=== PATIENT | male | born 1965 | race Caucasian/White ===

== ENCOUNTER → 2017-05-10 11:43 | Outpatient (REF) | payer OTHER, SELFPAY ==
[2017-05-10 13:40] LABS: Microscopic, Urine URINE MICROSCOPIC (MICROSCOPIC)
[2017-05-10 13:48] LABS: Appearance,Urine CLEAR (Clear); Bilirubin,Urine Negative (Negative); Blood, Urine Negative (Negative); Color,Urine YELLOW (Yellow); Glucose,Urine (UA) Negative (Negative); Ketones,Urine Negative (Negative); Leukocyte Esterase,Urine Negative (Negative); Nitrate,Urine Negative (Negative); Protein,Urine Negative (Negative); Urobilinogen,Urine 0.2 EU/dl (0.2)
[2017-05-10 14:14] LABS: Bacteria,Urine Trace /lpf; Squamous Epithelial Cell,Urine Occasional #/hpf (0-5)
== END ==
LOC: LAB 11:43
PROVIDERS: Visit Provider Emergency Medicine
DX: R35.0 Frequency of micturition (principal)
CPT/HCPCS: 81001

== ENCOUNTER 2017-06-30 09:30 | Outpatient (RCR) | payer OTHER, SELFPAY | END 2017-07-26 16:51 | disposition home or self-care (01) | LOC: PT 09:30 | PROVIDERS: Family Provider Emergency Medicine; PCP Emergency Medicine; Visit Provider Emergency Medicine | DX: M54.9 Dorsalgia, unspecified (principal) | CPT/HCPCS: 97012; 97014; 97035; 97110; 97140; G0283 ==

== ENCOUNTER → 2017-07-21 11:56 | Outpatient (CLI) | payer OTHER, SELFPAY ==
[2017-07-21 15:11] LABS: Anion Gap 10.4 mEq/L (5-15); Blood Urea Nitrogen 13 mg/dL (7-18); Carbon Dioxide 28 mmol/L (21.0-32.0); Chloride 102 mmol/L (98-107); Creatinine,Serum 0.87 mg/dL (0.70-1.30); Estimated Glomerular Filt Rate 92 ml/min (>60); GFR (African American) 111 ML/MIN (>60); Glucose 286 mg/dL (74-106); Potassium 4.4 mmoL/L (3.5-5.1); Sodium 136 mmol/L (136-145)
== END ==
PROVIDERS: Visit Provider Emergency Medicine
DX: R60.0 Localized edema (principal)
CPT/HCPCS: 80048

== ENCOUNTER 2017-12-25 02:23 | Observation (INO) ==
[2017-12-25 03:53] LABS: Basophils # 0.1 K/mm3 (0-0.2); Basophils % 0.5 % (0.1-2.0); Eosinophils # 0.2 K/mm3 (0.0-0.4); Eosinophils % 1.1 % (0.1-12.0); Hematocrit 51.6 % (42.0-52.0); Hemoglobin 16.5 g/dL (14.1-18.0); Lymphocytes % 22.9 K/mm3 (10-50); Mean Corpuscular Hemoglobin 30.3 pg (27.0-31.2); Mean Corpuscular Volume 94.7 fl (80-94); Mean Platelet Volume 11.3 fl (7.4-10.4); Monocytes # 1.1 K/mm3 (0.1-1.0); Monocytes % 8.3 % (1.7-9.3); Neutrophils # 8.9 K/mm3 (1.8-7.8); Neutrophils % 67.2 % (37.0-80.0); Platelet Count 144 K/mm3 (142-424); Red Blood Count 5.44 M/mm3 (4.60-6.20); White Blood Count 13.2 K/mm3 (4.8-10.8)
[2017-12-25 04:07] LABS: Albumin Level 2.8 gm/dL (3.4-5.0); Albumin/Globulin Ratio 0.6 (1.1-1.8); Anion Gap 13.5 mEq/L (5-15); Bilirubin,Total 0.6 mg/dL (0.2-1.0); Calcium 8.8 mg/dL (8.5-10.1); Potassium 5.5 mmoL/L (3.5-5.1); Total Protein,Serum 7.8 gm/dL (6.4-8.2)
[2017-12-25 04:18] LABS: INR 0.95 (0.9-1.1); Prothrombin Time 9.8 seconds (9.4-11.8)
--- NOTE | 2017-12-25 04:56 | Emergency Department Note ---
ED Disposition Clinical Impression: IDDM (insulin dependent diabetes mellitus), Overweight, Tobacco use Cellulitis Qualifiers: Site of cellulitis: extremity Site of cellulitis of extremity: lower extremity Laterality: right Qualified Code(s): L03.115 - Cellulitis of right lower limb Disposition: Admitted as Observation Condition on Discharge: Good Referrals: Prateek Leary MD [Primary Care Provider] - - Critical Care Critical Care Time: No Attestation: On 12/25/17, the high probability of a clinically significant, sudden or life threatening deterioration of the following system(s) required my full and direct attention, intervention and personal management. The time I documented below is in addition to time spent performing reported procedures but includes the fo llowing listed in this critical care notation. Medical Decision Making - Medical Records Medical records reviewed: Yes: I reviewed the patient's medical records. - [place] Inquiry Pt receiving controlled substance: No Vital Signs: 12/25/17 02:28 Temperature 98.6 F Temperature Source Oral Pulse Rate [Right Radial] 69 Respiratory Rate 20 Blood Pressure [Right Arm] 156/84 Blood Pressure Mean [Right Arm] 108 02 Sat by Pulse Oximetry 97 - Lab Data Lab results reviewed: Yes: I reviewed the patient's lab results. Lab Results 12/25/17 03:18: WBC 13.2 H, RBC 5.44, Hgb 16.5, Hct 51.6, MCV 94.7 H, MCH 30.3, MCHC 32.0, RDW 13.0, Plt Count 144, MPV 11.3 H, Neut % (Auto) 67.2, Lymph % (Auto) 22.9, [place] % (Auto) 8.3, Eos % (Auto) 1.1, Baso % (Auto) 0.5, Neut # (Auto) 8.9 H, Lymph # (Auto) 3.0, [place] # (Auto) 1.1 H, Eos # (Auto) 0.2, Baso # (Auto) 0.1 12/25/17 03:18: Sodium 130 L, Potassium 5.5 H, Chloride 97 L, Carbon Dioxide 25, Anion Gap 13.5, BUN 18, Creatinine 1.02, Estimated Creat Clear 143, Estimated GFR 76, Est GFR ( Amer) 92, Glucose 481 H*, Calcium 8.8, Total Bilirubin 0.6, AST 30, ALT 65, Alkaline Phosphatase 97, Total Protein 7.8, Albumin 2.8 L, Globulin 5.0 H, Albumin/Globulin Ratio 0.6 L 12/25/17 03:18: Lactate 1.1 12/25/17 03:18: PT 9.8, INR 0.95 Result diagrams: 12/25/17 03:18 12/25/17 03:18 Orders (Tests/Meds): ED MEDICATIONS Discontinued Medications Generic Name Dose Route Start Last Admin Trade Name Mayi PRN Reason Stop Dose Admin Ceftriaxone Sodium 1 gm 12/25/17 05:11 12/25/17 05:17 Rocephin 1gm Vial IV 12/25/17 05:12 1 gm ONCE ONE Administration Protocol Sodium Chloride 1,000 mls @ 999 mls/hr 12/25/17 02:45 12/25/17 03:17 Sod Chlor 0.9% 1000ml Bag IV 12/25/17 03:45 999 mls/hr .Q1H1M MAY Administration Sodium Chloride 1,000 mls @ 999 mls/hr 12/25/17 04:15 12/25/17 05:27 Sod Chlor 0.9% 1000ml Bag IV 12/25/17 05:15 Not Given .Q1H1M MAY Insulin Human Regular 5 unit 12/25/17 05:23 12/25/17 05:26 Humulin R Insulin 100 Units/Ml 10ml Vial IVP 12/25/17 05:24 5 unit ONCE ONE Administration Ketorolac Tromethamine 30 mg 12/25/17 02:42 12/25/17 03:17 Toradol 30mg/Ml Vial IV 12/25/17 02:43 30 mg ONCE ONE Administration ORDERS Category Date Time Status Blood Culture Stat Micro 12/25/17 03:18 Ordered - Radiology Data #1 Image(s): Tib/Fib, Foot/Toes Image Reviewed: Yes I reviewed the patient's radiology image Preliminary Findings: No Fracture Seen - US Data US Images: Lower Extremity ED US Reviewed: Yes: I have viewed radiologist's interpretation Findings Narrative: no dvt Skin/Abscess/FB HPI - General Chief complaint: Extremity Injury, Lower Stated complaint: Right leg swollen,red,hot Time Seen by Provider: 12/25/17 03:00 Mode of Arrival: Family Vehicle Source of Information: Patient, Medical Record Limitations: No Limitations Description of Symptoms (Recalled from ER Triage Doc. by RN): pt c/o right lower extremity pain, redness and swelling. pt seen by physician and put on antibiotics on . pt states he is scheduled for a ultrasound today 929. pt states the pain and swelling of his right lower leg is getting worse and he could not wait til later his morning to be seen. pt states he had a blood clot in his right upper arm 1 month ago and was put on xarelto. pt states he has not missed any doses of his medicines. - History of Present Illness HPI narrative: pt with reddness and swelling rt lower ext since last and was seen by another pcp and placed on septra ds and continued xaraleto- he reports continued to have reddness and swelling despite abx - MD complaint: rash Onset (ago): day(s) Tetanus up to date: unsure Location: RLE Severity: moderate Associated symptoms: denies other symptoms Treatments prior to arrival: antibiotic - Related Data Home Medications Medication Instructions Recorded Confirmed aspirin 81 mg tablet,delayed 81 mg PO QDAY 05/09/17 12/25/17 release citalopram 20 mg tablet 20 mg PO QDAY 05/09/17 12/25/17 rivaroxaban 15 mg (42)-20 mg (9) 1 tab PO BID tab 11/22/17 12/25/17 tablets in a starter pack Atorvastatin Calcium [Atorvastatin 10 mg PO QHS 12/25/17 12/25/17 10mg Tab] Buprenorphine HCl/Naloxone HCl 2 tab PO DAILY 12/25/17 12/25/17 [Buprenorphin-Naloxon 8-2 mg Sl] Cyclobenzaprine HCl 10 mg PO QHS 12/25/17 12/25/17 [Cyclobenzaprine 10mg Tab] Furosemide [Furosemide 80mg Tab] 80 mg PO QAM 12/25/17 12/25/17 Gabapentin [Neurontin 600mg 600 mg PO TID 12/25/17 12/25/17 tablet] Insulin NPH Hum/Reg Insulin Hm 45 unit SUB-Q BID 12/25/17 12/25/17 [Relion Novolin 70-30 Vial] Lisinopril [Lisinopril 40mg Tablet] 40 mg PO QDAY 12/25/17 12/25/17 Metformin HCl [Glucophage] 500 mg PO BID 12/25/17 12/25/17 Metoprolol Tartrate [Lopressor 25 mg PO BID 12/25/17 12/25/17 25mg tablet] Sulfamethoxazole/Trimethoprim 1 each PO BID 12/25/17 12/25/17 [Bactrim DS tablet] Allergies Allergy/AdvReac Type Severity Reaction Status Date / Time morphine [MORPHINE] Allergy Unknown I-HIVES Verified 12/25/17 02:34 [facility] History I have reviewed the patient's past medical history: Yes Medical History: Reports:: Anxiety, Congestive Heart Failure, Coronary Artery Disease, Diabetes Mellitus Type 2, Gastroesophageal Reflux Disease(GERD), Hyperlipidemia, Hypertension, Myocardial Infarction Denies:: Cancer, Diabetes Mellitus Type 1, MRSA Other Medical History: Reports: Anemia, Arthritis Comment: neuropathy Laterality Cases: Right: ACL Repair Other Surgeries: Yes: Angioplasty, Hernia Repair, Other Amputation: No Fractures: Yes Comment: RT Ankle,RT wrist,RT arm - Social History Smoking Status: Current every day smoker Tobacco Type: cigarettes # Packs/Day (cigarettes): 2 #Yrs smoked (if former smoker): 30 Alcohol Intake: never Alcohol Intake Frequency:: other Substance Use Type: opiates Occupational Status: employed Housing: house Household Members: spouse - Psychiatric History Expresses thoughts of harming self/others: None Suicide Plan Description: No Plan Pschychiatric History:: Reports:: Anxiety Family Hx:: Diabetes, Coronary Artery Disease, Hypertension, Hyperlipidemia, Cancer ROS Obtained: Yes All systems reviewed & no additional complaints - Constitutional Constitutional: Denies fever(s) - Eyes Eyes: Denies change in vision - ENT Ears, Nose, Mouth, and Throat: Denies sore throat - Cardiovascular Cardiovascular: Denies chest pain - Respiratory Respiratory: No cough - Gastrointestinal Gastrointestingal: Denies: abdominal pain - Genitourinary Male Genitourinary: Denies hematuria - Musculoskeletal Musculoskeletal: Reports as per HPI, Denies joint pain - Integumentary/Breasts Skin/Breast: Denies rash - Neurologic Neurologic: Denies seizure-like activity Physical Exam - General General appearance: alert, in no apparent distress - Head Head exam: normocephalic - Eye Eye exam: Present: PERRL, EOMI - ENT ENT exam: Present: mucous membranes dry - Neck Neck exam: Present: trachea midline - Respiratory Respiratory exam: Present: normal lung sounds bilaterally. Absent: respiratory distress - Cardiovascular Cardiovascular exam: Present: regular rate, systolic murmur - Abdominal Exam Abdominal exam: Present: soft - Extremities Exam Extremities exam: Present: tenderness, calf tenderness - Expanded Lower Extremity Exam Right Lower leg exam: Present: tenderness, swelling, erythema, Homans' sign - Neurological Exam Neurological exam: Present: alert, CN II-XII intact - Psychiatric Psychiatric exam: Present: normal affect - Skin Skin exam: Present: other (reddness rt lower ext )
--- NOTE | 2017-12-25 07:47 | Pharmacy Consult Notes ---
- Pharmacy Consult Date: 12/25/17 Time: 07:46 Referring provider: DR. CONDE Reason for Consult:: VANCOMYCIN DOSING Allergies and ADEs:: Allergies Allergy/AdvReac Type Severity Reaction Status Date / Time morphine [MORPHINE] Allergy Unknown I-HIVES Verified 12/25/17 02:34 Home Medications:: Home Medications Medication Instructions Recorded Confirmed Type aspirin 81 mg tablet,delayed 81 mg PO QDAY 05/09/17 12/25/17 History release citalopram 20 mg tablet 20 mg PO QDAY 05/09/17 12/25/17 History rivaroxaban 15 mg (42)-20 mg (9) 1 tab PO BID tab 11/22/17 12/25/17 History tablets in a starter pack Atorvastatin Calcium [Atorvastatin 10 mg PO QHS 12/25/17 12/25/17 History 10mg Tab] Buprenorphine HCl/Naloxone HCl 2 tab PO DAILY 12/25/17 12/25/17 History [Buprenorphin-Naloxon 8-2 mg Sl] Cyclobenzaprine HCl 10 mg PO QHS 12/25/17 12/25/17 History [Cyclobenzaprine 10mg Tab] Furosemide [Furosemide 80mg Tab] 80 mg PO QAM 12/25/17 12/25/17 History Gabapentin [Neurontin 600mg 600 mg PO TID 12/25/17 12/25/17 History tablet] Insulin NPH Hum/Reg Insulin Hm 45 unit SUB-Q BID 12/25/17 12/25/17 History [Relion Novolin 70-30 Vial] Lisinopril [Lisinopril 40mg Tablet] 40 mg PO QDAY 12/25/17 12/25/17 History Metformin HCl [Glucophage] 500 mg PO BID 12/25/17 12/25/17 History Metoprolol Tartrate [Lopressor 25 mg PO BID 12/25/17 12/25/17 History 25mg tablet] Sulfamethoxazole/Trimethoprim 1 each PO BID 12/25/17 12/25/17 History [Bactrim DS tablet] Height: 1.85 m Weight: 120.656 kg Laboratory Results:: Laboratory Results - last 24 hr 12/25/17 03:18: WBC 13.2 H, RBC 5.44, Hgb 16.5, Hct 51.6, MCV 94.7 H, MCH 30.3, MCHC 32.0, RDW 13.0, Plt Count 144, MPV 11.3 H, Neut % (Auto) 67.2, Lymph % (Auto) 22.9, [place] % (Auto) 8.3, Eos % (Auto) 1.1, Baso % (Auto) 0.5, Neut # (Auto) 8.9 H, Lymph # (Auto) 3.0, [place] # (Auto) 1.1 H, Eos # (Auto) 0.2, Baso # (Auto) 0.1 12/25/17 03:18: Sodium 130 L, Potassium 5.5 H, Chloride 97 L, Carbon Dioxide 25, Anion Gap 13.5, BUN 18, Creatinine 1.02, Estimated Creat Clear 143, Estimated GFR 76, Est GFR ( Amer) 92, Glucose 481 H*, Calcium 8.8, Total Bilirubin 0.6, AST 30, ALT 65, Alkaline Phosphatase 97, Total Protein 7.8, Albumin 2.8 L, Globulin 5.0 H, Albumin/Globulin Ratio 0.6 L 12/25/17 03:18: Lactate 1.1 12/25/17 03:18: PT 9.8, INR 0.95 Medical History: Reports:: Anxiety, Congestive Heart Failure, Coronary Artery Disease, Diabetes Mellitus Type 2, Gastroesophageal Reflux Disease(GERD), Hyperlipidemia, Hypertension, Myocardial Infarction Denies:: Cancer, Diabetes Mellitus Type 1, MRSA Assessment and Plan - Assessment and plan all Dx Assessment and Plan for all problems:: BASED ON PATIENT FACTORS, RECOMMEND INITIATING VANCOMYCIN IV AT 2,500MG EVERY 12 HOURS. PHARMACY WILL OBTAIN TROUGH LEVEL PRIOR TO FOURTH DOSE AND ADJUST APPROPRIATE. -LULU PALOMINO PHARMD
--- NOTE | 2017-12-25 08:28 | Non-Invasive Vascular Report ---
"Venous Exam Indications: 729.5 Pain in limb. IMPRESSIONS 1. There is no evidence of significant Reflux. 2. No evidence of deep or superficial vein thrombosis involving the right lower extremity Right lower extremity venous duplex evaluation. Doppler flow study including spectral analysis, color and barnes scale imaging. Location: Vascular laboratory. Patient status: Emergency department. Tables: Venous flow and imaging: + +-------+ + + |Location |Overall|Flow properties |Comments | + +-------+ + + |Right common femoral |Patent |Normal phasicity; | | | | |spontaneous; normal | | | | |augmentation; | | | | |compressible | | + +-------+ + + |Right saphenofemoral |Patent |Compressible | | |junction | | | | + +-------+ + + |Right profunda femoral |Patent |Compressible | | + +-------+ + + |Right femoral |Patent |Normal phasicity; | | | | |spontaneous; normal | | | | |augmentation; | | | | |compressible | | + +-------+ + + |Right greater saphenous |Patent |Normal phasicity; | | | | |spontaneous; normal | | | | |augmentation; | | | | |compressible | | + +-------+ + + |Right popliteal |Patent |Normal phasicity; | | | | |spontaneous; normal | | | | |augmentation; | | | | |compressible | | + +-------+ + + |Right posterior tibial |Patent |Compressible |Limited images| + +-------+ + + |Right peroneal |Patent |Compressible |Limited images| + +-------+ + + |Right gastrocnemius |Patent |Compressible | | + +-------+ + + |Right soleal |Patent |Compressible | | + +-------+ + + (Report amended ) Electronically signed by: John Lazaro [id number]"
--- NOTE | 2017-12-25 08:45 | Pharmacy Consult Notes ---
[facility] Pharmacy VTE Monitoring - Patient Demographics Admission date: 12/25/17 Report Date: 12/25/17 Time: 08:44 Allergies/Adverse Reactions: Patient Allergies morphine [MORPHINE] Allergy (Unknown, Verified 12/25/17 02:34) I-HIVES Height: 1.85 m Weight: 120.656 kg Patient Problems: Current Active Problems Cellulitis (Acute) IDDM (insulin dependent diabetes mellitus) (Acute) Tobacco use (Acute) Overweight (Acute) - VTE Risk Labs: VTE Related Lab Results Hgb 16.5 g/dL (14.1-18.0) 12/25/17 03:18 Hct 51.6 % (42.0-52.0) 12/25/17 03:18 Plt Count 144 K/mm3 (142-424) 12/25/17 03:18 PT 9.8 seconds (9.4-11.8) 12/25/17 03:18 INR 0.95 (0.9-1.1) 12/25/17 03:18 BUN 18 mg/dL (7-18) 12/25/17 03:18 Creatinine 1.02 mg/dL (0.70-1.30) 12/25/17 03:18 Estimated Creat Clear 143 mL/min (0-300) 12/25/17 03:18 - Prophylaxis VTE Prophylaxis Ordered?: Yes Types of VTE Prophylaxis: Pharmacological Pharmacologic Type: Other (XARELTO) - VTE Diagnosis Confirmed Treatment or plan recommended: Continue Current Treatment
--- NOTE | 2017-12-25 08:49 | History & Physical Report ---
*Admission Date: 12/25/17 *Chief complaint: swollen leg *History of present illness: this wm who has progressive swollen rt lower leg over the last few days - he was seen by provider and placed on abx but has continued to have sx which have increased and presented to ed - neg doppler and was placed on iv abx [facility] History I have reviewed the patient's past medical history: Yes Medical History: Reports:: Anxiety, Congestive Heart Failure, Coronary Artery Disease, Diabetes Mellitus Type 2, Gastroesophageal Reflux Disease(GERD), Hyperlipidemia, Hypertension, Myocardial Infarction Denies:: Cancer, Diabetes Mellitus Type 1, MRSA Other Medical History: Reports: Anemia, Arthritis Laterality Cases: Right: ACL Repair Other Surgeries: Yes: Angioplasty, Hernia Repair, Other Amputation: No Fractures: Yes - *Social History Smoking Status: Current every day smoker Tobacco Type: cigarettes # Packs/Day (cigarettes): 2 #Yrs smoked (if former smoker): 30 Alcohol Intake: never Alcohol Intake Frequency:: other Substance Use Type: opiates Occupational Status: employed Housing: house Household Members: spouse - Psychiatric History Expresses thoughts of harming self/others: None Suicide Plan Description: No Plan Pschychiatric History:: Reports:: Anxiety *Family Hx:: Diabetes, Coronary Artery Disease, Hypertension, Hyperlipidemia, Cancer Review of Systems - Review of Systems Review of systems:: pertinent systems reviewed and negative unless documented below - Constitutional Denies fever(s) - Eyes Denies change in vision - ENT Denies neck pain - *Cardiovascular Denies chest pain - *Respiratory Denies cough - *Gastrointestinal Denies abdominal pain - *Genitourinary Denies blood in urine - *Musculoskeletal Denies joint pain - Integumentary/Breasts Reports other (reddness lower ext ), Denies rash - *Neurologic Denies seizure-like activity - Psychiatric Denies anxiety Meds Home Medications Medication Instructions Recorded Confirmed Type Atorvastatin Calcium [Atorvastatin 10 mg PO HS 12/25/17 12/25/17 History 10mg Tab] Buprenorphine HCl/Naloxone HCl 2 tab SL DAILY 12/25/17 12/25/17 History [Buprenorphin-Naloxon 8-2 mg Sl] Furosemide [Furosemide 80mg Tab] 80 mg PO DAILYP PRN 12/25/17 12/25/17 History Gabapentin [Neurontin 600mg 600 mg PO TID 12/25/17 12/25/17 History tablet] Insulin NPH Hum/Reg Insulin Hm 45 unit SQ BID 12/25/17 12/25/17 History [Relion Novolin 70-30 Vial] Lisinopril [Lisinopril 40mg Tablet] 40 mg PO DAILY 12/25/17 12/25/17 History Metformin HCl [Glucophage] 500 mg PO BID 12/25/17 12/25/17 History Metoprolol Tartrate [Lopressor 25 mg PO BID 12/25/17 12/25/17 History 25mg tablet] Rivaroxaban [Xarelto 20mg Tablet] 20 mg PO DAILY 12/25/17 12/25/17 History Sulfamethoxazole/Trimethoprim 1 each PO BID 12/25/17 12/25/17 History [Bactrim DS tablet] Allergies Allergy/AdvReac Type Severity Reaction Status Date / Time morphine [MORPHINE] Allergy Unknown I-HIVES Verified 12/25/17 02:34 Exam Vital signs and Labs for Last 24 Hours: Temp Pulse Resp BP Pulse Ox 98.2 F 72 19 149/80 97 12/25/17 08:00 12/25/17 08:00 12/25/17 08:00 12/25/17 08:00 12/25/17 02:28 Laboratory Results - last 24 hr 12/25/17 03:18: WBC 13.2 H, RBC 5.44, Hgb 16.5, Hct 51.6, MCV 94.7 H, MCH 30.3, MCHC 32.0, RDW 13.0, Plt Count 144, MPV 11.3 H, Neut % (Auto) 67.2, Lymph % (Auto) 22.9, [place] % (Auto) 8.3, Eos % (Auto) 1.1, Baso % (Auto) 0.5, Neut # (Auto) 8.9 H, Lymph # (Auto) 3.0, [place] # (Auto) 1.1 H, Eos # (Auto) 0.2, Baso # (Auto) 0.1 12/25/17 03:18: Sodium 130 L, Potassium 5.5 H, Chloride 97 L, Carbon Dioxide 25, Anion Gap 13.5, BUN 18, Creatinine 1.02, Estimated Creat Clear 143, Estimated GFR 76, Est GFR ( Amer) 92, Glucose 481 H*, Calcium 8.8, Total Bilirubin 0.6, AST 30, ALT 65, Alkaline Phosphatase 97, Total Protein 7.8, Albumin 2.8 L, Globulin 5.0 H, Albumin/Globulin Ratio 0.6 L 12/25/17 03:18: Lactate 1.1 12/25/17 03:18: PT 9.8, INR 0.95 I & O for Last 24 hours: Intake & Output 12/22/17 12/23/17 12/24/17 12/25/17 11:59 11:59 11:59 11:59 Weight 266 lb - Constitutional no acute distress, obese - *Routine HEENT Exam Head: Present: normocephalic Eye: Present: EOMI, PERRL ENT: Present: mucous membranes dry - *Routine Neck Exam Present: supple. Absent: JVD - *Routine Respiratory Exam Present: CTA bilaterally - *Routine Cardiovascular Exam Present: RRR, murmur - *Routine Abdominal Exam Present: soft - *Routine Extremities Exam Comments: reddness rt lower ext most consistent with cellulitis - *Routine Skin Exam Present: intact - *Routine Neurological Exam Present: alert, oriented X3, CN II-XII intact - Routine Psychiatric Exam Present: normal affect Assessment and Plan (1) Cellulitis Current visit: Yes Status: Acute Qualifiers: Site of cellulitis: extremity Site of cellulitis of extremity: lower e xtremity Laterality: right Qualified Code(s): L03.115 - Cellulitis of right lower limb Category: Medical Code(s): L03.90 - Cellulitis, unspecified (2) IDDM (insulin dependent diabetes mellitus) Current visit: Yes Status: Acute Category: Medical Code(s): E11.9 - Type 2 diabetes mellitus without complications; Z79.4 - care home (current) use of insulin (3) Tobacco use Current visit: Yes Status: Acute Category: Social Hx Code(s): Z72.0 - Tobacco use (4) Overweight Current visit: Yes Status: Acute Category: Medical Code(s): E66.3 - Overweight
[2017-12-26 07:08] LABS: Basophils # 0.1 K/mm3 (0-0.2); Basophils % 0.7 % (0.1-2.0); Eosinophils # 0.2 K/mm3 (0.0-0.4); Eosinophils % 1.7 % (0.1-12.0); Hematocrit 49.7 % (42.0-52.0); Hemoglobin 16.4 g/dL (14.1-18.0); Lymphocytes # 3.8 K/mm3 (0.7-4.5); Lymphocytes % 30.2 K/mm3 (10-50); Mean Corpuscular Hemoglobin 30.8 pg (27.0-31.2); Mean Corpuscular Volume 93.2 fl (80-94); Mean Platelet Volume 11.9 fl (7.4-10.4); Monocytes # 1.1 K/mm3 (0.1-1.0); Monocytes % 8.5 % (1.7-9.3); Neutrophils # 7.3 K/mm3 (1.8-7.8); Neutrophils % 58.9 % (37.0-80.0); Platelet Count 137 K/mm3 (142-424); Red Blood Count 5.33 M/mm3 (4.60-6.20); Red Cell Distribution Width 12.9 % (11.5-17.5); White Blood Count 12.5 K/mm3 (4.8-10.8)
--- NOTE | 2017-12-26 13:12 | Discharge Summary ---
General - General Admission date:: 12/25/17 Discharge date: 12/26/17 HPI HPI: this wm who has progressive swollen rt lower leg over the last few days - he was seen by provider and placed on abx but has continued to have sx which have increased and presented to ed - neg doppler and was placed on iv abx Hospital Course Hospital Course: pt did well in hospital on iv vancomycin and rt lower leg looks better and he will have picc line and op abx for total of 10 days Objective Vital signs: Temp Pulse Resp BP Pulse Ox 97.4 F L 89 16 123/63 95 12/26/17 08:00 12/26/17 08:00 12/26/17 08:00 12/26/17 08:00 12/26/17 08:00 no acute distress, obese - *Routine HEENT Exam Head: Present: normocephalic Eye: Present: EOMI, PERRL ENT: Present: mucous membranes dry - *Routine Neck Exam Present: supple. Absent: JVD - *Routine Respiratory Exam Present: CTA bilaterally - *Routine Cardiovascular Exam Present: RRR - *Routine Abdominal Exam Present: soft - *Routine Extremities Exam Present: tenderness. Absent: calf tenderness Comments: changes in rt lower leg better and cellulitis improving - *Routine Skin Exam Present: erythema - *Routine Neurological Exam Present: alert, oriented X3, CN II-XII intact - Routine Psychiatric Exam Present: normal affect Results Labs on day of discharge: Labs from last 24 hours 12/26/17 12/26/17 12/26/17 11:56 06:06 05:47 WBC 12.5 H RBC 5.33 Hgb 16.4 Hct 49.7 MCV 93.2 MCH 30.8 MCHC 33.0 RDW 12.9 Plt Count 137 L MPV 11.9 H Neut % (Auto) 58.9 Lymph % (Auto) 30.2 Bates % (Auto) 8.5 Eos % (Auto) 1.7 Baso % (Auto) 0.7 Neut # (Auto) 7.3 Lymph # (Auto) 3.8 [place] # (Auto) 1.1 H Eos # (Auto) 0.2 Baso # (Auto) 0.1 POC Glucose 330 H* 390 H* 12/25/17 12/25/17 20:27 16:15 WBC RBC Hgb Hct MCV MCH MCHC RDW Plt Count MPV Neut % (Auto) Lymph % (Auto) [place] % (Auto) Eos % (Auto) Baso % (Auto) Neut # (Auto) Lymph # (Auto) [place] # (Auto) Eos # (Auto) Baso # (Auto) POC Glucose 343 H* 366 H* DS: Diagnosis - Discharge Diagnosis (1) Cellulitis Status: Acute (2) IDDM (insulin dependent diabetes mellitus) Status: Acute (3) Tobacco use Status: Acute (4) Overweight Status: Acute Discharge Plan - Patient Discharge Instructions ACTIVITY: Continue current activity DIET: continue same diet - Follow up Plan Disposition: Home, Self-Detention Medications: Home Medications Medication Instructions Recorded Confirmed Type Atorvastatin Calcium [Atorvastatin 10 mg PO HS 12/25/17 12/25/17 History 10mg Tab] Buprenorphine HCl/Naloxone HCl 2 tab SL DAILY 12/25/17 12/25/17 History [Buprenorphin-Naloxon 8-2 mg Sl] Furosemide [Furosemide 80mg Tab] 80 mg PO DAILYP PRN 12/25/17 12/25/17 History Gabapentin [Neurontin 600mg 600 mg PO TID 12/25/17 12/25/17 History tablet] Insulin NPH Hum/Reg Insulin Hm 45 unit SQ BID 12/25/17 12/25/17 History [Relion Novolin 70-30 Vial] Lisinopril [Lisinopril 40mg Tablet] 40 mg PO DAILY 12/25/17 12/25/17 History Metformin HCl [Glucophage] 500 mg PO BID 12/25/17 12/25/17 History Metoprolol Tartrate [Lopressor 25 mg PO BID 12/25/17 12/25/17 History 25mg tablet] Rivaroxaban [Xarelto 20mg Tablet] 20 mg PO DAILY 12/25/17 12/25/17 History Sulfamethoxazole/Trimethoprim 1 each PO BID 12/25/17 12/25/17 History [Bactrim DS tablet] Prescriptions/Medication Reconciliation: New Cyclobenzaprine HCl [Flexeril 10mg tablet] 10 mg PO HS tablet Rivaroxaban [Xarelto 10mg tablet] 20 mg PO DAILY tablet DAPTOmycin [Cubicin 500mg vial] 500 mg IV Q24H vial Citalopram Hydrobromide [Celexa 20mg Tablet] 20 mg PO DAILY tablet Continue Metoprolol Tartrate [Lopressor 25mg tablet] 25 mg PO BID Metformin HCl [Glucophage] 500 mg PO BID Lisinopril [Lisinopril 40mg Tablet] 40 mg PO DAILY Insulin NPH Hum/Reg Insulin Hm [Relion Novolin 70-30 Vial] 45 unit SQ BID Gabapentin [Neurontin 600mg tablet] 600 mg PO TID Furosemide [Furosemide 80mg Tab] 80 mg PO DAILYP PRN PRN Reason: fluid Atorvastatin Calcium [Atorvastatin 10mg Tab] 10 mg PO HS Rivaroxaban [Xarelto 20mg Tablet] 20 mg PO DAILY Buprenorphine HCl/Naloxone HCl [Buprenorphin-Naloxon 8-2 mg Sl] 2 tab SL DAILY Discontinued Sulfamethoxazole/Trimethoprim [Bactrim DS tablet] 1 each PO BID
[2017-12-26 16:06] LABS: Anion Gap 11.1 mEq/L (5-15); Calcium 8.3 mg/dL (8.5-10.1); Potassium 5.1 mmoL/L (3.5-5.1)
== END 2017-12-26 16:42 | disposition home or self-care (01) ==
LOC: ER 02:23 → 2ND 02:23
PROVIDERS: ADMIT Emergency Medicine; ATTEND Emergency Medicine

== ENCOUNTER 2017-12-27 14:00 | Outpatient (CLI) | payer OTHER, SELFPAY ==
[2017-12-27 14:23] VITALS: BP 103/58; PULSE 72; RESP 20; TEMP 36.3; O2SAT 95
[2017-12-27 14:53] VITALS: BP 110/55; PULSE 74; RESP 20; O2SAT 96
[2017-12-27 15:15] VITALS: BP 108/51; PULSE 76; RESP 20; O2SAT 96
== END 2017-12-27 15:20 | disposition home or self-care (01) ==
LOC: INF 14:00
PROVIDERS: Family Provider Emergency Medicine; PCP Emergency Medicine; Visit Provider Emergency Medicine
DX: L03.115 Cellulitis of right lower limb (principal)
CPT/HCPCS: 96365; J0878

== ENCOUNTER 2017-12-28 13:57 | Outpatient (CLI) | payer OTHER, SELFPAY ==
[2017-12-28 14:17] VITALS: BP 111/60; PULSE 67; RESP 18; TEMP 36.6; O2SAT 95
[2017-12-28 14:47] VITALS: BP 110/67; PULSE 69; RESP 18; O2SAT 96
== END 2017-12-28 15:00 | disposition home or self-care (01) ==
LOC: INF 13:57
PROVIDERS: Family Provider Emergency Medicine; PCP Emergency Medicine; Visit Provider Emergency Medicine
DX: L03.115 Cellulitis of right lower limb (principal)
CPT/HCPCS: 96365; J0878

== ENCOUNTER 2017-12-29 13:45 | Outpatient (CLI) | payer OTHER, SELFPAY ==
[2017-12-29 14:10] VITALS: BP 120/76; PULSE 72; RESP 18; TEMP 36.5; O2SAT 93
[2017-12-29 14:40] VITALS: BP 121/69; PULSE 67; RESP 18
== END 2017-12-29 15:00 | disposition home or self-care (01) ==
LOC: INF 13:54
PROVIDERS: Family Provider Emergency Medicine; PCP Emergency Medicine; Visit Provider Emergency Medicine
DX: L03.90 Cellulitis, unspecified (principal)
CPT/HCPCS: 96365; J0878

== ENCOUNTER → 2017-12-30 13:43 | Outpatient (CLI) | payer OTHER, SELFPAY ==
[2017-12-30 14:01] VITALS: BP 145/72; PULSE 73; RESP 16; TEMP 36.7; O2SAT 97; BMI 35.1
[2017-12-30 14:50] VITALS: BP 140/64; PULSE 66; RESP 16; TEMP 36.7; O2SAT 100
== END ==
PROVIDERS: Family Provider Emergency Medicine; PCP Emergency Medicine; Visit Provider Emergency Medicine
DX: L03.90 Cellulitis, unspecified (principal)
CPT/HCPCS: 96365; J0878

== ENCOUNTER 2018-01-01 14:05 | Outpatient (CLI) | payer OTHER, SELFPAY ==
[2018-01-01 14:15] VITALS: BP 119/65; PULSE 69; RESP 18; TEMP 36.7; O2SAT 97
[2018-01-01 14:45] VITALS: BP 121/62; PULSE 67; RESP 18; O2SAT 96
[2018-01-01 14:55] VITALS: BP 118/70; PULSE 65; RESP 18; O2SAT 97
== END 2018-01-01 15:10 | disposition home or self-care (01) ==
LOC: INF 14:16
PROVIDERS: PCP Emergency Medicine; Visit Provider Emergency Medicine
DX: L03.90 Cellulitis, unspecified (principal)
CPT/HCPCS: 96365; J0878

== ENCOUNTER → 2018-01-08 14:31 | Outpatient (CLI) | payer OTHER, SELFPAY ==
--- NOTE | 2018-01-08 15:42 | XR_ITS ---
XR chest portable PICC plac HISTORY: ITS.REASON: PICC line placement ORDERING PHYSICIAN: Prateek Leary MD PATIENT AGE: 52 years COMPARISON: None FINDINGS: Left upper extremity PICC line has been placed. The tip is in good position in the region of the superior vena cava. Unremarkable cardiovascular structures clear lungs. IMPRESSION: Left upper extremity PICC line in good position
[2018-01-08 16:30] VITALS: BP 110/74; PULSE 68; RESP 20; TEMP 36.9; O2SAT 95
[2018-01-08 17:10] VITALS: BP 108/74; PULSE 68; RESP 20; TEMP 36.9; O2SAT 96
== END ==
PROVIDERS: PCP Emergency Medicine; Visit Provider Emergency Medicine
DX: L03.115 Cellulitis of right lower limb
CPT/HCPCS: 36569; 71045; 96365; C1751; J0878

== ENCOUNTER 2018-01-10 12:53 | Outpatient (CLI) | payer OTHER, SELFPAY ==
[2018-01-10 13:05] VITALS: BP 124/67; PULSE 61; RESP 18; TEMP 36.3; O2SAT 94
[2018-01-10 13:35] VITALS: BP 147/76; PULSE 66; RESP 18
[2018-01-10 14:00] VITALS: BP 113/58; PULSE 55; RESP 18
== END 2018-01-10 14:00 | disposition home or self-care (01) ==
LOC: INF 12:53
PROVIDERS: Family Provider Emergency Medicine; PCP Emergency Medicine; Visit Provider Emergency Medicine
DX: L03.115 Cellulitis of right lower limb (principal)
CPT/HCPCS: 96365; J0878

== ENCOUNTER 2018-01-11 12:55 | Outpatient (CLI) | payer OTHER, SELFPAY ==
[2018-01-11 13:10] VITALS: BP 135/69; PULSE 57; RESP 18; TEMP 36.8; O2SAT 98
[2018-01-11 14:05] VITALS: BP 130/81; PULSE 62; RESP 18; TEMP 36.6; O2SAT 98
== END 2018-01-11 14:05 | disposition home or self-care (01) ==
LOC: INF 12:59
PROVIDERS: Family Provider Emergency Medicine; PCP Emergency Medicine; Visit Provider Emergency Medicine
DX: L03.115 Cellulitis of right lower limb (principal)
CPT/HCPCS: 96365; J0878

== ENCOUNTER 2018-01-12 12:48 | Outpatient (CLI) | payer OTHER, SELFPAY ==
[2018-01-12 13:15] VITALS: BP 131/68; PULSE 61; RESP 18; TEMP 36.6; O2SAT 96
[2018-01-12 14:00] VITALS: BP 122/52; PULSE 58; RESP 18; O2SAT 96
== END 2018-01-12 14:00 | disposition home or self-care (01) ==
LOC: INF 12:48
PROVIDERS: Visit Provider Emergency Medicine
DX: L03.115 Cellulitis of right lower limb (principal)
CPT/HCPCS: 96365; J0878

== ENCOUNTER → 2018-01-13 12:39 | Outpatient (CLI) | payer OTHER, SELFPAY ==
[2018-01-13 12:58] VITALS: BP 115/64; PULSE 67; RESP 18; TEMP 36.2; O2SAT 98; BMI 35.2
[2018-01-13 13:45] VITALS: BP 116/65; PULSE 60; RESP 18; TEMP 36.2; O2SAT 98
== END ==
PROVIDERS: Family Provider Emergency Medicine; PCP Emergency Medicine; Visit Provider Emergency Medicine
DX: L03.115 Cellulitis of right lower limb (principal)
CPT/HCPCS: 96365; J0878

== ENCOUNTER → 2018-01-14 12:38 | Outpatient (CLI) | payer OTHER, SELFPAY ==
[2018-01-14 12:55] VITALS: BP 146/68; PULSE 65; RESP 18; TEMP 37; O2SAT 98
[2018-01-14 13:23] VITALS: BP 128/77; PULSE 64; RESP 16; TEMP 36.9; O2SAT 98
== END ==
PROVIDERS: Family Provider Emergency Medicine; PCP Emergency Medicine; Visit Provider Emergency Medicine
DX: L03.115 Cellulitis of right lower limb (principal)
CPT/HCPCS: 96365; J0878

== ENCOUNTER 2018-01-15 12:50 | Outpatient (CLI) | payer OTHER, SELFPAY ==
[2018-01-15 13:30] VITALS: BP 111/62; PULSE 68; RESP 20; TEMP 36.9; O2SAT 96
[2018-01-15 14:00] VITALS: BP 112/65; PULSE 68; RESP 20; TEMP 36.9; O2SAT 96
== END 2018-01-15 14:00 | disposition home or self-care (01) ==
LOC: INF 12:51
PROVIDERS: Family Provider Emergency Medicine; PCP Emergency Medicine; Visit Provider Emergency Medicine
DX: L03.115 Cellulitis of right lower limb (principal)
CPT/HCPCS: 96365; J0878

== ENCOUNTER 2018-01-16 13:20 | Outpatient (CLI) | payer OTHER, SELFPAY ==
[2018-01-16 13:40] VITALS: BP 148/91; PULSE 66; RESP 18; TEMP 36.8; O2SAT 95
[2018-01-16 14:45] VITALS: BP 132/63; PULSE 57; RESP 18
== END 2018-01-16 14:45 | disposition home or self-care (01) ==
LOC: INF 13:20
PROVIDERS: Family Provider Emergency Medicine; PCP Emergency Medicine; Visit Provider Emergency Medicine
DX: L03.115 Cellulitis of right lower limb (principal)
CPT/HCPCS: 96365; J0878

== ENCOUNTER 2018-01-17 12:54 | Outpatient (CLI) | payer OTHER, SELFPAY ==
[2018-01-17 13:36] VITALS: BP 146/80; PULSE 72; RESP 18; TEMP 36.8; O2SAT 97
[2018-01-17 14:06] VITALS: BP 141/82; PULSE 79; RESP 18; O2SAT 96
[2018-01-17 14:25] VITALS: BP 144/78; PULSE 77; RESP 18; O2SAT 97
== END 2018-01-17 14:30 | disposition home or self-care (01) ==
LOC: INF 12:54
PROVIDERS: Visit Provider Emergency Medicine
DX: L03.115 Cellulitis of right lower limb (principal)
CPT/HCPCS: 96365; J0878

== ENCOUNTER 2018-01-18 12:45 | Outpatient (CLI) | payer OTHER, SELFPAY ==
[2018-01-18 13:00] VITALS: BP 147/79; PULSE 76; RESP 18; TEMP 36.7; O2SAT 97
[2018-01-18 13:55] VITALS: BP 154/86; PULSE 64; RESP 18; TEMP 36.7; O2SAT 97
== END 2018-01-18 14:00 | disposition home or self-care (01) ==
LOC: INF 12:51
PROVIDERS: Family Provider Emergency Medicine; PCP Emergency Medicine; Visit Provider Emergency Medicine
DX: L03.115 Cellulitis of right lower limb (principal)
CPT/HCPCS: 96365; J0878

== ENCOUNTER 2018-01-24 15:10 | Outpatient (CLI) | payer OTHER, SELFPAY | END 2018-01-24 15:20 | disposition home or self-care (01) | LOC: INF 15:15 | PROVIDERS: Family Provider Emergency Medicine; PCP Emergency Medicine; Visit Provider Emergency Medicine | DX: Z45.2 Encounter for adjustment and management of vascular access device (principal) | CPT/HCPCS: G0463 ==

== ENCOUNTER 2018-09-15 20:21 | Observation (INO) ==
[2018-09-15 21:27] LABS: Basophils # 0.1 K/mm3 (0-0.2); Basophils % 0.7 % (0.1-2.0); Eosinophils # 0.3 K/mm3 (0.0-0.4); Eosinophils % 2.2 % (0.1-12.0); Hematocrit 44.1 % (42.0-52.0); Hemoglobin 14.4 g/dL (14.1-18.0); Lymphocytes # 3.3 K/mm3 (0.7-4.5); Lymphocytes % 29.7 % (10-50); Mean Corpuscular HGB Conc 32.5 g/dL (31.8-35.4); Mean Corpuscular Hemoglobin 28.9 pg (27.0-31.2); Mean Corpuscular Volume 88.7 fl (80-94); Monocytes # 1.1 K/mm3 (0.1-1.0); Monocytes % 9.8 % (1.7-9.3); Neutrophils # 6.5 K/mm3 (1.8-7.8); Neutrophils % 57.7 % (37.0-80.0); Platelet Count 272 K/mm3 (142-424); Red Blood Count 4.98 M/mm3 (4.60-6.20); Red Cell Distribution Width 12.9 % (11.5-17.5); White Blood Count 11.3 K/mm3 (4.8-10.8)
--- NOTE | 2018-09-15 21:29 | Emergency Department Note ---
ED Disposition Clinical Impression: IDDM (insulin dependent diabetes mellitus), Tobacco use, Overweight Community acquired pneumonia Qualifiers: Laterality: left Lung location: lower lobe of lung Qualified Code(s): J18.1 - Lobar pneumonia, unspecified organism Hypertensive heart disease Qualifiers: Heart failure presence: unspecified whether heart failure present Qualified Co de(s): I11.9 - Hypertensive heart disease without heart failure Disposition: Admitted as Observation Condition on Discharge: Fair - Critical Care Critical Care Time: No Attestation: On 09/15/18, the high probability of a clinically significant, sudden or life threatening deterioration of the following system(s) required my full and direct attention, intervention and personal management. The time I documented below is in addition to time spent performing reported procedures but includes the following listed in this critical care notation. Medical Decision Making - Medical Records Medical records reviewed: Yes: I reviewed the patient's medical records. - [place] Inquiry Pt receiving controlled substance: No Vital Signs: 09/15/18 20:29 Temperature 97.8 F Temperature Source Oral Pulse Rate [Right] 103 H Respiratory Rate 24 Blood Pressure [Right Arm] 127/56 L Blood Pressure Mean [Right Arm] 79 02 Sat by Pulse Oximetry 94 L Oxygen Delivery Method Room Air - Lab Data Lab results reviewed: Yes: I reviewed the patient's lab results. Lab Results 09/15/18 21:05: Influenza Type A Ag Negative, Influenza Type B Ag Negative 09/15/18 21:15: WBC 11.3 H, RBC 4.98, Hgb 14.4, Hct 44.1, MCV 88.7, MCH 28.9, MCHC 32.5, RDW 12.9, Plt Count 272, MPV 9.0, Neut % (Auto) 57.7, Lymph % (Auto) 29.7, [place] % (Auto) 9.8 H, Eos % (Auto) 2.2, Baso % (Auto) 0.7, Neut # (Auto) 6.5, Lymph # (Auto) 3.3, [place] # (Auto) 1.1 H, Eos # (Auto) 0.3, Baso # (Auto) 0.1 09/15/18 21:15: Sodium 135 L, Potassium 5.1, Chloride 102, Carbon Dioxide 24, Anion Gap 14.1, BUN 8, Creatinine 0.76, Estimated Creat Clear 150, Estimated GFR 107, Est GFR ( Amer) 129, Glucose 216 H, Calcium 8.1 L, Total Bilirubin 0.3, AST 16, ALT 31, Alkaline Phosphatase 62, Troponin I < 0.02, C-Reactive Protein 2.9 H, Total Protein 6.9, Albumin 2.3 L, Globulin 4.6 H, Albumin/Globulin Ratio 0.5 L 09/15/18 21:15: Lactate 1.4 09/15/18 21:15: ESR 39 H Result diagrams: 09/15/18 21:15 09/15/18 21:15 Orders (Tests/Meds): ED MEDICATIONS Generic Name Dose Route Start Last Admin Trade Name Freq PRN Reason Stop Dose Admin Sodium Chloride 1,000 mls @ 999 mls/hr 09/15/18 20:45 09/15/18 21:24 Sod Chlor 0.9% 1000ml Bag IV 09/15/18 21:45 999 mls/hr .Q1H1M MAY Administration Azithromycin 500 mg/ Sodium 250 mls @ 250 mls/hr 09/15/18 22:15 Chloride IV 09/29/18 22:14 Q24H [facility] Protocol Ceftriaxone Sodium 1 gm/ 50 mls @ 100 mls/hr 09/15/18 22:15 Sodium Chloride IV 09/29/18 22:14 Q24H [facility] Protocol Sodium Chloride 3 ml 09/15/18 22:00 Sodium Chloride 3% 15ml [facility] 10/15/18 21:59 ONCE PRN INDUCE SPUTUM COLLECTION Discontinued Medications Generic Name Dose Route Start Last Admin Trade Name Freq PRN Reason Stop Dose Admin Albuterol/Ipratropium 3 ml 09/15/18 21:37 09/15/18 21:49 Duoneb 3ml [facility] 09/15/18 21:38 3 ml ONCE ONE Administration Ketorolac Tromethamine 30 mg 09/15/18 20:37 09/15/18 21:41 Toradol 30mg/Ml Vial IV 09/15/18 20:38 30 mg ONCE ONE Administration Methylprednisolone Sodium Succinate 125 mg 09/15/18 20:37 09/15/18 21:41 Solu-Medrol 125mg/2ml Vial IV 09/15/18 20:38 125 mg ONCE ONE Administration ORDERS Category Date Time Status XR chest 2V Stat Exams 09/15/18 20:34 Taken Blood Culture Stat Micro 09/15/18 20:34 Ordered Sputum Culture & Gram Stain Stat Micro 09/15/18 22:00 Ordered 12-lead EKG Request [ECG Request by /Salima] Stat Y 09/15/18 20:37 Ordered - Radiology Data #1 Image(s): Chest Image Reviewed: Yes I reviewed the patient's radiology image Preliminary Findings: Abnormal (lt lower lobe infl) - ECG Data Tracing #1 Normal Sinus Rhythm: Yes Ischemic changes: non-specific ST-T wave changes Resp/SOB HPI - General Chief Complaint: Shortness of Breath/Dyspnea Stated Complaint: Lungs hurting,cough,sharp left side Time Seen by Provider: 09/15/18 20:40 Mode of Arrival: Ambulatory Source of Information: Patient, Relative, Medical Record Limitations: No Limitations Description of Symptoms (Recalled from ER Triage Doc. by RN): Pt states he was taken to [facility] by police and admitted for PNA, pt states he was d/c monday and sent back to prison and got released and states the prison never gave him any of his medications that he was d/c with. pt states he not feeling better and C/O of chest congestion, fever, cough, and pain when he breathes in. 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 - he has iddm and recurrent dvt - he also has tob use Complaint: shortness of breath, cough Onset (ago): day(s) Context: recent illness Severity: moderate Known history of: diabetes Associated symptoms: cough Treatment prior to arrival: none - Related Data Home oxygen amount: none Home Medications Medication Instructions Recorded Confirmed Buprenorphine HCl/Naloxone HCl 2 tab SL DAILY 12/25/17 06/18/18 [Buprenorphin-Naloxon 8-2 mg Sl] Insulin NPH Hum/Reg Insulin Hm 45 unit SQ BID 12/25/17 06/18/18 [Relion Novolin 70-30 Vial] Previous Rx's Medication Instructions Recorded cyclobenzaprine 10 mg tablet 10 mg PO HS #90 tab 12/28/17 atorvastatin 10 mg tablet 10 mg PO HS #90 tab 03/31/18 citalopram 20 mg tablet 20 mg PO DAILY #90 tab 04/16/18 nitroglycerin 0.4 mg sublingual 0.4 mg SUBLINGUAL Q5-15M PRN #30 04/27/18 tablet tab lisinopril 40 mg tablet 40 mg PO DAILY #90 tab 05/30/18 clonazepam 0.5 mg tablet 0.5 mg PO BID #60 tab 06/18/18 escitalopram 10 mg tablet 10 mg PO DAILY #30 tab 06/18/18 furosemide 80 mg tablet 80 mg PO DAILYP PRN #90 tab 06/18/18 gabapentin 600 mg tablet 600 mg PO TID #90 tab 06/18/18 metformin 500 mg tablet 500 mg PO BID #180 tab 07/04/18 insulin syringe U-100 with needle See Dose Instructions .ROUTE 07/05/18 0.5 mL 31 gauge x 5/16" .MEDSUPPLY #100 each rivaroxaban 20 mg tablet 20 mg PO DAILY #90 tab 07/11/18 metoprolol tartrate 25 mg tablet 25 mg PO BID #180 tab 07/23/18 sildenafil (antihypertensive) 20 20 mg PO TID #20 tab 08/21/18 mg tablet Allergies Allergy/AdvReac Type Severity Reaction Status Date / Time morphine [MORPHINE] Allergy Unknown I-HIVES Verified 06/18/18 10:34 [facility] History - Hepatitis A Screen Drug use history?: No High risk sexual behaviors?: No History of sexually transmitted infection?: No Currently employed?: No Childcare worker?: No Do you have indoor plumbing?: Yes Do you have electricity?: Yes Attestation statement:: This patient has been screened for Hepatitis A risk factors. I have reviewed the patient's past medical history: Yes Medical History: Reports:: Anxiety, Congestive Heart Failure, Coronary Artery Disease, Depression, Diabetes Mellitus Type 2, Gastroesophageal Reflux Disease(GERD), Hyperlipidemia, Hypertension, Myocardial Infarction Denies:: Cancer, Diabetes Mellitus Type 1, MRSA Other Medical History: Reports: Anemia, Arthritis Comment: neuropathy Laterality Cases: Right: ACL Repair Other Surgeries: Yes: Angioplasty, Cholecystectomy, Hernia Repair, Other Amputation: No Fractures: No Comment: RT Ankle,RT wrist,RT arm - Social History Smoking Status: Current every day smoker Tobacco Type: cigarettes # Packs/Day (cigarettes): 1 #Yrs smoked (if former smoker): 30 Alcohol Intake: never Alcohol Intake Frequency:: other Substance Use Type: opiates, former substance user Occupational Status: employed Housing: house Household Members: spouse - Psychiatric History Expresses thoughts of harming self/others: None Suicide Plan Description: No Plan Pschychiatric History:: Reports:: Anxiety, Depression Family Hx:: Diabetes, Coronary Artery Disease, Hypertension, Hyperlipidemia, Cancer ROS Obtained: Yes All systems reviewed & no additional complaints - Constitutional Constitutional: Reports weakness - Eyes Eyes: Denies change in vision, Denies eye discharge - ENT Ears, Nose, Mouth, and Throat: Denies sore throat - Cardiovascular Cardiovascular: Denies chest pain, Reports dyspnea - Respiratory Respiratory: Yes as per HPI, Yes cough, Yes non-productive cough, No coughing up blood - Gastrointestinal Gastrointestingal: Denies: abdominal pain - Genitourinary Male Genitourinary: Denies hematuria - Musculoskeletal Musculoskeletal: Denies joint pain, Denies neck pain - Integumentary/Breasts Skin/Breast: Denies rash - Neurologic Neurologic: Denies seizure-like activity Physical Exam - General General appearance: alert - Head Head exam: normocephalic - Eye Eye exam: Present: PERRL, EOMI. Absent: scleral icterus - ENT ENT exam: Present: mucous membranes dry - Neck Neck exam: Present: trachea midline - Respiratory Respiratory exam: Present: other (dec bs on lt ). Absent: respiratory distress - Cardiovascular Cardiovascular exam: Present: regular rate, systolic murmur. Absent: rubs - Abdominal Exam Abdominal exam: Present: soft - Extremities Exam Extremities exam: Absent: calf tenderness - Neurological Exam Neurological exam: Present: alert, oriented X3, CN II-XII intact - Psychiatric Psychiatric exam: Present: normal affect - Skin Skin exam: Absent: rash
[2018-09-15 21:43] LABS: Alanine Aminotransferase 31 U/L (12-78); Albumin Level 2.3 gm/dL (3.4-5.0); Albumin/Globulin Ratio 0.5 (1.1-1.8); Alkaline Phosphatase 62 U/L (46-116); Anion Gap 14.1 mEq/L (5-15); Aspartate Amino Transferase 16 U/L (15-37); Bilirubin,Total 0.3 mg/dL (0.2-1.0); Blood Urea Nitrogen 8 mg/dL (7-18); C-Reactive Protein 2.9 mg/L (0.0-0.9); Calcium 8.1 mg/dL (8.5-10.1); Carbon Dioxide 24 mmol/L (21.0-32.0); Chloride 102 mmol/L (98-107); Globulin 4.6 gm/dl (1.3-3.2); Glucose 216 mg/dL (74-106); Potassium 5.1 mmoL/L (3.5-5.1); Sodium 135 mmol/L (136-145); Total Protein,Serum 6.9 gm/dL (6.4-8.2)
[2018-09-16 05:55] LABS: Anion Gap 14.9 mEq/L (5-15); Blood Urea Nitrogen 9 mg/dL (7-18); Calcium 8.1 mg/dL (8.5-10.1); Carbon Dioxide 23 mmol/L (21.0-32.0); Chloride 105 mmol/L (98-107); Glucose 225 mg/dL (74-106); Potassium 4.9 mmoL/L (3.5-5.1); Sodium 138 mmol/L (136-145)
--- NOTE | 2018-09-16 08:25 | History & Physical Report ---
*Admission Date: 09/15/18 *Chief complaint: sob *History of present illness: this wm who has iddm was incarcerated and taken to [facility] and found to have cap on lt and was admitted overnight - chart obtained and reviewed - pt was released and did not recieve meds in snf 2 days ago and presented to ed with sob and dec po intake and cough [facility] History I have reviewed the patient's past medical history: Yes Medical History: Reports:: Anxiety, Congestive Heart Failure, Coronary Artery Disease, Depression, Diabetes Mellitus Type 2, Gastroesophageal Reflux Disease(GERD), Hyperlipidemia, Hypertension, Myocardial Infarction Denies:: Cancer, Diabetes Mellitus Type 1, MRSA *Have you ever received a pneumonia vaccine?: No *Have you received a flu vaccine this season?: No Other Medical History: Reports: Anemia, Arthritis Laterality Cases: Right: ACL Repair Other Surgeries: Yes: Angioplasty, Cholecystectomy, Hernia Repair, Other Amputation: No Fractures: No - *Social History Educational Level: Attended High School Smoking Status: Current every day smoker Tobacco Type: cigarettes # Packs/Day (cigarettes): 1 #Yrs smoked (if former smoker): 30 Alcohol Intake: never Alcohol Intake Frequency:: other Substance Use Type: marijuana, heroin, opiates, IV drugs, methamphetamine Last Used Substance: days (ago) *Occupational Status:: employed Housing: house Household Members: spouse, family *Travel in the last 8 weeks: None - Psychiatric History Expresses thoughts of harming self/others: None Suicide Plan Description: No Plan Pschychiatric History:: Reports:: Anxiety, Depression Family Hx:: Diabetes, Coronary Artery Disease, Hypertension, Hyperlipidemia, Cancer Review of Systems - Review of Systems Review of systems:: pertinent systems reviewed and negative unless documented below - Constitutional Denies headache(s) - Eyes Denies change in vision - ENT Denies sore throat - *Cardiovascular Denies chest pain at rest - *Respiratory Reports cough, Reports shortness of breath with activity, Denies coughing up bl ood - *Gastrointestinal Denies abdominal pain - *Genitourinary Denies blood in urine - *Musculoskeletal Denies joint pain - Integumentary/Breasts Denies rash - *Neurologic Reports weakness, Denies seizure-like activity Meds Home Medications Medication Instructions Recorded Confirmed Type Insulin NPH Hum/Reg Insulin Hm 45 unit SQ BID 12/25/17 09/15/18 History [Relion Novolin 70-30 Vial] cyclobenzaprine 10 mg tablet 10 mg PO HS #90 tab 12/28/17 09/15/18 Rx atorvastatin 10 mg tablet 10 mg PO HS #90 tab 03/31/18 09/15/18 Rx nitroglycerin 0.4 mg sublingual 0.4 mg SUBLINGUAL Q5-15M PRN #30 04/27/18 09/15/18 Rx tablet tab lisinopril 40 mg tablet 40 mg PO DAILY #90 tab 05/30/18 09/15/18 Rx furosemide 80 mg tablet 80 mg PO DAILYP PRN #90 tab 06/18/18 09/15/18 Rx gabapentin 600 mg tablet 600 mg PO TID #90 tab 06/18/18 09/15/18 Rx metformin 500 mg tablet 500 mg PO BID #180 tab 07/04/18 09/15/18 Rx rivaroxaban 20 mg tablet 20 mg PO DAILY #90 tab 07/11/18 09/15/18 Rx metoprolol tartrate 25 mg tablet 25 mg PO BID #180 tab 07/23/18 09/15/18 Rx Escitalopram Oxalate 10 mg PO DAILY 09/15/18 09/15/18 History Sildenafil Citrate [Sildenafil] 20 mg PO TID 09/15/18 09/15/18 History Syringe-Needle,Insulin,0.5 ml 0 units .ROUTE .MEDSUPPLY 09/15/18 09/15/18 History [Litetouch Insulin Syringe] clonazePAM [Clonazepam] 0.5 mg PO BID 09/15/18 09/15/18 History Allergies Allergy/AdvReac Type Severity Reaction Status Date / Time morphine [MORPHINE] Allergy Unknown I-HIVES Verified 09/15/18 22:56 Exam Vital signs and Labs for Last 24 Hours: Temp Pulse Resp BP Pulse Ox 98.3 F 75 18 140/69 93 L 09/16/18 04:00 09/16/18 06:44 09/16/18 04:00 09/16/18 04:00 09/16/18 06:44 Laboratory Results - last 24 hr 09/15/18 21:05: Influenza Type A Ag Negative, Influenza Type B Ag Negative 09/15/18 21:15: WBC 11.3 H, RBC 4.98, Hgb 14.4, Hct 44.1, MCV 88.7, MCH 28.9, MCHC 32.5, RDW 12.9, Plt Count 272, MPV 9.0, Neut % (Auto) 57.7, Lymph % (Auto) 29.7, [place] % (Auto) 9.8 H, Eos % (Auto) 2.2, Baso % (Auto) 0.7, Neut # (Auto) 6.5, Lymph # (Auto) 3.3, [place] # (Auto) 1.1 H, Eos # (Auto) 0.3, Baso # (Auto) 0.1 09/15/18 21:15: Sodium 135 L, Potassium 5.1, Chloride 102, Carbon Dioxide 24, Anion Gap 14.1, BUN 8, Creatinine 0.76, Estimated Creat Clear 150, Estimated GFR 107, Est GFR ( Amer) 129, Glucose 216 H, Calcium 8.1 L, Total Bilirubin 0.3, AST 16, ALT 31, Alkaline Phosphatase 62, Troponin I < 0.02, C-Reactive Protein 2.9 H, Total Protein 6.9, Albumin 2.3 L, Globulin 4.6 H, Albumin/Globulin Ratio 0.5 L 09/15/18 21:15: Lactate 1.4 09/15/18 21:15: ESR 39 H 09/16/18 01:40: Troponin I < 0.02 09/16/18 04:45: Sodium 138, Potassium 4.9, Chloride 105, Carbon Dioxide 23, Anion Gap 14.9, BUN 9, Creatinine 0.84, Estimated Creat Clear 148, Estimated GFR 95, Est GFR ( Amer) 115, Glucose 225 H, Calcium 8.1 L, Magnesium 2.0, Troponin I < 0.02 09/16/18 06:15: POC Glucose 280 H 09/16/18 06:34: POC Glucose 207 H I & O for Last 24 hours: Intake & Output 09/13/18 09/14/18 09/15/18 09/16/18 11:59 11:59 11:59 11:59 Intake Total 750 / 750 Output Total 950 / 950 Balance -200 / -200 Weight 229 lb 6 oz Microbiology Reports for the Last 24 Hours: Microbiology 09/15/18 22:00 Sputum - Expectorated Sputum Gram Stain - Final - Constitutional no acute distress, obese - *Routine HEENT Exam Head: Present: normocephalic Eye: Present: EOMI, PERRL. Absent: conjunctival icterus ENT: Present: mucous membranes dry - *Routine Neck Exam Absent: JVD - *Routine Respiratory Exam Present: decreased breath sounds, rales - *Routine Cardiovascular Exam Present: RRR, murmur. Absent: rubs - *Routine Abdominal Exam Present: soft - *Routine Extremities Exam Absent: palpable cord - *Routine Skin Exam Present: intact - *Routine Neurological Exam Present: alert, oriented X3, CN II-XII intact - Routine Psychiatric Exam Present: normal affect Assessment and Plan (1) IDDM (insulin dependent diabetes mellitus) Current visit: Yes Status: Acute Category: Medical Code(s): E11.9 - Type 2 diabetes mellitus without complications; Z79.4 - long term (current) use of insulin (2) Community acquired pneumonia Current visit: Yes Status: Acute Qualifiers: Laterality: left Lung location: lower lobe of lung Qualified Code(s): J18.1 - Lobar pneumonia, unspecified organism Category: Medical Code(s): J18.9 - Pneumonia, unspecified organism (3) Obesity (BMI 30.0-34.9) Current visit: No Status: Acute Category: Medical Code(s): E66.9 - Obesity, unspecified (4) Neuropathy Current visit: No Status: Acute Category: Medical Code(s): G62.9 - Polyneuropathy, unspecified
--- NOTE | 2018-09-16 10:56 | Pharmacy Consult Notes ---
[facility] Pharmacy VTE Monitoring - Patient Demographics Admission date: 09/16/18 Report Date: 09/16/18 Time: 10:55 Allergies/Adverse Reactions: Patient Allergies morphine [MORPHINE] Allergy (Unknown, Verified 09/15/18 22:56) I-HIVES Height: 1.85 m Weight: 104.043 kg Patient Problems: Current Active Problems (Updated 09/16/18 @ 08:27 by Prateek Leary MD) Community acquired pneumonia (Acute) IDDM (insulin dependent diabetes mellitus) (Acute) Hypertensive heart disease (Acute) IDDM (insulin dependent diabetes mellitus) (Acute) Tobacco use (Acute) Overweight (Acute) - VTE Risk Labs: VTE Related Lab Results Hgb 14.4 g/dL (14.1-18.0) 09/15/18 21:15 Hct 44.1 % (42.0-52.0) 09/15/18 21:15 Plt Count 272 K/mm3 (142-424) 09/15/18 21:15 BUN 9 mg/dL (7-18) 09/16/18 04:45 Creatinine 0.84 mg/dL (0.70-1.30) 09/16/18 04:45 Estimated Creat Clear 148 mL/min (50-200) 09/16/18 04:45 Was VTE Risk Assessment Performed: Yes VTE Score: 7 VTE Risk Level: Moderate Risk - Prophylaxis VTE Prophylaxis Ordered?: Yes Types of VTE Prophylaxis: Pharmacological (HOME XARELTO DOSE WAS CONTINUED.)
--- NOTE | 2018-09-17 09:01 | Discharge Summary ---
General - General Admission date:: 09/15/18 Discharge date: 09/17/18 HPI HPI: this wm who has iddm was incarcerated and taken to [facility] and found to have cap on lt and was admitted overnight - chart obtained and reviewed - pt was released and did not recieve meds in retirement 2 days ago and presented to ed with sob and dec po intake and cough Hospital Course Hospital Course: pt has improved on iv abx and has stable labs on room air and ambulatory and will be d/c on abx and follow up as op and follow cxr Objective Vital signs: Temp Pulse Resp BP Pulse Ox 97.9 F 87 17 145/50 H 96 09/17/18 08:00 09/17/18 08:00 09/17/18 08:00 09/17/18 08:00 09/17/18 08:00 no acute distress, obese - *Routine HEENT Exam Head: Present: normocephalic Eye: Present: EOMI, PERRL ENT: Present: mucous membranes dry - *Routine Neck Exam Present: supple - *Routine Respiratory Exam Present: decreased breath sounds Comments: dec on lt - *Routine Cardiovascular Exam Present: RRR. Absent: murmur, gallop, rubs - *Routine Abdominal Exam Present: soft - *Routine Extremities Exam Absent: calf tenderness - *Routine Skin Exam Present: intact - *Routine Neurological Exam Present: alert, oriented X3, CN II-XII intact - Routine Psychiatric Exam Present: normal affect Results Labs on day of discharge: Labs from last 24 hours 09/17/18 09/16/18 09/16/18 06:18 20:27 17:06 POC Glucose 155 H 197 H 177 H 09/16/18 11:38 POC Glucose 190 H DS: Diagnosis - Discharge Diagnosis (1) IDDM (insulin dependent diabetes mellitus) Status: Acute (2) Community acquired pneumonia Status: Acute (3) Obesity (BMI 30.0-34.9) Status: Acute (4) Neuropathy Status: Acute (5) Tobacco use Status: Acute Discharge Plan - Patient Discharge Instructions ACTIVITY: Continue current activity DIET: continue same diet Patient Instructions: DI for Pneumonia -- Adult - Follow up Plan Disposition: Home, Self-[facility] Medications: Home Medications Medication Instructions Recorded Confirmed Type Insulin NPH Hum/Reg Insulin Hm 45 unit SQ BID 12/25/17 09/15/18 History [Relion Novolin 70-30 Vial] cyclobenzaprine 10 mg tablet 10 mg PO HS #90 tab 12/28/17 09/15/18 Rx atorvastatin 10 mg tablet 10 mg PO HS #90 tab 03/31/18 09/15/18 Rx nitroglycerin 0.4 mg sublingual 0.4 mg SUBLINGUAL Q5-15M PRN #30 04/27/18 09/15/18 Rx tablet tab lisinopril 40 mg tablet 40 mg PO DAILY #90 tab 05/30/18 09/15/18 Rx furosemide 80 mg tablet 80 mg PO DAILYP PRN #90 tab 06/18/18 09/15/18 Rx gabapentin 600 mg tablet 600 mg PO TID #90 tab 06/18/18 09/15/18 Rx metformin 500 mg tablet 500 mg PO BID #180 tab 07/04/18 09/15/18 Rx rivaroxaban 20 mg tablet 20 mg PO DAILY #90 tab 07/11/18 09/15/18 Rx metoprolol tartrate 25 mg tablet 25 mg PO BID #180 tab 07/23/18 09/15/18 Rx Escitalopram Oxalate 10 mg PO DAILY 09/15/18 09/15/18 History Sildenafil Citrate [Sildenafil] 20 mg PO TID 09/15/18 09/15/18 History Syringe-Needle,Insulin,0.5 ml 0 units .ROUTE .MEDSUPPLY 09/15/18 09/15/18 History [Litetouch Insulin Syringe] clonazePAM [Clonazepam] 0.5 mg PO BID 09/15/18 09/15/18 History Azithromycin [Zithromax 250mg 250 mg PO DIRECTED #6 tab 09/17/18 Rx tab] Nicotine [Nicoderm 21mg/24hr 21 mg TD DAILYP PRN #30 patch.td24 09/17/18 Rx patch] cephALEXin [Keflex 500mg Cap] 500 mg PO TID #30 cap 09/17/18 Rx Prescriptions/Medication Reconciliation: New clonazePAM [Klonopin 0.5mg tablet] 0.5 mg PO BID tablet cephALEXin [Keflex 500mg Cap] 500 mg PO TID #30 cap Nicotine [Nicoderm 21mg/24hr patch] 21 mg TD DAILYP PRN #30 patch.td24 PRN Reason: Nicotine Cravings Citalopram Hydrobromide [Celexa 20mg Tablet] 20 mg PO DAILY tablet Metformin HCl [Glucophage 500mg Tablet] 500 mg PO BIDWM tablet Azithromycin [Zithromax 250mg tab] 250 mg PO DIRECTED #6 tab Continued cyclobenzaprine 10 mg tablet 10 mg PO HS #90 tab lisinopril 40 mg tablet 40 mg PO DAILY #90 tab gabapentin 600 mg tablet 600 mg PO TID #90 tab furosemide 80 mg tablet 80 mg PO DAILYP PRN #90 tab PRN Reason: fluid metformin 500 mg tablet 500 mg PO BID #180 tab rivaroxaban 20 mg tablet 20 mg PO DAILY #90 tab atorvastatin 10 mg tablet 10 mg PO HS #90 tab nitroglycerin 0.4 mg sublingual tablet 0.4 mg SUBLINGUAL Q5-15M PRN #30 tab PRN Reason: chest pain metoprolol tartrate 25 mg tablet 25 mg PO BID #180 tab Insulin NPH Hum/Reg Insulin Hm [Relion Novolin 70-30 Vial] 45 unit SQ BID Syringe-Needle,Insulin,0.5 ml [Extoleetouch Insulin Syringe] 0 units .ROUTE .MEDSUPPLY Escitalopram Oxalate 10 mg PO DAILY clonazePAM [Clonazepam] 0.5 mg PO BID Sildenafil Citrate [Sildenafil] 20 mg PO TID
== END 2018-09-17 10:44 | disposition home or self-care (01) ==
LOC: 2ND 20:21 → ER 20:21 → 2ND 22:33
PROVIDERS: ADMIT Emergency Medicine; ATTEND Emergency Medicine
DX: E78.5 Hyperlipidemia, unspecified; J18.1 Lobar pneumonia, unspecified organism; I25.2 Old myocardial infarction; Z79.4 Long term (current) use of insulin; E11.9 Type 2 diabetes mellitus without complications; G62.9 Polyneuropathy, unspecified; E66.9 Obesity, unspecified; Z86.718 Personal history of other venous thrombosis and embolism; Z68.30 Body mass index [BMI] 30.0-30.9, adult; Z79.899 Other long term (current) drug therapy; I11.9 Hypertensive heart disease without heart failure; Z72.0 Tobacco use
CPT/HCPCS: 36415; 71020; 71046; 80048; 80053; 82962; 83605; 83735; 84484; 85025; 85651; 86140; 87040; 87070; 87205; 87275; 87276; 93005; 94640; 94761; 96365; 96367; 96375; 99285; G0378; J0456

== ENCOUNTER → 2019-02-25 17:32 | Outpatient (CLI) | payer OTHER, SELFPAY ==
[2019-02-25 19:41] LABS: Alanine Aminotransferase 43 U/L (12-78); Alkaline Phosphatase 81 U/L (46-116); Amphetamine/Metha Screen,Urine Positive ng/mL (<1000); Anion Gap 16.4 mEq/L (5-15); Aspartate Amino Transferase 21 U/L (15-37); Barbiturates Screen,Urine Negative ng/mL (<200); Benzodiazepines Screen,Urine Negative ng/mL (<200); Bilirubin,Total 0.6 mg/dL (0.2-1.0); Blood Urea Nitrogen 9 mg/dL (7-18); Calcium 9.2 mg/dL (8.5-10.1); Cannabinoid Screen,Urine Negative ng/mL (<50); Carbon Dioxide 24 mmol/L (21.0-32.0); Chloride 101 mmol/L (98-107); Chol/HDL Ratio 3.1 (1-3.5); Cholesterol 121 mg/dL (140-200); Cocaine Screen,Urine Negative ng/mL (<300); Creatinine,Serum 0.85 mg/dL (0.70-1.30); Estimated Glomerular Filt Rate 94 ml/min (>60); GFR (African American) 114 ML/MIN (>60); Globulin 4.1 gm/dl (1.3-3.2); Glucose 243 mg/dL (74-106); HDL Cholesterol 39 mg/dL (27-67); LDL Cholesterol 61 mg/dL (0-130); Methadone Screen,Urine Negative ng/mL (<300); Opiate Screen,Urine Negative ng/mL (<300); Phencyclidine Screen,Urine Negative ng/mL (<25); Potassium 4.4 mmoL/L (3.5-5.1); Sodium 137 mmol/L (136-145); T4 (Thyroxine) 11.2 ug/dl (4.7-13.3); Thyroid Stimulating Hormone 2.44 uIU/ml (0.358-3.740); Total Protein,Serum 8.1 gm/dL (6.4-8.2); Triglycerides 103 mg/dL (30-200); VLDL Cholesterol 21 mg/dL (0-40)
[2019-02-25 20:40] LABS: Basophils # 0.1 K/mm3 (0-0.2); Eosinophils # 0.1 K/mm3 (0.0-0.4); Eosinophils % 1.6 % (0.1-12.0); Hematocrit 51.2 % (42.0-52.0); Hemoglobin 16.6 g/dL (14.1-18.0); Lymphocytes # 2.6 K/mm3 (0.7-4.5); Lymphocytes % 38.2 % (10-50); Mean Corpuscular HGB Conc 32.4 g/dL (31.8-35.4); Mean Corpuscular Hemoglobin 31.3 pg (27.0-31.2); Mean Corpuscular Volume 96.7 fl (80-94); Mean Platelet Volume 12.7 fl (7.4-10.4); Monocytes # 0.5 K/mm3 (0.1-1.0); Monocytes % 7.1 % (1.7-9.3); Neutrophils # 3.5 K/mm3 (1.8-7.8); Neutrophils % 52.1 % (37.0-80.0); Platelet Count 172 K/mm3 (142-424); Red Cell Distribution Width 12.7 % (11.5-17.5); White Blood Count 6.8 K/mm3 (4.8-10.8)
[2019-02-25 20:53] LABS: Hemoglobin A1C 7.5 % (0.0-7.0)
[2019-02-27 10:15] LABS: Creatinine, Urine 22.1 mg/dL (Not Estab.); Microalbumin, Urine <3.0 ug/mL (Not Estab.)
[2019-02-27 10:23] LABS: Vitamin D 25 Hydroxy 21.3 ng/mL (30.0-100.0)
[2019-03-03 18:17] LABS: Amphetamine Positive (.); Amphetamines Positive (.); Methamphetamine Positive (.)
[2019-03-04 06:38] LABS: Amphetamine (GC/MS) 740 ng/mL (Cutoff=500); Methamphetamine (GC/MS) >4000 ng/mL (Cutoff=500)
== END ==
PROVIDERS: Visit Provider Emergency Medicine
DX: G62.9 Polyneuropathy, unspecified (principal); Z79.899 Other long term (current) drug therapy; E66.9 Obesity, unspecified; Z79.4 Long term (current) use of insulin; Z72.0 Tobacco use
CPT/HCPCS: 80053; 80061; 80305; 80324; 82043; 82570; 82652; 83036; 84436; 84443; 85025

== ENCOUNTER 2019-08-23 15:22 | Emergency (ER) | payer MEDICAID, SELFPAY ==
--- NOTE | 2019-08-23 | CT_ITS ---
PROCEDURE: CT ELBOW LT WO CON CLINICAL HISTORY: Pain and swelling of the left elbow COMPARISON: No exams were available for comparison TECHNIQUE: Axial images obtained with sagittal and coronal reformats. All CT scans at the facility use one or more dose reduction, viz: automated exposure control, ma/kV adjustment per patient size (including targeted exams where dose is matched to indication, i.e. head), or iterative reconstruction technique. FINDINGS: There is a vertical lucency seen in the proximal ulna on only 1 image on the reformatted sagittal views. This is along the proximal and anterior aspect of the ulna medially and may be due to a nutrient foramen versus a nondisplaced fracture. A small calcific density is also noted at the olecranon region suggesting a small enthesophyte. There is mild diffuse soft tissue swelling in the subcutaneous soft tissues of the antecubital region. This is present along the anterior aspect of the distal humerus, antecubital region, and into the forearm medially and anteriorly. There is heterogeneous soft tissue density in the region of the brachialis muscle. Trauma or hematoma to the muscle is a consideration. Consider MRI for further evaluation. No focal fluid collections are evident IMPRESSION: 1. Diffuse subcutaneous edema about the elbow. There is heterogeneous density with a region of the brachialis muscle at the level of the elbow which could be due to trauma/hematoma or injury. Consider MRI for further evaluation. 2. Faint lucency at the proximal ulna medially seen only on the reformatted image and may be due to a nutrient foramen or groove. An acute fracture is felt to be less likely but not totally excluded. MRI could evaluate this is well. Dictated by: John Lazaro MD 08/23/2019 18:13 Electronically signed by John Lazaro MD in [place] 08/23/2019 18:13
[2019-08-23 15:23] VITALS: BP 155/78; PULSE 94; RESP 18; TEMP 36.7; O2SAT 100; BMI 27.8
[2019-08-23 15:29] VITALS: BP 155/78; PULSE 94; RESP 18; TEMP 36.7; O2SAT 100; BMI 27.7
[2019-08-23 15:43] VITALS: BP 155/78; PULSE 94; RESP 18; TEMP 36.7; O2SAT 100; BMI 27.8
--- NOTE | 2019-08-23 15:43 | HMH.EDUTC ---
[facility] [place] Disposition Condition on Discharge: Good Time of Disposition: 16:01 <Nivia Lu - Last Filed: 08/23/19 15:43> <Dennis Gloria - Last Filed: 08/23/19 18:07> Clinical Impression: Ulnar fracture Cellulitis Qualifiers: Site of cellulitis: unspecified site Qualified Code(s): L03.90 - Cellulitis, unspecified Disposition: Still a Patient Instructions: DI for Skin Abscess Prescriptions: clindamycin HCL [Clindamycin HCl 300mg Cap] 300 mg PO Q6 10 Days #40 cap Transmission Status: Pending to [id number] Referrals: Prateek Leary MD [Primary Care Provider] - Medical Decision Making - Los Inquiry Pt receiving controlled substance: No Los was queried for this patient: No <Nivia Lu - Last Filed: 08/23/19 15:43> - Lab Data Result diagrams: 08/23/19 16:13 08/23/19 16:13 - CT Data CT Scan: Other (Left elbow) Time Received: 18:[address] Reviewed: Yes: I have viewed the radiologist's interpretation Preliminary Findings: Abnormal (Nondisplaced fracture of the proximal ulna) <Dennis Gloria - Last Filed: 08/23/19 18:07> Vital Signs: 08/23/19 15:23 08/23/19 15:29 08/23/19 15:43 Temperature 98.0 F 98.0 F 98.0 F Temperature Source Oral Oral Oral Pulse Rate [Radial] 94 H 94 H 94 H Respiratory Rate 18 18 18 Blood Pressure [Right Arm] 155/78 H 155/78 H 155/78 H Blood Pressure Mean [Right Arm] 103 103 103 Blood Pressure Source [Right Arm] Automatic Cuff Automatic Cuff Automatic Cuff Blood Pressure Position [Right Arm] Sitting Sitting Sitting 02 Sat by Pulse Oximetry 100 100 100 Oxygen Delivery Method Room Air Room Air Room Air - Lab Data Lab Results 08/23/19 16:13: WBC 9.2, RBC 4.95, Hgb 14.7, Hct 45.3, MCV 91.5, MCH 29.8, MCHC 32.6, RDW 13.1, Plt Count 175, MPV 10.2, Neut % (Auto) 69.9, Lymph % (Auto) 21.3, Holt % (Auto) 6.7, Eos % (Auto) 1.5, Baso % (Auto) 0.6, Neut # (Auto) 6.5, Lymph # (Auto) 2.0, Holt # (Auto) 0.6, Eos # (Auto) 0.1, Baso # (Auto) 0.1 08/23/19 16:13: Sodium 128 L, Potassium 4.6, Chloride 97 L, Carbon Dioxide 23, Anion Gap 12.6, BUN 14, Creatinine 0.60 L, Estimated Creat Clear 187, Estimated GFR 140, Est GFR ( Amer) 169, Glucose 591 H*, Calcium 9.0, Total Bilirubin 0.4, AST 45, ALT 73, Alkaline Phosphatase 120, Total Protein 7.3, Albumin 3.7, Globulin 3.6 H, Albumin/Globulin Ratio 1.0 L 08/23/19 16:13: Lactate 1.7 08/23/19 16:13: Acetone Level None detected Orders (Tests/Meds): ED MEDICATIONS Generic Name Dose Route Start Last Admin Trade Name Freq PRN Reason Stop Dose Admin Clindamycin Phosphate 900 mg 08/23/19 17:40 Clindamycin 900mg/6ml Vial IM 08/23/19 18:43 ONCE ONE Protocol Discontinued Medications Generic Name Dose Route Start Last Admin Trade Name Freq PRN Reason Stop Dose Admin Vancomycin HCl 1,750 mg/ 250 mls @ 125 mls/hr 08/23/19 16:00 08/23/19 16:17 Sodium Chloride IV 08/23/19 17:59 125 mls/hr ONCE ONE Administration Sodium Chloride 1,000 mls @ 999 mls/hr 08/23/19 16:00 08/23/19 16:17 Sod Chlor 0.9% 1000ml Bag IV 08/23/19 17:00 999 mls/hr .Q1H1M MAY Administration Insulin Human Regular 20 unit 08/23/19 17:32 08/23/19 17:36 Humulin R Insulin 100 Units/Ml 10ml Vial SQ 08/23/19 17:33 20 unit ONCE ONE Administration Ketorolac Tromethamine 30 mg 08/23/19 15:52 08/23/19 16:17 Toradol 30mg/Ml Vial IV 08/23/19 15:53 30 mg ONCE ONE Administration ORDERS Category Date Time Status CT elbow LT wo con Routine Cat Scan 08/23/19 Taken Blood Culture Stat Micro 08/23/19 16:13 Received Medical Decision Narrative: Spoke with Dr Gloria about the patient and he came to [facility] [place] and observed left arm and agreed to transfer patient to the ED for further workup and evaluation Patient transferred to ED room 10 Report given to Samanta RN (Nivia Lu) [facility] [place] HPI - General Mode of Arrival: Ambulatory Source of Information: Patient Limitations: No Limitations Descr
--- NOTE | 2019-08-23 15:55 | PC.NURSE ---
PATIENT ASSESSED BY DR. ANDUJAR. PATIENT SENT TO [facility] AT THIS TIME PER MANNY CLARK APRN FOR FURTHER EVALUATION
[2019-08-23 16:22] LABS: Basophils # 0.1 K/mm3 (0-0.2); Basophils % 0.6 % (0.1-2.0); Eosinophils # 0.1 K/mm3 (0.0-0.4); Eosinophils % 1.5 % (0.1-12.0); Hematocrit 45.3 % (42.0-52.0); Hemoglobin 14.7 g/dL (14.1-18.0); Lymphocytes % 21.3 % (10-50); Mean Corpuscular HGB Conc 32.6 g/dL (31.8-35.4); Mean Corpuscular Hemoglobin 29.8 pg (27.0-31.2); Mean Corpuscular Volume 91.5 fl (80-94); Mean Platelet Volume 10.2 fl (7.4-10.4); Monocytes # 0.6 K/mm3 (0.1-1.0); Monocytes % 6.7 % (1.7-9.3); Neutrophils # 6.5 K/mm3 (1.8-7.8); Neutrophils % 69.9 % (37.0-80.0); Platelet Count 175 K/mm3 (142-424); Red Blood Count 4.95 M/mm3 (4.60-6.20); Red Cell Distribution Width 13.1 % (11.5-17.5); White Blood Count 9.2 K/mm3 (4.8-10.8)
[2019-08-23 16:34] LABS: Lactic Acid 1.7 mmol/L (0.7-2.1)
[2019-08-23 16:41] LABS: Chloride 97 mmol/L (98-107); Potassium 4.6 mmoL/L (3.5-5.1); Sodium 128 mmol/L (136-145)
[2019-08-23 16:44] LABS: Alanine Aminotransferase 73 U/L (12-78); Albumin Level 3.7 g/dl (3.5-5.0); Alkaline Phosphatase 120 U/L (38-126); Anion Gap 12.6 mEq/L (5-15); Aspartate Amino Transferase 45 U/L (17-59); Bilirubin,Total 0.4 mg/dl (0.2-1.3); Blood Urea Nitrogen 14 mg/dl (9-20); Carbon Dioxide 23 mmol/L (22.0-30.0); Creatinine Clearance Estimated 187 mL/min (50-200); Estimated Glomerular Filt Rate 140 ml/min (>60); GFR (African American) 169 ML/MIN (>60); Globulin 3.6 g/dL (1.3-3.2); Total Protein,Serum 7.3 g/dl (6.3-8.2)
[2019-08-23 16:45] LABS: Glucose 591 mg/dl (74-100)
[2019-08-23 17:13] LABS: Acetone, Serum (Rapid) None Detected (None Detect)
[2019-08-23 18:45] VITALS: BP 155/78; PULSE 94; RESP 18; TEMP 36.7; O2SAT 100
== END 2019-08-23 18:47 | disposition home or self-care (01) ==
LOC: UTC 15:41 → ER 15:51
PROVIDERS: Emergency Provider Family Medicine; PCP Emergency Medicine
DX: S52.002A Unspecified fracture of upper end of left ulna, initial encounter for closed fracture (principal); F41.8 Other specified anxiety disorders; E11.65 Type 2 diabetes mellitus with hyperglycemia; E78.5 Hyperlipidemia, unspecified; K21.9 Gastro-esophageal reflux disease without esophagitis; I10 Essential (primary) hypertension; I25.2 Old myocardial infarction; I25.10 Atherosclerotic heart disease of native coronary artery without angina pectoris; Z79.899 Other long term (current) drug therapy; Z90.49 Acquired absence of other specified parts of digestive tract; F17.210 Nicotine dependence, cigarettes, uncomplicated
CPT/HCPCS: 73200; 80053; 82009; 83605; 85025; 87040; 96365; 96367; 96372; 96375; 99284; J3370

== ENCOUNTER 2019-08-26 19:58 | Inpatient (IN) | payer MEDICAID, SELFPAY ==
[2019-08-26 19:58] VITALS: BP 173/63; PULSE 91; RESP 20; TEMP 36.9; O2SAT 95; BMI 26.4
--- NOTE | 2019-08-26 20:29 | XR_ITS ---
PROCEDURE: XR FOREARM LT 2V CLINICAL INDICATION: REPORTS RECENT COMPOUND FX AROUND ELBOW Pain and swelling, recent fracture of the humerus COMPARISON: FOREAR FOREARM-RT from 03/19/2014 XR HUMERUS LT from 08/26/2019 FINDINGS: No obvious fracture or dislocation. There is diffuse soft tissue swelling about the forearm. If the area of clinical concern is at the elbow then dedicated elbow films would be recommended. IMPRESSION: Soft tissue swelling otherwise negative Dictated by: John Lazaro MD 08/26/2019 20:58 Electronically signed by John Lazaro MD in [place] 08/26/2019 20:58
--- NOTE | 2019-08-26 20:32 | PC.NURSE ---
NOTIFIED LAB THAT I WAS UNABLE TO OBTAIN IV ACCESS OR DRAW BLOOD. SPOKE WITH LYNDA. SHE ADVISED THAT THEY WILL COME DOWN AND TRY TO DRAW PT'S BLOOD.
--- NOTE | 2019-08-26 20:34 | PC.NURSE ---
PT WAS REASSURED THAT HIS ED WAIT TIME MAY BE A LITTLE LONGER THAN NORMAL D/T MULTIPLE TRAUMA ALERTS ARRIVING AT THE SAME TIME. PT STATED THAT HE UNDERSTOOD.
[2019-08-26 20:50] LABS: Chloride 95 mmol/L (98-107); Potassium 4.9 mmoL/L (3.5-5.1); Sodium 126 mmol/L (136-145)
[2019-08-26 20:52] LABS: Basophils # 0.1 K/mm3 (0-0.2); Basophils % 0.5 % (0.1-2.0); Blood Urea Nitrogen 14 mg/dl (9-20); Creatinine Clearance Estimated 134 mL/min (50-200); Eosinophils # 0.2 K/mm3 (0.0-0.4); Eosinophils % 1.6 % (0.1-12.0); Estimated Glomerular Filt Rate 100 ml/min (>60); GFR (African American) 121 ML/MIN (>60); Hemoglobin 14.3 g/dL (14.1-18.0); Lactic Acid 1.1 mmol/L (0.7-2.1); Lymphocytes # 1.9 K/mm3 (0.7-4.5); Lymphocytes % 20.2 % (10-50); Mean Corpuscular HGB Conc 32.5 g/dL (31.8-35.4); Mean Corpuscular Hemoglobin 29.7 pg (27.0-31.2); Mean Corpuscular Volume 91.4 fl (80-94); Mean Platelet Volume 10.1 fl (7.4-10.4); Monocytes # 0.7 K/mm3 (0.1-1.0); Monocytes % 7.3 % (1.7-9.3); Neutrophils # 6.5 K/mm3 (1.8-7.8); Neutrophils % 70.3 % (37.0-80.0); Platelet Count 187 K/mm3 (142-424); Red Blood Count 4.81 M/mm3 (4.60-6.20); Red Cell Distribution Width 12.9 % (11.5-17.5); White Blood Count 9.2 K/mm3 (4.8-10.8)
[2019-08-26 20:53] LABS: Alanine Aminotransferase 48 U/L (12-78); Albumin Level 3.6 g/dl (3.5-5.0); Albumin/Globulin Ratio 0.9 (1.1-1.8); Alkaline Phosphatase 158 U/L (38-126); Anion Gap 12.9 mEq/L (5-15); Aspartate Amino Transferase 39 U/L (17-59); Calcium 8.9 mg/dl (8.4-10.2); Carbon Dioxide 23 mmol/L (22.0-30.0); Globulin 3.8 g/dL (1.3-3.2); Total Protein,Serum 7.4 g/dl (6.3-8.2)
[2019-08-26 21:00] LABS: Bilirubin,Total < 0.1 mg/dl (0.2-1.3); Glucose 589 mg/dl (74-100)
[2019-08-26 21:17] LABS: Acetone, Serum (Rapid) None Detected (None Detect)
--- NOTE | 2019-08-26 21:23 | HMH.EDWNDL ---
ED Disposition Clinical Impression: IDDM (insulin dependent diabetes mellitus) Abscess of skin or subcutaneous tissue Qualifiers: Site of cutaneous abscess: extremity Site of cutaneous abscess of extremity: upper extremity Laterality: left Qualified Code(s): L02.414 - Cutaneous abscess of left upper limb Disposition: Admitted As Inpatient Condition on Discharge: Serious - Critical Care Critical Care Time: No Attestation: On 08/26/19, the high probability of a clinically significant, sudden or life threatening deterioration of the following system(s) required my full and direct attention, intervention and personal management. The time I documented below is in addition to time spent performing reported procedures but includes the following listed in this critical care notation. Medical Decision Making - Medical Records Medical records reviewed: Yes: I reviewed the patient's medical records. - Los Inquiry Pt receiving controlled substance: No Vital Signs: 08/26/19 19:58 Temperature 98.4 F Temperature Source Oral Pulse Rate [Right Radial] 91 H Respiratory Rate 20 Blood Pressure [Right Arm] 173/63 H Blood Pressure Mean [Right Arm] 99 Blood Pressure Source [Right Arm] Automatic Cuff Blood Pressure Position [Right Arm] Sitting 02 Sat by Pulse Oximetry 95 Oxygen Delivery Method Room Air - Lab Data Lab results reviewed: Yes: I reviewed the patient's lab results. Lab Results 08/26/19 20:34: WBC 9.2, RBC 4.81, Hgb 14.3, Hct 44.0, MCV 91.4, MCH 29.7, MCHC 32.5, RDW 12.9, Plt Count 187, MPV 10.1, Neut % (Auto) 70.3, Lymph % (Auto) 20.2, Loving % (Auto) 7.3, Eos % (Auto) 1.6, Baso % (Auto) 0.5, Neut # (Auto) 6.5, Lymph # (Auto) 1.9, Loving # (Auto) 0.7, Eos # (Auto) 0.2, Baso # (Auto) 0.1 08/26/19 20:34: Sodium 126 L, Potassium 4.9, Chloride 95 L, Carbon Dioxide 23, Anion Gap 12.9, BUN 14, Creatinine 0.80, Estimated Creat Clear 134, Estimated GFR 100, Est GFR ( Amer) 121, Glucose 589 H*, Calcium 8.9, Total Bilirubin < 0.1 L, AST 39, ALT 48, Alkaline Phosphatase 158 H, Total Protein 7.4, Albumin 3.6, Globulin 3.8 H, Albumin/Globulin Ratio 0.9 L 08/26/19 20:34: Lactate 1.1 08/26/19 20:34: Acetone Level None detected 08/26/19 20:34: ESR 33 H 08/26/19 20:34: C-Reactive Protein 102.4 H Result diagrams: 08/26/19 20:34 08/26/19 20:34 Orders (Tests/Meds): ED MEDICATIONS Generic Name Dose Route Start Last Admin Trade Name Freq PRN Reason Stop Dose Admin Vancomycin HCl 1,750 mg/ 250 mls @ 125 mls/hr 08/26/19 22:06 Sodium Chloride IV 08/27/19 00:05 ONCE ONE Protocol Vancomycin HCl 1,500 mg/ 250 mls @ 125 mls/hr 08/27/19 09:00 Sodium Chloride IV 09/10/19 08:59 BID MAY Protocol Discontinued Medications Generic Name Dose Route Start Last Admin Trade Name Freq PRN Reason Stop Dose Admin Insulin Human Regular 10 unit 08/26/19 22:09 08/26/19 22:20 Humulin R Insulin 100 Units/Ml 10ml Vial IVP 08/26/19 22:10 10 unit ONCE ONE Administration Tetanus/Diphtheria Toxoids 0.5 ml 08/26/19 21:34 08/26/19 22:18 Tenivac 0.5ml Syringe IM 08/26/19 21:35 0.5 ml .ONCE ONE Administration ORDERS Category Date Time Status Blood Culture Stat Micro 08/26/19 20:34 Received Wound Culture and Gram Stain Stat Micro 08/26/19 20:33 Results - Radiology Data #1 Image(s): Humerus, Forearm Image Reviewed: Yes I reviewed the patient's radiology image Preliminary Findings: Abnormal, No Fracture Seen - Physician Consults Physician Consulted: reddey Reason -: Pt condition Wound/Laceration HPI - General Chief Complaint: Skin/Abscess/Foreign Body Stated Complaint: left arm pain Time Seen by Provider: 08/26/19 20:00 Mode of Arrival: Ambulatory Source of Information: Patient, Medical Record Limitations: No Limitations Description of Symptoms (Recalled from ER Triage Doc. by RN): PT TO ED BY PVT CAR WITH C/O LT ARM PAIN. PT STATES THAT HE WAS SEEN ON MONDAY FOR A
[2019-08-26 21:40] LABS: C-Reactive Protein 102.4 mg/L (0-4)
--- NOTE | 2019-08-26 21:43 | PC.NURSE ---
spoke with merry from pharmacy for vanc dosing. he recommended 1.75G loading dose tonight then 1.5G q 12 hours starting tomorrow morning.
[2019-08-26 21:50] LABS: Erythrocyte Sedimentation Rate 33 mm/hr (0-20)
[2019-08-26 22:37] VITALS: BP 163/72; PULSE 94; RESP 18; O2SAT 98
[2019-08-26 22:58] VITALS: BP 164/82; PULSE 90; RESP 16; TEMP 36.9; O2SAT 98
[2019-08-26 23:08] VITALS: BP 144/80; PULSE 99; RESP 18; TEMP 37.1; O2SAT 97; BMI 29.3
--- NOTE | 2019-08-26 23:08 | PC.NURSE ---
PT ARRIVED TO THE FLOOR VIA W/C FROM ED @2360
--- NOTE | 2019-08-26 23:50 | PC.NURSE ---
DURING ADMISSION PT REPORTS HAVING SUICIDAL IDEATIONS THIS MORNING, BUT DOES NOT FEEL THIS WAY AT THIS TIME. PT REPORTS I REALLY NEED SOMETHING TO HELP ME WITH DEPRESSION.
[2019-08-27] VITALS (20 sets, daily range): BP systolic 113–166; BP diastolic 54–98; PULSE 72–97; RESP 12–20; TEMP 36.4–37.5; O2SAT 92–100; BMI 29.3
--- NOTE | 2019-08-27 06:07 | PC.NURSE ---
KACIE OBREGON NOTIFIED OF CONSULT
[2019-08-27 07:03] LABS: Chloride 101 mmol/L (98-107)
[2019-08-27 07:04] LABS: Potassium 3.7 mmoL/L (3.5-5.1); Sodium 130 mmol/L (136-145)
[2019-08-27 07:05] LABS: Basophils # 0.1 K/mm3 (0-0.2); Basophils % 0.7 % (0.1-2.0); Eosinophils # 0.2 K/mm3 (0.0-0.4); Eosinophils % 1.9 % (0.1-12.0); Hematocrit 42.2 % (42.0-52.0); Hemoglobin 13.7 g/dL (14.1-18.0); Lymphocytes # 1.8 K/mm3 (0.7-4.5); Mean Corpuscular HGB Conc 32.4 g/dL (31.8-35.4); Mean Corpuscular Hemoglobin 29.2 pg (27.0-31.2); Mean Corpuscular Volume 90.2 fl (80-94); Mean Platelet Volume 9.7 fl (7.4-10.4); Monocytes # 0.8 K/mm3 (0.1-1.0); Monocytes % 8.6 % (1.7-9.3); Neutrophils # 6.9 K/mm3 (1.8-7.8); Neutrophils % 70.8 % (37.0-80.0); Platelet Count 192 K/mm3 (142-424); Red Blood Count 4.68 M/mm3 (4.60-6.20); Red Cell Distribution Width 12.9 % (11.5-17.5); White Blood Count 9.7 K/mm3 (4.8-10.8)
[2019-08-27 07:06] LABS: Blood Urea Nitrogen 11 mg/dl (9-20); Creatinine Clearance Estimated 296 mL/min (50-200); Estimated Glomerular Filt Rate 223 ml/min (>60); GFR (African American) 270 ML/MIN (>60)
[2019-08-27 07:07] LABS: Anion Gap 9.7 mEq/L (5-15); Calcium 8.4 mg/dl (8.4-10.2); Carbon Dioxide 23 mmol/L (22.0-30.0); Glucose 291 mg/dl (74-100)
--- NOTE | 2019-08-27 07:15 | HMH.PHAVTE ---
[facility] VTE Monitoring - Patient Demographics Admission date: 08/26/19 Report Date: 08/27/19 Time: 07:15 Allergies/Adverse Reactions: Patient Allergies morphine [MORPHINE] Allergy (Unknown, Verified 02/25/19 13:05) I-HIVES Height: 1.85 m Weight: 100.329 kg Patient Problems: Current Active Problems Abscess of skin or subcutaneous tissue (Acute) IDDM (insulin dependent diabetes mellitus) (Acute) - VTE Risk Labs: VTE Related Lab Results Hgb 13.7 g/dL (14.1-18.0) L 08/27/19 06:12 Hct 42.2 % (42.0-52.0) 08/27/19 06:12 Plt Count 192 K/mm3 (142-424) 08/27/19 06:12 BUN 11 mg/dl (9-20) 08/27/19 06:12 Creatinine 0.40 mg/dl (0.66-1.25) L D 08/27/19 06:12 Estimated Creat Clear 296 mL/min (50-200) 08/27/19 06:12 Was VTE Risk Assessment Performed: Yes VTE Score: 5 VTE Risk Level: Low Risk Clinical Trial Participant: No - Prophylaxis VTE Prophylaxis Ordered?: Yes Types of VTE Prophylaxis: TEDS Knee High
--- NOTE | 2019-08-27 07:41 | ECG_ITS ---
APPROVED REPORT Exam: Resting ECG HR:95 bpm ECG Measurements Heart Rate 95 AXES ND 176 P 71 QRSd 96 QRS 101 QT 350 T 42 QTc 439 <Conclusion> Normal sinus rhythm Rightward axis Borderline ECG Electronically signed by : Francois Del Toro, 08/28/2019 08:27:46
--- NOTE | 2019-08-27 08:00 | CA_ITS ---
APPROVED REPORT EXAM: Comprehensive 2D, Doppler, and color-flow Echocardiogram Braider Setter: Mary Palencia RVT Ht: 6 ft 1 in Wt: 200lbs BSA: 2.15 BP: 173/63 mmHg Indications: MURMUR,CHF,HTN,SMOKER,HLD,DM,HX OR,CAD,LT ARM ABCESS-?ARM FX,FORMER SUBSTANCE USER 2D Dimensions LVOT 2.26 cm (M/F) 1.5-2.5 M-Mode Dimensions RVDd 2.75 cm (0.9-2.6) LVDd 6.57 cm (3.5-5.7) LVDs 4.62 cm (3.5-5.7) IVSd 0.51 cm (0.6-1.1) PWd 0.89 cm (0.6-1.1) EF (Teich) 55.60% FS 29.70% EDV (Teich) 221.30 mL ESV (Teich) 98.30 mL LV Diastology E/A Ratio 1.02 Mitral Valve MV A Velocity 84.00 (40-130 cm/s) Left Ventricle Left atrium is mildly enlarged, left ventricle is normal size, mild concentric left ventricular hypertrophy, visually estimated ejection fraction 50% with no regional wall motion abnormality. Grade 1 diastolic dysfunction seen without tissue Doppler evidence of raise left atrial pressure. Right Ventricle Right atrium and right ventricular mildly enlarged with normal contractility. Aortic Valve Aortic valve is minimally thickened and fibrosed, there is no aortic stenosis or aortic insufficiency. Mitral Valve Mitral valve leaflets are minimally thickened, there is mild mitral regurgitation. Tricuspid Valve Tricuspid valve is grossly normal, there is mild tricuspid regurgitation. Tricuspid regurgitation jet velocity is inadequate for calculation of the right ventricular systolic pressure. Pulmonic Valve Pulmonic valve is poorly visualized. Great Vessels Aortic root is normal size. Pericardium No significant pericardial effusion noted. Conclusion 1. Mild biatrial enlargement, normal left ventricular size, mild concentric left ventricular hypertrophy, visually estimated ejection fraction 50% with no regional wall motion abnormality, grade 1 diastolic dysfunction seen without tissue Doppler evidence of raise left atrial pressure. 2. Mildly enlarged right ventricle with normal contractility. 3. Mild mitral and tricuspid regurgitation. 4. No significant pericardial effusion noted. Electronically signed by : Anmol Cisneros, 08/27/2019 18:15:53
--- NOTE | 2019-08-27 08:00 | XR_ITS ---
PROCEDURE: XR CHEST PORTABLE CLINICAL HISTORY: chest pain Smoking history COMPARISON: [id number] XR chest portable PICC plac from 12/26/2017 [id number] XR chest portable PICC plac from 01/08/2018 Chest from 09/15/2018 FINDINGS: The cardiomediastinal silhouette and pulmonary vascularity are within normal limits. The lungs are clear without infiltrates, suspicious nodules, or pleural effusions. No acute bony abnormalities. IMPRESSION: No acute findings. Dictated by: Dr. José Katz MD 08/27/2019 08:[address] José Katz MD in [place] 08/27/2019 08:20
--- NOTE | 2019-08-27 08:08 | PC.NURSE ---
A&O X4. PT RESTED WELL WITH EYES CLOSED T/O SHIFT. PAIN NOTED WELL CONTROLLED WITH NORCO Q4H. ADMINISTERED PER MAR PER PT REQUEST. ALSO ADMINISTERED TYLENOL THIS AM PER PT REQUEST FOR PATEL. LUE NOTED WITH EDEMA, WARM TO TOUCH, WITH EFFECTED AREA DRAINING PURULENT YELLOW DRAINAGE. DSG SITE WITH TELFA AND TEGADERM. ELEVATED EFFECTED EXTREMITY WITH PILLOWS T/O SHIFT. BILATERAL LUNGS NOTED CLEAR T/O UPON AUSCULTATION. TOLERATED RA WELL WITH NO COMPLAINTS. REFUSED TEDS. REMAINS NPO SINCE 0000. VSS. REMAINS SAFE. CALL LIGHT WITHIN REACH. WILL CONTINUE TO MONITOR.
--- NOTE | 2019-08-27 08:51 | HMH.PHACONS ---
- Pharmacy Consult Date: 08/27/19 Time: 08:51 Referring provider: DR. CONDE Reason for Consult:: VANCOMYCIN DOSING Allergies and ADEs:: Allergies Allergy/AdvReac Type Severity Reaction Status Date / Time morphine [MORPHINE] Allergy Unknown I-HIVES Verified 02/25/19 13:05 Home Medications:: Home Medications Medication Instructions Recorded Confirmed Type nitroglycerin 0.4 mg sublingual 0.4 mg SUBLINGUAL Q5-15M PRN #30 04/27/18 08/26/19 Rx tablet tab atorvastatin 10 mg tablet 10 mg PO HS #90 tab 02/22/19 08/26/19 Rx cyclobenzaprine 10 mg tablet 10 mg PO HS #90 tab 02/22/19 08/26/19 Rx escitalopram oxalate 10 mg tablet 10 mg PO DAILY #90 tab 02/22/19 08/26/19 Rx furosemide 80 mg tablet 80 mg PO DAILYP PRN #90 tab 02/22/19 08/26/19 Rx lisinopril 40 mg tablet 40 mg PO DAILY #90 tab 02/22/19 08/26/19 Rx metformin 500 mg tablet 500 mg PO BID #180 tab 02/22/19 08/26/19 Rx metoprolol tartrate 25 mg tablet 25 mg PO BID #180 tab 02/22/19 08/26/19 Rx trazodone 50 mg tablet 50 mg PO QHS #30 tab 02/22/19 08/26/19 Rx cholecalciferol (vitamin D3) 25 1,000 unit PO DAILY #90 cap 03/01/19 08/26/19 Rx mcg (1,000 unit) capsule ergocalciferol (vitamin D2) 1,250 50,000 unit PO QWEEK 90 Days #12 03/01/19 08/26/19 Rx mcg (50,000 unit) capsule cap insulin human U-100 NPH-regulr See Rx Instructions .ROUTE 06/12/19 08/26/19 Rx 70-30 mix 100 unit/mL subcutaneous .COMPLEX #10 ml susp ondansetron HCl 8 mg tablet 8 mg PO Q12H #30 tab 07/24/19 08/26/19 Rx clindamycin HCL [Clindamycin HCl 300 mg PO Q6 10 Days #40 cap 08/23/19 08/26/19 Rx 300mg Cap] Height: 1.85 m Weight: 100.329 kg Laboratory Results:: Laboratory Results - last 24 hr 08/26/19 20:34: WBC 9.2, RBC 4.81, Hgb 14.3, Hct 44.0, MCV 91.4, MCH 29.7, MCHC 32.5, RDW 12.9, Plt Count 187, MPV 10.1, Neut % (Auto) 70.3, Lymph % (Auto) 20.2, [place] % (Auto) 7.3, Eos % (Auto) 1.6, Baso % (Auto) 0.5, Neut # (Auto) 6.5, Lymph # (Auto) 1.9, [place] # (Auto) 0.7, Eos # (Auto) 0.2, Baso # (Auto) 0.1 08/26/19 20:34: Sodium 126 L, Potassium 4.9, Chloride 95 L, Carbon Dioxide 23, Anion Gap 12.9, BUN 14, Creatinine 0.80, Estimated Creat Clear 134, Estimated GFR 100, Est GFR ( Amer) 121, Glucose 589 H*, Calcium 8.9, Total Bilirubin < 0.1 L, AST 39, ALT 48, Alkaline Phosphatase 158 H, Total Protein 7.4, Albumin 3.6, Globulin 3.8 H, Albumin/Globulin Ratio 0.9 L 08/26/19 20:34: Lactate 1.1 08/26/19 20:34: Acetone Level None detected 08/26/19 20:34: ESR 33 H 08/26/19 20:34: C-Reactive Protein 102.4 H 08/27/19 06:12: WBC 9.7, RBC 4.68, Hgb 13.7 L, Hct 42.2, MCV 90.2, MCH 29.2, MCHC 32.4, RDW 12.9, Plt Count 192, MPV 9.7, Neut % (Auto) 70.8, Lymph % (Auto) 18.0, [place] % (Auto) 8.6, Eos % (Auto) 1.9, Baso % (Auto) 0.7, Neut # (Auto) 6.9, Lymph # (Auto) 1.8, [place] # (Auto) 0.8, Eos # (Auto) 0.2, Baso # (Auto) 0.1 05/19/20 06:12: Sodium 130 L, Potassium 3.7 D, Chloride 101, Carbon Dioxide 23, Anion Gap 9.7, BUN 11, Creatinine 0.40 L D, Estimated Creat Clear 296, Estimated GFR 223, Est GFR ( Amer) 270 D, Glucose 291 H D, Calcium 8.4 Medical History: Reports:: Anxiety, Congestive Heart Failure, Coronary Artery Disease, Depression, Diabetes Mellitus Type 1, Diabetes Mellitus Type 2, Gastroesophageal Reflux Disease(GERD), Heart Murmur, Hyperlipidemia, Hypertension, MRSA, Myocardial Infarction Denies:: Cancer Assessment and Plan - Assessment and plan all Dx Assessment and Plan for all problems:: BASED ON PATIENT'S FACTORS, RECOMMEND CONTINUING WITH VANCOMYCIN 2000 MG Q12H. WILL OBTAIN TROUGH PRIOR TO DOSE IN THE AM.
--- NOTE | 2019-08-27 09:05 | HMH.HP ---
*Admission Date: 08/26/19 *Chief complaint: Abscess L elbow *History of present illness: 54-year-old male patient in for continued and increased redness, swelling, drainage, and pain of left inner elbow. 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 After this appointment he received clindamycin and Ortho referral. His white blood cell count in the ER was 9.2, blood glucose was 589, C-reactive protein 102.4, and acetone level was negative. He did receive fluids, vancomycin IV, regular insulin, and a tetanus shot in ED. he denies any IV drug use 08/25 CXR: IMPRESSION: No acute findings. Dictated by: Dr. Katz 08/25 Humerus XR: IMPRESSION: Soft tissue swelling otherwise negative Dictated by: Dr. Lazaro, 08/25 forearm x-ray: Impression: Soft tissue swelling otherwise negative Dictated by Dr. Lazaro Blood cultures x2 and wound culture pending [facility] History Medical History: Reports:: Anxiety, Congestive Heart Failure, Coronary Artery Disease, Depression, Diabetes Mellitus Type 1, Diabetes Mellitus Type 2, Gastroesophageal Reflux Disease(GERD), Heart Murmur, Hyperlipidemia, Hypertension, MRSA, Myocardial Infarction Denies:: Cancer *Have you ever received a pneumonia vaccine?: No *Have you received a flu vaccine this season?: No Other Medical History: Reports: Anemia, Arthritis Laterality Cases: Right: ACL Repair Other Surgeries: Yes: Angioplasty, Cholecystectomy, Hernia Repair, Other (MINISCUS REPAIR X2) Amputation: No Fractures: No - *Social History Educational Level: Attended High School Smoking Status: Current every day smoker Tobacco Type: cigarettes # Packs/Day (cigarettes): 1 #Yrs smoked (if former smoker): 30 Alcohol Intake: never Alcohol Intake Frequency:: other Substance Use Type: opiates, painkillers, methamphetamine Last Used Substance: days (ago) *Occupational Status:: employed Housing: house Household Members: family *Travel in the last 8 weeks: None - Psychiatric History Pschychiatric History:: Reports:: Anxiety, Depression Family Hx:: Asthma, Cancer, Coronary Artery Disease, Diabetes, Heart Attack, Hyperlipidemia, Hypertension, Stroke, Tuberculosis, Substance abuse, Alcoholism Review of Systems - Review of Systems Review of systems:: pertinent systems reviewed and negative unless documented below - Constitutional Denies body ache(s), Denies fever(s) - Eyes Denies blurry vision, Denies loss of vision - ENT Denies difficulty swallowing, Denies ringing in the ears - *Cardiovascular Denies chest pain, Denies shortness of breath - *Respiratory Denies chest congestion, Denies shortness of breath - *Gastrointestinal Denies abdominal pain, Denies loose stools - *Genitourinary Denies difficulty urinating - *Musculoskeletal Reports joint pain, Reports joint swelling, Reports limited joint movement Comments: L Elbow - Integumentary/Breasts Reports lesions Comments: L inner Elbow w/ drng and drsg applied. - *Neurologic Denies seizure-like activity - Endocrine Denies cold intolerance, Denies heat intolerance - Hematologic/Lymphatic Denies easy bleeding, Denies easy bruising - Allergic/Immunologic Denies tongue swelling Meds Home Medications Medication Instructions Recorded Confirmed Type nitroglycerin 0.4 mg sublingual 0.4 mg SUBLINGUAL
--- NOTE | 2019-08-27 09:41 | HMH.PHAINT ---
MEDICATION RECONCILIATION COMPLETED ON PATIENT USING EXTERNAL FILL HISTORY FROM PHARMACY, LIST FROM MD OFFICE, AND PATIENT INTERVIEW. -LULU PALOMINO, EDD
--- NOTE | 2019-08-27 09:45 | HMH.CNCARD ---
History of Present Illness Consult date: 08/27/19 Requesting physician: Prateek Leary Consult reason: pre-op evaluation Chief complaint: right elbow pain, chest pain Additional Medical History:: 1. Coronary artery disease A. Left heart catheterization, 08/2016, mild CAD with normal LVEF. ANGIOGRAPHIC RESULTS: 1. The left main artery normal 2. The left anterior descending artery proximally 20% nonflow limiting stenoses with mid vessel 20% stenoses 3. The ramus intermedius is medium to large free of disease 4. The circumflex artery is nondominant giving rise to a small first OM and a large second OM. The second obtuse marginal artery has proximal concentric 30% stenosis and a mid vessel 20% stenosis 5. The right coronary artery is a large dominant vessel with mild luminal irregularities 6. The CARRION ventriculogram reveals normal 65% 7. The left ventricular end-diastolic pressure 10 mmHg IMPRESSION: 1. Mild nonflow limiting coronary artery disease 2. Normal ejection fraction 3. Normal left ventricular end-diastolic pressure PLAN: 1. Medical management 2. Treatment of endothelial dysfunction 3. Avoidance of tobacco products which will exacerbate microvascular spasm/microvascular angina 4. LDL less than 70 5. Baby aspirin 6. Antianginal medication 2. Diabetes mellitus, type II, treated for about 6 or 7 years 3. Tobacco use, greater than [id number] history 4. History of drug use including IV drugs 5. GERD 6. Hypertension 7. Hyperlipidemia 8. Anxiety/depression History of present illness: 54-year-old male patient in for continued and increased redness, swelling, drainage, and pain of left inner elbow. 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 After this appointment he received clindamycin and Ortho referral. His white blood cell count in the ER was 9.2, blood glucose was 589, C-reactive protein 102.4, and acetone level was negative. He did receive fluids, vancomycin IV, regular insulin, and a tetanus shot in ED. he denies any IV drug use. The above per Derrick Seymour APRN for Dr. Leary. 54-year-old white male admitted for left elbow pain, tenderness and swelling. Patient also relates some left shoulder discomfort that is reproducible with palpation. Patient does have a history of coronary artery disease and cardiology was consulted for evaluation. There is also a consult for orthopedics to see the patient for consideration of surgical intervention of the left elbow. In talking with the patient he relates a 2-month history of exertional shortness of breath with chest pressure that resolves with rest. He maintains that he has been taking his medications on a regular basis but does occasionally miss a dose here and there. He does continue to smoke. His diabetes is poorly controlled. He denies any recent IV drug use. 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 [facility] History Medical History: Reports:: Anxiety, Congestive Heart Failure, Coronary Artery Disease, Depression, Diabetes Mellitus Type 1, Diabetes Mellitus Type 2, Gastroesophageal Reflux Disease(GERD), Heart Murmur, Hyperlipidemia, Hypertension, MRSA, Myocardial Infarction Denies:: Cancer *Have you ever received a pneumonia vaccine?: No *Have you rec
--- NOTE | 2019-08-27 10:08 | HMH.ORTHOCON ---
*Admission Date: 08/26/19 *Reason for consult:: Abscess, left elbow *History of present illness: 54-year-old [id number]-mnsdwiwi male patient with multiple medical problems admitted to hospital for management of abscess/cellulitis left elbow. 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 He presented to the ER on 08/23/2019 for continued pain and swelling. He was started on oral antibiotics (clindamycin) and was referred to orthopedic for outpatient follow-up. However, patient returned to the ER yesterday with complaints of increasing pain, swelling, redness and drainage from the left elbow. He reports pain especially worse with any attempted movements of his elbow. He also reports swelling extending from the upper arm all the way into the fingers. No history of any fevers, chills or rigors. He strongly denies any recent IV drug use. Patient is a known diabetic which is poorly controlled. He is a chronic smoker and continues to smoke. His past medical history includes anxiety, Congestive Heart Failure, Coronary Artery Disease, Depression, Diabetes Mellitus Type 1, Diabetes Mellitus Type 2, Gastroesophageal Reflux Disease(GERD), Heart Murmur, Hyperlipidemia, Hypertension, MRSA, Myocardial Infarction among others. Review of Systems - Review of Systems Review of systems:: pertinent systems reviewed and negative unless documented below - Constitutional Denies body ache(s), Denies chills, Denies fever(s) - Eyes Denies blurry vision, Denies change in vision - ENT Denies headache(s), Denies hearing loss - *Cardiovascular Reports chest pain, Reports shortness of breath with activity - *Respiratory Denies chest congestion, Denies cough - *Gastrointestinal Denies abdominal pain, Denies change in bowel habits, Denies heartburn - *Genitourinary Denies difficulty urinating - *Musculoskeletal Reports joint pain, Reports joint swelling, Reports limited joint movement, Denies abnormal walking - *Neurologic Denies loss of vision, Denies seizure-like activity [facility] History I have reviewed the patient's past medical history: Yes Medical History: Reports:: Anxiety, Congestive Heart Failure, Coronary Artery Disease, Depression, Diabetes Mellitus Type 1, Diabetes Mellitus Type 2, Gastroesophageal Reflux Disease(GERD), Heart Murmur, Hyperlipidemia, Hypertension, MRSA, Myocardial Infarction Denies:: Cancer *Have you ever received a pneumonia vaccine?: No *Have you received a flu vaccine this season?: No Other Medical History: Reports: Anemia, Arthritis Laterality Cases: Right: ACL Repair Other Surgeries: Yes: Angioplasty, Cholecystectomy, Hernia Repair, Other (MINISCUS REPAIR X2) Amputation: No Fractures: No - *Social History Educational Level: Attended High School Smoking Status: Current every day smoker Tobacco Type: cigarettes # Packs/Day (cigarettes): 1 #Yrs smoked (if former smoker): 30 Alcohol Intake: never Alcohol Intake Frequency:: other Substance Use Type: opiates, painkillers, methamphetamine Last Used Substance: days (ago) *Occupational Status:: employed Housing: house Household Members: family *Travel in the last 8 weeks: None - Psychiatric History Pschychiatric History:: Reports:: Anxiety, Depression Family Hx:: Asthma, Cancer, Coronary Artery Disease, Diabetes, Heart Attack, Hyperlipidemia, Hypertension, Stroke, Tuberculosis, Substance abuse, Alcoholism Meds Home Medications Medication Instructions Recorded Confirmed Type nitroglycerin 0.4 mg sublingual 0.4 mg SUBLINGUAL Q5-15M PRN #30 04/27/18 08/26/19 Rx tablet tab atorvastatin 10 mg tablet 10 mg PO HS #90 tab 02/22/19 08/26/19 Rx furosemide 80 mg tablet 80 mg PO DAILYP PRN #90 tab 02/22/19 08/26/19 Rx lisinopril 40 mg tablet 40 mg PO DAILY #90 tab 02/22/19 08/26/19 Rx metformin 500 mg tablet 500 mg PO BID #180 tab 02/22/19 08/26/19 Rx metoprolol tartrate 25 mg table
[2019-08-27 10:41] LABS: Troponin I < 0.01 ng/ml (0.00-0.034)
--- NOTE | 2019-08-27 11:10 | PC.NURSE ---
juanis schwab rn stated to let Jeannine Joseph rn in surgery know about new order of PICC line when she came to get pt because they were on their way to take down for surgery when order was put in. Jeannine Joseph RN notified when arrived to floor at 1100. pt off floor at 1107
--- NOTE | 2019-08-27 11:33 | XR_ITS ---
PROCEDURE: XR CHEST PORTABLE PICC PLAC CLINICAL HISTORY: s/p PICC placement COMPARISON: [id number] XR chest portable PICC plac from 01/08/2018 Chest from 09/15/2018 XR CHEST PORTABLE from 08/27/2019 FINDINGS: The cardiomediastinal silhouette and pulmonary vascularity are within normal limits. The lungs are clear without infiltrates, suspicious nodules, or pleural effusions. The right-sided PICC line is seen ascending the right axillary vein and the tip is in the SVC just beyond the junction with the subclavian vein. There is no pneumothorax. No acute bony abnormalities. IMPRESSION: Satisfactory placement of PICC line as noted Dictated by: Dr. José Katz MD 08/27/2019 11:[address] José Katz MD in [place] 08/27/2019 11:53
--- NOTE | 2019-08-27 12:31 | P.PN_ITS ---
[facility] Anesthesia Checklist - Patient Identification Patient Identification: Arm Band - Structural Data Admitted From: Inpatient Planned Operative Procedure/s: I&D left elbow abscess Consent for Planned Operative Procedure(s) Verified: Yes Verified Documents: Surgical Consent, History and Physical, Cardiac Clearance - NPO Status Verified Time NPO: 00:00 - Additional verifications Anesthesia Reactions: No - Airway Assessment C-Spine Mobility Assessed: Yes (mp2) TMJ Mobility Assessed: Yes Dentition: Good Dentition - Anesthesia Plan Anesthesia Risk discussed: Yes ASA Class: III Anesthesia Type: General [facility] History I have reviewed the patient's past medical history: Yes Medical History: Reports:: Anxiety, Congestive Heart Failure, Coronary Artery Disease, Depression, Diabetes Mellitus Type 1, Diabetes Mellitus Type 2, Gastroesophageal Reflux Disease(GERD), Heart Murmur, Hyperlipidemia, Hypertension, MRSA, Myocardial Infarction Denies:: Cancer *Have you ever received a pneumonia vaccine?: No *Have you received a flu vaccine this season?: No Other Medical History: Reports: Anemia, Arthritis Anesthesia experience/problems:: nac Laterality Cases: Right: ACL Repair Other Surgeries: Yes: Angioplasty, Cholecystectomy, Hernia Repair, Other (MINISCUS REPAIR X2) Amputation: No Fractures: No - *Social History Educational Level: Attended High School Smoking Status: Current every day smoker Tobacco Type: cigarettes # Packs/Day (cigarettes): 1 #Yrs smoked (if former smoker): 30 Alcohol Intake: never Alcohol Intake Frequency:: other Substance Use Type: opiates, painkillers, methamphetamine Last Used Substance: days (ago) *Occupational Status:: employed Housing: house Household Members: family *Travel in the last 8 weeks: None - Psychiatric History Pschychiatric History:: Reports:: Anxiety, Depression Family Hx:: Asthma, Cancer, Coronary Artery Disease, Diabetes, Heart Attack, Hyperlipidemia, Hypertension, Stroke, Tuberculosis, Substance abuse, Alcoholism
--- NOTE | 2019-08-27 13:44 | P.PN_ITS ---
[facility] Anesthesia Record Part I Intake, IV Amount: 800 Estimated blood loss (mL): 20 Urine output (mL): 0 Blood Products used (#): none Blood Pressure: 158/98 SaO2: 96 Pulse Rate: 91 Respiratory Rate: 12 Temperature: 97.5 F Patient is:: Awake, Drowsy, Stable Stable to PACU at:: 13:37
[2019-08-27 13:48] LABS: POC Glucose,Bedside 240 (70-110)
--- NOTE | 2019-08-27 14:40 | PC.NURSE ---
1346-checked fsbs with results of 240-notified HISTOLOGY TECH, no further orders given at this time 1403-detailed report called to LUIS ARMANDO Crocker 1407-pt transported to med/surg room 209 via hospital bed with ramana rails up and left in care of LUIS ARMANDO Crocker with bed locked in lowest position, vss, pt stable
--- NOTE | 2019-08-27 15:41 | HMH.OPNOTE ---
Date of procedure: 08/27/19 Pre-op Diagnosis:: 1. Abscess, left elbow 2. Cellulitis, left arm Post-op Diagnosis:: Same Procedure performed:: Incision and drainage, abscess left elbow Surgeon:: Eddie Chavez MD BUTTON SEWER HAND:: Lui Aguirre Anesthesia: LMA Estimated blood loss (mL): 5 Clinical Note:: Patient is a 54-year-old lejpj-ixad-pmilvnzl male patient with multiple medical problems admitted to hospital for management of abscess/cellulitis left elbow. 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 He presented to the ER on 08/23/2019 for continued pain and swelling. He was started on oral antibiotics (clindamycin) and was referred to orthopedic for outpatient follow-up. However, patient returned to the ER yesterday with complaints of increasing pain, swelling, redness and drainage from the left elbow. He reports pain especially worse with any attempted movements of his elbow. He also reports swelling extending from the upper arm all the way into the fingers. No history of any fevers, chills or rigors. He strongly denies any recent IV drug use. Patient is a known diabetic which is poorly controlled. He is a chronic smoker and continues to smoke. His past medical history includes anxiety, Congestive Heart Failure, Coronary Artery Disease, Depression, Diabetes Mellitus Type 1, Diabetes Mellitus Type 2, Gastroesophageal Reflux Disease(GERD), Heart Murmur, Hyperlipidemia, Hypertension, MRSA, Myocardial Infarction among others. Evaluation confirmed a tense and tender abscess over the medial aspect of the antecubital fossa over the left elbow. There is marked swelling of the upper arm, elbow, forearm and hand associated with cellulitis. Imaging of his elbow showed soft tissue swelling without any bony involvement. He was admitted for management of the same including IV antibiotics and incision and drainage. Incision and drainage of the abscess is indicated to treat the infection, improve the pain and function and is the standard of care for his management. Please refer to my consult note for full details. Operative findings:: A large abscess starting over the medial aspect of the antecubital fossa extending into the subcutaneous and intramuscular planes. After incising the abscess, about 20 cc of keshia pus was drained. There is extensive soft tissue swelling and induration. The common flexor tendons are inflamed and involved in the abscess cavity. No full-thickness muscle/tendon tears noted. No obvious bone or joint involvement was noted. There was extensive cellulitis over the elbow extending proximally onto the upper arm and distally into the forearm. Operative note:: On the day of the procedure the patient was met on the floor and I again discussed the diagnosis, natural history and management options in detail including both nonsurgical and surgical. Following admission, patient was started on IV vancomycin. I have discussed about the procedure of incision and drainage, risks and benefits and alternatives in detail. The complications discussed include but are not limited to injury to blood vessels, nerves, injury to tendons and ligaments, bleeding, incisional scar (cosmesis), continued pain, adhesions, hypertrophic scarring, DVT/PE, elbow stiffness, CRPS (complex regional pain syndrome- pain, sensory and temperature changes, swelling and stiffness), painful scars, incomplete relief of pain, incomplete return of function and likely need for further surgery in future and also the risks of anesthesia including heart attack, stroke, and . I have discussed how there is a small but real possibility of loss of use of the arm, loss of the limb or loss of life itself. I have also explained how additional surgery may be required if there are any complications or the condition fails to improve. I have told him that typically following Incision and drainage of an a
[2019-08-27 17:10] LABS: POC Glucose,Bedside 288 (70-110)
--- NOTE | 2019-08-27 19:16 | PC.NURSE ---
report given to jefferson
[2019-08-27 19:26] LABS: Barbiturates Screen,Urine Negative ng/ml (<200)
[2019-08-27 19:27] LABS: Benzodiazepines Screen,Urine Positive ng/ml (<200)
[2019-08-27 19:28] LABS: Amphetamine/Metha Screen,Urine Positive ng/ml (<1000); Cannabinoid Screen,Urine Negative ng/ml (<50)
[2019-08-27 19:29] LABS: Cocaine Screen,Urine Negative ng/ml (<300)
[2019-08-27 19:30] LABS: Opiate Screen,Urine Positive ng/ml (<300)
[2019-08-27 19:31] LABS: Phencyclidine Screen,Urine Negative ng/ml (<25)
[2019-08-27 19:33] LABS: Methadone Screen,Urine Negative ng/ml (<300)
--- NOTE | 2019-08-27 19:37 | PC.NURSE ---
REPORT GIVEN TO MARYLU DURÁN
[2019-08-27 21:59] LABS: POC Glucose,Bedside 382 (70-110)
[2019-08-27 21:59] LABS: POC Glucose,Bedside 248 (70-110)
[2019-08-27 21:59] LABS: POC Glucose,Bedside 408 (70-110)
[2019-08-27 21:59] LABS: POC Glucose,Bedside 280 (70-110)
[2019-08-28] VITALS (7 sets, daily range): BP systolic 137–168; BP diastolic 47–107; PULSE 63–88; RESP 16–20; TEMP 36.6–37; O2SAT 95–99; BMI 29.3; BMI 29.2
--- NOTE | 2019-08-28 04:25 | PC.NURSE ---
A&O X4. PT RESTED WELL T/O SHIFT WITH EYES CLOSED. PT REPORTS HAVING DULL PAINS IN HIS LEFT ARM, RATING PAIN 9/10 ON PAIN SCALE. ADMINISTERED NORCO PER MAR X2 THUS FAR. REPORTS ADEQUATE RELIEF OF PAIN WITH NORCO, 2/10. LUE REMAINS ELEVATED WITH ICE PACKS IN PLACE WHILE IN BED. DSG NOTED C/D/I. PT REFUSES TO WEAR SLING ON LUE. STATES ?THAT THING CAN GO TO HELL?, REFERRING TO SLING. TOLERATED RA WELL WITH NO COMPLAINTS. BILATERAL LUNGS NOTED CLEAR T/O UPON AUSCULTATION. ADEQUATE URINE OUTPUT NOTED. URINE CLEAR AND BRIGHT YELLOW. VSS. REMAINS SAFE. REFUSED TEDS AND SCUDS. CALL LIGHT WITHIN REACH. WILL CONTINUE TO MONITOR.
[2019-08-28 05:35] LABS: Basophils # 0.1 K/mm3 (0-0.2); Eosinophils # 0.2 K/mm3 (0.0-0.4); Eosinophils % 2.1 % (0.1-12.0); Hematocrit 39.9 % (42.0-52.0); Hemoglobin 12.5 g/dL (14.1-18.0); Lymphocytes # 2.8 K/mm3 (0.7-4.5); Lymphocytes % 29.3 % (10-50); Mean Corpuscular HGB Conc 31.4 g/dL (31.8-35.4); Mean Corpuscular Hemoglobin 29.3 pg (27.0-31.2); Mean Corpuscular Volume 93.3 fl (80-94); Monocytes # 0.9 K/mm3 (0.1-1.0); Neutrophils # 5.6 K/mm3 (1.8-7.8); Neutrophils % 58.6 % (37.0-80.0); Platelet Count 191 K/mm3 (142-424); Red Blood Count 4.27 M/mm3 (4.60-6.20); Red Cell Distribution Width 13.1 % (11.5-17.5); White Blood Count 9.5 K/mm3 (4.8-10.8)
[2019-08-28 05:36] LABS: Chloride 101 mmol/L (98-107); Potassium 3.9 mmoL/L (3.5-5.1); Sodium 131 mmol/L (136-145)
[2019-08-28 05:39] LABS: Anion Gap 7.9 mEq/L (5-15); Blood Urea Nitrogen 12 mg/dl (9-20); Carbon Dioxide 26 mmol/L (22.0-30.0); Creatinine Clearance Estimated 198 mL/min (50-200); Estimated Glomerular Filt Rate 140 ml/min (>60); GFR (African American) 169 ML/MIN (>60)
[2019-08-28 05:40] LABS: Calcium 8.1 mg/dl (8.4-10.2); Glucose 288 mg/dl (74-100)
[2019-08-28 05:54] LABS: POC Glucose,Bedside 382 (70-110)
--- NOTE | 2019-08-28 06:59 | PC.NURSE ---
pt agreed to wear sling on lue this am. encouraged use of sling today for elevation.
--- NOTE | 2019-08-28 09:07 | HMH.ACPN2 ---
Internal Medicine - PN: Subj *Date: 08/28/19 *Time: 09:25 Interval history: Patient lying in bed states arm is painful but he is keeping it elevated. Exam Vital signs and Labs for Last 24 Hours: Temp Pulse Resp BP Pulse Ox 98.4 F 84 20 153/76 H 97 08/28/19 07:58 08/28/19 07:58 08/28/19 07:58 08/28/19 07:58 08/28/19 07:58 Laboratory Results - last 24 hr 08/27/19 00:03: POC Glucose 408 H* 08/27/19 05:32: POC Glucose 280 H 08/27/19 06:12: Troponin I < 0.01 08/27/19 10:36: POC Glucose 248 H 08/27/19 13:45: POC Glucose 240 H 08/27/19 17:01: POC Glucose 288 H 08/27/19 18:35: Urine Opiates Screen Positive H, Urine Methadone Screen Negative, Ur Barbituates Screen Negative, Ur Phencyclidine Scrn Negative, Ur Amphetamines Screen Positive H, U Benzodiazepines Scrn Positive H, Urine Cocaine Screen Negative, U Marijuana (THC) Screen Negative 08/27/19 20:34: POC Glucose 382 H* 08/28/19 04:36: WBC 9.5, RBC 4.27 L, Hgb 12.5 L, Hct 39.9 L, MCV 93.3, MCH 29.3, MCHC 31.4 L, RDW 13.1, Plt Count 191, MPV 10.0, Neut % (Auto) 58.6, Lymph % (Auto) 29.3, Labette % (Auto) 9.0, Eos % (Auto) 2.1, Baso % (Auto) 1.0, Neut # (Auto) 5.6, Lymph # (Auto) 2.8, Labette # (Auto) 0.9, Eos # (Auto) 0.2, Baso # (Auto) 0.1 08/28/19 04:36: Sodium 131 L, Potassium 3.9, Chloride 101, Carbon Dioxide 26, Anion Gap 7.9, BUN 12, Creatinine 0.60 L D, Estimated Creat Clear 198, Estimated GFR 140, Est GFR ( Amer) 169 D, Glucose 288 H, Calcium 8.1 L 05/20/20 05:40: POC Glucose 382 H* I & O for Last 24 hours: Intake & Output 08/25/19 08/26/19 08/27/19 08/28/19 11:59 11:59 11:59 11:59 Intake Total 2108 / 2108 3267 / 3267 Output Total 1325 / 1325 4125 / 4125 Balance 783 / 783 -858 / -858 Weight 221 lb 3.001 oz 221 lb 6.282 oz Microbiology Reports for the Last 24 Hours: Microbiology 08/26/19 20:33 Arm,Left - Abscess Gram Stain - Final 08/26/19 20:33 Arm,Left - Abscess Wound Culture - Preliminary 08/27/19 12:50 Aspirate - Abscess Gram Stain - Final 08/27/19 12:50 Elbow,Left Gram Stain - Final - Constitutional no acute distress - *Routine HEENT Exam Head: Present: normocephalic Eye: Present: PERRL ENT: Present: mucous membranes moist - *Routine Neck Exam Present: supple. Absent: lymphadenopathy - *Routine Respiratory Exam Present: CTA bilaterally - *Routine Cardiovascular Exam Present: RRR - *Routine Abdominal Exam Present: soft, normoactive bowel sounds. Absent: tenderness - *Routine Extremities Exam Present: normal capillary refill. Absent: cyanosis, clubbing, edema - *Routine Skin Exam Present: warm, wounds (Coming in the morning in the ER talk to him and talk with him back Monday and even not). Absent: rash Comments: Dressing to left arm clean dry intact sling in place patient has been elevated on pillows - *Routine Neurological Exam Present: alert, oriented X3 - Routine Psychiatric Exam Present: normal affect Assessment and Plan (1) Abscess of skin or subcutaneous tissue Current visit: Yes Status: Acute Qualifiers: Site of cutaneous abscess: extremity Site of cutaneous abscess of extremity: upper extremity Laterality: left Qualified Code(s): L02.414 - Cutaneous abscess of left upper limb Category: Medical Code(s): L02.91 - Cutaneous abscess, unspecified (2) IDDM (insulin dependent diabetes mellitus) Current visit: Yes Status: Acute Category: Medical Code(s): E11.9 - Type 2 diabetes mellitus without complications; Z79.4 - retirement (current) use of insulin (3) Cellulitis Current visit: No Status: Acute Qualifiers: Site of cellulitis: unspecified site Qualified Code(s): L03.90 - Cellulitis, unspecified Category: Medical Code(s): L03.90 - Cellulitis, unspecified (4) Hypertensive heart disease Current visit: No Status: Acute Qualifiers: Heart failure presence: unspecified whether heart failure present Qualified Code(s): I11.9
--- NOTE | 2019-08-28 09:27 | P.PN_ITS ---
[facility] Anesthesia Record Part II Discharge Time: 14:15 Destination: Medical Surgical Department PACU nurse assessment reviewed?: Yes Patient Condition:: Good Anesthesia Complications:: None Swallowing reflex intact?: Yes Cyanosis?: No Blood Pressure: 151/47 Pulse Rate: 88 Temperature: 98.6 F Mental Status: Alert & Oriented (drowsy) Pain level:: 0 Nausea and/or vomitting:: None Intake, IV Amount: 0
--- NOTE | 2019-08-28 10:29 | PC.NURSE ---
Contacted Anita Mallory about vanco dose and trough, states to hold until trough comes back from lab.
[2019-08-28 10:49] LABS: Vancomycin,Trough 6.8 ug/mL (5.0-10.0)
--- NOTE | 2019-08-28 10:50 | HMH.PNCARD ---
Subjective Date: 08/28/19 Time: 10:45 Principal diagnosis: chest pain Interval history: This is a 54-year-old gentleman who was admitted to the hospital for increased swelling, redness, drainage and pain in his left elbow. He did undergo surgery yesterday on his left arm. He also had complained of left shoulder discomfort with the left arm pain. He states that he had been having some exertional shortness of breath with chest pressure for approximately 2 months. He states that this would come and go and is mild. He states that he has continued to take his medication regularly and continues to smoke. He is a poorly controlled diabetic as well. He does have a history of IV drug use but states that he has not used any drugs recently. The patient had an echocardiogram which showed a stable EF. He was cleared to go ahead and proceed with surgery and have an ischemic evaluation on an outpatient basis. This morning he still denies any chest pain or pressure here since being in the hospital. He denies any shortness of breath. He denies any fever, chills, nausea, vomiting, diarrhea, PND or orthopnea. The only edema he says he has is in the left upper extremity. He states that his left arm is still hurting post surgery and reports that he may have to go back for an additional surgery. Exam Vital signs and Labs for Last 24 Hours: Temp Pulse Resp BP Pulse Ox 98.6 F 88 20 151/47 H 97 08/28/19 09:32 08/28/19 09:32 08/28/19 07:58 08/28/19 09:32 08/28/19 07:58 Laboratory Results - last 24 hr 08/27/19 00:03: POC Glucose 408 H* 08/27/19 05:32: POC Glucose 280 H 08/27/19 10:36: POC Glucose 248 H 08/27/19 13:45: POC Glucose 240 H 08/27/19 17:01: POC Glucose 288 H 08/27/19 18:35: Urine Opiates Screen Positive H, Urine Methadone Screen Negative, Ur Barbituates Screen Negative, Ur Phencyclidine Scrn Negative, Ur Amphetamines Screen Positive H, U Benzodiazepines Scrn Positive H, Urine Cocaine Screen Negative, U Marijuana (THC) Screen Negative 08/27/19 20:34: POC Glucose 382 H* 08/28/19 04:36: WBC 9.5, RBC 4.27 L, Hgb 12.5 L, Hct 39.9 L, MCV 93.3, MCH 29.3, MCHC 31.4 L, RDW 13.1, Plt Count 191, MPV 10.0, Neut % (Auto) 58.6, Lymph % (Auto) 29.3, [place] % (Auto) 9.0, Eos % (Auto) 2.1, Baso % (Auto) 1.0, Neut # (Auto) 5.6, Lymph # (Auto) 2.8, [place] # (Auto) 0.9, Eos # (Auto) 0.2, Baso # (Auto) 0.1 08/28/19 04:36: Sodium 131 L, Potassium 3.9, Chloride 101, Carbon Dioxide 26, Anion Gap 7.9, BUN 12, Creatinine 0.60 L D, Estimated Creat Clear 198, Estimated GFR 140, Est GFR ( Amer) 169 D, Glucose 288 H, Calcium 8.1 L 08/28/19 05:40: POC Glucose 382 H* 08/28/19 08:44: Vancomycin Trough 6.8 I & O for Last 24 hours: Intake & Output 08/25/19 08/26/19 08/27/19 08/28/19 23:59 23:59 23:59 23:59 Intake Total 1500 / 1500 2007 1867 / 1867 Output Total 4000 / 4000 1450 / 1450 Balance 1500 / 1500 -1991 / 417 / 417 Weight 221 lb 3 oz 221 lb 3.001 oz 221 lb 6.282 oz Microbiology Reports for the Last 24 Hours: Microbiology 08/26/19 20:33 Arm,Left - Abscess Gram Stain - Final 08/26/19 20:33 Arm,Left - Abscess Wound Culture - Preliminary 08/27/19 12:50 Aspirate - Abscess Gram Stain - Final 08/27/19 12:50 Elbow,Left Gram Stain - Final - Constitutional no acute distress, average body habitus - *Routine HEENT Exam Head: Present: normocephalic, atraumatic Eye: Present: EOMI, PERRL ENT: Present: mucous membranes moist - *Routine Neck Exam Present: supple, full ROM, normal carotid upstroke. Absent: JVD, carotid bruit, lymphadenopathy - *Routine Respiratory Exam Present: CTA bilaterally - *Routine Cardiovascular Exam Present: RRR, Normal S1, Normal S2. Absent: murmur - *Routine Abdominal Exam Present: soft, normoactive bowel sounds. Absent: tenderness, distended - *Routine Extremities Exam Absent: cyanosis, clubbing, edema - *Routine Skin Exam Present: intact, warm. Absent: erythema, rash Commen
--- NOTE | 2019-08-28 10:57 | HMH.PHACONS ---
- Pharmacy Consult Date: 08/28/19 Time: 10:57 Referring provider: DR. CONDE Reason for Consult:: VANCOMYCIN TROUGH LEVEL AND INTERVAL CHANGE Allergies and ADEs:: Allergies Allergy/AdvReac Type Severity Reaction Status Date / Time morphine [MORPHINE] Allergy Unknown I-HIVES Verified 02/25/19 13:05 Home Medications:: Home Medications Medication Instructions Recorded Confirmed Type nitroglycerin 0.4 mg sublingual 0.4 mg SUBLINGUAL Q5-15M PRN #30 04/27/18 08/26/19 Rx tablet tab atorvastatin 10 mg tablet 10 mg PO HS #90 tab 02/22/19 08/26/19 Rx furosemide 80 mg tablet 80 mg PO DAILYP PRN #90 tab 02/22/19 08/26/19 Rx lisinopril 40 mg tablet 40 mg PO DAILY #90 tab 02/22/19 08/26/19 Rx metformin 500 mg tablet 500 mg PO BID #180 tab 02/22/19 08/26/19 Rx metoprolol tartrate 25 mg tablet 25 mg PO BID #180 tab 02/22/19 08/26/19 Rx trazodone 50 mg tablet 50 mg PO QHS #30 tab 02/22/19 08/26/19 Rx cholecalciferol (vitamin D3) 25 1,000 unit PO DAILY #90 cap 03/01/19 08/26/19 Rx mcg (1,000 unit) capsule ergocalciferol (vitamin D2) 1,250 50,000 unit PO QWEEK 90 Days #12 03/01/19 08/26/19 Rx mcg (50,000 unit) capsule cap insulin human U-100 NPH-regulr See Rx Instructions .ROUTE 06/12/19 08/26/19 Rx 70-30 mix 100 unit/mL subcutaneous .COMPLEX #10 ml susp ondansetron HCl 8 mg tablet 8 mg PO Q12H #30 tab 07/24/19 08/26/19 Rx clindamycin HCL [Clindamycin HCl 300 mg PO Q6 10 Days #40 cap 08/23/19 08/26/19 Rx 300mg Cap] Height: 1.85 m Weight: 100.422 kg Laboratory Results:: Laboratory Results - last 24 hr 08/27/19 00:03: POC Glucose 408 H* 08/27/19 05:32: POC Glucose 280 H 08/27/19 10:36: POC Glucose 248 H 08/27/19 13:45: POC Glucose 240 H 08/27/19 17:01: POC Glucose 288 H 08/27/19 18:35: Urine Opiates Screen Positive H, Urine Methadone Screen Negative, Ur Barbituates Screen Negative, Ur Phencyclidine Scrn Negative, Ur Amphetamines Screen Positive H, U Benzodiazepines Scrn Positive H, Urine Cocaine Screen Negative, U Marijuana (THC) Screen Negative 08/27/19 20:34: POC Glucose 382 H* 08/28/19 04:36: WBC 9.5, RBC 4.27 L, Hgb 12.5 L, Hct 39.9 L, MCV 93.3, MCH 29.3, MCHC 31.4 L, RDW 13.1, Plt Count 191, MPV 10.0, Neut % (Auto) 58.6, Lymph % (Auto) 29.3, [place] % (Auto) 9.0, Eos % (Auto) 2.1, Baso % (Auto) 1.0, Neut # (Auto) 5.6, Lymph # (Auto) 2.8, [place] # (Auto) 0.9, Eos # (Auto) 0.2, Baso # (Auto) 0.1 08/28/19 04:36: Sodium 131 L, Potassium 3.9, Chloride 101, Carbon Dioxide 26, Anion Gap 7.9, BUN 12, Creatinine 0.60 L D, Estimated Creat Clear 198, Estimated GFR 140, Est GFR ( Amer) 169 D, Glucose 288 H, Calcium 8.1 L 08/28/19 05:40: POC Glucose 382 H* 08/28/19 08:44: Vancomycin Trough 6.8 Medical History: Reports:: Anxiety, Congestive Heart Failure, Coronary Artery Disease, Depression, Diabetes Mellitus Type 1, Diabetes Mellitus Type 2, Gastroesophageal Reflux Disease(GERD), Heart Murmur, Hyperlipidemia, Hypertension, MRSA, Myocardial Infarction Denies:: Cancer Assessment and Plan (1) Abscess of skin or subcutaneous tissue Current visit: Yes Status: Acute Qualifiers: Qualified Code(s): L02.414 - Cutaneous abscess of left upper limb Category: Medical Code(s): L02.91 - Cutaneous abscess, unspecified (2) IDDM (insulin dependent diabetes mellitus) Current visit: Yes Status: Acute Category: Medical Code(s): E11.9 - Type 2 diabetes mellitus without complications; 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
[2019-08-28 11:46] LABS: POC Glucose,Bedside 320 (70-110)
[2019-08-28 16:14] LABS: POC Glucose,Bedside 268 (70-110)
--- NOTE | 2019-08-28 19:12 | PC.NURSE ---
report given to bhumi
--- NOTE | 2019-08-28 21:29 | HMH.ORTHPN ---
Subjective Date: 08/28/19 Time: 17:00 Principal diagnosis: Abscess, right elbow Interval history: Patient is status post incision and drainage abscesses left elbow, post op day # 1. Patient says he is doing well and reports that the pain is slightly better than yesterday. He is eating and drinking well. He says he is able to move his fingers well and reports no distal tingling or numbness. No history of any fevers, chills or rigors. Patient still strongly denies any recent drug abuse but his urine toxicology is positive for opiates, benzodiazepines and amphetamine. PN: Obj Ex Vital signs: Temp Pulse Resp BP Pulse Ox 97.8 F 69 20 148/72 H 99 08/28/19 15:56 08/28/19 15:56 08/28/19 15:56 08/28/19 15:56 08/28/19 20:00 Narrative: Microbiology 08/26/19 20:34 Blood Blood Culture - Preliminary NO GROWTH AFTER 48 HOURS 08/26/19 20:34 Blood Blood Culture - Preliminary NO GROWTH AFTER 48 HOURS 08/27/19 12:50 Aspirate - Abscess Gram Stain - Final 08/27/19 12:50 Aspirate - Abscess Body Fluid Culture - Preliminary NO GROWTH AFTER 24 HOURS 08/27/19 12:50 Elbow,Left Gram Stain - Final 08/27/19 12:50 Elbow,Left Abscess Culture - Preliminary NO GROWTH AFTER 24 HOURS 08/26/19 20:33 Arm,Left - Abscess Gram Stain - Final 08/26/19 20:33 Arm,Left - Abscess Wound Culture - Preliminary Laboratory Results - last 48 hr 08/26/19 08/26/19 08/27/19 20:34 20:34 00:03 WBC RBC Hgb Hct MCV MCH MCHC RDW Plt Count MPV Neut % (Auto) Lymph % (Auto) [place] % (Auto) Eos % (Auto) Baso % (Auto) Neut # (Auto) Lymph # (Auto) [place] # (Auto) Eos # (Auto) Baso # (Auto) ESR 33 H Sodium Potassium Chloride Carbon Dioxide Anion Gap BUN Creatinine Estimated Creat Clear Estimated GFR Est GFR ( Amer) Glucose POC Glucose 408 H* Calcium Troponin I C-Reactive Protein 102.4 H Vancomycin Trough Urine Opiates Screen Urine Methadone Screen Ur Barbituates Screen Ur Phencyclidine Scrn Ur Amphetamines Screen U Benzodiazepines Scrn Urine Cocaine Screen U Marijuana (THC) Screen 08/27/19 08/27/19 08/27/19 05:32 06:12 06:12 WBC 9.7 RBC 4.68 Hgb 13.7 L Hct 42.2 MCV 90.2 MCH 29.2 MCHC 32.4 RDW 12.9 Plt Count 192 MPV 9.7 Neut % (Auto) 70.8 Lymph % (Auto) 18.0 [place] % (Auto) 8.6 Eos % (Auto) 1.9 Baso % (Auto) 0.7 Neut # (Auto) 6.9 Lymph # (Auto) 1.8 [place] # (Auto) 0.8 Eos # (Auto) 0.2 Baso # (Auto) 0.1 ESR Sodium 130 L Potassium 3.7 D Chloride 101 Carbon Dioxide 23 Anion Gap 9.7 BUN 11 Creatinine 0.40 L D Estimated Creat Clear 296 Estimated GFR 223 Est GFR ( Amer) 270 D Glucose 291 H D POC Glucose 280 H Calcium 8.4 Troponin I C-Reactive Protein Vancomycin Trough Urine Opiates Screen Urine Methadone Screen Ur Barbituates Screen Ur Phencyclidine Scrn Ur Amphetamines Screen U Benzodiazepines Scrn Urine Cocaine Screen U Marijuana (THC) Screen 08/27/19 08/27/19 08/27/19 06:12 10:36 13:45 WBC RBC Hgb Hct MCV MCH MCHC RDW Plt Count MPV Neut % (Auto) Lymph % (Auto) [place] % (Auto) Eos % (Auto) Baso % (Auto) Neut # (Auto) Lymph # (Auto) [place] # (Auto) Eos # (Auto) Baso # (Auto) ESR Sodium Potassium Chloride Carbon Dioxide Anion Gap BUN Creatinine Estimated Creat Clear Estimated GFR Est GFR ( Amer) Glucose POC Glucose 248 H 240 H Calcium Troponin I < 0.01 C-Reactive Protein Vancomycin Trough Urine Opiates Screen Urine Methadone Screen Ur Barbituates S
[2019-08-28 22:12] LABS: POC Glucose,Bedside 341 (70-110)
[2019-08-29] VITALS (24 sets, daily range): BP systolic 129–192; BP diastolic 59–101; PULSE 61–77; RESP 16–20; TEMP 36.4–37.1; O2SAT 93–99; BMI 29.2
--- NOTE | 2019-08-29 06:04 | PC.NURSE ---
Addendum entered by Puneet Casanova RN 08/29/19 06:16: Drsg to LUE C/D/I. Pt voiding clear, yellow urine independently using urinal. Ambulates often in room. MD bedside @ 0615 and notified of BP. No new orders. Original Note: Pt rested in long intervals. C/o sharp, shooting pain w/ movement of LUE x2, medicated per MAR w/ relief. Radial pulse to LUE +2. Pt's BP slightly elevated this am, pt asymptomatic while resting in bed. Will inform MD on rounds. PICC line drsg changed using aeseptic technique at 0553 d/t old drsg coming loose from pt taking shower.
--- NOTE | 2019-08-29 08:03 | HMH.PNCARD ---
Subjective Date: 08/29/19 Time: 08:03 Principal diagnosis: Abscess, right elbow Interval history: 54-year-old white male in bed in no acute distress. No chest pain, pressure or tightness. Patient relates he is likely going back for a second surgery today to clean out the wound again. Exam Vital signs and Labs for Last 24 Hours: Temp Pulse Resp BP Pulse Ox 98.0 F 71 17 178/90 H 94 L 08/29/19 04:00 08/29/19 05:29 08/29/19 04:00 08/29/19 05:29 08/29/19 04:00 Laboratory Results - last 24 hr 08/28/19 08:44: Vancomycin Trough 6.8 08/28/19 11:27: POC Glucose 320 H* 08/28/19 16:02: POC Glucose 268 H 08/28/19 20:54: POC Glucose 341 H* I & O for Last 24 hours: Intake & Output 08/26/19 08/27/19 08/28/19 08/29/19 11:59 11:59 11:59 11:59 Intake Total 2108 / 2108 3267 / 3267 4190 / 4190 Output Total 1325 / 1325 4125 / 4125 2850 / 2850 Balance 783 / 783 -858 / -858 1340 / 1340 Weight 221 lb 3.001 oz 221 lb 6.282 oz 220 lb 7.396 oz Microbiology Reports for the Last 24 Hours: Microbiology 08/27/19 12:50 Aspirate - Abscess Gram Stain - Final 08/27/19 12:50 Aspirate - Abscess Body Fluid Culture - Preliminary 08/26/19 20:33 Arm,Left - Abscess Gram Stain - Final 08/26/19 20:33 Arm,Left - Abscess Wound Culture - Preliminary 08/27/19 12:50 Elbow,Left Gram Stain - Final 08/27/19 12:50 Elbow,Left Abscess Culture - Preliminary 08/26/19 20:34 Blood Blood Culture - Preliminary NO GROWTH AFTER 48 HOURS 08/26/19 20:34 Blood Blood Culture - Preliminary NO GROWTH AFTER 48 HOURS - *Routine Respiratory Exam Present: CTA bilaterally. Absent: accessory muscle use, rales, rhonchi, wheezes - *Routine Cardiovascular Exam Present: RRR. Absent: murmur, gallop, rubs - *Routine Neurological Exam Present: alert, oriented X3, moving all extremities Progress Note: A&P (1) Abscess of skin or subcutaneous tissue Status: Acute Current Visit: Yes (2) IDDM (insulin dependent diabetes mellitus) Status: Acute Current Visit: Yes (3) Cellulitis Status: Acute Current Visit: No (4) Hypertensive heart disease Status: Acute Current Visit: No (5) Tobacco use Status: Acute Current Visit: No (6) CAD (coronary artery disease) Status: Acute Current Visit: Yes Assessment and Plan for All Diagnoses:: 1. CAD, clinically stable. Continue aspirin therapy along with lisinopril and metoprolol therapy. 2. Hypertension, will increase lisinopril to 20 mg twice daily (patient was taking lisinopril 40 mg/day at home) and metoprolol to 50 mg BID. 3. Abscess of left upper extremity, status post surgery 4. Diabetes mellitus, insulin requiring 5. Tobacco use, cessation recommended. 6. Hyperlipidemia, continue statin therapy
--- NOTE | 2019-08-29 09:03 | HMH.ACPN2 ---
Internal Medicine - PN: Subj *Date: 08/29/19 *Time: 09:03 Interval history: Patient lying in bed plans to return to surgery today per Dr. Chavez. Exam Vital signs and Labs for Last 24 Hours: Temp Pulse Resp BP Pulse Ox 98.7 F 67 18 158/76 H 98 08/29/19 08:00 08/29/19 08:00 08/29/19 08:00 08/29/19 08:00 08/29/19 08:00 Laboratory Results - last 24 hr 08/28/19 08:44: Vancomycin Trough 6.8 08/28/19 11:27: POC Glucose 320 H* 08/28/19 16:02: POC Glucose 268 H 08/28/19 20:54: POC Glucose 341 H* I & O for Last 24 hours: Intake & Output 08/26/19 08/27/19 08/28/19 08/29/19 11:59 11:59 11:59 11:59 Intake Total 2108 / 2108 3267 / 3267 4190 / 4190 Output Total 1325 / 1325 4125 / 4125 2850 / 2850 Balance 783 / 783 -858 / -858 1340 / 1340 Weight 221 lb 3.001 oz 221 lb 6.282 oz 220 lb 7.396 oz Microbiology Reports for the Last 24 Hours: Microbiology 08/27/19 12:50 Aspirate - Abscess Gram Stain - Final 08/27/19 12:50 Aspirate - Abscess Body Fluid Culture - Preliminary 08/26/19 20:33 Arm,Left - Abscess Gram Stain - Final 08/26/19 20:33 Arm,Left - Abscess Wound Culture - Preliminary 08/27/19 12:50 Elbow,Left Gram Stain - Final 08/27/19 12:50 Elbow,Left Abscess Culture - Preliminary 08/26/19 20:34 Blood Blood Culture - Preliminary NO GROWTH AFTER 48 HOURS 08/26/19 20:34 Blood Blood Culture - Preliminary NO GROWTH AFTER 48 HOURS - Constitutional no acute distress - *Routine HEENT Exam Head: Present: normocephalic Eye: Present: PERRL ENT: Present: mucous membranes moist - *Routine Neck Exam Present: supple. Absent: lymphadenopathy - *Routine Respiratory Exam Present: CTA bilaterally - *Routine Cardiovascular Exam Present: RRR - *Routine Abdominal Exam Present: soft, normoactive bowel sounds. Absent: tenderness - *Routine Extremities Exam Present: normal capillary refill. Absent: cyanosis, clubbing, edema Comments: Dressing to left arm - *Routine Skin Exam Present: warm, wounds. Absent: rash Comments: Dressing to left arm - *Routine Neurological Exam Present: alert, oriented X3 - Routine Psychiatric Exam Present: normal affect Assessment and Plan (1) Abscess of skin or subcutaneous tissue Current visit: Yes Status: Acute Qualifiers: Site of cutaneous abscess: extremity Site of cutaneous abscess of extremity: upper extremity Laterality: left Qualified Code(s): L02.414 - Cutaneous abscess of left upper limb Category: Medical Code(s): L02.91 - Cutaneous abscess, unspecified (2) IDDM (insulin dependent diabetes mellitus) Current visit: Yes Status: Acute Category: Medical Code(s): E11.9 - Type 2 diabetes mellitus without complications; Z79.4 - assisted (current) use of insulin (3) Cellulitis Current visit: No Status: Acute Qualifiers: Site of cellulitis: unspecified site Qualified Code(s): L03.90 - Cellulitis, unspecified Category: Medical Code(s): L03.90 - Cellulitis, unspecified (4) Hypertensive heart disease Current visit: No Status: Acute Qualifiers: Heart failure presence: unspecified whether heart failure present Qualified Code(s): I11.9 - Hypertensive heart disease without heart failure Category: Medical Code(s): I11.9 - Hypertensive heart disease without heart failure (5) Tobacco use Current visit: No Status: Acute Category: Social Hx Code(s): Z72.0 - Tobacco use (6) CAD (coronary artery disease) Current visit: Yes Status: Acute Category: Medical Code(s): I25.10 - Atherosclerotic heart disease of [place] coronary artery without angina pectoris - Assessment and plan all Dx Assessment and Plan for all problems:: Rounded with Dr. Leary all orders per Gibran Per Dr. Chavez back to the OR today for debridement and cleaning of wound. Waiting on cultures
[2019-08-29 11:11] LABS: Basophils # 0.1 K/mm3 (0-0.2); Basophils % 1.6 % (0.1-2.0); Eosinophils # 0.2 K/mm3 (0.0-0.4); Eosinophils % 3.7 % (0.1-12.0); Hematocrit 41.3 % (42.0-52.0); Lymphocytes # 2.1 K/mm3 (0.7-4.5); Lymphocytes % 33.9 % (10-50); Mean Corpuscular HGB Conc 31.5 g/dL (31.8-35.4); Mean Corpuscular Volume 92.1 fl (80-94); Mean Platelet Volume 10.1 fl (7.4-10.4); Monocytes # 0.6 K/mm3 (0.1-1.0); Neutrophils # 3.2 K/mm3 (1.8-7.8); Neutrophils % 51.9 % (37.0-80.0); Platelet Count 197 K/mm3 (142-424); Red Blood Count 4.49 M/mm3 (4.60-6.20); Red Cell Distribution Width 12.9 % (11.5-17.5); White Blood Count 6.1 K/mm3 (4.8-10.8)
[2019-08-29 11:14] LABS: Blood Urea Nitrogen 10 mg/dl (9-20); Calcium 8.9 mg/dl (8.4-10.2); Carbon Dioxide 28 mmol/L (22.0-30.0); Creatinine Clearance Estimated 295 mL/min (50-200); Estimated Glomerular Filt Rate 223 ml/min (>60); GFR (African American) 270 ML/MIN (>60); Glucose 269 mg/dl (74-100); Potassium 4.1 mmoL/L (3.5-5.1); Sodium 132 mmol/L (136-145)
[2019-08-29 11:30] LABS: Anion Gap 7.1 mEq/L (5-15); Chloride 101 mmol/L (98-107)
[2019-08-29 11:31] LABS: Vancomycin,Trough 14.4 ug/mL (5.0-10.0)
--- NOTE | 2019-08-29 11:32 | HMH.PHACONS ---
- Pharmacy Consult Date: 08/29/19 Time: 11:32 Referring provider: DR. CONDE Reason for Consult:: VANCOMYCIN TROUGH Allergies and ADEs:: Allergies Allergy/AdvReac Type Severity Reaction Status Date / Time morphine [MORPHINE] Allergy Unknown I-HIVES Verified 02/25/19 13:05 Home Medications:: Home Medications Medication Instructions Recorded Confirmed Type nitroglycerin 0.4 mg sublingual 0.4 mg SUBLINGUAL Q5-15M PRN #30 04/27/18 08/26/19 Rx tablet tab atorvastatin 10 mg tablet 10 mg PO HS #90 tab 02/22/19 08/26/19 Rx furosemide 80 mg tablet 80 mg PO DAILYP PRN #90 tab 02/22/19 08/26/19 Rx lisinopril 40 mg tablet 40 mg PO DAILY #90 tab 02/22/19 08/26/19 Rx metformin 500 mg tablet 500 mg PO BID #180 tab 02/22/19 08/26/19 Rx metoprolol tartrate 25 mg tablet 25 mg PO BID #180 tab 02/22/19 08/26/19 Rx trazodone 50 mg tablet 50 mg PO QHS #30 tab 02/22/19 08/26/19 Rx cholecalciferol (vitamin D3) 25 1,000 unit PO DAILY #90 cap 03/01/19 08/26/19 Rx mcg (1,000 unit) capsule ergocalciferol (vitamin D2) 1,250 50,000 unit PO QWEEK 90 Days #12 03/01/19 08/26/19 Rx mcg (50,000 unit) capsule cap insulin human U-100 NPH-regulr See Rx Instructions .ROUTE 06/12/19 08/26/19 Rx 70-30 mix 100 unit/mL subcutaneous .COMPLEX #10 ml susp ondansetron HCl 8 mg tablet 8 mg PO Q12H #30 tab 07/24/19 08/26/19 Rx clindamycin HCL [Clindamycin HCl 300 mg PO Q6 10 Days #40 cap 08/23/19 08/26/19 Rx 300mg Cap] Height: 1.85 m Weight: 100 kg Laboratory Results:: Laboratory Results - last 24 hr 08/28/19 11:27: POC Glucose 320 H* 08/28/19 16:02: POC Glucose 268 H 05/20/20 20:54: POC Glucose 341 H* 08/29/19 10:15: Vancomycin Trough 14.4 H 08/29/19 10:15: WBC 6.1 D, RBC 4.49 L, Hgb 13.0 L, Hct 41.3 L, MCV 92.1, MCH 29.0, MCHC 31.5 L, RDW 12.9, Plt Count 197, MPV 10.1, Neut % (Auto) 51.9, Lymph % (Auto) 33.9, [place] % (Auto) 9.0, Eos % (Auto) 3.7, Baso % (Auto) 1.6, Neut # (Auto) 3.2, Lymph # (Auto) 2.1, [place] # (Auto) 0.6, Eos # (Auto) 0.2, Baso # (Auto) 0.1 08/29/19 10:15: Sodium 132 L, Potassium 4.1, Chloride 101, Carbon Dioxide 28, Anion Gap 7.1, BUN 10, Creatinine 0.40 L D, Glucose 269 H, Calcium 8.9 Medical History: Reports:: Anxiety, Congestive Heart Failure, Coronary Artery Disease, Depression, Diabetes Mellitus Type 1, Diabetes Mellitus Type 2, Gastroesophageal Reflux Disease(GERD), Heart Murmur, Hyperlipidemia, Hypertension, MRSA, Myocardial Infarction Denies:: Cancer Assessment and Plan (1) Abscess of skin or subcutaneous tissue Current visit: Yes Status: Acute Qualifiers: Site of cutaneous abscess: extremity Site of cutaneous abscess of extremity: upper extremity Laterality: left Qualified Code(s): L02.414 - Cutaneous abscess of left upper limb Category: Medical Code(s): L02.91 - Cutaneous abscess, unspecified (2) IDDM (insulin dependent diabetes mellitus) Current visit: Yes Status: Acute Category: Medical Code(s): E11.9 - Type 2 diabetes mellitus without complications; 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 (3) Cellulitis Current visit: No Status: Acute Qualifiers: Site of cellulitis: unspecified site Qualified Code(s): L03.90 - Cellulitis, unspecified Category: Medical Code(s): L03.90 - Cellulitis, unspecified (4) Hypertensive heart disease Current visit: No Status: Acute Qualifiers: Heart failure presence: unspecified whether heart failure present Qualified Code(s): I11.9 - Hypertensive heart disease without heart failure Category: Medical Code(s): I11.9 - Hypertensive heart disease without heart failure (5) Tobacco use Current visit: No Status: Acute Category: Social Hx Code(s): Z72.0 - Tobacco use (6) CAD (coronary artery disease) Current visit: Yes Status: Acute Category: Medical Code(s): I25.10 - Atherosclerotic heart disease of [place] coronary artery without angina pectoris - Assessment and plan all Dx Assessment and P
[2019-08-29 11:33] LABS: POC Glucose,Bedside 333 (70-110)
[2019-08-29 11:40] LABS: POC Glucose,Bedside 269 (70-110)
--- NOTE | 2019-08-29 12:59 | P.PN_ITS ---
[facility] Anesthesia Record Part I Intake, IV Amount: 1,300 Estimated blood loss (mL): 10 Urine output (mL): 0 Blood Pressure: 161/78 SaO2: 95 Pulse Rate: 68 Respiratory Rate: 16 Temperature: 97.6 F Patient is:: Drowsy, Stable Stable to PACU at:: 12:50
[2019-08-29 13:04] LABS: POC Glucose,Bedside 201 (70-110)
[2019-08-29 13:04] LABS: POC Glucose,Bedside 184 (70-110)
--- NOTE | 2019-08-29 13:50 | PC.NURSE ---
1302-checked fsbs with results of 201, notified VERONIKA Tejada with no further orders given 1318-detailed report called to Virgie,RN 1321-pt transported to med/surg room 209 via hospital bed with ramana rails up per LUIS ARMANDO Hussein and BernardRN and left in care of LUIS ARMANDO Garvin with bed locked in lowest position, vss, pt stable.
--- NOTE | 2019-08-29 14:02 | HMH.OPNOTE ---
Date of procedure: 08/29/19 Pre-op Diagnosis:: Status post incision and drainage abscess, left elbow Post-op Diagnosis:: Same Procedure performed:: Second look/debridement and washout abscess, left elbow Surgeon:: Eddie Chavez MD CLOTH FINISHING RANGE OPERATOR CHIEF:: Andreas Mendoza Anesthesia: LMA Estimated blood loss (mL): 10 Clinical Note:: Patient is a 54-year-old [id number] male patient with multiple medical problems and a large tense abscess over the anteromedial aspect of the right elbow and underwent incision and drainage of the abscess couple of days ago. Patient is making satisfactory progress with reduced arm swelling and reduced pain. He is on IV antibiotics. Today patient is back back to the OR for a second look/washout and debridement as appropriate. Patient denies recent IV drug abuse but urine toxicology is positive for opiates, benzodiazepines and amphetamines. Patient is a known diabetic which is poorly controlled. He is a chronic smoker and continues to smoke. His past medical history includes anxiety, Congestive Heart Failure, Coronary Artery Disease, Depression, Diabetes Mellitus Type 1, Diabetes Mellitus Type 2, Gastroesophageal Reflux Disease(GERD), Heart Murmur, Hyperlipidemia, Hypertension, MRSA and myocardial Infarction. Operative findings:: Granulating abscess cavity over the anteromedial aspect of the elbow; the skin edges were somewhat necrotic and there was also some slough in the abscess cavity. No keshia pus was noted. The muscles and the surrounding tissue appears a lot healthier compared to couple of days ago. And there is significantly less soft tissue swelling and induration. No full-thickness muscle/tendon tears noted. No obvious bone or joint involvement was noted. The cellulitis over the surrounding skin has significantly improved as well. Operative note:: On the day of the procedure the patient was met on the floor and I again discussed the diagnosis, natural history and management options in detail including both nonsurgical and surgical. I have discussed about the procedure of second look surgery/washout and debridement, risks and benefits and alternatives in detail. The complications discussed include but are not limited to injury to blood vessels, nerves, injury to tendons and ligaments, bleeding, incisional scar (cosmesis), continued pain, adhesions, hypertrophic scarring, DVT/PE, elbow stiffness, CRPS (complex regional pain syndrome- pain, sensory and temperature changes, swelling and stiffness), painful scars, incomplete relief of pain, incomplete return of function and likely need for further surgery in future and also the risks of anesthesia including heart attack, stroke, and . I have discussed how there is a small but real possibility of loss of use of the arm, loss of the limb or loss of life itself. I have also explained how additional surgery may be required if there are any complications or the condition fails to improve. I have again told him that typically following Incision and drainage of an abscess, we would leave the wound open to facilitate drainage and let the wound heal by secondary intention. I have also told him that he may need multiple procedures depending on the progress. We have also discussed the postoperative pain management, recovery and rehabilitation, the likely need for physical/hand therapy, the possibility of stiffness, chronic pain and we've also discussed the option of nonsurgical treatment. The patient expressed a full understanding and has asked appropriate questions. All his questions were answered by me and he verbalized a good understanding. Patient desires to proceed with the proposed surgery of second look/washout and debridement of abscess left elbow. The limb was appropriately marked. Consent form was reviewed and signed. Patient understood the risks, agreed to proceed with surgery, signed the consent form and no guarantees or assurances were given or implied. Patient was brought to
[2019-08-29 16:51] LABS: POC Glucose,Bedside 349 (70-110)
--- NOTE | 2019-08-29 18:56 | PC.NURSE ---
PT IS SITTING UP IN THE CHAIR AT THIS TIME. EARLIER THIS MORNING BEFORE PT WENT TO SURGERY HE WAS VERY AGGRAVATED AND STATED AFTER THIS SURGERY HE WAS GOING TO HOME TODAY. PT STATED HE WAS VERY UPSET OVER THE WAY HE WAS TALKED TO YESTERDAY. PT STATED HE HAS NOT USED IV DRUGS IN OVER A MONTH AND HE TAKES EVERYTHING BY MOUTH SO THAT WAS NOT THE REASON FOR THE INFECTION IN HIS ARM. PT LEFT THE FLOOR FOR SURGERY AND ARRIVED BACK TO THE FLOOR AT 1340. PT STATED AT ONE POINT THIS AFTERNOON HE WANTED TO GO HOME AND SOON HE WAS ABLE TO GET A RIDE HE WAS LEAVING. NOTIFIED [facility] FOR MESSAGE TO BE RELAYED TO [place]. AFTER A COUPLE OF HOURS PT STARTED TO CALM DOWN AND STATED FOR NOW HE WOULD BE OKAY WITH STAYING TILL TOMORROW. PT WAS DISCONNECTED FROM HIS IVF'S SO HE COULD AMBULATE AROUND THE ROOM B/C HE HAS STATED SEVERAL TIMES THIS AFTERNOON THAT HE WAS SICK OF LAYING IN THE BED. POST VSS. PICC NOTED TO THE RUE. DRESSING TO THE LUE C/D/I. WILL CONTINUE TO MONITOR.
--- NOTE | 2019-08-29 19:43 | P.PN_ITS ---
[facility] Anesthesia Record Part II Discharge Time: 13:20 Destination: Surgical Day Care (OP Surgery) PACU nurse assessment reviewed?: Yes Patient Condition:: Good Anesthesia Complications:: None Swallowing reflex intact?: Yes Cyanosis?: No Blood Pressure: 145/75 Pulse Rate: 61 Temperature: 97.5 F Mental Status: Alert & Oriented Pain level:: 0 Nausea and/or vomitting:: None Intake, IV Amount: 0
[2019-08-29 20:48] LABS: POC Glucose,Bedside 345 (70-110)
[2019-08-30] VITALS: BP 156/76; PULSE 60; RESP 16; TEMP 36.7; O2SAT 95
--- NOTE | 2019-08-30 03:44 | PC.NURSE ---
A&OX4. PT TOLERATING ROOM AIR WELL THROUGHOUT SHIFT. RESPIRATIONS CLEAR AND UNLABORED. LUNGS SOUNDS BILATERALLY CLEAR. NO COUGH PRESENT. HEART RATE REGULAR. +2 PULSES NOTED THROUGHOUT. PT HAD AN EPISODE OF SHARP STABBING UPPER CHEST PAIN, IN CLOSE PROXIMITY TO PICC LINE, THAT LASTED A FEW SECONDS AT THE BEGINNING OF SHIFT. VITAL SIGNS WERE CHECKED AND STABLE. NORCO ADMINISTERED. ON REASSESSMENT, PAIN WAS DECREASED AND PT WAS RESTING COMFORTABLY IN THE CHAIR. ABDOMEN SOFT AND NONTENDER. NO BM NOTED. BOWEL SOUNDS ACTIVE IN ALL 4 QUADRANTS. PT REQUESTED PAIN MEDICATION AROUND 3AM FOR PAIN IN HIS ARM RADIATING 01/17. NOTIFIED PT NORCO WASN'T DUE UNTIL 4AM. OFFERED TYLENOL AND EDUCATED PT ABOUT BEING MAXED OUT ON DOSAGE OF ACETAMINOPHEN IF HE TOOK THE TYLENOL NOW, HE WOULDN'T BE ABLE TO GET THE NORCO. PT REFUSED AND STATED HE DIDN'T NEED ANY TYLENOL. IT WOULDN'T DO ANYTHING FOR HIM. HE WOULD JUST MANAGE THE PAIN HIMSELF. PT APPEARS AGGRAVATED AND I INFORMED HIM I WOULD BE BACK AT 4AM WHEN NORCO CAN BE ADMINISTERED. DRESSING NOTED TO L ARM R/T SURGICAL INCISION. DRESSING CDI. 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 PT RESTING IN BED AT THIS TIME. CALL LIGHT WITHIN REACH. BED IN LOWEST POSITION. VSS. NO CONCERNS AT THIS TIME. WILL CONTINUE TO MONITOR.
[2019-08-30 04:00] VITALS: BP 150/76; PULSE 59; RESP 16; TEMP 36.3; O2SAT 96
[2019-08-30 05:00] VITALS: BMI 29.9
[2019-08-30 06:16] LABS: Basophils # 0.3 K/mm3 (0-0.2); Basophils % 4.2 % (0.1-2.0); Eosinophils # 0.2 K/mm3 (0.0-0.4); Eosinophils % 3.5 % (0.1-12.0); Hematocrit 39.3 % (42.0-52.0); Hemoglobin 13.1 g/dL (14.1-18.0); Lymphocytes # 2.4 K/mm3 (0.7-4.5); Lymphocytes % 38.2 % (10-50); Mean Corpuscular HGB Conc 33.4 g/dL (31.8-35.4); Mean Corpuscular Hemoglobin 30.5 pg (27.0-31.2); Mean Corpuscular Volume 91.4 fl (80-94); Mean Platelet Volume 8.8 fl (7.4-10.4); Monocytes # 0.5 K/mm3 (0.1-1.0); Monocytes % 8.6 % (1.7-9.3); Neutrophils # 2.8 K/mm3 (1.8-7.8); Neutrophils % 45.5 % (37.0-80.0); Platelet Count 199 K/mm3 (142-424); Red Cell Distribution Width 12.8 % (11.5-17.5); White Blood Count 6.2 K/mm3 (4.8-10.8)
[2019-08-30 06:17] LABS: Chloride 101 mmol/L (98-107); Potassium 4.6 mmoL/L (3.5-5.1); Sodium 132 mmol/L (136-145)
[2019-08-30 06:20] LABS: Anion Gap 6.6 mEq/L (5-15); Blood Urea Nitrogen 10 mg/dl (9-20); Calcium 8.3 mg/dl (8.4-10.2); Carbon Dioxide 29 mmol/L (22.0-30.0); Creatinine Clearance Estimated 243 mL/min (50-200); Estimated Glomerular Filt Rate 173 ml/min (>60); GFR (African American) 209 ML/MIN (>60); Glucose 305 mg/dl (74-100)
[2019-08-30 08:00] VITALS: BP 147/74; PULSE 70; RESP 20; TEMP 36.6; O2SAT 93
--- NOTE | 2019-08-30 08:33 | HMH.DCSUM ---
General - General Admission date:: 08/26/19 Discharge date: 08/30/19 HPI HPI: 54-year-old male patient sitting up in bed resting quietly denies pain at present, dressing intact to left upper extremity. Discussed discharged today home, he is agreeable to this. We will follow-up in Ortho next week, appointment is scheduled. Discussed past drug use and possible treatment options. 54-year-old male patient in for continued and increased redness, swelling, drainage, and pain of left inner elbow. He was seen 08/22 at [facility] ED for Patient states that on Monday he packing a weedeater and then on Monday he noticed he was having some swelling in his left arm around his elbow area and in the bend of his arm States that since Monday it has continued to get worse States that now his arm is swollen from his elbow down and has severe pain when he moves it touches it State that he has took a lot of Motrin to deal with the pain States that he feels like he is going to pass out when he moves that arm and his ring finger and little finger feels tingly at times States that today arm felt hard and was hurting worse so he came in to get it checked (Per Vicente Lu APRN). After this appointment he received clindamycin and Ortho referral. His white blood cell count in the ER was 9.2, blood glucose was 589, C-reactive protein 102.4, and acetone level was negative. He did receive fluids, vancomycin IV, regular insulin, and a tetanus shot in ED. he denies any IV drug use Hospital Course Hospital Course: 54-year-old male patient in for continued and increased redness, swelling, drainage, and pain of left inner elbow. He was seen 08/22 at [facility] ED for Patient states that on Monday he packing a weedeater and then on Monday he noticed he was having some swelling in his left arm around his elbow area and in the bend of his arm States that since Monday it has continued to get worse States that now his arm is swollen from his elbow down and has severe pain when he moves it touches it State that he has took a lot of Motrin to deal with the pain States that he feels like he is going to pass out when he moves that arm and his ring finger and little finger feels tingly at times States that today arm felt hard and was hurting worse so he came in to get it checked (Per Vicente Lu APRN). After this appointment he received clindamycin and Ortho referral. His white blood cell count in the ER was 9.2, blood glucose was 589, C-reactive protein 102.4, and acetone level was negative. He did receive fluids, vancomycin IV, regular insulin, and a tetanus shot in ED. he denies any IV drug use 08/27/19: I/D LUE: Operative findings:: A large abscess starting over the medial aspect of the antecubital fossa extending into the subcutaneous and intramuscular planes. After incising the abscess, about 20 cc of keshia pus was drained. There is extensive soft tissue swelling and induration. The common flexor tendons are inflamed and involved in the abscess cavity. No full-thickness muscle/tendon tears noted. No obvious bone or joint involvement was noted. There was extensive cellulitis over the elbow extending proximally onto the upper arm and distally into the forearm. 08/29/19 I/D LUE Wound: Operative findings:: Granulating abscess cavity over the anteromedial aspect of the elbow; the skin edges were somewhat necrotic and there was also some slough in the abscess cavity. No keshia pus was noted. The muscles and the surrounding tissue appears a lot healthier compared to couple of days ago. And there is significantly less soft tissue swelling and induration. No full-thickness muscle/tendon tears noted. No obvious bone or joint involvement was noted. The cellulitis over the surrounding skin has significantly improved as well. Operative note:: On the day of the procedure the patient was met on the floor and I again discussed the diagnosis, natural histo
--- NOTE | 2019-08-30 09:56 | HMH.PHAINT ---
DISCHARGE COUNSELING COMPLETED ON PATIENT. NEW PRESCRIPTION IS MINOCYCLINE 100MG BID. THIS WAS SENT TO [facility] IN [place]. PATIENT IS TO CONTINUE ALL OTHER HOME MEDICATIONS. METFORMIN DOSE WAS INCREASED TO 1,000MG BID. PATIENT VERIFIED THAT HE HAS METFORMIN AT HOME AND WILL BE ABLE TO USE THAT SUPPLY. PATIENT HAD NO QUESTIONS AT THIS TIME. -LULU PALOMINO, EDD
--- NOTE | 2019-08-30 10:17 | PC.NURSE ---
PT WAS MORE THAN READY TO BE DISCHARGED. PT WAS INSTRUCTED NOT TO MESS WITH DRESSING TO THE LUE UNTIL HE FOLLOWED UP WITH ON MONDAY. ANTIBIOTIC WAS SENT TO [facility]. PICC TO [facility] WAS DC'D BEFORE DISCHARGE.
[2019-08-30 20:52] LABS: POC Glucose,Bedside 268 (70-110)
== END 2019-08-30 10:20 | disposition home or self-care (01) | DRG 603 ==
LOC: ER 20:03 → 2ND 21:54
PROVIDERS: Nurse Practitioner Family; Orthopaedic Surgery; Physician Assistant; Admitting Provider Emergency Medicine; Emergency Provider Emergency Medicine; PCP Emergency Medicine; Visit Provider Emergency Medicine
PROC: 0X9C0ZZ Drainage of Left Elbow Region, Open Approach (ICD-10-PCS; CPT 10061; principal; 2019-08-27 11:00)
DX: L02.414 Cutaneous abscess of left upper limb (principal); B95.4 Other streptococcus as the cause of diseases classified elsewhere; B95.7 Other staphylococcus as the cause of diseases classified elsewhere; L03.114 Cellulitis of left upper limb; I11.0 Hypertensive heart disease with heart failure; I50.9 Heart failure, unspecified; I25.2 Old myocardial infarction; Z72.0 Tobacco use; E11.9 Type 2 diabetes mellitus without complications; Z79.4 Long term (current) use of insulin
CPT/HCPCS: 10061; 10060; 36415; 71045; 73060; 73090; 73200; 80048; 80053; 80202; 80305; 82009; 82962; 83605; 84484; 85025; 85651; 86140; 87040; 87070; 87075; 87077; 87186; 87205; 90471; 90714; 93005; 93306; 96365; 96367; 96372; 96375; 99284; C1751; J2405; J3370

== ENCOUNTER → 2019-09-25 13:18 | Outpatient (CLI) | payer MEDICAID, SELFPAY ==
--- NOTE | 2019-09-25 13:24 | CT_ITS ---
PROCEDURE: CT HEAD/BRAIN WO CON CLINICAL INDICATION: headache and injury Severe headaches COMPARISON: No exams were available for comparison TECHNIQUE: Axial images obtained. All CT scans at the facility use one or more dose reduction, viz: automated exposure control, ma/kV adjustment per patient size (including targeted exams where dose is matched to indication, i.e. head), or iterative reconstruction technique. FINDINGS: No midline shift, mass effect, intracranial hemorrhage, hydrocephalus, or extra-axial fluid collection is evident. The calvarium has an unremarkable appearance. No mastoid effusion. No sinus air-fluid level. IMPRESSION: No acute intracranial finding Dictated by: John Lazaro MD 09/25/2019 16:47 Electronically signed by John Lazaro MD in [place] 09/25/2019 16:47
== END ==
PROVIDERS: PCP Emergency Medicine; Visit Provider Nurse Practitioner Family
DX: S09.90XA Unspecified injury of head, initial encounter (principal)
CPT/HCPCS: 70450

== ENCOUNTER 2019-10-01 15:00 | Outpatient (RCR) | payer MEDICAID, SELFPAY ==
--- NOTE | 2019-09-09 11:01 | HMH.PTOPWND ---
Rehab Outpt Wound Evaluation Rehab OP Wound Evaluation Start: 09/09/19 09:22 Freq: Status: Active Protocol: Document 09/09/19 10:51 SALOME (Rec: 09/09/19 11:01 SALOME [id number]) Electronically Signed By Jonathan Diego, PT 09/09/19 10:51 Subjective/History History History Pt is 54 yowm who presents with L antecubital elbow wound due to IVD injection site infection ~ 2 wks S/P I&D due to abcess. He had 2 I&D procedures performed (08/26 and 08/28) and the wound was left open to heal via secondary intention. He reports PMH of CHF, CAD, DM-I, DM-II, HL, HTN , MRSA, AL, Depression. Subjective Subjective He reports discomfort in the elbow as expected. Wound Eval Wound Left Anterior Elbow Wound Type surgical wound Is This a Chronic Wound No Wound Length (cm) 2.8 Wound Width (cm) 3.2 Wound Depth (cm) 1.2 Wound Bed Appearance Beefy Red Percentage Granulated (%) 100 Wound Margins Description Well Defined Surrounding Tissue Appearance [place] Edema Type Pitting Edema Degree 2+ Query Text:1+ Trace, Barely Detectable, Rebound 15-30 seconds 2+ Moderate, Slight Indentation, Rebound 10-20 seconds 3+ Deep, Deeper Indentation, Rebound > 30 seconds 4+ Very Deep, Rebound > 60 seconds Edema Appearance Puffy Drainage Description Serosanguineous Drainage Amount Moderate Wound Topical Solution/Irrigant Saline Irrigant Primary Dressing Silver Dressing Comment tegaderm Ag mesh, Opticell Ag Wound Secondary Dressing Type Absorbant Pad,Gauze Roll/Wrap, Elastic Bandage Wound Debridement Method Gauze Wound Debridement Amount of Tissue None Removed Dressing Change Patient Tolerance Tolerated Well Wound Problems/Impairments Impairments Problems/Impairmments Palpation Tenderness,Impaired Range of Motion,Increased Edema,Lymphedema Present,Wound Care Needs,Subjective C/O Pain,Impaired Self Care/Self Management Prognosis Rehab Potential Fair Clinical Impression Consistent with Diagnosis Yes Short Term Goals Number of Weeks
== END 2019-10-01 15:05 | disposition home or self-care (01) ==
LOC: PT 15:00
PROVIDERS: Visit Provider Orthopaedic Surgery
DX: L02.91 Cutaneous abscess, unspecified (principal); M79.602 Pain in left arm
CPT/HCPCS: 97140; 97163; 97597; 97760

== ENCOUNTER → 2019-12-25 11:04 | Outpatient (CLI) | payer MEDICAID, SELFPAY ==
[2019-12-25 13:50] LABS: Basophils % 0.4 % (0.1-2.0); Eosinophils # 0.1 K/mm3 (0.0-0.4); Hematocrit 45.7 % (42.0-52.0); Hemoglobin 15.3 g/dL (14.1-18.0); Lymphocytes # 2.7 K/mm3 (0.7-4.5); Lymphocytes % 28.7 % (10-50); Mean Corpuscular HGB Conc 33.5 g/dL (31.8-35.4); Mean Corpuscular Hemoglobin 30.8 pg (27.0-31.2); Mean Corpuscular Volume 91.7 fl (80-94); Mean Platelet Volume 12.5 fl (7.4-10.4); Monocytes # 0.6 K/mm3 (0.1-1.0); Monocytes % 6.6 % (1.7-9.3); Neutrophils # 5.9 K/mm3 (1.8-7.8); Neutrophils % 63.2 % (37.0-80.0); Platelet Count 159 K/mm3 (142-424); Red Blood Count 4.99 M/mm3 (4.60-6.20); Red Cell Distribution Width 13.3 % (11.5-17.5); White Blood Count 9.3 K/mm3 (4.8-10.8)
[2019-12-25 13:56] LABS: Alanine Aminotransferase 77 U/L (12-78); Albumin Level 3.6 g/dl (3.5-5.0); Alkaline Phosphatase 159 U/L (38-126); Anion Gap 16.3 mEq/L (5-15); Aspartate Amino Transferase 58 U/L (17-59); Bilirubin,Direct 0.2 mg/dl (0.0-0.4); Bilirubin,Indirect 0.4 mg/dL (0.0-0.9); Bilirubin,Total 0.6 mg/dl (0.2-1.3); Bilirubin,Unconjugated 0.4 mg/dL (0.0-1.1); Blood Urea Nitrogen 11 mg/dl (9-20); Carbon Dioxide 24 mmol/L (22.0-30.0); Chloride 93 mmol/L (98-107); Estimated Glomerular Filt Rate 173 ml/min (>60); GFR (African American) 209 ML/MIN (>60); Potassium 4.3 mmoL/L (3.5-5.1); Sodium 129 mmol/L (136-145)
--- NOTE | 2019-12-25 14:21 | CA_ITS ---
APPROVED REPORT Right Lower Extremity Venous Study for DVT. Geriatrics Physician: MALLIKA Indications Lower Extremity Pain: Right Lower Extremity Edema: Right Current Smoker pain and edema in right leg x 2 days. Patient states he was weedeating 2 days ago and twisted his ankle. Pain, redness, and edema since. Risk Factors Current Smoker Medications Aspirin 81 mg daily Vein Imaging CFV (R): compressive, spontaneous, phasic, augmentation FEM (R): compressive, spontaneous, phasic, augmentation POP (R): compressive, spontaneous, phasic, augmentation PTV (R): Compressible GSV (R): compressive, spontaneous, phasic, augmentation SSV (R): Compressible Peroneals (R):Compressible GAS (R): Compressible Findings No evidence of DVT or superficial thrombophlebitis in the veins scanned of the right lower extremity. Conclusion No evidence of DVT or superficial thrombophlebitis in the veins scanned of the right lower extremity. Electronically signed by : John Lazaro MD 12/25/2019 16:58:32
[2019-12-25 16:56] LABS: Glucose 631 mg/dl (74-100)
[2019-12-26 09:23] LABS: HIV Screen 4th Generation wRfx Non Reactive (Non Reactive)
[2019-12-26 11:40] LABS: Rapid Plasma Reagin Ab Titer Non Reactive (NonRea<1:1)
[2019-12-26 12:12] LABS: Hep A Ab, IgM Negative (Negative); Hepatitis B Core Antibody IgM Negative (Negative); Hepatitis B Surface Antigen Negative (Negative)
[2019-12-26 13:01] LABS: Hepatitis C Antibody >11.0 s/co ratio (0.0-0.9)
== END ==
LOC: LAB.CARL 11:05 → RT 14:21
PROVIDERS: PCP Emergency Medicine; Visit Provider Family Medicine Addiction Medicine
DX: M79.604 Pain in right leg (principal); R60.9 Edema, unspecified; R76.0 Raised antibody titer; K75.9 Inflammatory liver disease, unspecified
CPT/HCPCS: 36415; 80048; 80074; 80076; 85025; 86592; 86703; 93971; G0432

== ENCOUNTER 2020-01-12 18:18 | Emergency (ER) | payer MEDICAID, SELFPAY ==
[2020-01-12 18:19] VITALS: BP 153/83; PULSE 98; RESP 17; TEMP 36.9; O2SAT 98; BMI 21.7
--- NOTE | 2020-01-12 18:30 | HMH.EDSKAF ---
ED Disposition Clinical Impression: Cellulitis of right lower leg Disposition: Home, Self-Care Condition on Discharge: Good Instructions: DI for Skin Abscess, Cellulitis Prescriptions: Sulfamethoxazole/Trimethoprim [Bactrim DS tablet] 1 each PO BID #20 tab Transmission Status: Pending to [facility] Referrals: Prateek Leary MD [Primary Care Provider] - - Critical Care Critical Care Time: No Attestation: On , the high probability of a clinically significant, sudden or life threatening deterioration of the following system(s) required my full and direct attention, intervention and personal management. The time I documented below is in addition to time spent performing reported procedures but includes the following listed in this critical care notation. Medical Decision Making - Medical Records Medical records reviewed: Yes: I reviewed the patient's medical records. - [place] Inquiry Pt receiving controlled substance: No Vital Signs: 01/12/20 18:19 Temperature 98.5 F Temperature Source Oral Pulse Rate [Right] 98 H Respiratory Rate 17 Blood Pressure [Right Arm] 153/83 H Blood Pressure Mean [Right Arm] 106 02 Sat by Pulse Oximetry 98 Orders (Tests/Meds): ED MEDICATIONS Discontinued Medications Generic Name Dose Route Start Last Admin Trade Name Freq PRN Reason Stop Dose Admin Ketorolac Tromethamine 60 mg 01/12/20 18:27 Ketorolac 60mg/2ml Vial IM 01/12/20 18:28 ONCE ONE Mupirocin 1 gm 01/12/20 18:28 Mupirocin 2% Ointment 22gm Tube TP 01/12/20 18:29 ONCE ONE Protocol Trimethoprim/Sulfamethoxazole 1 each 01/12/20 18:28 Sulfa/Trimethoprim 1 Tablet PO 01/12/20 18:29 ONCE ONE Protocol Skin/Abscess/FB HPI - General Chief complaint: Skin/Abscess/Foreign Body Stated complaint: R leg pain Time Seen by Provider: 01/12/20 18:25 Mode of Arrival: Ambulatory Source of Information: Patient Limitations: No Limitations Description of Symptoms (Recalled from ER Triage Doc. by RN): C/O RIGHT LEG PAIN X 1 WEEK AFTER BEING DX WITH CELLULITIS, PT STATES HE HAS ALREADY BEEN THROUHG A COUGH OF ABX BUT IT IS NOT ANY BETTER. - History of Present Illness HPI narrative: This is a 54-year-old male that presents with rash to right lower extremity x5 to 7 days. Rash is persistent with erythema. No purulence. No fever. Pain is sharp constant with no exacerbation or alleviation by any measures thus far. Moderate in intensity - Related Data Previous Rx's Medication Instructions Recorded nitroglycerin 0.4 mg sublingual 0.4 mg SUBLINGUAL Q5-15M PRN #30 04/27/18 tablet tab atorvastatin 10 mg tablet 10 mg PO HS #90 tab 02/22/19 furosemide 80 mg tablet 80 mg PO DAILYP PRN #90 tab 02/22/19 lisinopril 40 mg tablet 40 mg PO DAILY #90 tab 02/22/19 metoprolol tartrate 25 mg tablet 25 mg PO BID #180 tab 02/22/19 trazodone 50 mg tablet 50 mg PO QHS #30 tab 02/22/19 cholecalciferol (vitamin D3) 25 1,000 unit PO DAILY #90 cap 03/01/19 mcg (1,000 unit) capsule ergocalciferol (vitamin D2) 1,250 50,000 unit PO QWEEK 90 Days #12 03/01/19 mcg (50,000 unit) capsule cap ondansetron HCl 8 mg tablet 8 mg PO Q12H #30 tab 07/24/19 Metformin HCl [Glucophage] 1,000 mg PO BID 90 Days #180 tab 08/30/19 olanzapine 5 mg tablet 5 mg PO QHS #30 tab 10/04/19 gabapentin 600 mg tablet 600 mg PO TID #90 tab 12/25/19 insulin human U-100 NPH-regulr See Rx Instructions .ROUTE 12/26/19 70-30 mix 100 unit/mL subcutaneous .COMPLEX #100 ml susp insulin syringe-needle U-100 1 mL See Rx Instructions .ROUTE 12/26/19 31 gauge x 08/23 .MEDSUPPLY #100 each cefdinir 300 mg capsule 300 mg PO BID 10 Days #20 cap 12/27/19 Sulfamethoxazole/Trimethoprim 1 each PO BID #20 tab 01/12/20 [Bactrim DS tablet] Allergies Allergy/AdvReac Type Severity Reaction Status Date / Time morphine [MORPHINE] Allergy Unknown I-HIVES Verified 12/25/19 13:38 [facility] History - Hepatitis A Scr
[2020-01-12 18:40] VITALS: BP 142/78; PULSE 90; RESP 17; TEMP 36.7; O2SAT 100
== END 2020-01-12 18:42 | disposition home or self-care (01) ==
LOC: ER 18:39
PROVIDERS: Emergency Provider Emergency Medicine; PCP Emergency Medicine
DX: L03.115 Cellulitis of right lower limb (principal); I10 Essential (primary) hypertension; E78.5 Hyperlipidemia, unspecified; E11.9 Type 2 diabetes mellitus without complications; F41.8 Other specified anxiety disorders; K21.9 Gastro-esophageal reflux disease without esophagitis; F17.210 Nicotine dependence, cigarettes, uncomplicated; Z79.899 Other long term (current) drug therapy
CPT/HCPCS: 96372; 99281

== ENCOUNTER 2020-01-14 16:52 | Inpatient (IN) | payer MEDICAID, SELFPAY ==
[2020-01-14 17:05] VITALS: BP 142/84; PULSE 83; RESP 15; TEMP 36.9; O2SAT 100; BMI 24.4
--- NOTE | 2020-01-14 17:12 | XR_ITS ---
PROCEDURE: XR TIBIA FIBULA RT 2V CLINICAL INDICATION: pain Cellulitis pain COMPARISON: CR TIBIART XR tibia fibula RT 2V from 12/25/2017 FINDINGS: There has been a prior ACL repair with mild osteoarthritic changes at the knee joint. No fracture or dislocation. No lytic or blastic change. IMPRESSION: Osteoarthritis. Prior ACL repair, no acute finding Dictated by: John Lazaro MD 01/14/2020 18:27 John Lazaro MD in [place] 01/14/2020 18:27
--- NOTE | 2020-01-14 17:33 | HMH.EDGENADL ---
ED Disposition Clinical Impression: IV drug user Cellulitis, leg Qualifiers: Laterality: right Qualified Code(s): L03.115 - Cellulitis of right lower limb Disposition: Admitted As Inpatient Condition on Discharge: Serious Instructions: DI for Skin Abscess Referrals: Prateek Howell MD [Primary Care Provider] - Forms: Work/School Release - Critical Care Critical Care Time: No Attestation: On 01/14/20, the high probability of a clinically significant, sudden or life threatening deterioration of the following system(s) required my full and direct attention, intervention and personal management. The time I documented below is in addition to time spent performing reported procedures but includes the following listed in this critical care notation. Medical Decision Making - Medical Records Medical records reviewed: Yes: I reviewed the patient's medical records. - [place] Inquiry Pt receiving controlled substance: No Vital Signs: 01/14/20 17:05 01/14/20 18:40 01/14/20 19:05 Temperature 98.4 F Temperature Source Oral Pulse Rate [Right Radial] 83 78 76 Respiratory Rate 15 16 18 Blood Pressure [Right Arm] 142/84 H 118/55 L 120/54 L Blood Pressure Mean [Right Arm] 103 76 76 Blood Pressure Source [Right Arm] Automatic Cuff Automatic Cuff Blood Pressure Position [Right Arm] Sitting Sitting 02 Sat by Pulse Oximetry 100 99 99 Oxygen Delivery Method Room Air Room Air Room Air - Lab Data Lab Results 01/14/20 18:00: WBC 7.9, RBC 4.97, Hgb 14.7, Hct 45.7, MCV 91.9, MCH 29.6, MCHC 32.2, RDW 12.0, Plt Count 217, MPV 9.4, Neut % (Auto) 66.9, Lymph % (Auto) 23.4, [place] % (Auto) 7.7, Eos % (Auto) 1.5, Baso % (Auto) 0.5, Neut # (Auto) 5.3, Lymph # (Auto) 1.8, [place] # (Auto) 0.6, Eos # (Auto) 0.1, Baso # (Auto) 0.0 01/14/20 18:00: Sodium 136, Potassium 4.8, Chloride 99, Carbon Dioxide 30, Anion Gap 11.8, BUN 13, Creatinine 0.70, Estimated Creat Clear 142, Estimated GFR 117, Est GFR ( Amer) 142, Glucose 269 H, Calcium 9.6 01/14/20 18:00: Lactate 1.1 01/14/20 18:00: SARS-CoV-2 IgG Ab (Rapid) Negative, SARS-CoV-2 IgM Ab (Rapid) Negative Result diagrams: 01/14/20 18:00 01/14/20 18:00 Orders (Tests/Meds): ORDERS Category Date Time Status CT lower leg RT w con Stat Cat Scan 01/14/20 20:09 Ordered - Reevaluation(s) Time: 20:18 Reevaluation #1: Patient does have findings consistent with cellulitis. He was started on vancomycin. Patient will be admitted to the hospital for further evaluation and treatment. Medical Decision Narrative: This is a 54-year-old male presented to the emergency department with pain and swelling in his right lower extremity. Patient has been treated for cellulitis in the past. Findings are consistent with cellulitis. Work-up will be initiated. General Adult HPI - General Chief complaint: Skin/Abscess/Foreign Body Stated complaint: Right leg pain Time Seen by Provider: 01/14/20 17:10 Mode of Arrival: Ambulatory Limitations: No Limitations Description of Symptoms (Recalled from ER Triage Doc. by RN): pt states he was seen here in ed on monday night for right lower posterior calf cellulitis. pt states that he got bactrim prescribed and he got them filled and has been taking them but it is not getting any better. pt states that dr howell called him this morning and told his mom to have him come to the er and get iv antibiotics for the infection. - History of Present Illness HPI narrative: 54-year-old male presented to the emergency department with swelling of his right lower leg. Patient has been dealing with this for the last 2 weeks. Has been seen by his primary care physician as well as the emergency department multiple times. Patient has some erythema and swelling in the right mid calf. He has been battling cellulitis. States that he did take a course of Bactrim, however it is not improved. He was sent to the emergency department for further evaluation today. St
[2020-01-14 18:21] LABS: Basophils % 0.5 % (0.1-2.0); Eosinophils # 0.1 K/mm3 (0.0-0.4); Eosinophils % 1.5 % (0.1-12.0); Hematocrit 45.7 % (42.0-52.0); Hemoglobin 14.7 g/dL (14.1-18.0); Lymphocytes # 1.8 K/mm3 (0.7-4.5); Lymphocytes % 23.4 % (10-50); Mean Corpuscular HGB Conc 32.2 g/dL (31.8-35.4); Mean Corpuscular Hemoglobin 29.6 pg (27.0-31.2); Mean Corpuscular Volume 91.9 fl (80-94); Mean Platelet Volume 9.4 fl (7.4-10.4); Monocytes # 0.6 K/mm3 (0.1-1.0); Monocytes % 7.7 % (1.7-9.3); Neutrophils # 5.3 K/mm3 (1.8-7.8); Neutrophils % 66.9 % (37.0-80.0); Platelet Count 217 K/mm3 (142-424); Red Blood Count 4.97 M/mm3 (4.60-6.20); White Blood Count 7.9 K/mm3 (4.8-10.8)
[2020-01-14 18:27] LABS: Lactic Acid 1.1 mmol/L (0.7-2.1)
[2020-01-14 18:28] LABS: Anion Gap 11.8 mEq/L (5-15); Blood Urea Nitrogen 13 mg/dl (9-20); Calcium 9.6 mg/dl (8.4-10.2); Carbon Dioxide 30 mmol/L (22.0-30.0); Chloride 99 mmol/L (98-107); Creatinine Clearance Estimated 142 mL/min (50-200); Estimated Glomerular Filt Rate 117 ml/min (>60); GFR (African American) 142 ML/MIN (>60); Glucose 269 mg/dl (74-100); Potassium 4.8 mmoL/L (3.5-5.1); Sodium 136 mmol/L (136-145)
[2020-01-14 18:40] VITALS: BP 118/55; PULSE 78; RESP 16; O2SAT 99
[2020-01-14 19:05] VITALS: BP 120/54; PULSE 76; RESP 18; O2SAT 99
[2020-01-14 19:35] LABS: Coronavirus 19 IgG Antibody Negative (Negative); Coronavirus 19 IgM Antibody Negative (Negative)
--- NOTE | 2020-01-14 20:09 | CT_ITS ---
PROCEDURE: CT LOWER LEG RT W CON CLINICAL HISTORY: abcess present Right leg redness and swelling COMPARISON: No exams were available for comparison TECHNIQUE: Axial images obtained with sagittal and coronal reformats. All CT scans at the facility use one or more dose reduction, viz: automated exposure control, ma/kV adjustment per patient size (including targeted exams where dose is matched to indication, i.e. head), or iterative reconstruction technique. FINDINGS: There is diffuse subcutaneous edema of the right lower extremity beginning at the level of the knee and extending inferiorly. At the knee there is a small knee joint effusion noted with osteoarthritic changes cough. Geodes are present in the proximal tibia. There is an irregular loculated fluid collection within the lower calf on the right posteriorly and medially involving the subcutaneous tissues with extension into the distal aspect of the gastrocnemius and the posterior medial aspect of the soleus muscle. This measures 9.6 cm in length 2.8 cm AP and 3.5 cm transverse. There are internal septations. No internal gas is evident. This is suspicious for an abscess. A hematoma would be included in the differential diagnosis. IMPRESSION: 10 x 3 cm heterogeneous collection within the soft tissues in the right lower leg which appear to extend into the distal gastrocnemius and posterior aspect of the soleus muscle suspicious for an abscess. Hematoma would be included in the differential diagnosis. Extensive subcutaneous edema of the right lower extremity. Osteoarthritic changes of the right knee with knee joint effusion. Dictated by: John Lazaro MD 01/15/2020 05:58 John Lazaro MD in [facility] 01/15/2020 05:58
--- NOTE | 2020-01-14 20:12 | PC.NURSE ---
spoke with merry from pharmacy for vanc dosing. he stated to give loading dose of 1.75g once and 1.25g IV Q12hrs
--- NOTE | 2020-01-14 20:36 | INFXCTL.NOTE ---
spoke with house about needed a covid swab for admission. she stated the antibodies were satisfactory
--- NOTE | 2020-01-14 20:41 | PC.NURSE ---
pt to RAD
[2020-01-14 21:45] VITALS: BP 122/56; PULSE 74; RESP 16; TEMP 36.9; O2SAT 98
--- NOTE | 2020-01-14 22:09 | PC.NURSE ---
PT ARRIVED TO THE FLOOR VIA W/C W/ STAFF FROM ED AT [id number]
[2020-01-14 22:10] VITALS: BP 154/81; PULSE 96; RESP 18; TEMP 36.8; O2SAT 96; BMI 26.5
[2020-01-15] VITALS (22 sets, daily range): BP systolic 122–161; BP diastolic 48–97; PULSE 65–96; RESP 12–18; TEMP 36.3–36.9; O2SAT 95–99; BMI 27.1
--- NOTE | 2020-01-15 05:15 | PC.NURSE ---
SHIFT SUMMARY, no acute changes since prior assessment, pt complained pain to right calf upon arrival to the floor, no complaints of pain since then, pt has rested well t/o shift, urinal at bedside and pt has had 1100 mL of clear yellow urine, pt has remained afebrile,
--- NOTE | 2020-01-15 07:32 | P.CONPHA_ITS ---
[facility] Pharmacy VTE Monitoring - Patient Demographics Admission date: 01/14/20 Report Date: 01/15/20 Time: 07:32 Allergies/Adverse Reactions: Patient Allergies morphine [MORPHINE] Allergy (Unknown, Verified 01/14/20 22:51) I-HIVES Height: 1.85 m Weight: 92.646 kg Patient Problems: Current Active Problems IV drug user (Acute) Cellulitis, leg (Acute) - VTE Risk Labs: VTE Related Lab Results Hgb 14.7 g/dL (14.1-18.0) 01/14/20 18:00 Hct 45.7 % (42.0-52.0) 01/14/20 18:00 Plt Count 217 K/mm3 (142-424) 01/14/20 18:00 BUN 13 mg/dl (9-20) 01/14/20 18:00 Creatinine 0.70 mg/dl (0.66-1.25) 01/14/20 18:00 Estimated Creat Clear 142 mL/min (50-200) 01/14/20 18:00 Was VTE Risk Assessment Performed: Yes VTE Score: 7 VTE Risk Level: Moderate Risk - Prophylaxis VTE Prophylaxis Ordered?: Yes Types of VTE Prophylaxis: TEDS Knee High Location of Applied Device: Bilateral Lower Extremeties
[2020-01-15 07:56] LABS: Basophils % 0.5 % (0.1-2.0); Eosinophils # 0.1 K/mm3 (0.0-0.4); Hemoglobin 13.6 g/dL (14.1-18.0); Lymphocytes # 2.4 K/mm3 (0.7-4.5); Lymphocytes % 32.7 % (10-50); Mean Corpuscular HGB Conc 31.5 g/dL (31.8-35.4); Mean Corpuscular Hemoglobin 28.8 pg (27.0-31.2); Mean Corpuscular Volume 91.3 fl (80-94); Mean Platelet Volume 8.8 fl (7.4-10.4); Monocytes # 0.6 K/mm3 (0.1-1.0); Monocytes % 8.1 % (1.7-9.3); Neutrophils # 4.2 K/mm3 (1.8-7.8); Neutrophils % 56.7 % (37.0-80.0); Platelet Count 219 K/mm3 (142-424); Red Blood Count 4.71 M/mm3 (4.60-6.20); Red Cell Distribution Width 12.1 % (11.5-17.5); White Blood Count 7.3 K/mm3 (4.8-10.8)
[2020-01-15 08:22] LABS: Chloride 101 mmol/L (98-107); Sodium 134 mmol/L (136-145)
--- NOTE | 2020-01-15 08:22 | HMH.PHACONS ---
- Pharmacy Consult Date: 01/15/20 Time: 08:22 Referring provider: DR. CONDE Reason for Consult:: VANCOMYCIN DOSING Allergies and ADEs:: Allergies Allergy/AdvReac Type Severity Reaction Status Date / Time morphine [MORPHINE] Allergy Unknown I-HIVES Verified 01/14/20 22:51 Home Medications:: Home Medications Medication Instructions Recorded Confirmed Type nitroglycerin 0.4 mg sublingual 0.4 mg SUBLINGUAL Q5-15M PRN #30 04/27/18 12/25/19 Rx tablet tab atorvastatin 10 mg tablet 10 mg PO HS #90 tab 02/22/19 12/25/19 Rx furosemide 80 mg tablet 80 mg PO DAILYP PRN #90 tab 02/22/19 12/25/19 Rx lisinopril 40 mg tablet 40 mg PO DAILY #90 tab 02/22/19 12/25/19 Rx metoprolol tartrate 25 mg tablet 25 mg PO BID #180 tab 02/22/19 12/25/19 Rx Metformin HCl [Glucophage] 1,000 mg PO BID 90 Days #180 tab 08/30/19 12/25/19 Rx insulin syringe-needle U-100 1 mL See Rx Instructions .ROUTE 12/26/19 Rx 31 gauge x 5/16 .MEDSUPPLY #100 each Sulfamethoxazole/Trimethoprim 1 each PO BID #20 tab 01/12/20 Rx [Bactrim DS tablet] Cefdinir [Omnicef 300mg Capsule] 300 mg PO BID 01/14/20 History Cholecalciferol (Vitamin D3) 1,000 unit PO DAILY 01/14/20 History [Vitamin D3 1,000 Unit Cap] Ergocalciferol (Vitamin D2) 50,000 unit PO QWEEK 01/14/20 History [Drisdol] Gabapentin 600 mg PO TID 01/14/20 History Insulin NPH Hum/Reg Insulin Hm See Rx Instructions .ROUTE .COMPLEX 01/14/20 History [Humulin 70/30 U-100 Insulin] OLANZapine [Olanzapine] 5 mg PO QHS 01/14/20 History Trazodone HCl 50 mg PO QHS 01/14/20 History ondansetron HCL [Ondansetron 8mg 8 mg PO Q12H 01/14/20 History tab*] Height: 1.85 m Weight: 92.646 kg Laboratory Results:: Laboratory Results - last 24 hr 01/14/20 18:00: WBC 7.9, RBC 4.97, Hgb 14.7, Hct 45.7, MCV 91.9, MCH 29.6, MCHC 32.2, RDW 12.0, Plt Count 217, MPV 9.4, Neut % (Auto) 66.9, Lymph % (Auto) 23.4, [place] % (Auto) 7.7, Eos % (Auto) 1.5, Baso % (Auto) 0.5, Neut # (Auto) 5.3, Lymph # (Auto) 1.8, [place] # (Auto) 0.6, Eos # (Auto) 0.1, Baso # (Auto) 0.0 01/14/20 18:00: Sodium 136, Potassium 4.8, Chloride 99, Carbon Dioxide 30, Anion Gap 11.8, BUN 13, Creatinine 0.70, Estimated Creat Clear 142, Estimated GFR 117, Est GFR ( Amer) 142, Glucose 269 H, Calcium 9.6 01/14/20 18:00: Lactate 1.1 01/14/20 18:00: SARS-CoV-2 IgG Ab (Rapid) Negative, SARS-CoV-2 IgM Ab (Rapid) Negative 01/15/20 07:46: WBC 7.3, RBC 4.71, Hgb 13.6 L, Hct 43.0, MCV 91.3, MCH 28.8, MCHC 31.5 L, RDW 12.1, Plt Count 219, MPV 8.8, Neut % (Auto) 56.7, Lymph % (Auto) 32.7, [place] % (Auto) 8.1, Eos % (Auto) 2.0, Baso % (Auto) 0.5, Neut # (Auto) 4.2, Lymph # (Auto) 2.4, [place] # (Auto) 0.6, Eos # (Auto) 0.1, Baso # (Auto) 0.0 Medical History: Reports:: Anxiety, Congestive Heart Failure, Coronary Artery Disease, Depression, Diabetes Mellitus Type 1, Gastroesophageal Reflux Disease(GERD), Heart Murmur, Hyperlipidemia, Hypertension, Myocardial Infarction Denies:: Cancer, Diabetes Mellitus Type 2, MRSA Assessment and Plan - Assessment and plan all Dx Assessment and Plan for all problems:: BASED ON PATIENT FACTORS, RECOMMEND VANCOMYCIN 1750 MG IV ONCE, FOLLOWED BY VANCOMYCIN 1500 MG IV Q8H. PHARMACY WILL FOLLOW DAILY AND ADJUST APPROPRIATE.
[2020-01-15 08:25] LABS: Blood Urea Nitrogen 9 mg/dl (9-20); Calcium 8.9 mg/dl (8.4-10.2); Carbon Dioxide 29 mmol/L (22.0-30.0); Creatinine Clearance Estimated 273 mL/min (50-200); Estimated Glomerular Filt Rate 223 ml/min (>60); GFR (African American) 270 ML/MIN (>60); Glucose 280 mg/dl (74-100)
--- NOTE | 2020-01-15 08:45 | HMH.GSCON ---
*Admission Date: 01/14/20 *Reason for consult:: Abscess of right lower extremity *History of present illness: This is a 54-year-old gentleman seen in consultation from the service of Dr. Howell for evaluation and management of right lower extremity abscess with concomitant cellulitis. He presented to the emergency department yesterday with increasing pain/swelling. Please see HPI for emergency department evaluation forwarded below. From ED evaluation: General Adult HPI - General Chief complaint: Skin/Abscess/Foreign Body Stated complaint: Right leg pain Time Seen by Provider: 01/14/20 17:10 Mode of Arrival: Ambulatory Limitations: No Limitations Description of Symptoms (Recalled from ER Triage Doc. by RN): pt states he was seen here in ed on monday night for right lower posterior calf cellulitis. pt states that he got bactrim prescribed and he got them filled and has been taking them but it is not getting any better. pt states that dr howell called him this morning and told his mom to have him come to the er and get iv antibiotics for the infection. - History of Present Illness HPI narrative: 54-year-old male presented to the emergency department with swelling of his right lower leg. Patient has been dealing with this for the last 2 weeks. Has been seen by his primary care physician as well as the emergency department multiple times. Patient has some erythema and swelling in the right mid calf. He has been battling cellulitis. States that he did take a course of Bactrim, however it is not improved. He was sent to the emergency department for further evaluation today. States that the pain is dull and nagging. Denies any trauma. No injection to the site. He denies any fevers or chills. Is not having any chest pain, palpitations, shortness of breath or cough. Denies any headache or change in vision. No focal weakness. Review of Systems - Constitutional Denies chills - Eyes Denies change in vision - ENT Denies difficulty swallowing - *Cardiovascular Denies chest pain - *Respiratory Denies cough - *Gastrointestinal Denies abdominal pain - *Genitourinary Denies painful urination - *Musculoskeletal Denies deformity - Integumentary/Breasts Reports redness - *Neurologic Denies headache(s) - Psychiatric Denies anxiety - Endocrine Denies cold intolerance - Hematologic/Lymphatic Denies easy bleeding, Denies easy bruising - Allergic/Immunologic Denies hives [facility] History Medical History: Reports:: Anxiety, Congestive Heart Failure, Coronary Artery Disease, Depression, Diabetes Mellitus Type 1, Gastroesophageal Reflux Disease(GERD), Heart Murmur, Hyperlipidemia, Hypertension, Myocardial Infarction Denies:: Cancer, Diabetes Mellitus Type 2, MRSA *Have you ever received a pneumonia vaccine?: No *Have you received a flu vaccine this season?: No Other Medical History: Reports: Anemia, Arthritis Laterality Cases: Right: ACL Repair Other Surgeries: Yes: Angioplasty, Cholecystectomy, Hernia Repair, Other Amputation: No Fractures: No - *Social History Last grade of school completed: 9th or 10th Smoking Status: Current every day smoker Tobacco Type: cigarettes # Packs/Day (cigarettes): 2 #Yrs smoked (if former smoker): 30 Alcohol Intake: never Alcohol Intake Frequency:: holidays/special occasions only Substance Use Type: methamphetamine Last Used Substance: days (ago) *Occupational Status:: unemployed Housing: house Household Members: family *Travel in the last 8 weeks: None - Psychiatric History Pschychiatric History:: Reports:: Anxiety, Depression Family Hx:: Cancer, Coronary Artery Disease, Hypertension Meds Home Medications Medication Instructions Recorded Confirmed Type nitroglycerin 0.4 mg sublingual 0.4 mg SUBLINGUAL Q5-15M PRN #30 04/27/18 12/25/19 Rx tablet tab atorvastatin 10 mg tablet 10 mg PO HS #90 tab 02/22/19 12/25/19 Rx furosemide 80 mg tablet 80 mg PO DAILYP PRN
--- NOTE | 2020-01-15 09:11 | HMH.HP ---
*Admission Date: 01/14/20 *Chief complaint: Right lower leg pain/swelling *History of present illness: 54-year-old male presented to the emergency department with swelling of his right lower leg. Patient has been dealing with this for the last 2 weeks. Has been seen by his primary care physician as well as the emergency department multiple times. Patient has some erythema and swelling in the right mid calf. He has been battling cellulitis. States that he did take a course of Bactrim, however it is not improved. He was sent to the emergency department for further evaluation today. States that the pain is dull and nagging. Denies any trauma. No injection to the site. He denies any fevers or chills. Is not having any chest pain, palpitations, shortness of breath or cough. Denies any headache or change in vision. No focal weakness. 01/14/[address]: FINDINGS: There is diffuse subcutaneous edema of the right lower extremity beginning at the level of the knee and extending inferiorly. At the knee there is a small knee joint effusion noted with osteoarthritic changes cough. Geodes are present in the proximal tibia. There is an irregular loculated fluid collection within the lower calf on the right posteriorly and medially involving the subcutaneous tissues with extension into the distal aspect of the gastrocnemius and the posterior medial aspect of the soleus muscle. This measures 9.6 cm in length 2.8 cm AP and 3.5 cm transverse. There are internal septations. No internal gas is evident. This is suspicious for an abscess. A hematoma would be included in the differential diagnosis. IMPRESSION: 10 x 3 cm heterogeneous collection within the soft tissues in the right lower leg which appear to extend into the distal gastrocnemius and posterior aspect of the soleus muscle suspicious for an abscess. Hematoma would be included in the differential diagnosis. Extensive subcutaneous edema of the right lower extremity. Osteoarthritic changes of the right knee with knee joint effusion. Dictated by: Tejas, 01/14/20 RLE XR: FINDINGS: There has been a prior ACL repair with mild osteoarthritic changes at the knee joint. No fracture or dislocation. No lytic or blastic change. IMPRESSION: Osteoarthritis. Prior ACL repair, no acute finding Dictated by: Tejas [facility] History Medical History: Reports:: Anxiety, Congestive Heart Failure, Coronary Artery Disease, Depression, Diabetes Mellitus Type 1, Gastroesophageal Reflux Disease(GERD), Heart Murmur, Hyperlipidemia, Hypertension, Myocardial Infarction Denies:: Cancer, Diabetes Mellitus Type 2, MRSA *Have you ever received a pneumonia vaccine?: No *Have you received a flu vaccine this season?: No Other Medical History: Reports: Anemia, Arthritis Laterality Cases: Right: ACL Repair Other Surgeries: Yes: Angioplasty, Cholecystectomy, Hernia Repair, Other Amputation: No Fractures: No - *Social History Last grade of school completed: 9th or 10th Smoking Status: Current every day smoker Tobacco Type: cigarettes # Packs/Day (cigarettes): 2 #Yrs smoked (if former smoker): 30 Alcohol Intake: never Alcohol Intake Frequency:: holidays/special occasions only Substance Use Type: methamphetamine Last Used Substance: days (ago) *Occupational Status:: unemployed Housing: house Household Members: family *Travel in the last 8 weeks: None - Psychiatric History Pschychiatric History:: Reports:: Anxiety, Depression Family Hx:: Cancer, Coronary Artery Disease, Hypertension Review of Systems - Review of Systems Review of systems:: pertinent systems reviewed and negative unless documented below - Constitutional Denies fever(s), Denies lack of energy - Eyes Denies blurry vision, Denies change in vision - ENT Denies dizziness, Denies mouth pain - *Cardiovascular Denies chest pain, Denies shortness of breath - *Respiratory Denies chest congestion, Denies shortne
--- NOTE | 2020-01-15 09:52 | HMH.ORTHOCON ---
*Admission Date: 01/14/20 *Reason for consult:: Abscess, right leg *History of present illness: This is a 54-year-old gentleman seen in consultation from the service of Dr. Leary for evaluation and management of right lower extremity abscess with cellulitis. He was admitted from the emergency department yesterday with increasing pain/swelling over his right distal calf. Patient was initially seen by Dr. Logan but then deferred the case for orthopedics to manage. Patient says this is been going on for the last 2 or 3 weeks. He says he was seen by his primary care physician as well as in the ER multiple times and has been on oral antibiotics. Patient says the pain and swelling have been getting worse and he has been admitted from the ER for further management. He denies any systemic symptoms like fevers, chills or rigors. No history of any injury. Patient is a known IV drug abuser and has been under my care in the past for a left elbow abscess. Patient denies any injection into the leg/calf. No history of any distal tingling or numbness. He states that the pain is dull and nagging. No history of any chest pain, palpitations, shortness of breath or cough. No focal weakness. [facility] History I have reviewed the patient's past medical history: Yes Medical History: Reports:: Anxiety, Congestive Heart Failure, Coronary Artery Disease, Depression, Diabetes Mellitus Type 1, Gastroesophageal Reflux Disease(GERD), Heart Murmur, Hyperlipidemia, Hypertension, Myocardial Infarction Denies:: Cancer, Diabetes Mellitus Type 2, MRSA *Have you ever received a pneumonia vaccine?: No *Have you received a flu vaccine this season?: No Other Medical History: Reports: Anemia, Arthritis Laterality Cases: Right: ACL Repair Other Surgeries: Yes: Angioplasty, Cholecystectomy, Hernia Repair, Other Amputation: No Fractures: No - *Social History Last grade of school completed: 9th or 10th Smoking Status: Current every day smoker Tobacco Type: cigarettes # Packs/Day (cigarettes): 2 #Yrs smoked (if former smoker): 30 Alcohol Intake: never Alcohol Intake Frequency:: holidays/special occasions only Substance Use Type: methamphetamine Last Used Substance: days (ago) *Occupational Status:: unemployed Housing: house Household Members: family *Travel in the last 8 weeks: None - Psychiatric History Pschychiatric History:: Reports:: Anxiety, Depression Family Hx:: Cancer, Coronary Artery Disease, Hypertension Review of Systems - Review of Systems Review of systems:: pertinent systems reviewed and negative unless documented below - Constitutional Denies anorexia, Denies chills - Eyes Denies change in vision - ENT Denies abnormal hearing, Denies difficulty swallowing - *Cardiovascular Denies chest pain, Denies shortness of breath - *Respiratory Denies cough - *Gastrointestinal Denies abdominal pain - *Genitourinary Denies painful urination - *Musculoskeletal Reports abnormal walking, Denies joint pain, Denies deformity, Denies numbness - Integumentary/Breasts Reports redness - *Neurologic Denies dizziness, Denies headache(s) - Psychiatric Denies anxiety - Hematologic/Lymphatic Denies easy bleeding, Denies easy bruising - Allergic/Immunologic Denies hives Meds Home Medications Medication Instructions Recorded Confirmed Type nitroglycerin 0.4 mg sublingual 0.4 mg SUBLINGUAL Q5-15M PRN #30 04/27/18 12/25/19 Rx tablet tab atorvastatin 10 mg tablet 10 mg PO HS #90 tab 02/22/19 12/25/19 Rx furosemide 80 mg tablet 80 mg PO DAILYP PRN #90 tab 02/22/19 12/25/19 Rx lisinopril 40 mg tablet 40 mg PO DAILY #90 tab 02/22/19 12/25/19 Rx metoprolol tartrate 25 mg tablet 25 mg PO BID #180 tab 02/22/19 12/25/19 Rx RX: Metformin HCl [Glucophage] 1,000 mg PO BID 90 Days #180 tab 08/30/19 12/25/19 Rx insulin syringe-needle U-100 1 mL See Rx Instructions .ROUTE 12/26/19 Rx 31 gauge x 08/23 .MEDSUPPLY #100 each Sulfamethoxazole/Trimethoprim 1 each PO
[2020-01-15 10:52] LABS: C-Reactive Protein 40.2 mg/L (0-4)
--- NOTE | 2020-01-15 12:00 | P.PN_ITS ---
[facility] Anesthesia Checklist - Structural Data Admitted From: Inpatient Planned Operative Procedure/s: i/ leg Consent for Planned Operative Procedure(s) Verified: Yes - Additional verifications Anesthesia Reactions: No - Airway Assessment C-Spine Mobility Assessed: Yes TMJ Mobility Assessed: Yes Dentition: Poor Dentition - Neurological Assessment Level of Consciousness: Awake, Alert, Appropriate - Anesthesia Plan Anesthesia Risk discussed: Yes Anesthesia Plan: Verified ASA Class: III Anesthesia Type: General [facility] History I have reviewed the patient's past medical history: Yes Medical History: Reports:: Anxiety, Congestive Heart Failure, Coronary Artery Disease, Depression, Diabetes Mellitus Type 1, Gastroesophageal Reflux Disease(GERD), Heart Murmur, Hyperlipidemia, Hypertension, Myocardial Infarction Denies:: Cancer, Diabetes Mellitus Type 2, MRSA *Have you ever received a pneumonia vaccine?: No *Have you received a flu vaccine this season?: No Other Medical History: Reports: Anemia, Arthritis Anesthesia experience/problems:: none Laterality Cases: Right: ACL Repair Other Surgeries: Yes: Angioplasty, Cholecystectomy, Hernia Repair, Other Amputation: No Fractures: No - *Social History Last grade of school completed: 9th or 10th Smoking Status: Current every day smoker Tobacco Type: cigarettes # Packs/Day (cigarettes): 2 #Yrs smoked (if former smoker): 30 Alcohol Intake: never Alcohol Intake Frequency:: holidays/special occasions only Substance Use Type: methamphetamine Last Used Substance: days (ago) *Occupational Status:: unemployed Housing: house Household Members: family *Travel in the last 8 weeks: None - Psychiatric History Pschychiatric History:: Reports:: Anxiety, Depression Family Hx:: Cancer, Coronary Artery Disease, Hypertension
[2020-01-15 12:18] LABS: POC Glucose,Bedside 244 (70-110)
--- NOTE | 2020-01-15 12:35 | PC.NURSE ---
Pt to surgery at this time still
--- NOTE | 2020-01-15 13:21 | P.PN_ITS ---
[facility] Anesthesia Record Part I Intake, IV Amount: 700 Estimated blood loss (mL): 10 Urine output (mL): 0 (NM) Blood Products used (#): none Blood Pressure: 136/81 SaO2: 99 Pulse Rate: 81 Respiratory Rate: 16 Temperature: 97.5 F Patient is:: Awake, Drowsy Stable to PACU at:: 13:08
--- NOTE | 2020-01-15 13:25 | HMH.OPNOTE ---
Date of procedure: 01/15/20 Pre-op Diagnosis:: Abscess, right leg Post-op Diagnosis:: Same Procedure performed:: Incision and drainage abscess, right leg Surgeon:: Eddie Chavez MD Digital Marketing Manager(s):: Zuleima Pandey RCP:: Lui Aguirre Anesthesia: LMA Estimated blood loss (mL): 10 Clinical Note:: Patient is a 54-year-old male patient with multiple medical problems admitted to hospital for management of abscess/cellulitis right lower leg. Patient states that he developed pain and swelling over the posterior aspect of the distal right leg couple of weeks ago. He was seen by his primary care physician as well as in the ER and was on oral antibiotics. The condition fails to improve and therefore patient was admitted to the hospital for further management. No history of any fevers, chills or rigors. He has history of substance abuse but strongly denies any recent IV drug use. Patient is a known diabetic which is poorly controlled. He is a chronic smoker and continues to smoke. His past medical history includes anxiety, Congestive Heart Failure, Coronary Artery Disease, Depression, Diabetes Mellitus Type 1, Diabetes Mellitus Type 2, Gastroesophageal Reflux Disease(GERD), Heart Murmur, Hyperlipidemia, Hypertension, MRSA, Myocardial Infarction among others. Evaluation confirmed a tense and tender abscess over the posterior aspect of the distal right leg/calf. There is marked erythema, swelling of the leg associated with cellulitis. Imaging of his lower extremity showed soft tissue swelling without any bony involvement. He was admitted for management of the same including IV antibiotics and incision and drainage. Incision and drainage of the abscess is indicated to treat the infection, improve the pain and function and is the standard of care for his management. Please refer to my consult note for full details. Operative findings:: A large abscess over the distal half of the right calf extending to just above the ankle joint. The cavity is extending into the subcutaneous and intramuscular planes. After incising the abscess, about 30 cc of keshia pus was drained. There is extensive soft tissue swelling and induration. The Achilles tendon appears uninvolved. No full-thickness muscle/tendon tears noted. No obvious bone or joint involvement was noted. There was extensive cellulitis over the distal calf. Operative note:: On the day of the procedure the patient was met on the floor and I have discussed the diagnosis, natural history and management options in detail including both nonsurgical and surgical. Patient opted for surgical remediation in the form of incision and drainage of the abscess. I have discussed about the procedure of incision and drainage, risks and benefits and alternatives in detail. The complications discussed include but are not limited to injury to blood vessels, nerves, injury to tendons and ligaments, bleeding, incisional scar (cosmesis), continued pain, adhesions, hypertrophic scarring, DVT/PE, knee and ankle stiffness, CRPS (complex regional pain syndrome- pain, sensory and temperature changes, swelling and stiffness), painful scars, incomplete relief of pain, incomplete return of function and likely need for further surgery in future and also the risks of anesthesia including heart attack, stroke, and . I have discussed how there is a small but real possibility of loss of use of the leg, loss of the limb or loss of life itself. I have also explained how additional surgery may be required if there are any complications or the condition fails to improve. I have told him that typically following Incision and drainage of an abscess, we would leave the incision open to facilitate drainage and let the wound heal by secondary intention. I have also told him that he may need multiple procedures depending on the progress. We have also discussed the postoperative pain management, recovery and rehabilitation, the likely need for physical therapy, the
--- NOTE | 2020-01-15 15:03 | PC.NURSE ---
Spoke with Keila at dr dodson office and received order for diabetic diet 2000 calorie.
--- NOTE | 2020-01-15 15:12 | HMH.PHAINT ---
MEDICATION RECONCILIATION COMPLETED ON PATIENT USING EXTERNAL FILL HISTORY FROM PHARMACY AND LIST FROM MD OFFICE. -ED GOLDMAND
--- NOTE | 2020-01-15 20:39 | PC.NURSE ---
Pt alert and oriented and able to make need known. RR even and unlabored. Has done well post op. Scant serosangious drainage on RLE. Jaison in place per pacu and other dsg under. CB in reach. Prn toradol per jun. VSS.
[2020-01-16] VITALS (7 sets, daily range): BP systolic 138–150; BP diastolic 60–85; PULSE 67–80; RESP 16–20; TEMP 36.3–36.9; O2SAT 97–100; BMI 27.6
--- NOTE | 2020-01-16 04:36 | PC.NURSE ---
shift summary, no acute changes since prior assessment, pt complained of pain one time this shift and was treated per JUN, pt has remained afebrile, dressing in place on right calf, pt has refused SCUD to the left leg this shift
--- NOTE | 2020-01-16 06:51 | P.PN_ITS ---
[facility] Anesthesia Record Part II Discharge Time: 13:56 Destination: Medical Surgical Department PACU nurse assessment reviewed?: Yes Patient Condition:: Good Anesthesia Complications:: None Swallowing reflex intact?: Yes Cyanosis?: No Blood Pressure: 148/85 Pulse Rate: 71 Temperature: 97.4 F Mental Status: Alert & Oriented Pain level:: 0 Nausea and/or vomitting:: None Intake, IV Amount: 0 (Normovolemic)
--- NOTE | 2020-01-16 07:19 | PC.NURSE ---
late entry, on 01/13 upon admission med rec was completed with patient, at bedside
[2020-01-16 08:11] LABS: Basophils % 0.5 % (0.1-2.0); Eosinophils # 0.1 K/mm3 (0.0-0.4); Eosinophils % 1.5 % (0.1-12.0); Hematocrit 38.8 % (42.0-52.0); Hemoglobin 12.7 g/dL (14.1-18.0); Lymphocytes # 1.6 K/mm3 (0.7-4.5); Lymphocytes % 25.3 % (10-50); Mean Corpuscular HGB Conc 32.8 g/dL (31.8-35.4); Mean Corpuscular Hemoglobin 29.8 pg (27.0-31.2); Mean Corpuscular Volume 90.8 fl (80-94); Mean Platelet Volume 9.7 fl (7.4-10.4); Monocytes # 0.8 K/mm3 (0.1-1.0); Monocytes % 12.2 % (1.7-9.3); Neutrophils # 3.8 K/mm3 (1.8-7.8); Neutrophils % 60.4 % (37.0-80.0); Platelet Count 202 K/mm3 (142-424); Red Blood Count 4.28 M/mm3 (4.60-6.20); Red Cell Distribution Width 12.1 % (11.5-17.5); White Blood Count 6.2 K/mm3 (4.8-10.8)
[2020-01-16 08:31] LABS: Chloride 102 mmol/L (98-107); Potassium 4.7 mmoL/L (3.5-5.1); Sodium 131 mmol/L (136-145)
[2020-01-16 08:34] LABS: Anion Gap 8.7 mEq/L (5-15); Blood Urea Nitrogen 20 mg/dl (9-20); Carbon Dioxide 25 mmol/L (22.0-30.0); Creatinine Clearance Estimated 74 mL/min (50-200); Estimated Glomerular Filt Rate 49 ml/min (>60); GFR (African American) 59 ML/MIN (>60)
[2020-01-16 08:35] LABS: Calcium 8.7 mg/dl (8.4-10.2); Glucose 396 mg/dl (74-100)
--- NOTE | 2020-01-16 10:24 | P.PN_ITS ---
Internal Medicine - PN: Subj *Date: 01/16/20 *Time: 09:00 Interval history: pt states he feels ok having some pain Exam Vital signs and Labs for Last 24 Hours: Temp Pulse Resp BP Pulse Ox 98.1 F 80 20 140/60 100 01/16/20 08:00 01/16/20 08:00 01/16/20 08:00 01/16/20 08:00 01/16/20 08:00 Laboratory Results - last 24 hr 01/15/20 07:46: C-Reactive Protein 40.2 H 01/15/20 12:12: POC Glucose 244 H 01/16/20 07:55: WBC 6.2, RBC 4.28 L, Hgb 12.7 L, Hct 38.8 L, MCV 90.8, MCH 29.8, MCHC 32.8, RDW 12.1, Plt Count 202, MPV 9.7, Neut % (Auto) 60.4, Lymph % (Auto) 25.3, [place] % (Auto) 12.2 H, Eos % (Auto) 1.5, Baso % (Auto) 0.5, Neut # (Auto) 3.8, Lymph # (Auto) 1.6, [place] # (Auto) 0.8, Eos # (Auto) 0.1, Baso # (Auto) 0.0 01/16/20 07:55: Sodium 131 L, Potassium 4.7, Chloride 102, Carbon Dioxide 25, Anion Gap 8.7, BUN 20 D, Creatinine 1.50 H D, Estimated Creat Clear 74, Estimated GFR 49 L, Est GFR ( Amer) 59 D, Glucose 396 H, Calcium 8.7 I & O for Last 24 hours: Intake & Output 01/13/20 01/14/20 01/15/20 01/16/20 11:59 11:59 11:59 11:59 Intake Total 773 / 773 2789 / 2789 Output Total 1100 / 1100 850 / 850 Balance -327 / -327 1939 / 1939 Weight 204 lb 4 oz 208 lb 4 oz Microbiology Reports for the Last 24 Hours: Microbiology 01/15/20 12:50 Leg,Right - Abscess Gram Stain - Final 01/15/20 12:50 Leg,Right - Abscess Abscess Culture - Preliminary - Constitutional no acute distress - *Routine HEENT Exam Head: Present: normocephalic Eye: Present: PERRL ENT: Present: mucous membranes moist - *Routine Neck Exam Present: supple. Absent: lymphadenopathy - *Routine Respiratory Exam Present: CTA bilaterally - *Routine Cardiovascular Exam Present: RRR - *Routine Abdominal Exam Present: soft, normoactive bowel sounds. Absent: tenderness - *Routine Extremities Exam Present: normal capillary refill. Absent: cyanosis, clubbing, edema Comments: dressing to rt lower ext swelling and redness to foot - *Routine Skin Exam Present: warm, wounds. Absent: rash Comments: dressing to rt lower leg - *Routine Neurological Exam Present: alert, oriented X3 - Routine Psychiatric Exam Present: normal affect Assessment and Plan (1) Abscess of skin or subcutaneous tissue Status: Acute Qualifiers: Site of cutaneous abscess: extremity Site of cutaneous abscess of extremity: lower extremity Laterality: right Qualified Code(s): L02.415 - Cutaneous abscess of right lower limb Category: Medical Code(s): L02.91 - Cutaneous abscess, unspecified (2) Cellulitis of right lower leg Status: Acute Category: Medical Code(s): L03.115 - Cellulitis of right lower limb - Assessment and plan all Dx Assessment and Plan for all problems:: rounded with dr ritter all orders per dr ritter
[2020-01-16 11:45] LABS: POC Glucose,Bedside 268 (70-110)
[2020-01-16 12:12] LABS: Vancomycin,Trough 22.1 ug/mL (5.0-10.0)
--- NOTE | 2020-01-16 13:34 | HMH.PHACONS ---
- Pharmacy Consult Date: 01/16/20 Time: 13:34 Referring provider: DR. CONDE Reason for Consult:: VANCOMYCIN TROUGH LEVEL Allergies and ADEs:: Allergies Allergy/AdvReac Type Severity Reaction Status Date / Time morphine [MORPHINE] Allergy Unknown I-HIVES Verified 01/14/20 22:51 Home Medications:: Home Medications Medication Instructions Recorded Confirmed Type Metformin HCl [Glucophage] 1,000 mg PO BID 90 Days #180 tab 08/30/19 01/15/20 Rx Sulfamethoxazole/Trimethoprim 1 each PO BID #20 tab 01/12/20 01/15/20 Rx [Bactrim DS tablet] Insulin NPH Hum/Reg Insulin Hm 45 units SQ BID 01/14/20 01/15/20 History [Humulin 70/30 U-100 Insulin] Buprenorphine HCl/Naloxone HCl 2 each SL DAILY 01/15/20 01/15/20 History [Suboxone 8mg/2mg ODT] Gabapentin [Neurontin 600mg 600 mg PO TID 01/15/20 01/15/20 History tablet] Height: 1.85 m Weight: 94.461 kg Laboratory Results:: Laboratory Results - last 24 hr 01/16/20 07:55: WBC 6.2, RBC 4.28 L, Hgb 12.7 L, Hct 38.8 L, MCV 90.8, MCH 29.8, MCHC 32.8, RDW 12.1, Plt Count 202, MPV 9.7, Neut % (Auto) 60.4, Lymph % (Auto) 25.3, [place] % (Auto) 12.2 H, Eos % (Auto) 1.5, Baso % (Auto) 0.5, Neut # (Auto) 3.8, Lymph # (Auto) 1.6, [place] # (Auto) 0.8, Eos # (Auto) 0.1, Baso # (Auto) 0.0 01/16/20 07:55: Sodium 131 L, Potassium 4.7, Chloride 102, Carbon Dioxide 25, Anion Gap 8.7, BUN 20 D, Creatinine 1.50 H D, Estimated Creat Clear 74, Estimated GFR 49 L, Est GFR ( Amer) 59 D, Glucose 396 H, Calcium 8.7 01/16/20 11:35: POC Glucose 268 H 01/16/20 11:40: Vancomycin Trough 22.1 H Medical History: Reports:: Anxiety, Congestive Heart Failure, Coronary Artery Disease, Depression, Diabetes Mellitus Type 1, Gastroesophageal Reflux Disease(GERD), Heart Murmur, Hyperlipidemia, Hypertension, Myocardial Infarction Denies:: Cancer, Diabetes Mellitus Type 2, MRSA Assessment and Plan (1) Abscess of skin or subcutaneous tissue Status: Acute Qualifiers: Site of cutaneous abscess: extremity Site of cutaneous abscess of extremity: lower extremity Laterality: right Qualified Code(s): L02.415 - Cutaneous abscess of right lower limb Category: Medical Code(s): L02.91 - Cutaneous abscess, unspecified (2) Cellulitis of right lower leg Status: Acute Category: Medical Code(s): L03.115 - Cellulitis of right lower limb - Assessment and plan all Dx Assessment and Plan for all problems:: BASED ON VANCOMYCIN TROUGH LEVEL OF 22.1 AND PATIENT FACTORS, RECOMMEND CHANGING VANCOMYCIN TO 1750 MG IV Q12H. PATIENT'S CREATININE HAS INCREASED FROM 0.70 TO 1.5 TODAY. PHARMACY WILL CONTINUE TO MONITOR DAILY AND ADJUST APPROPRIATE.
--- NOTE | 2020-01-16 15:20 | P.PN_ITS ---
Subjective Date: 01/16/20 Time: 10:30 Principal diagnosis: Abscess right leg Interval history: Patient is status post incision and drainage abscesses right leg, post op day # 1. Patient says he is doing well and reports that the pain is well controlled with medication. He is eating and drinking well. He says he is able to move his foot and ankle well and reports no distal tingling or numbness. No history of any fevers, chills or rigors. Patient strongly denies any recent drug abuse or injection into the leg. PN: Obj Ex Vital signs: Temp Pulse Resp BP Pulse Ox 98.1 F 80 20 140/60 100 01/16/20 08:00 01/16/20 08:00 01/16/20 08:00 01/16/20 08:00 01/16/20 08:00 Narrative: Laboratory Results - last 24 hr 01/16/20 07:55: WBC 6.2, RBC 4.28 L, Hgb 12.7 L, Hct 38.8 L, MCV 90.8, MCH 29.8, MCHC 32.8, RDW 12.1, Plt Count 202, MPV 9.7, Neut % (Auto) 60.4, Lymph % (Auto) 25.3, [place] % (Auto) 12.2 H, Eos % (Auto) 1.5, Baso % (Auto) 0.5, Neut # (Auto) 3.8, Lymph # (Auto) 1.6, [place] # (Auto) 0.8, Eos # (Auto) 0.1, Baso # (Auto) 0.0 01/16/20 07:55: Sodium 131 L, Potassium 4.7, Chloride 102, Carbon Dioxide 25, Anion Gap 8.7, BUN 20 D, Creatinine 1.50 H D, Estimated Creat Clear 74, Tiffanie mated GFR 49 L, Est GFR ( Amer) 59 D, Glucose 396 H, Calcium 8.7 01/16/20 11:35: POC Glucose 268 H 01/16/20 11:40: Vancomycin Trough 22.1 H Microbiology 01/15/20 12:50 Leg,Right - Abscess Gram Stain - Final 01/15/20 12:50 Leg,Right - Abscess Abscess Culture - Preliminary Exam: General appearance: Age-appropriate male, alert and active; no acute distress Cardiovascular: regular rate & rhythm Respiratory: clear to auscultation bilaterally ABD: soft, non tender, non-distended, normal bowel sounds. Extremities: The right leg dressings are clean and intact; minimal soakage of the dressings noted. He has very good range of ankle, foot and toe movements. The foot is warm and well-perfused. Distal sensation is intact light touch throughout. Minimal swelling around the foot and ankle noted. Progress Note: A&P (1) Abscess of skin or subcutaneous tissue Status: Acute (2) Cellulitis of right lower leg Status: Acute Assessment and Plan for All Diagnoses:: I have reviewed the findings and progress with the patient. Overall he is doing well. The leg/ankle swelling has improved significantly. I have advised him to continue elevation and mobilization of the foot and ankle. Recommend continuation of the IV antibiotics and any changes to made as appropriate depending on the microbiology results. Plan for change of dressings tomorrow with removal of the packing after which the patient can be discharged if appropriate from a medical standpoint. Continue medical management as per Dr. Leary.
[2020-01-16 15:47] LABS: POC Glucose,Bedside 243 (70-110)
--- NOTE | 2020-01-16 19:51 | PC.NURSE ---
Pt alert and oriented and able to make needs known. RR even and unlabored. Encouraged pt several times to bath this shift and he refused to do so. Pt was reluctant to allow staff to change sheets, but did. IV abt continues. Good u/o. CB in reach. Dsg unchanged and zhou in place to RLE. SCUD to LLE. VSS
[2020-01-16 20:45] LABS: POC Glucose,Bedside 186 (70-110)
--- NOTE | 2020-01-17 03:34 | PC.NURSE ---
NO ACUTE CHANGES FROM PREVIOUS ASSESSMENT.PT HAS SLEPT MOST OF THE NIGHT THIS MORNING COMPLAINING OF PAIN RATED IT A 9 ON SCALE OF 0-10,MEDICATED WITH TORADOL 30MG IVP.RIGHT LOWER LEG WITH ABCESS WHICH WAS I AND D.COVERED WITH GAUZE AND AN GUY WRAP. GOING TO CHANGE DRESSING TOMORROW.OLD BLOOD NOTED TO GUY WRAP.IV RIGHT FOOT SWELLED THIS MORNING.ELEVATED IT ON A PILLOW.IV INFUSING WITHOUT DIFF.IN GUY.SALINE LOCK FLUSHED WITHOUT DIFF.LUNGS CLEAR,RESP.EVEN AND UNLABORED.POSITIVE BOWEL SOUNDS X4 QUADS.
--- NOTE | 2020-01-17 03:45 | PC.NURSE ---
PT WAS MEDICATED WITH TORADOL 30MG IVP AT 0308.PT SLEEPING SOUNDLY AT THIS TIME
[2020-01-17 04:00] VITALS: BP 155/79; PULSE 60; RESP 20; TEMP 37.1; O2SAT 98
[2020-01-17 06:03] VITALS: BMI 27.0
[2020-01-17 06:25] LABS: POC Glucose,Bedside 205 (70-110)
--- NOTE | 2020-01-17 07:42 | PC.NURSE ---
PATIENT REFUSING ALL LAB DRAWS AT THIS TIME. WILL LET DOCTOR KNOW
[2020-01-17 08:00] VITALS: BP 134/55; PULSE 66; RESP 18; TEMP 36.4; O2SAT 99
[2020-01-17 08:20] VITALS: O2SAT 99
--- NOTE | 2020-01-17 09:46 | SW/DCPLANNER ---
Addendum entered by Shazia Jaffe 01/17/20 15:44: Dr Chavez has also confirmed that this patient will discharge on oral antibiotics and not IV. I have relayed this message to Dr Leary and Brandi. Addendum entered by Shazia Jaffe 01/17/20 13:30: Dr Chavez has stated that this patient will NOT need daily dressing changes. Patient will discharge today and return to [facility] office next week. I have informed patient and Dr Chavez will see this patient today. Original Note: I have spoke with this patient regarding the need for daily dressing changes at discharge. Patient quickly responded I dont know what you want me to do I can't return to the hospital daily . I attempted to speak with this patient regarding home health services and patient appeared aggravated stating I will try that then as he turned over and closed his eyes. I asked patient if he would be homebound and he informed me he is homebound. I asked patient if he would have assistance with dressing changes the days home health could not come and patient stated You can call my mom and ask her I then asked the patient if he could contact his mother. The patient then informed me his mother could do it and to just sign him up. Patient information will be faxed to [facility] [place] today. I will follow up with [facility] once patient information is reviewed.
[2020-01-17 11:34] LABS: POC Glucose,Bedside 218 (70-110)
--- NOTE | 2020-01-17 12:27 | PC.NURSE ---
photos being uploaded at this time were obtained during skin assessment on 01/15/20 by Ly Uribe RN
--- NOTE | 2020-01-17 14:30 | PC.NURSE ---
/ YURI AT BEDSIDE. REMOVED DRESSING AND PACKING. PT TOLERATED THIS WELL. SWELLING NOTED. DR WELCH COVERED DRESSING WITH STERILE DRESSING. STATES HE IS GOOD TO BE D/C AND F/U NEXT WEEK
--- NOTE | 2020-01-17 15:00 | PC.NURSE ---
CALLED DR. HAYDEN OFFICE- MESSAGE LEFT WITH THEM TO CALL BACK.
--- NOTE | 2020-01-17 15:01 | P.PN_ITS ---
Subjective Date: 01/17/20 Time: 14:30 Principal diagnosis: Abscess right leg Interval history: Patient is status post incision and drainage abscesses right leg, post op day # 2. Patient says he is doing well and reports that the pain is well controlled with medication. He is eating and drinking well. He says he is able to move his foot and ankle well and reports no distal tingling or numbness. No history of any fevers, chills or rigors. Patient wants to go home today. PN: Obj Ex Vital signs: Temp Pulse Resp BP Pulse Ox 97.6 F 66 18 134/55 L 99 01/17/20 08:00 01/17/20 08:00 01/17/20 08:00 01/17/20 08:00 01/17/20 08:20 Narrative: Laboratory Results - last 24 hr 01/16/20 15:22: POC Glucose 243 H 01/16/20 20:37: POC Glucose 186 H 01/17/20 06:11: POC Glucose 205 H 01/17/20 10:52: POC Glucose 218 H Microbiology 01/15/20 12:50 Leg,Right - Abscess Gram Stain - Final 01/15/20 12:50 Leg,Right - Abscess Abscess Culture - Preliminary Exam: General appearance: Age-appropriate male, alert and active; no acute distress Cardiovascular: regular rate & rhythm Respiratory: clear to auscultation bilaterally ABD: soft, non tender, non-distended, normal bowel sounds. Extremities: The right leg dressings are clean and intact; minimal soakage of the dressings noted. I have changed the dressings today and removed the iodoform packing. The abscess cavity looks healthy without any discharge or bleeding. Sterile nonadhesive dressings were applied. The erythema, swelling and induration have all improved significantly compared to preoperative status. He has good range of ankle, foot and toe movements. The foot is warm and well- perfused. Distal sensation is intact light touch throughout. Progress Note: A&P (1) Abscess of skin or subcutaneous tissue Status: Acute (2) Cellulitis of right lower leg Status: Acute Assessment and Plan for All Diagnoses:: I have reviewed the findings and progress with the patient. Overall he is doing well. The leg/ankle swelling, erythema and induration improved significantly. I have changed the dressings today and removed the iodoform packing from the abscess cavity. Advised him to continue elevation and mobilization of the foot and ankle. Recommend continuation of the IV antibiotics and any changes to made as appropriate depending on the microbiology results. Patient can be discharged from orthopedic standpoint if appropriate medically. Follow-up in my office in 3 to 4 days time for change of dressings. Continue medical management as per Dr. Leary.
--- NOTE | 2020-01-17 15:10 | PC.NURSE ---
PATIENT STATES HE IS NOT WAITING ANY LONGER ON AN ORDER.
--- NOTE | 2020-01-17 15:17 | PC.NURSE ---
PATIENT LEFT AMA AT THIS TIME. EXPLAINED RISK AND REASON HE NEEDED TO STAY. PATIENT STILL LEAVING NOW.
--- NOTE | 2020-01-17 15:20 | PC.NURSE ---
Brandi modi APRN NOTIFIED OF PATIENT LEAVING AMA AT THIS TIME.
--- NOTE | 2020-01-17 15:41 | PC.NURSE ---
CALLED PATIENT AND TOLD PATIENT TO GO [facility] FOR ANTIBIOTIC. HIS MOTHER STATED SHE WOULD
--- NOTE | 2020-01-17 17:59 | HMH.DCSUM ---
General - General Admission date:: 01/14/20 Discharge date: 01/17/20 HPI HPI: 54-year-old male presented to the emergency department with swelling of his right lower leg. Patient has been dealing with this for the last 2 weeks. Has been seen by his primary care physician as well as the emergency department multiple times. Patient has some erythema and swelling in the right mid calf. He has been battling cellulitis. States that he did take a course of Bactrim, however it is not improved. He was sent to the emergency department for further evaluation today. States that the pain is dull and nagging. Denies any trauma. No injection to the site. He denies any fevers or chills. Is not having any chest pain, palpitations, shortness of breath or cough. Denies any headache or change in vision. No focal weakness. 01/14/[address]: FINDINGS: There is diffuse subcutaneous edema of the right lower extremity beginning at the level of the knee and extending inferiorly. At the knee there is a small knee joint effusion noted with osteoarthritic changes cough. Geodes are present in the proximal tibia. There is an irregular loculated fluid collection within the lower calf on the right posteriorly and medially involving the subcutaneous tissues with extension into the distal aspect of the gastrocnemius and the posterior medial aspect of the soleus muscle. This measures 9.6 cm in length 2.8 cm AP and 3.5 cm transverse. There are internal septations. No internal gas is evident. This is suspicious for an abscess. A hematoma would be included in the differential diagnosis. IMPRESSION: 10 x 3 cm heterogeneous collection within the soft tissues in the right lower leg which appear to extend into the distal gastrocnemius and posterior aspect of the soleus muscle suspicious for an abscess. Hematoma would be included in the differential diagnosis. Extensive subcutaneous edema of the right lower extremity. Osteoarthritic changes of the right knee with knee joint effusion. Dictated by: Tejas, 01/14/20 RLE XR: FINDINGS: There has been a prior ACL repair with mild osteoarthritic changes at the knee joint. No fracture or dislocation. No lytic or blastic change. IMPRESSION: Osteoarthritis. Prior ACL repair, no acute finding Dictated by: Tejas Hospital Course Hospital Course: Laboratory Tests 01/14/20 01/14/20 01/14/20 18:00 18:00 18:00 WBC 7.9 RBC 4.97 Hgb 14.7 Hct 45.7 MCV 91.9 MCH 29.6 MCHC 32.2 RDW 12.0 Plt Count 217 MPV 9.4 Neut % (Auto) 66.9 Lymph % (Auto) 23.4 [place] % (Auto) 7.7 Eos % (Auto) 1.5 Baso % (Auto) 0.5 Neut # (Auto) 5.3 Lymph # (Auto) 1.8 [place] # (Auto) 0.6 Eos # (Auto) 0.1 Baso # (Auto) 0.0 Sodium 136 Potassium 4.8 Chloride 99 Carbon Dioxide 30 Anion Gap 11.8 BUN 13 Creatinine 0.70 Estimated Creat Clear 142 Estimated GFR 117 Est GFR ( Amer) 142 Glucose 269 H POC Glucose Lactate 1.1 Calcium 9.6 C-Reactive Protein Vancomycin Trough SARS-CoV-2 IgG Ab (Rapid) SARS-CoV-2 IgM Ab (Rapid) 01/14/20 01/15/20 01/15/20 18:00 07:46 07:46 WBC 7.3 RBC 4.71 Hgb 13.6 L Hct 43.0 MCV 91.3 MCH 28.8 MCHC 31.5 L RDW 12.1 Plt Count 219 MPV 8.8 Neut % (Auto) 56.7 Lymph % (Auto) 32.7 [place] % (Auto) 8.1 Eos % (Auto) 2.0 Baso % (Auto) 0.5 Neut # (Auto) 4.2 Lymph # (Auto) 2.4 [place] # (Auto) 0.6 Eos # (Auto) 0.1 Baso # (Auto) 0.0 Sodium 134 L Potassium 4.0 Chloride 101 Carbon Dioxide 29 Anion Gap 8.0 BUN 9 D Creatinine 0.40 L D Estimated Creat Clear 273 Estimated GFR 223 Est GFR ( Amer) 270 D Glucose 280 H POC Glucose Lactate Calcium 8.9 C-Reactive Protein Vancomycin Trough SARS-CoV-2 IgG Ab (Rapid) Negative SARS-
== END 2020-01-17 15:17 | disposition left against medical advice (07) | DRG 581 ==
LOC: ER 20:19 → 2ND 21:21
PROVIDERS: Nurse Practitioner Family; Orthopaedic Surgery; Admitting Provider Emergency Medicine; Emergency Provider Emergency Medicine; PCP Emergency Medicine; Visit Provider Emergency Medicine
PROC: 0J9N0ZZ Drainage of Right Lower Leg Subcutaneous Tissue and Fascia, Open Approach (ICD-10-PCS; CPT 10061; principal; 2020-01-15 11:45)
DX: L02.415 Cutaneous abscess of right lower limb (principal); L03.115 Cellulitis of right lower limb; E11.9 Type 2 diabetes mellitus without complications; Z72.0 Tobacco use; I25.10 Atherosclerotic heart disease of native coronary artery without angina pectoris; I25.2 Old myocardial infarction; I11.0 Hypertensive heart disease with heart failure; I50.9 Heart failure, unspecified; Z79.4 Long term (current) use of insulin; Z79.899 Other long term (current) drug therapy; B95.4 Other streptococcus as the cause of diseases classified elsewhere
CPT/HCPCS: 10061; 36415; 73590; 73701; 80048; 80202; 82962; 83605; 85025; 86140; 86328; 87070; 87075; 87077; 87186; 87205; 96365; 99283; J2405; J3370; Q9967

== ENCOUNTER → 2020-02-11 15:07 | Outpatient (CLI) | payer MEDICAID, SELFPAY ==
[2020-02-11 15:42] LABS: Basophils # 0.1 K/mm3 (0-0.2); Basophils % 0.7 % (0.1-2.0); Eosinophils # 0.1 K/mm3 (0.0-0.4); Eosinophils % 1.2 % (0.1-12.0); Hematocrit 43.6 % (42.0-52.0); Hemoglobin 14.4 g/dL (14.1-18.0); Lymphocytes # 2.9 K/mm3 (0.7-4.5); Lymphocytes % 41.2 % (10-50); Mean Corpuscular HGB Conc 33.1 g/dL (31.8-35.4); Mean Corpuscular Volume 90.7 fl (80-94); Mean Platelet Volume 9.7 fl (7.4-10.4); Monocytes # 0.4 K/mm3 (0.1-1.0); Monocytes % 6.2 % (1.7-9.3); Neutrophils # 3.6 K/mm3 (1.8-7.8); Neutrophils % 50.8 % (37.0-80.0); Platelet Count 140 K/mm3 (142-424); Red Blood Count 4.81 M/mm3 (4.60-6.20); Red Cell Distribution Width 13.1 % (11.5-17.5); White Blood Count 7.1 K/mm3 (4.8-10.8)
[2020-02-11 16:14] LABS: C-Reactive Protein 1.8 mg/L (0-4)
[2020-02-11 16:19] LABS: Erythrocyte Sedimentation Rate 17 mm/hr (0-20)
== END ==
PROVIDERS: Visit Provider Orthopaedic Surgery
DX: L03.115 Cellulitis of right lower limb (principal); B99.9 Unspecified infectious disease
CPT/HCPCS: 36415; 85025; 85651; 86140

== ENCOUNTER 2020-03-02 10:30 | Outpatient (RCR) | payer MEDICAID, SELFPAY ==
--- NOTE | 2020-01-23 09:29 | HMH.PTOPWND ---
Rehab Outpt Wound Evaluation Rehab OP Wound Evaluation Start: 01/23/20 08:38 Freq: Status: Active Protocol: Document 01/23/20 09:16 SALOME (Rec: 01/23/20 09:29 PHONIVIA [id number]) Electronically Signed By Jonathan Diego, PT 01/23/20 09:16 Subjective/History History History Pt is 54 yowm who presents with R post med calf wound due to cellulitis beginning ~3-4 wks ago and now S/P I&D 1 wk ago. He reports he had several rounds of oral abx that did not help his cellulitis, resulting in the need for surgery. Wound cultures obtained during I&D were positive for staph constellatus. Currently the wound has large amt of purulent yellow drainage with fascia visible at wound base and undermining/tunneling around the entire wound perimeter of varying depth. He reports significant pain, especially with dressing changes. PMH: CHF, CAD, OR, DM -I, HL, HTN, R ACL repair, CCY , previous R ankle fx. Subjective Subjective He reports araceli-wound TTP 3/4. Pain this date is 11/17. Wound Eval Wound Right Posterior Medial Calf Wound Type abcess post I&D Is This a Chronic Wound Yes Wound Length (cm) 5.9 Wound Width (cm) 1.8 Wound Depth (cm) 1.4 Wound Bed Appearance Beefy Red,Yellow Percentage Granulated (%) 10 Percentage of Slough (%) 90 Wound Margins Description Well Defined Undermining Position 1-5 o'clock and 7-11 o'clock Undermining Length (cm) 1.5 Tunneling Position 12 o'clock and 6 o'clock Tunneling Depth (cm) 3.0 Surrounding Tissue Appearance Bright Red,Dark Red,Edematous Edema Type Pitting Edema Degree 2+ Query Text:1+ Trace, Barely Detectable, Rebound 15-30 seconds 2+ Moderate, Slight Indentation, Rebound 10-20 seconds 3+ Deep, Deeper Indentation, Rebound > 30 seconds 4+ Very Deep, Rebound > 60 seconds Edema Appearance Tight,Puffy,Red,Purple Drainage Description Purulent Drainage Amount Large Dressing Statu
--- NOTE | 2020-02-27 10:49 | HMH.RHREAS ---
Rehab Reassessment Rehab OP Re-assessment Start: 02/27/20 10:45 Freq: Status: Active Protocol: Document 02/27/20 10:46 SALOME (Rec: 02/27/20 10:49 SALOME [id number]) Electronically Signed By Jonathan Diego, PT 02/27/20 10:46 Rehab Re-assessment Subjective Subjective Pt reports he feels better and thinks his wound is much improved. Objective Objective Notes R medial Calf wound: L= 4.3 cm , W= 1.6 cm, D= 0.3 cm, Undermining at 6 o'clock= 0.6 cm. Assessment Progress Assessment Progressing as Expected Assessment Notes Pt with significant reduction in wound area, no tunneling noted this date which is much improved. Patient goals met ST,2,3,4,5 Goals Not Met LT,2,3,4,5 Revised Goals none Plan Plan Continue per initial POC Frequency of Therapy 2 x/wk Duration of therapy 8 wks Time and Billing Re-Eval Time 15 Re-Eval Billing Units 1 PHYSICIAN CERTIFICATION: I certify the specified therapy services for Juanito Ohara are required, authorized, and reviewed every 30 days.
== END 2020-03-02 10:35 | disposition home or self-care (01) ==
LOC: PT 10:30
PROVIDERS: PCP Emergency Medicine; Visit Provider Orthopaedic Surgery
DX: L03.115 Cellulitis of right lower limb (principal)
CPT/HCPCS: 97140; 97163; 97164; 97597

== ENCOUNTER → 2020-03-23 18:02 | Outpatient (CLI) | payer MEDICAID, SELFPAY ==
[2020-03-23 19:32] LABS: Creatinine,Urine Random 31 mg/dL (Not Estab.); Microalbumin < 6.000 mg/L (0-16.7)
== END ==
LOC: LAB 18:03 → LAB.DROPOF 03-24 08:55
PROVIDERS: Visit Provider Emergency Medicine
DX: E11.9 Type 2 diabetes mellitus without complications (principal); Z79.4 Long term (current) use of insulin
CPT/HCPCS: 82043; 82570

== ENCOUNTER → 2020-05-12 11:14 | Outpatient (CLI) | payer MEDICAID, SELFPAY | PROVIDERS: Visit Provider Emergency Medicine | DX: L03.115 Cellulitis of right lower limb (principal); L03.811 Cellulitis of head [any part, except face]; L02.91 Cutaneous abscess, unspecified; E11.9 Type 2 diabetes mellitus without complications; Z79.4 Long term (current) use of insulin | CPT/HCPCS: 87070; 87077; 87186; 87205 ==

== ENCOUNTER → 2021-09-22 07:10 | Outpatient (CLI) | payer MEDICAID, SELFPAY ==
[2021-09-21 18:39] LABS: Basophils # 0.1 K/mm3 (0-0.2); Basophils % 1.3 % (0.1-2.0); Eosinophils # 0.1 K/mm3 (0.0-0.4); Eosinophils % 0.8 % (0.1-12.0); Hematocrit 52.4 % (42.0-52.0); Hemoglobin 17.1 g/dL (14.1-18.0); Lymphocytes # 2.7 K/mm3 (0.7-4.5); Lymphocytes % 32.3 % (10-50); Mean Corpuscular HGB Conc 32.5 g/dL (31.8-35.4); Mean Corpuscular Hemoglobin 31.3 pg (27.0-31.2); Mean Corpuscular Volume 96.2 fl (80-94); Mean Platelet Volume 13.2 fl (7.4-10.4); Monocytes # 0.6 K/mm3 (0.1-1.0); Monocytes % 6.7 % (1.7-9.3); Neutrophils % 58.8 % (37.0-80.0); Platelet Count 205 K/mm3 (142-424); Red Blood Count 5.45 M/mm3 (4.60-6.20); Red Cell Distribution Width 13.2 % (11.5-17.5); White Blood Count 8.5 K/mm3 (4.8-10.8)
[2021-09-21 18:48] LABS: 25-OH Vitamin D, Total 27.9 ng/mL (30-100)
[2021-09-21 19:05] LABS: Alanine Aminotransferase 66 U/L (12-78); Albumin/Globulin Ratio 1.1 (1.1-1.8); Alkaline Phosphatase 119 U/L (38-126); Anion Gap 17.9 mEq/L (5-15); Aspartate Amino Transferase 51 U/L (17-59); Bilirubin,Total 0.2 mg/dl (0.2-1.3); Blood Urea Nitrogen 14 mg/dl (9-20); Calcium 9.5 mg/dl (8.4-10.2); Carbon Dioxide 19 mmol/L (22.0-30.0); Chloride 94 mmol/L (98-107); Chol/HDL Ratio 5.9 (1-3.5); Cholesterol 200 mg/dl (140-200); Estimated Glomerular Filt Rate 116 ml/min (>60); GFR (African American) 141 ML/MIN (>60); Globulin 3.5 g/dL (1.3-3.2); HDL Cholesterol 34 mg/dl (40-60); Potassium 4.9 mmoL/L (3.5-5.1); Sodium 126 mmol/L (136-145); Total Protein,Serum 7.5 g/dl (6.3-8.2); Triglycerides 317 mg/dl (30-150); VLDL Cholesterol 63 mg/dL (0-40)
[2021-09-21 19:23] LABS: Direct LDL Cholesterol 100.64 mg/dL (100-129); T4 (Thyroxine) 12.3 ug/dl (5.53-11.0)
[2021-09-21 19:36] LABS: Prostate Specific Ag Screen 0.8 ng/ml (0.0-4.0)
[2021-09-21 21:00] LABS: Thyroid Stimulating Hormone 1.93 uIU/mL (0.465-4.68)
[2021-09-21 21:11] LABS: Glucose 730 mg/dl (74-100)
[2021-09-22 11:39] LABS: Acetone, Serum (Rapid) None Detected (None Detect)
[2021-09-22 14:38] LABS: Hemoglobin A1C > 14.0 % (4.0-6.0)
[2021-09-23 09:15] LABS: HSV 2 IgG, Type Spec <0.91 index (0.00-0.90)
[2021-09-23 12:35] LABS: HIV Screen 4th Generation wRfx Non Reactive (Non Reactive); Hepatitis B Surface Antigen Negative (Negative); Hepatitis C Antibody >11.0 s/co ratio (0.0-0.9)
[2021-09-23 22:06] LABS: Neisseria gonorrhoeae, NAA Negative (Negative)
[2021-09-24 06:22] LABS: Hep A Ab, Total Negative (Negative); Hep B Core Ab, Total Negative (Negative); Hep B Surface Ab, Qual Non Reactive (.)
[2021-09-25 02:10] LABS: ALT (SGPT) P5P 74 IU/L (0-55); Alpha 2-Macroglobulins, Qn 370 mg/dL (110-276); Apolipoprotein A-1 141 mg/dL (101-178); Bilirubin, Total 0.2 mg/dL (0.0-1.2); Fibrosis Score 0.56 (0.00-0.21); GGT 346 IU/L (0-65); Haptoglobin 241 mg/dL (29-370); Necroinflammat Activity Grade A2-Moderate activity (.); Necroinflammat Activity Score 0.54 (0.00-0.17)
[2021-09-27 15:22] LABS: HCV Genotype Charge YES; Hepatitis C Genotype 1a (.)
== END ==
PROVIDERS: PCP Nurse Practitioner Family; Visit Provider Nurse Practitioner Family
DX: B19.20 Unspecified viral hepatitis C without hepatic coma (principal); R35.0 Frequency of micturition; I25.10 Atherosclerotic heart disease of native coronary artery without angina pectoris; G62.9 Polyneuropathy, unspecified; E11.9 Type 2 diabetes mellitus without complications; F19.90 Other psychoactive substance use, unspecified, uncomplicated; Z11.4 Encounter for screening for human immunodeficiency virus [HIV]; Z79.4 Long term (current) use of insulin; E55.9 Vitamin D deficiency, unspecified; Z12.5 Encounter for screening for malignant neoplasm of prostate
CPT/HCPCS: 80053; 80061; 81596; 82009; 82306; 83036; 84436; 84443; 85025; 86695; 86703; 86704; 86706; 86708; 86790; 87340; 87380; 87491; 87522; 87591; 87902; G0103; G0432

== ENCOUNTER 2021-11-20 15:41 | Emergency (ER) | payer MEDICAID, SELFPAY ==
--- NOTE | 2021-11-20 16:17 | XR_ITS ---
PROCEDURE INFORMATION: Exam: XR Left Knee Exam date and time: 11/20/2021 4:24 PM Age: 56 years old Clinical indication: Knee; Left; Patient HX: Fall x 4 days ago, C/O numbness/tingling down lt leg. Pain @ medial condyle TECHNIQUE: Imaging protocol: Radiologic exam of the Left knee. Views: 3 views. COMPARISON: CT LOWER LEG RT W CON 01/14/2020 8:44 PM FINDINGS: Bones/joints: There is no evidence of acute fracture or dislocation. Joint spaces appear preserved. Soft tissues: There is mild soft tissue fullness and stranding involving the medial periarticular knee suggesting edema. No subcutaneous emphysema or radiopaque foreign bodies. There is a small suprapatellar joint effusion. IMPRESSION: No acute posttraumatic osseous injury.
--- NOTE | 2021-11-20 16:17 | XR_ITS ---
PROCEDURE INFORMATION: Exam: XR Left Hip Exam date and time: 11/20/2021 4:20 PM Age: 56 years old Clinical indication: Hip pain; Left hip; Additional info: Fall x 4 days ago, C/O numbness/tingling down lt leg TECHNIQUE: Imaging protocol: Radiologic exam of the Left hip. Views: 2 or 3 views hip with pelvis when performed. COMPARISON: CT LOWER LEG RT W CON 01/14/2020 8:44 PM FINDINGS: Bones/joints: TheBones/joints: There is no evidence of acute fracture or dislocation. There are mild osteoarthritic degenerative changes involving both hips. Joint spaces appear preserved. Soft tissues: No significant soft tissue edema. No subcutaneous emphysema or radiopaque foreign bodies. IMPRESSION: No acute posttraumatic osseous injury.
--- NOTE | 2021-11-20 16:17 | XR_ITS ---
PROCEDURE INFORMATION: Exam: XR Left Ankle Exam date and time: 11/20/2021 4:28 PM Age: 56 years old Clinical indication: Pain; Ankle; Left; Patient HX: Fall x 4 days ago, C/O numbness/tingling down lt leg TECHNIQUE: Imaging protocol: Radiologic exam of the Left ankle. Views: 3 or more views. COMPARISON: CT LOWER LEG RT W CON 01/14/2020 8:44 PM FINDINGS: Bones/joints: There is no evidence of acute fracture or dislocation. Joint spaces appear preserved. Small ossific density adjacent to the medial malleolus may reflect sequela of remote injury. Soft tissues: No significant soft tissue edema. No subcutaneous emphysema or radiopaque foreign bodies. IMPRESSION: No acute posttraumatic osseous injury.
--- NOTE | 2021-11-20 16:17 | XR_ITS ---
PROCEDURE INFORMATION: Exam: XR Left Tibia and Fibula Exam date and time: 11/20/2021 4:25 PM Age: 56 years old Clinical indication: Pain; Lower leg; Left; Patient HX: Fall x 4 days ago, C/O numbness/tingling down lt leg TECHNIQUE: Imaging protocol: Radiologic exam of the Left tibia and fibula. Views: 2 views. COMPARISON: CT LOWER LEG RT W CON 01/14/2020 8:44 PM FINDINGS: Bones/joints: There is no evidence of acute fracture or dislocation. Joint spaces appear preserved. Soft tissues: There is mild soft tissue fullness and stranding involving the medial periarticular knee and calf suggesting edema. No subcutaneous emphysema or radiopaque foreign bodies. There is a small suprapatellar joint effusion. IMPRESSION: No acute posttraumatic osseous injury.
--- NOTE | 2021-11-20 16:18 | HMH.EDUTC ---
[facility] [place] Disposition Clinical Impression: Leg edema, left, Left leg cellulitis Disposition: Home, Self-Care Condition on Discharge: Good Instructions: Cellulitis Additional Instructions: The venous doppler of your left leg will be done tomorrow. The ultrasound department will call you in the morning to tell you when to be here. Elevate your left leg and stay off of it as much as possible. Take the medications as directed GO TO THE ER FOR ANY WORSENING SYMPTOMS OR CONCERNS Prescriptions: Sulfamethoxazole/Trimethoprim [Bactrim DS tablet] 1 each PO BID 10 Days #20 tab Transmission Status: Received by [facility] Mupirocin [Bactroban 2% Ointment 22gm tube] 1 applicatio TP TID 7 Days #1 gm Transmission Status: Received by [facility] cephALEXin [cephALEXin 500mg capsule] 500 mg PO Q6H 10 Days #40 cap Transmission Status: Received by [facility] Referrals: Prateek Leary MD [Primary Care Provider] - Time of Disposition: 17:13 Medical Decision Making - Medical Records Medical records reviewed: No: I reviewed the patient's medical records. - [place] Inquiry Pt receiving controlled substance: No Vital Signs: 11/20/21 16:34 11/20/21 17:20 Temperature 97.9 F 97.9 F Temperature Source Oral Pulse Rate 104 H Pulse Rate [Left] 104 H Respiratory Rate 18 18 Blood Pressure 152/78 H Blood Pressure [Right Arm] 152/78 H Blood Pressure Mean [Right Arm] 102 02 Sat by Pulse Oximetry 95 Orders (Tests/Meds): ED MEDICATIONS Discontinued Medications Generic Name Dose Route Start Last Admin Trade Name Stanislawq PRN Reason Stop Dose Admin Enoxaparin Sodium 90 mg 11/20/21 17:05 11/20/21 17:15 Enoxaparin 100mg/Ml Syringe SQ 11/20/21 17:06 90 mg ONCE ONE Administration [facility] [place] HPI - General Stated complaint: AO08/10@1130@WORK INJURED L HIP,KNEE,LEG Time Seen by Provider: 11/20/21 16:18 - History of Present Illness Provider Complaint: He states that he bumped his left leg on something at work 3 days ago. He now has redness and swelling of the area on his left lower leg. - Related Data Home Medications Medication Instructions Recorded Confirmed aspirin 81 mg tablet,delayed 81 mg PO DAILY 03/23/20 11/23/21 release sofosbuvir 400 mg-velpatasvir 100 1 tab PO DAILY 11/25/21 11/25/21 mg tablet Previous Rx's Medication Instructions Recorded Metformin HCl [Glucophage] 1,000 mg PO BID 90 Days #180 tab 08/30/19 atorvastatin 10 mg tablet 10 mg PO DAILY #90 tab 03/23/20 cariprazine 1.5 mg capsule 1.5 mg PO DAILY #90 cap 08/12/20 sildenafil (pulm.hypertension) 20 20 mg PO DAILY PRN #30 tab 08/12/20 mg tablet lisinopril 20 mg tablet 20 mg PO DAILY #90 tab 04/29/21 insulin syringe-needle U-100 0.5 See Rx Instructions .ROUTE 05/04/21 mL 31 gauge x 5/16 .MEDSUPPLY #100 each albuterol sulfate 90 mcg/actuation 2 puff INHALATION Q4-6H PRN #8.5 g 07/27/21 aerosol inhaler fluticasone furoate 100 1 inh INHALATION DAILY #28 each 07/27/21 mcg-vilanterol 25 mcg/dose inhalation powder gabapentin 800 mg tablet 800 mg PO TID #90 tab 11/01/21 glipizide 10 mg tablet 10 mg PO DAILY #30 tab 11/01/21 insulin human U-100 NPH-regulr 40 unit SQ BID 30 Days #24 ml 11/01/21 70-30 mix 100 unit/mL subcutaneous susp Mupirocin [Bactroban 2% Ointment 1 applicatio TP TID 7 Days #1 gm 11/20/21 22gm tube] Sulfamethoxazole/Trimethoprim 1 each PO BID 10 Days #20 tab 11/20/21 [Bactrim DS tablet] cephALEXin [cephALEXin 500mg 500 mg PO Q6H 10 Days #40 cap 11/20/21 capsule] Allergies Allergy/AdvReac Type Severity Reaction Status Date / Time morphine [MORPHINE] Allergy Unknown I-HIVES Verified 11/23/21 13:23 [facility] History - Hepatitis A Screen Attestation statement:: This patient has been screened for Hepatitis A risk factors. I have reviewed the patient's past medical history: Yes Medical History: Reports:: Anxiety, Congestive Heart Failure,
[2021-11-20 16:34] VITALS: BP 152/78; PULSE 104; RESP 18; TEMP 36.6; O2SAT 95; BMI 26.4
[2021-11-20 17:20] VITALS: BP 152/78; PULSE 104; RESP 18; TEMP 36.6
== END 2021-11-20 17:21 | disposition home or self-care (01) ==
PROVIDERS: Emergency Provider Nurse Practitioner Family; PCP Emergency Medicine
DX: L03.116 Cellulitis of left lower limb (principal); E10.8 Type 1 diabetes mellitus with unspecified complications; Z79.4 Long term (current) use of insulin; F17.210 Nicotine dependence, cigarettes, uncomplicated
CPT/HCPCS: 73502; 73562; 73590; 73610; 96372; 99212; G0463

== ENCOUNTER 2021-12-11 10:21 | Emergency (ER) | payer MEDICAID, SELFPAY ==
[2021-12-11 10:40] VITALS: BP 161/92; PULSE 89; RESP 18; TEMP 36.6; O2SAT 98; BMI 25.0
--- NOTE | 2021-12-11 10:47 | EXP.UTC ---
Discharge Plan Disposition Patient Disposition: Home, Self-Care Condition: Good Prescriptions Prescriptions: No Action metformin 500 mg tablet 1,000 mg PO BID 90 Days Qty: 180 0RF glipizide 10 mg tablet 10 mg PO DAILY Qty: 90 0RF terbinafine HCl 250 mg tablet 250 mg PO DAILY Qty: 90 0RF acetaminophen-codeine 300-30 mg tablet 1 tab PO Q8H PRN (Reason: severe pain) Qty: 30 0RF aspirin [Adult Aspirin Regimen] 81 mg tablet,delayed release (DR/EC) 81 mg PO DAILY atorvastatin [Lipitor] 10 mg tablet 10 mg PO DAILY Qty: 90 0RF Vraylar 1.5 mg capsule 1.5 mg PO DAILY Qty: 90 0RF sildenafil (pulm.hypertension) 20 mg tablet 20 mg PO DAILY PRN (Reason: sexual activity) Qty: 30 1RF lisinopril 20 mg tablet 20 mg PO DAILY Qty: 90 3RF Breo Ellipta 100-25 mcg/dose blister with device 1 inh INHALATION DAILY Qty: 28 2RF albuterol sulfate 90 mcg/actuation HFA aerosol inhaler 2 puff INHALATION Q4-6H PRN (Reason: shortness of breath or wheezing) Qty: 8.5 2RF insulin NPH and regular human 100 unit/mL (70-30) suspension 40 unit SQ BID 30 Days Qty: 24 2RF Rx Instructions: INJECT 40 UNITS TWICE DAILY DIRECTED sofosbuvir-velpatasvir 400-100 mg tablet 1 tab PO DAILY Rx Instructions: Daily x 12 weeks (DME) insulin syringe-needle U-100 [Comfort EZ Insulin Syringe] 0.5 mL 31 gauge x 5/16 syringe See Rx Instructions .ROUTE .MEDSUPPLY Qty: 100 12RF Rx Instructions: As directed (DME) FreeStyle Lite Strips Strip See Rx Instructions .Route Qty: 100 3RF Rx Instructions: Test BS 3x daily gabapentin 800 mg tablet 800 mg PO TID Qty: 90 0RF mupirocin 22 GM ointment 1 applicatio TP TID 7 Days Qty: 1 0RF Referrals Follow up/Referrals: Prateek Leary MD [Primary Care Provider] - See instructions Activity Restrictions/Add. Instructions Additional Instructions/Restrictions: Over the counter Motrin and aTylenol for fever You may check your results on the [facility] My Health Portal Return if needed Striaght to ER if any life threatening symptoms Clinical Impressions Clinical Impression: Exposure to COVID-19 virus Stand Alone Forms Stand Alone Forms: Work/School Release Instructions Patient Instructions: Coronavirus Disease 2019, Preventing the Spread of Coronavirus Discharge Instructions Discharge ED Provider: Nivia Lu [facility] HPI General Stated complaint: cough, runny nose Time Seen by Provider: 12/11/21 10:48 History of Present Illness Provider Complaint: Patient states that mother had a positive at home test for COVID and he has been having cough and runny nose So he came in wanting to get tested Related Data Home Medications Medication Instructions Recorded Confirmed aspirin 81 mg tablet,delayed 81 mg PO DAILY 03/23/20 12/01/21 release (Adult Aspirin Regimen) sofosbuvir 400 mg-velpatasvir 100 1 tab PO DAILY 11/25/21 12/01/21 mg tablet Previous Rx's Medication Instructions Recorded atorvastatin 10 mg tablet (Lipitor) 10 mg PO DAILY #90 tabs 03/23/20 cariprazine 1.5 mg capsule 1.5 mg PO DAILY #90 caps 08/12/20 (Vraylar) sildenafil (pulm.hypertension) 20 20 mg PO DAILY PRN sexual activity 08/12/20 mg tablet #30 tabs lisinopril 20 mg tablet 20 mg PO DAILY #90 tabs 04/29/21 insulin syringe-needle U-100 0.5 #100 ea 05/04/21 mL 31 gauge x 5/16 (Comfort EZ Insulin Syringe) albuterol sulfate 90 mcg/actuation 2 puff inhalation Q4-6H PRN 07/27/21 aerosol inhaler shortness of breath or wheezing #8.5 grams fluticasone furoate 100 1 inh inhalation DAILY #28 ea 07/27/21 mcg-vilanterol 25 mcg/dose inhalation powder (Breo Ellipta) insulin human U-100 NPH-regulr 40 unit (0.4 mL) SQ BID Diabetes 11/01/21 70-30 mix 100 unit/mL subcutaneous 30 days #24 mL susp mupirocin 2 % topical ointment 1 applicatio topical TID 7 days #1 11/20/21 g acetaminophen 300 mg-codeine 30 mg 1 tab PO Q8H PRN sev
[2021-12-11 11:00] VITALS: BP 161/92; PULSE 89; RESP 18; TEMP 36.6; O2SAT 98
== END 2021-12-11 11:08 | disposition home or self-care (01) ==
PROVIDERS: Emergency Provider Nurse Practitioner; PCP Emergency Medicine
DX: U07.1 COVID-19 (principal); R05.9 Cough, unspecified
CPT/HCPCS: 99212; C9803; G0463; U0003; U0005

== ENCOUNTER → 2022-04-13 14:49 | Outpatient (CLI) | payer MEDICAID, SELFPAY ==
[2022-04-13 16:24] LABS: Amphetamine/Metha Screen,Urine Negative ng/ml (<1000); Barbiturates Screen,Urine Negative ng/ml (<200)
[2022-04-13 16:25] LABS: Benzodiazepines Screen,Urine Negative ng/ml (<200); Cannabinoid Screen,Urine Negative ng/ml (<50)
[2022-04-13 16:26] LABS: Cocaine Screen,Urine Negative ng/ml (<300)
[2022-04-13 16:27] LABS: Methadone Screen,Urine Negative ng/ml (<300)
[2022-04-13 16:28] LABS: Opiate Screen,Urine Negative ng/ml (<300); Phencyclidine Screen,Urine Negative ng/ml (<25)
== END ==
PROVIDERS: PCP Emergency Medicine; Visit Provider Emergency Medicine
DX: Z79.899 Other long term (current) drug therapy (principal)
CPT/HCPCS: 80305

== ENCOUNTER → 2022-06-10 15:44 | Outpatient (CLI) | payer MEDICAID, SELFPAY ==
[2022-06-10 16:53] LABS: Barbiturates Screen,Urine Negative ng/ml (<200); Benzodiazepines Screen,Urine Negative ng/ml (<200)
[2022-06-10 16:54] LABS: Cannabinoid Screen,Urine Negative ng/ml (<50)
[2022-06-10 16:55] LABS: Cocaine Screen,Urine Negative ng/ml (<300); Methadone Screen,Urine Negative ng/ml (<300)
[2022-06-10 16:56] LABS: Opiate Screen,Urine Negative ng/ml (<300)
[2022-06-10 16:57] LABS: Phencyclidine Screen,Urine Negative ng/ml (<25)
[2022-06-10 17:04] LABS: Amphetamine/Metha Screen,Urine Negative ng/ml (<1000)
== END ==
PROVIDERS: PCP Emergency Medicine; Visit Provider Emergency Medicine
DX: Z79.899 Other long term (current) drug therapy (principal)
CPT/HCPCS: 80305

== ENCOUNTER → 2022-08-03 14:15 | Outpatient (CLI) | payer MEDICAID, SELFPAY ==
[2022-08-03 19:31] LABS: Amphetamine/Metha Screen,Urine Negative ng/ml (<1000); Barbiturates Screen,Urine Negative ng/ml (<200)
[2022-08-03 19:33] LABS: Benzodiazepines Screen,Urine Negative ng/ml (<200)
[2022-08-03 19:34] LABS: Cannabinoid Screen,Urine Negative ng/ml (<50)
[2022-08-03 19:35] LABS: Cocaine Screen,Urine Negative ng/ml (<300); Methadone Screen,Urine Negative ng/ml (<300)
[2022-08-03 19:36] LABS: Opiate Screen,Urine Positive ng/ml (<300); Phencyclidine Screen,Urine Negative ng/ml (<25)
== END ==
PROVIDERS: PCP Emergency Medicine; Visit Provider Emergency Medicine
DX: Z79.899 Other long term (current) drug therapy (principal)
CPT/HCPCS: 80305

== ENCOUNTER → 2022-09-27 23:12 | Outpatient (CLI) | payer MEDICAID, SELFPAY ==
[2022-09-27 19:48] LABS: Basophils % 0.4 % (0.1-2.0); Eosinophils # 0.1 K/mm3 (0.0-0.4); Eosinophils % 0.8 % (0.1-12.0); Hematocrit 50.7 % (42.0-52.0); Hemoglobin 16.4 g/dL (14.1-18.0); Lymphocytes # 2.6 K/mm3 (0.7-4.5); Lymphocytes % 30.8 % (10-50); Mean Corpuscular HGB Conc 32.3 g/dL (31.8-35.4); Mean Corpuscular Hemoglobin 29.1 pg (27.0-31.2); Mean Corpuscular Volume 90.1 fl (80-94); Mean Platelet Volume 11.5 fl (7.4-10.4); Monocytes # 0.5 K/mm3 (0.1-1.0); Monocytes % 5.4 % (1.7-9.3); Neutrophils # 5.2 K/mm3 (1.8-7.8); Neutrophils % 62.6 % (37.0-80.0); Platelet Count 181 K/mm3 (142-424); Red Blood Count 5.63 M/mm3 (4.60-6.20); Red Cell Distribution Width 13.2 % (11.5-17.5); White Blood Count 8.3 K/mm3 (4.8-10.8)
[2022-09-27 19:50] LABS: Alanine Aminotransferase 25 U/L (12-78); Albumin Level 3.9 g/dl (3.5-5.0); Albumin/Globulin Ratio 1.3 (1.1-1.8); Alkaline Phosphatase 71 U/L (38-126); Anion Gap 15.2 mEq/L (5-15); Aspartate Amino Transferase 26 U/L (17-59); Bilirubin,Total 0.6 mg/dl (0.2-1.3); Blood Urea Nitrogen 12 mg/dl (9-20); Calcium 9.1 mg/dl (8.4-10.2); Carbon Dioxide 25 mmol/L (22.0-30.0); Chloride 101 mmol/L (98-107); Chol/HDL Ratio 5.6 (1-3.5); Cholesterol 178 mg/dl (140-200); Estimated Glomerular Filt Rate 99 ml/min (>60); GFR (African American) 120 ML/MIN (>60); Globulin 3.1 g/dL (1.3-3.2); Glucose 251 mg/dl (74-100); HDL Cholesterol 32 mg/dl (40-60); Potassium 4.2 mmoL/L (3.5-5.1); Sodium 137 mmol/L (136-145); Triglycerides 178 mg/dl (30-150); VLDL Cholesterol 36 mg/dL (0-40)
[2022-09-27 20:01] LABS: Direct LDL Cholesterol 108.08 mg/dL (100-129)
[2022-09-27 20:20] LABS: Thyroid Stimulating Hormone 1.59 uIU/mL (0.465-4.68)
[2022-09-27 20:27] LABS: Barbiturates Screen,Urine Negative ng/ml (<200)
[2022-09-27 20:28] LABS: Benzodiazepines Screen,Urine Negative ng/ml (<200)
[2022-09-27 20:29] LABS: Amphetamine/Metha Screen,Urine Negative ng/ml (<1000); Cocaine Screen,Urine Negative ng/ml (<300)
[2022-09-27 20:30] LABS: Methadone Screen,Urine Negative ng/ml (<300)
[2022-09-27 20:31] LABS: Cannabinoid Screen,Urine Negative ng/ml (<50); Opiate Screen,Urine Positive ng/ml (<300)
[2022-09-27 20:32] LABS: Phencyclidine Screen,Urine Negative ng/ml (<25)
[2022-09-29 09:29] LABS: Testosterone,Total 247 ng/dL (264-916)
== END ==
PROVIDERS: PCP Emergency Medicine; Visit Provider Emergency Medicine
DX: S30.1XXA Contusion of abdominal wall, initial encounter (principal); E11.9 Type 2 diabetes mellitus without complications; Z79.4 Long term (current) use of insulin; Z79.899 Other long term (current) drug therapy; E66.9 Obesity, unspecified; Z68.28 Body mass index [BMI] 28.0-28.9, adult
CPT/HCPCS: 80053; 80061; 80305; 83036; 84403; 84439; 84443; 85025

== ENCOUNTER → 2022-11-28 15:13 | Outpatient (CLI) | payer MEDICAID, SELFPAY ==
[2022-11-28 15:30] LABS: Amphetamine/Metha Screen,Urine Negative ng/ml (<1000); Barbiturates Screen,Urine Negative ng/ml (<200)
[2022-11-28 15:31] LABS: Benzodiazepines Screen,Urine Negative ng/ml (<200)
[2022-11-28 15:32] LABS: Cannabinoid Screen,Urine Negative ng/ml (<50)
[2022-11-28 15:33] LABS: Cocaine Screen,Urine Negative ng/ml (<300); Methadone Screen,Urine Negative ng/ml (<300)
[2022-11-28 15:37] LABS: Opiate Screen,Urine Negative ng/ml (<300); Phencyclidine Screen,Urine Negative ng/ml (<25)
== END ==
PROVIDERS: PCP Emergency Medicine; Visit Provider Emergency Medicine
DX: M54.16 Radiculopathy, lumbar region (principal)
CPT/HCPCS: 80305

== ENCOUNTER → 2023-01-31 11:21 | Outpatient (CLI) | payer MEDICARE, MEDICAID, SELFPAY ==
[2023-01-31 21:05] LABS: Amphetamine/Metha Screen,Urine Negative ng/ml (<1000); Benzodiazepines Screen,Urine Negative ng/ml (<200)
[2023-01-31 21:06] LABS: Barbiturates Screen,Urine Negative ng/ml (<200); Cannabinoid Screen,Urine Negative ng/ml (<50)
[2023-01-31 21:07] LABS: Methadone Screen,Urine Negative ng/ml (<300)
[2023-01-31 21:08] LABS: Cocaine Screen,Urine Negative ng/ml (<300); Opiate Screen,Urine Positive ng/ml (<300)
[2023-01-31 21:09] LABS: Phencyclidine Screen,Urine Negative ng/ml (<25)
== END ==
PROVIDERS: PCP Emergency Medicine; Visit Provider Emergency Medicine
DX: Z79.899 Other long term (current) drug therapy (principal)
CPT/HCPCS: 80305

== ENCOUNTER → 2023-02-21 08:42 | Outpatient (CLI) | payer MEDICARE, MEDICAID, SELFPAY ==
[2023-02-20 18:32] LABS: Influenza A, PCR Not Detected (NotDetected)
[2023-02-21 00:14] LABS: Coronavirus 19, PCR Detected (NotDetected); Influenza B, PCR Not Detected (NotDetected)
== END ==
PROVIDERS: PCP Emergency Medicine; Visit Provider Emergency Medicine
DX: J40 Bronchitis, not specified as acute or chronic (principal); R05.8 Other specified cough; U07.1 COVID-19
CPT/HCPCS: 87636

== ENCOUNTER → 2023-03-29 23:27 | Outpatient (CLI) | payer MEDICARE, MEDICAID, SELFPAY ==
[2023-03-29 19:24] LABS: Basophils # 0.2 K/mm3 (0-0.2); Basophils % 1.9 % (0.1-2.0); Eosinophils # 0.1 K/mm3 (0.0-0.4); Eosinophils % 1.5 % (0.1-12.0); Hematocrit 51.6 % (42.0-52.0); Hemoglobin 17.3 g/dL (14.1-18.0); Lymphocytes # 2.5 K/mm3 (0.7-4.5); Lymphocytes % 30.2 % (10-50); Mean Corpuscular HGB Conc 33.6 g/dL (31.8-35.4); Mean Corpuscular Volume 92.5 fl (80-94); Monocytes # 0.6 K/mm3 (0.1-1.0); Monocytes % 7.4 % (1.7-9.3); Neutrophils # 4.9 K/mm3 (1.8-7.8); Platelet Count 194 K/mm3 (142-424); Red Blood Count 5.58 M/mm3 (4.60-6.20); Red Cell Distribution Width 13.1 % (11.5-17.5); White Blood Count 8.3 K/mm3 (4.8-10.8)
[2023-03-29 19:48] LABS: Hemoglobin A1C 13.7 % (4.0-6.0)
[2023-03-29 20:22] LABS: Alanine Aminotransferase 36 U/L (12-78); Albumin Level 4.5 g/dl (3.5-5.0); Albumin/Globulin Ratio 1.3 (1.1-1.8); Alkaline Phosphatase 77 U/L (38-126); Anion Gap 12.1 mEq/L (5-15); Aspartate Amino Transferase 32 U/L (17-59); Bilirubin,Total 0.6 mg/dl (0.2-1.3); Blood Urea Nitrogen 13 mg/dl (9-20); Calcium 9.5 mg/dl (8.4-10.2); Carbon Dioxide 28 mmol/L (22.0-30.0); Chloride 99 mmol/L (98-107); Chol/HDL Ratio 4.3 (1-3.5); Cholesterol 187 mg/dl (140-200); Estimated Glomerular Filt Rate 99 ml/min (>60); GFR (African American) 120 ML/MIN (>60); Globulin 3.6 g/dL (1.3-3.2); HDL Cholesterol 44 mg/dl (40-60); Potassium 5.1 mmoL/L (3.5-5.1); Sodium 134 mmol/L (136-145); Total Protein,Serum 8.1 g/dl (6.3-8.2); Triglycerides 137 mg/dl (30-150); VLDL Cholesterol 27 mg/dL (0-40)
[2023-03-29 20:31] LABS: Benzodiazepines Screen,Urine Negative ng/ml (<200)
[2023-03-29 20:32] LABS: Amphetamine/Metha Screen,Urine Negative ng/ml (<1000); Barbiturates Screen,Urine Negative ng/ml (<200)
[2023-03-29 20:32] LABS: Direct LDL Cholesterol 116.79 mg/dL (100-129)
[2023-03-29 20:33] LABS: Cocaine Screen,Urine Negative ng/ml (<300)
[2023-03-29 20:34] LABS: Cannabinoid Screen,Urine Negative ng/ml (<50); Methadone Screen,Urine Negative ng/ml (<300)
[2023-03-29 20:34] LABS: Glucose 419 mg/dl (74-100)
[2023-03-29 20:35] LABS: Phencyclidine Screen,Urine Negative ng/ml (<25)
[2023-03-29 20:36] LABS: Opiate Screen,Urine Positive ng/ml (<300)
[2023-03-29 20:52] LABS: Creatinine,Urine Random 124 mg/dL (Not Estab.); Microalbumin/Creatinine Ratio 152.9
[2023-03-29 20:53] LABS: Prostate Specific Ag Screen 1.1 ng/ml (0.0-4.0); Thyroid Stimulating Hormone 2.64 uIU/mL (0.465-4.68)
== END ==
LOC: LAB.DROPOF 23:28
PROVIDERS: PCP Internal Medicine; Visit Provider Internal Medicine
DX: E11.9 Type 2 diabetes mellitus without complications (principal); M54.16 Radiculopathy, lumbar region; M54.30 Sciatica, unspecified side; E55.9 Vitamin D deficiency, unspecified; Z12.5 Encounter for screening for malignant neoplasm of prostate; E66.3 Overweight; Z68.28 Body mass index [BMI] 28.0-28.9, adult; Z79.4 Long term (current) use of insulin
CPT/HCPCS: 80053; 80061; 80307; 82043; 82306; 82570; 83036; 84443; 85025; G0103

== ENCOUNTER 2023-04-20 19:36 | Outpatient (CLI) | payer MEDICARE, MEDICAID, SELFPAY ==
[2023-04-20 22:16] LABS: Barbiturates Screen,Urine Negative ng/ml (<200); Benzodiazepines Screen,Urine Negative ng/ml (<200); Cannabinoid Screen,Urine Negative ng/ml (<50); Cocaine Screen,Urine Negative ng/ml (<300); Methadone Screen,Urine Negative ng/ml (<300); Opiate Screen,Urine Negative ng/ml (<300); Phencyclidine Screen,Urine Negative ng/ml (<25)
[2023-04-20 22:19] LABS: Amphetamine/Metha Screen,Urine Positive ng/ml (<1000)
[2023-04-26 08:15] LABS: Amphetamine Negative (Cutoff=500); Amphetamines Positive (.); Methamphetamine Positive (.); Methamphetamine (GC/MS) >3000 ng/mL (Cutoff=500); Opiates Negative (Cutoff=100); Oxycodone (GC/MS) 324 ng/mL (Cutoff=100)
[2023-04-26 10:34] LABS: Gabapentin,Urine 107.2 ug/mL (.)
== END 2023-04-20 23:59 ==
LOC: LAB.DROPOF 19:37
PROVIDERS: Visit Provider Family Medicine
DX: Z79.899 Other long term (current) drug therapy (principal)
CPT/HCPCS: 80307; 80324; 80361; 80365; G0480

== ENCOUNTER 2023-04-21 10:07 | Outpatient (CLI) | payer MEDICARE, MEDICAID, SELFPAY | END 2023-04-21 23:59 | LOC: LAB.DROPOF 04-25 10:09 | PROVIDERS: PCP Family Medicine; Visit Provider Family Medicine | DX: Z79.899 Other long term (current) drug therapy (principal) | CPT/HCPCS: 80307; 80324; 80361; 80365; G0480 ==

== ENCOUNTER 2023-04-27 08:32 | Outpatient (CLI) | payer MEDICARE, MEDICAID, SELFPAY ==
--- NOTE | 2023-04-27 08:32 | MR_ITS ---
FINAL REPORT CLINICAL HISTORY: chronic low back pain that has progressively gotten worse. pain radiates down bilateral extremities. COMPARISON: None FINDINGS: Multiplanar MR imaging of the lumbar spine was performed without contrast. On the sagittal T2-weighted images, disc degeneration is seen at multiple levels. There is mild anterolisthesis of L3 on L4. There is no evidence of fracture. No bony mass is identified. The conus has an unremarkable appearance. L1-2: An annular bulge is present. There is no significant canal stenosis or neural foraminal narrowing. L2-3: An annular bulge is present. There is no significant canal stenosis or neural foraminal narrowing. L3-4: An annular bulge is present with facet osteoarthropathy and osteophytes. There is a right foraminal disc protrusion which produces right L4 nerve root impingement, moderate bilateral neural foraminal narrowing, and right lateral recess stenosis. There is mild canal stenosis with an AP canal diameter of 8 mm. L4-5: An annular bulge is present with facet osteoarthropathy and osteophytes. There is a left posterolateral disc protrusion, with moderate right and severe left neural foraminal narrowing. L5-S1: An annular bulge is present with facet osteoarthropathy. There is a posterior midline annular tear present, along with a small right foraminal protrusion. There is moderate right and mild left neural foraminal narrowing. IMPRESSION: Multilevel degenerative disc disease and spondylosis as described, most severe at the L3-4 and L4-5 levels. Reviewed, Interpreted and Dictated by Diego Loja III, MD Transcribed by Mary Goins Authenticated and [facility]
== END 2023-04-27 23:59 ==
LOC: RAD 08:32
PROVIDERS: Visit Provider Internal Medicine
DX: R20.0 Anesthesia of skin (principal); M54.50 Low back pain, unspecified
CPT/HCPCS: 72148; 76376

== ENCOUNTER → 2023-05-24 09:48 | Outpatient (POV) | payer MEDICARE, MEDICAID, SELFPAY ==
[2023-05-24 09:52] VITALS: BP 97/78; PULSE 92; RESP 18; O2SAT 96; BMI 27.7
--- NOTE | 2023-05-24 10:00 | EXP.PAIN.OV ---
HPI Data of Consult Patient: new to practice Consult date: 05/24/23 Requesting Physician: Pearl Carl APRN Primary Care Provider: Leroy Manzo DO Consult Narrative Reason for consult: Low back pain History of present illness: Mr. Ohara is a 57 year old male who presents today as a new patient. He is a referral from Dr. Wills's office. Today he rates his pain a 10 out of 10. Patient states his pain is all in his low back with radiating symptoms into his bilateral legs and feet. Patient states this has been going on for more than 5 years unrelated to any specific trauma or injury. He does state at 1 point he did not fall off a building in the past however he did not end up with any fractures but he states this may have contributed to some of his symptoms. Patient does describe his pain as an aching, throbbing sensation with numbness and tingling into his lower extremities. He does state certain movements will end up causing sharp shooting pains. He does believe the neuropathy in his feet is more related to his diabetes over the years. Patient does state that the pain is worse with increased ambulation or walking and it does seem to get better when he lays down to rest. Patient states that the right leg has always been the worst side in comparison to the left. He does state the pain interferes with his ability perform activities of daily living such as cooking and cleaning and is interested in any help would be able to provide. Patient has tried [id number] Tylenol and ibuprofen along with heat and ice and topicals with minimal relief. Patient denies any previous surgery or injection history. He does state that he did go to the chiropractor all of last fall for multiple sessions and that this did help some however it only was temporary and once he stopped going the pain immediately returned.Patient is currently prescribed Percocet 5 mg 3 times a day and gabapentin 800 mg 3 times a day from his primary care provider. His Los has been reviewed and is appropriate. CC: Pearl Carl APRN [facility] Disclaimer: The information contained in this section may have been updated after the patient was seen, as this information can be updated by other users. Medical History BPH (benign prostatic hyperplasia) COPD (chronic obstructive pulmonary disease) Diabetes Diabetes mellitus, type 2 History of heart attack Hx of myocardial infarction Hypertension Neuropathy Tobacco use Surgical History History of cholecystectomy Family History (Updated 05/24/23 @ 09:52 by Jesica Honeycutt RN) Other Unknown family medical history Social History Smoking Status: Current every day smoker tobacco type: cigarettes packs per day: 2 second hand exposure: Yes alcohol intake: never substance use type: methamphetamine current occupational status: unemployed Travel in the last 8 weeks: None household members: family housing: house number of children: 1 caffeine: Yes Review of Systems Review of Systems Review of systems:: pertinent systems reviewed and negative unless documented below Review of systems (narrative): Review of Systems: General: No recent weight changes, no fever, no sleep disturbances Respiratory: No cough, no shortness of air, no recurring pulmonary infections Cardiovascular/peripheral vascular: No chest pain, no palpitations, no edema, no shortness of breath Gastrointestinal: No new onset incontinence, normal bowel movements reported Genitourinary: No new onset incontinence Musculoskeletal: Low back pain, bilateral leg pain Psychiatric: [Normal mood/affect] Neurological: [Denies weakness in extremities], [denies balance issues] Meds Home Medications and Allergies Home Medications Medication Instructions Recorded Confirmed Type insulin syringe-needle U-100 0.5 #100 ea 04/08/22 05/24/23 Rx mL 31 gauge x 5/16 (Comfort EZ Insulin Syringe) metformin 1,000 mg tablet 1,000 mg PO BID 06/10/22 05/24/23 History trazodone 50 mg tablet 50 mg PO HS 06/10/22 05/24/23 History pen needle, diabetic 31 gauge x #100 ea 08/04/22 05/24/23 Rx 3/16 (Comfort EZ Pen [place]) atorvastatin 10 mg tablet (Lipitor) 10 mg PO DAILY #90 tabs 01/31/23 05/24/23 Rx glipizide 10 mg tablet 10 mg PO BID DM 90 days #180 tabs 02/02/23 05/24/23 Rx insulin glargine 100 unit/mL (3 15 unit (0.15 mL) SQ HS DM 90 days 02/02/23 05/24/23 Rx mL) subcutaneous pen (Basaglar #13.5 mL KwikPen U-100 Insulin) blood-glucose meter,continuous #1 ea 03/30/23 05/24/23 Rx (Dexcom G7 Inspector [employer]r [place]) blood-glucose sensor (Dexcom G7 #3 ea 03/30/23 05/24/23 Rx Sensor device) blood sugar diagnostic (FreeStyle #100 ea 04/11/23 05/24/23 Rx Lite Strips) insulin NPH-regular 70-30 U-100 45 unit (0.45 mL) SQ BID #15 mL 04/11/23 05/24/23 Rx insulin 100 unit/mL subcutaneous pen (Humulin 70/30 U-100 KwikPen) lisinopril 20 mg tablet 20 mg PO DAILY #90 tabs 04/11/23 05/24/23 Rx gabapentin 800 mg tablet 800 mg PO TID #90 tabs 04/12/23 05/24/23 Rx oxycodone-acetaminophen 5 mg-325 1 tab PO TID #90 tabs 04/12/23 05/24/23 Rx mg tablet (Percocet) tadalafil 5 mg tablet (Cialis) 5 mg PO DAILY #14 tabs 04/20/23 05/24/23 Rx New Prescriptions to Start Prescriptions: Allergies Allergy/AdvReac Type Severity Reaction Status Date / Time acetaminophen Allergy Intermediate Verified 04/20/23 13:13 [From Tylenol-Codeine #3] codeine Allergy Intermediate Verified 04/20/23 13:13 [From Tylenol-Codeine #3] morphine [MORPHINE] Allergy Unknown I-HIVES Verified 04/20/23 13:13 Objective Narrative: Physical Exam: General: Alert and oriented x3, no acute distress, pleasant and cooperative Lungs: Respirations even and unlabored, symmetrical chest expansion Eyes: PERRL Musculoskeletal: Flexion and extension of lumbar [spine] somewhat guarded secondary to pain, [antalgic gait noted] positive right leg raise with decreased sensation to light touch and decreased reflexes Neurological: Speech clear, no gross sensory deficit Additional findings Additional findings: COMPARISON: None FINDINGS: Multiplanar MR imaging of the lumbar spine was performed without contrast. On the sagittal T2-weighted images, disc degeneration is seen at multiple levels. There is mild anterolisthesis of L3 on L4. There is no evidence of fracture. No bony mass is identified. The conus has an unremarkable appearance. L1-2: An annular bulge is present. There is no significant canal stenosis or neural foraminal narrowing. L2-3: An annular bulge is present. There is no significant canal stenosis or neural foraminal narrowing. L3-4: An annular bulge is present with facet osteoarthropathy and osteophytes. There is a right foraminal disc protrusion which produces right L4 nerve root impingement, moderate bilateral neural foraminal narrowing, and right lateral recess stenosis. There is mild canal stenosis with an AP canal diameter of 8 mm. L4-5: An annular bulge is present with facet osteoarthropathy and osteophytes. There is a left posterolateral disc protrusion, with moderate right and severe left neural foraminal narrowing. L5-S1: An annular bulge is present with facet osteoarthropathy. There is a posterior midline annular tear present, along with a small right foraminal protrusion. There is moderate right and mild left neural foraminal narrowing. IMPRESSION: Multilevel degenerative disc disease and spondylosis as described, most severe at the L3-4 and L4-5 levels. Reviewed, Interpreted and Dictated by Diego Loja III, MD Transcribed by Mary Goins Authenticated and [facility] Assessment and Plan *Assessment and plan (1) Degenerative disc disease, lumbar: Status: Acute Category: Medical Code(s): M51.36 - Other intervertebral disc degeneration, lumbar region (2) Lumbar radiculopathy: Status: Acute Category: Medical Code(s): M54.16 - Radiculopathy, lumbar region (3) Lumbar spinal stenosis: Status: Acute Qualifiers: Neurogenic claudication status: with neurogenic claudication Qualified Code(s): M48.062 - Spinal stenosis, lumbar region with neurogenic claudication Category: Medical Code(s): M48.061 - Spinal stenosis, lumbar region without neurogenic claudication (4) Lumbar nerve root impingement: Status: Acute Category: Medical Code(s): M54.16 - Radiculopathy, lumbar region Plan Patient is experiencing significant pain in his low back and legs with limited range of motion of his lumbar spine. Patient did have positive leg raise with decreased sensation to light touch and decreased reflexes during today's exam. I have discussed with the patient that he may benefit from a lumbar epidural steroid injection. Risk and benefits were discussed with patient and he would like to proceed forward with this plan of care. Patient is not on any blood thinners. Patient's MRI imaging did show significant degenerative disc disease with lumbar spinal stenosis and nerve root impingement noted at the L3-L4 level. Patient has tried and failed conservative therapies including oral medications, heat and ice, topicals, recent chiropractor therapy, continued at home exercising and stretching for longer than 6 weeks. We will schedule the patient for an LESI L3 through L4 under fluoroscopy. Patient has been instructed to contact the clinic with any concerns before the next appointment. Dr. Osorio has reviewed this note and agrees with this plan of care. This note was dictated using voice recognition software and make contain errors or omissions.
== END ==
LOC: SC.PAIN 09:49
PROVIDERS: PCP Internal Medicine; Visit Provider Nurse Practitioner Family
DX: M48.062 Spinal stenosis, lumbar region with neurogenic claudication; M51.16 Intervertebral disc disorders with radiculopathy, lumbar region
CPT/HCPCS: 99202; G0463

== ENCOUNTER 2023-06-20 07:47 | Outpatient (CLI) | payer MEDICARE, MEDICAID, SELFPAY | END 2023-06-20 23:59 | LOC: LAB.DROPOF 06-22 07:48 | PROVIDERS: PCP Nurse Practitioner Family; Visit Provider Nurse Practitioner Family | DX: E11.65 Type 2 diabetes mellitus with hyperglycemia (principal) | CPT/HCPCS: 80048 ==

== ENCOUNTER → 2023-06-20 11:29 | Day surgery (SDC) | payer MEDICARE, MEDICAID, SELFPAY ==
--- NOTE | 2023-06-20 11:52 | PC.NURSE ---
procedure cancelled per provider order. appt made to see PCP at 1pm today.
--- NOTE | 2023-06-20 11:56 | PC.NURSE ---
PT FSBS 598, DISCUSSED WITH PT THE IMPORTANCE OF WATER INTAKE AND MEDICATION COMPLIANCE. STATES HIS APPT WAS CANCELED BY HIS PCP'S OFFICE YESTERDAY. WE WILL TRY TO REACH OUT TO THEM TODAY.
[2023-06-20 18:38] LABS: Anion Gap 19.5 mEq/L (5-15); Blood Urea Nitrogen 15 mg/dl (9-20); Calcium 9.4 mg/dl (8.4-10.2); Carbon Dioxide 17 mmol/L (22.0-30.0); Chloride 100 mmol/L (98-107); Estimated Glomerular Filt Rate 116 ml/min (>60); GFR (African American) 140 ML/MIN (>60); Potassium 5.5 mmoL/L (3.5-5.1); Sodium 131 mmol/L (136-145)
[2023-06-20 18:49] LABS: Glucose 608 mg/dl (74-100)
== END ==
LOC: SC.PAINP 11:30
PROVIDERS: Nurse Practitioner Family; PCP Internal Medicine; Visit Provider Nurse Anesthetist, Certified Registered
DX: E11.65 Type 2 diabetes mellitus with hyperglycemia (principal); Z53.09 Procedure and treatment not carried out because of other contraindication; M51.16 Intervertebral disc disorders with radiculopathy, lumbar region
CPT/HCPCS: 80048

== ENCOUNTER 2023-08-15 09:45 | Day surgery (SDC) | payer MEDICARE, MEDICAID, SELFPAY ==
[2023-08-15 10:03] VITALS: BP 178/99; PULSE 99; RESP 16; O2SAT 99; BMI 28.6
[2023-08-15 10:37] VITALS: BP 132/82; PULSE 97; RESP 18; O2SAT 97
[2023-08-15] MEDS: methylPREDNISolone ACETATE 80MG/ML VIAL 80 MG (10:37)
[2023-08-15 10:38] VITALS: BP 132/82; PULSE 96; RESP 18; O2SAT 97
[2023-08-15 10:44] VITALS: BP 141/74; PULSE 79; RESP 18; TEMP 36.8; O2SAT 97
--- NOTE | 2023-08-15 10:57 | EXP.PAIN.PRO ---
Procedure Date: 08/15/23 Time: 10:00 Anesthesiologist:: Marcio Coates CRNA Complications:: None Pre-procedure Diagnosis:: Degenerative disc lumbar spine multilevels. Lumbar radiculopathy. Post-procedure Diagnosis:: Same. Indications for Procedure:: Patient very pleasant 58-year-old male comes our clinic today for lumbar epidural steroid injection. Patient's lumbar MRI shows multilevel degenerative disc lumbar spine. Severe degenerative ration L3-4 and L4-5. Patient rates his pain 7/10. Patient describes low back pain as constant, dull, aching. Also, reports bilateral hip and leg radicular symptoms at times. Patient's blood sugar 240 this morning. Patient is monitoring his sugar continuously with lifetime device. Advised the patient to keep a close eye on his blood sugar for the next 2 to 3 days. Procedure Details:: Procedure: Lumbar epidural steroid injection under fluoroscopy Informed consent was obtained and the risks and benefits of the procedure were explained to the patient. The patient was taken to the procedure room and noninvasive monitors placed, including noninvasive blood pressure cuff and pulse oximeter. The back was viewed using C-arm Fluoroscopy and prepped using Chloraprep as a cleansing solution and the L3-4 interspace was palpated. Skin and subcutaneous tissues were anesthetized using lidocaine 1.5% and a 25-gauge needle. After this, an 18-gauge Touhy epidural needle was placed into the L3-4 interspace and advanced using fluoroscopic guidance and loss of resistance to air until the epidural space was encountered. After confirmation of needle placement in the epidural space, with dye, a solution containing normal saline, 3 mL and Depo-Medrol 80 mg were incrementally injected into the lumbar epidural space. The patient tolerated the procedure well with no complications. The patient was observed in the Pain Clinic and then discharged home neurologically intact. Plan and Disposition:: Patient was discharged without incident.
== END 2023-08-15 10:44 | disposition home or self-care (01) ==
LOC: SC.PAINP 09:46
PROVIDERS: PCP Family Medicine; Visit Provider Nurse Anesthetist, Certified Registered
DX: M51.16 Intervertebral disc disorders with radiculopathy, lumbar region (principal)
CPT/HCPCS: 62323; J1010

== ENCOUNTER 2023-08-31 16:46 | Emergency (ER) | payer MEDICARE, SELFPAY ==
[2023-08-31 16:47] VITALS: BP 157/90; PULSE 98; RESP 18; TEMP 36.9; O2SAT 95; BMI 33.0
--- NOTE | 2023-08-31 16:54 | ECG_ITS ---
APPROVED REPORT Exam: Resting ECG HR:96 bpm ECG Measurements Heart Rate 96 AXES MI 188 P 89 QRSd 112 QRS 60 QT 354 T 62 QTc 408 Conclusion SINUS RHYTHM MODERATE INTRAVENTRICULAR CONDUCTION DELAY [110+ ms QRS DURATION] BORDERLINE ECG UNCONFIRMED REPORT Electronically signed by : SOPHIA HERR, 09/07/2023 06:35:39
--- NOTE | 2023-08-31 17:02 | ED_ITS ---
<Statement entered by Anita Roman MD - 08/31/23 23:01> I was consulted by the JERICHO, and we discussed the complexity of the problems being addressed. I approved the treatment and management plan for this patient's care in the emergency department, thus performing a substantive portion of the medical decision making. Anita Roman MD, KONG, FACEP Discharge Plan Disposition Patient Disposition: Home, Self-Care Condition: Good Prescriptions Prescriptions: New prednisone 50 mg tablet 50 mg PO DAILY 5 Days Qty: 5 0RF doxycycline hyclate 100 mg tablet 100 mg PO BID 10 Days Qty: 20 0RF No Action atorvastatin [Lipitor] 10 mg tablet 10 mg PO DAILY Qty: 90 0RF lisinopril 20 mg tablet 20 mg PO DAILY Qty: 90 3RF (DME) Dexcom G7 Lining Cutter Misc See Rx Instructions .Route Qty: 1 0RF Rx Instructions: As directed gabapentin 800 mg tablet 800 mg PO TID Qty: 90 3RF furosemide 40 mg tablet 40 mg PO DAILY PRN (Reason: fluid retention) Qty: 30 0RF insulin glargine [Lantus Solostar U-100 Insulin] 100 unit/mL (3 mL) insulin pen 110 unit SQ HS Qty: 45 4RF (DME) insulin syringe-needle U-100 [Comfort EZ Insulin Syringe] 0.5 mL 31 gauge x 5/16 syringe See Rx Instructions .ROUTE .MEDSUPPLY Qty: 100 12RF Rx Instructions: As directed (DME) FreeStyle Lite Strips Strip See Rx Instructions .Route Qty: 100 3RF Rx Instructions: Test BS 3x daily (DME) pen needle, diabetic [Comfort EZ Pen Bovina] 31 gauge x 3/16 needle See Rx Instructions .Route Qty: 1200 0RF Rx Instructions: TO USE WITH INSULIN metformin 500 mg tablet extended release 24 hr 500 mg PO BID 30 Days Qty: 60 2RF (DME) Dexcom G7 Sensor Device See Rx Instructions .Route Qty: 3 3RF Rx Instructions: As directed tadalafil [Cialis] 5 mg tablet 5 mg PO DAILY Qty: 14 0RF Referrals Follow up/Referrals: Charles Sheffield MD [Primary Care Provider] - See instructions Activity Restrictions/Add. Instructions Additional Instructions/Restrictions: Follow-up with your PCP for any worsening signs or symptoms or return to the ER as needed. Clinical Impressions Clinical Impression: Acute lower respiratory tract infection, Cellulitis of arm, left Discharge ED Provider: Anita Roman General Adult HPI <KACIE Montalvo - Last Filed: 08/31/23 19:37> General Chief complaint: Shortness of Breath/Dyspnea Stated complaint: SOA, cough, lung pain Time Seen by Provider: 08/31/23 17:01 History of Present Illness HPI narrative: Patient presents for evaluation of difficulty breathing. Patient reports that I can't breathe . Patient further elaborates that it began after having congestion and upper respiratory tract infection symptoms. Patient denies fever chest pain hemoptysis hematochezia melena nausea vomit diarrhea. Patient denies being on home O2 or having diagnosis of COPD although he is a heavy smoker. Related Data Previous Rx's Medication Instructions Recorded insulin syringe-needle U-100 0.5 #100 ea 04/08/22 mL 31 gauge x 5/16 (Comfort EZ Insulin Syringe) blood sugar diagnostic (FreeStyle #100 ea 06/21/23 Lite Strips) pen needle, diabetic 31 gauge x #1,200 ea 07/24/23 3/16 (Comfort EZ Pen Bovina) atorvastatin 10 mg tablet (Lipitor) 10 mg PO DAILY #90 tabs 07/26/23 blood-glucose meter,continuous #1 ea 07/26/23 (Dexcom G7 Lining Cutter) lisinopril 20 mg tablet 20 mg PO DAILY #90 tabs 07/26/23 gabapentin 800 mg tablet 800 mg PO TID #90 tabs 07/27/23 metformin 500 mg tablet,extended 500 mg PO BID 30 days #60 tabs 08/07/23 release 24 hr furosemide 40 mg tablet 40 mg PO DAILY PRN fluid retention 08/09/23 #30 tabs insulin glargine 100 unit/mL (3 110 unit (1.1 mL) SQ HS #45 mL 08/09/23 mL) subcutaneous pen (Lantus Solostar U-100 Insulin) blood-glucose sensor (Dexcom G7 #3 ea 08/16/23 Sensor device) tadalafil 5 mg tablet (Cialis) 5 mg PO DAILY #14 tabs 08/28/23 doxycycline hyclate 100 mg tablet 100 mg PO BID 10 days #20 tabs 08/31/23 prednisone 50 mg tablet 50 mg PO DAILY 5 days #5 tabs 08/31/23 Allergies Allergy/AdvReac Type Severity Reaction Status Date / Time acetaminophen Allergy Intermediate Verified 08/15/23 10:07 [From Tylenol-Codeine #3] codeine Allergy Intermediate Verified 08/15/23 10:07 [From Tylenol-Codeine #3] morphine [MORPHINE] Allergy Unknown I-HIVES Verified 08/15/23 10:07 [facility] <KACIE Montalvo - Last Filed: 08/31/23 19:37> [facility] Disclaimer: The information contained in this section may have been updated after the patient was seen, as this information can be updated by other users. Medical History BPH (benign prostatic hyperplasia) Diabetes mellitus, type 2 COPD (chronic obstructive pulmonary disease) Patient is still smoking. I think pulmonary function test would be in order in this patient. Will discuss this when he returns. History of heart attack Hypertension Neuropathy Diabetes Tobacco use Hx of myocardial infarction Surgical History History of cholecystectomy Family History Other Unknown family medical history Social History Smoking Status: Current every day smoker tobacco type: cigarettes packs per day: 2 second hand exposure: Yes alcohol intake: never substance use type: methamphetamine current occupational status: unemployed Travel in the last 8 weeks: None household members: family housing: house number of children: 1 caffeine: Yes <KACIE Montalvo - Last Filed: 08/31/23 19:37> ROS Obtained: Yes Systems reviewed as appropriate & no additional complaints except as documented Physical Exam <KACIE Montalvo - Last Filed: 08/31/23 19:37> General General appearance: in no apparent distress and appears intoxicated Head Head exam: atraumatic and normal inspection Eye Eye exam: Present normal appearance and EOMI ENT ENT exam: Present normal exam, normal oropharynx and mucous membranes moist Neck Neck exam: Present normal inspection, full ROM and trachea midline; Absent lymphadenopathy Chest Chest inspection: Present normal inspection and symmetric chest wall rise; Absent tenderness Respiratory Respiratory exam: Present normal lung sounds bilaterally (Bilateral lower lobe rhonchi); Absent respiratory distress or accessory muscle use Cardiovascular Cardiovascular exam: Present regular rate and normal rhythm Abdominal Exam Abdominal exam: Present soft and normal bowel sounds; Absent tenderness, guarding or rebound Extremities Exam Extremities exam: Present full ROM and tenderness Back Exam Back exam: Present normal inspection and full ROM; Absent tenderness Neurological Exam Neurological exam: Present oriented X3 (Patient is a difficult historian and has not opened his eyes to the course of my entire exam) and CN II-XII intact Psychiatric Psychiatric exam: Absent normal affect (Patient appears to be intoxicated and slightly resistant to answering questions) Skin Skin exam: Present warm and dry; Absent normal color (Patient has a dense area of cellulitis in the left upper extremity) Lymphatic Lymphatic Findings: no adenopathy Medical Decision Making <KACIE Montalvo - Last Filed: 08/31/23 19:37> Medical Records Medical records reviewed: Yes I reviewed the patient's medical records. [place] Inquiry Pt receiving controlled substance: No Vital Signs: 08/31/23 16:47 08/31/23 17:30 08/31/23 18:00 Temperature 98.4 F Temperature Source Oral Pulse Rate 96 H 100 H Pulse Rate [Radial] 98 H Respiratory Rate 18 24 28 H Blood Pressure 166/87 H 168/92 H Blood Pressure [Right Arm] 157/90 H Blood Pressure Mean [Right Arm] 112 Blood Pressure Source [Right Arm] Automatic Cuff Blood Pressure Position [Right Arm] Sitting 02 Sat by Pulse Oximetry 95 97 94 L Oxygen Delivery Method Room Air Room Air Room Air 08/31/23 18:45 Temperature Temperature Source Pulse Rate 98 H Pulse Rate [Radial] Respiratory Rate Blood Pressure 168/92 H Blood Pressure [Right Arm] Blood Pressure Mean [Right Arm] Blood Pressure Source [Right Arm] Blood Pressure Position [Right Arm] 02 Sat by Pulse Oximetry 91 L Oxygen Delivery Method Lab Data Lab results reviewed: Yes I reviewed the patient's lab results. Lab Results 08/31/23 17:06: VBG pH 7.39, VBG pCO2 38.5, VBG pO2 113.9 H, VBG HCO3 22.9 L, VBG Total CO2 24.1, VBG O2 Saturation 98.3 H, VBG Base Excess -2.0, VBG Lactic Acid 1.2 08/31/23 17:25: WBC 8.9, RBC 5.10, Hgb 15.7, Hct 47.6, MCV 93.3, MCH 30.7, MCHC 32.9, RDW 13.8, Plt Count 155, MPV 9.5, Neut % (Auto) 75.2, Lymph % (Auto) 16.0, Morris % (Auto) 6.1, Eos % (Auto) 0.9, Baso % (Auto) 1.8, Neut # (Auto) 6.7, Lymph # (Auto) 1.4, Morris # (Auto) 0.6, Eos # (Auto) 0.1, Baso # (Auto) 0.2, Sodium 136, Potassium 3.8, Chloride 105, Carbon Dioxide 25, Anion Gap 9.8, BUN 8 L, C reatinine 0.50 L, Estimated Creat Clear 255, Estimated GFR 170, Est GFR ( Amer) 206, Glucose 104 H, Calcium 8.6, Magnesium 1.7, Total Bilirubin 0.7, AST 43, ALT 35, Alkaline Phosphatase 80, Troponin I < 0.01, Total Protein 7.6, Albumin 3.9, Globulin 3.7 H, Albumin/Globulin Ratio 1.1 08/31/23 18:10: SARS-CoV-2 (PCR) Not detected, Influenza A Untype (PCR) Not detected, Influenza Type B (PCR) Not detected 08/31/23 17:25 08/31/23 17:25 Orders (Tests/Meds): ED MEDICATIONS Discontinued Medications Generic Name Dose Route Start Last Admin Trade Name Freq PRN Reason Stop Dose Admin Albuterol/Ipratropium 3 ml 08/31/23 17:05 08/31/23 17:18 Ipratropium/Albuterol 3 Ml Neb IH 08/31/23 17:06 3 ml ONCE ONE Administration Dexamethasone Sodium Phosphate 10 mg 08/31/23 17:05 08/31/23 17:36 Dexamethasone 4mg/Ml 5ml Mdv IV 08/31/23 17:06 10 mg ONCE ONE Administration Lactated Ringer's 1,000 mls @ 999 mls/hr 08/31/23 17:05 08/31/23 17:36 Lactated Ringer's 1000 Ml Bag IV 08/31/23 18:05 999 mls/hr .Q1H1M ONE Administration Iopamidol 70 ml 08/31/23 18:29 08/31/23 18:30 Iopamidol-370 (76%);100ml Bottle IV 08/31/23 18:30 70 ml ONCE ONE Administration Sodium Chloride 10 ml 08/31/23 18:29 08/31/23 18:30 Sodium Chloride 0.9% 10ml Syr (Rad Only) IV 08/31/23 18:30 10 ml ONCE ONE Administration Sodium Chloride 50 ml 08/31/23 18:29 08/31/23 18:30 0.9 % Sodium Chloride 50 Ml Vial IV 08/31/23 18:30 50 ml ONCE ONE Administration ORDERS Category Date Time Status CT angio chest PE protocol Stat Cat Scan 08/31/23 17:51 Completed Chest XR -- portable [XR chest portable] Stat Exams 08/31/23 17:05 Completed POCUS Point of Care (ER Only) Stat Exams 08/31/23 17:44 Ordered CBC w/Auto Diff [Complete Blood Count Auto Diff] Stat Lab 08/31/23 17:25 Completed CMP [Comprehensive Metabolic Panel] Stat Lab 08/31/23 17:25 Completed Magnesium Stat Lab 08/31/23 17:25 Completed Rapid PCR Covid and Flu A/B Stat Lab 08/31/23 18:10 Completed Trop I [Troponin I] Stat Lab 08/31/23 17:25 Completed VBG [Venous Blood Gas] Stat RT 08/31/23 17:06 Completed Medical Decision Narrative: In summary patient is a 58-year-old male who presents to the emergency department for evaluation of dyspnea. Patient is hemodynamically stable upon arrival, afebrile satting at 95% on room air. Physical exam shows bilateral rhonchi in the lower lung monreal and incidentally found cellulitis of the left upper extremity. Differential diagnosis includes COPD exacerbation versus pneumonia versus septic emboli versus PE versus ACS versus abscess left upper extremity etc. Initial workup will be conducted with hematologic labs chest x- ray CT scan PE protocol respiratory swabs. Initial interventions include DuoNeb Decadron Toradol. Initial workup reviewed by me shows that his hematologic labs are nonactionable and my informal review of his chest x-ray shows no acute process and his CTA PE protocol shows tree-in-bud opacities but otherwise no acute infiltrates or thrombus radiologist read pending.. Upon repeat evaluation had acceptable resolution of his dyspnea. Given this patient is appropriate for discharge with doxycycline for both the possibility of infectious bronchitis and for the superficial cellulitis. <Anita Roman MD - Last Filed: 08/31/23 17:50> Vital Signs: 08/31/23 16:47 08/31/23 17:30 08/31/23 18:00 Temperature 98.4 F Temperature Source Oral Pulse Rate 96 H 100 H Pulse Rate [Radial] 98 H Respiratory Rate 18 24 28 H Blood Pressure 166/87 H 168/92 H Blood Pressure [Right Arm] 157/90 H Blood Pressure Mean [Right Arm] 112 Blood Pressure Source [Right Arm] Automatic Cuff Blood Pressure Position [Right Arm] Sitting 02 Sat by Pulse Oximetry 95 97 94 L Oxygen Delivery Method Room Air Room Air Room Air 08/31/23 18:45 Temperature Temperature Source Pulse Rate 98 H Pulse Rate [Radial] Respiratory Rate Blood Pressure 168/92 H Blood Pressure [Right Arm] Blood Pressure Mean [Right Arm] Blood Pressure Source [Right Arm] Blood Pressure Position [Right Arm] 02 Sat by Pulse Oximetry 91 L Oxygen Delivery Method Lab Data Lab Results 08/31/23 17:06: VBG pH 7.39, VBG pCO2 38.5, VBG pO2 113.9 H, VBG HCO3 22.9 L, VBG Total CO2 24.1, VBG O2 Saturation 98.3 H, VBG Base Excess -2.0, VBG Lactic Acid 1.2 08/31/23 17:25: WBC 8.9, RBC 5.10, Hgb 15.7, Hct 47.6, MCV 93.3, MCH 30.7, MCHC 32.9, RDW 13.8, Plt Count 155, MPV 9.5, Neut % (Auto) 75.2, Lymph % (Auto) 16.0, Morris % (Auto) 6.1, Eos % (Auto) 0.9, Baso % (Auto) 1.8, Neut # (Auto) 6.7, Lymph # (Auto) 1.4, Morris # (Auto) 0.6, Eos # (Auto) 0.1, Baso # (Auto) 0.2, Sodium 136, Potassium 3.8, Chloride 105, Carbon Dioxide 25, Anion Gap 9.8, BUN 8 L, C reatinine 0.50 L, Estimated Creat Clear 255, Estimated GFR 170, Est GFR ( Amer) 206, Glucose 104 H, Calcium 8.6, Magnesium 1.7, Total Bilirubin 0.7, AST 43, ALT 35, Alkaline Phosphatase 80, Troponin I < 0.01, Total Protein 7.6, Albumin 3.9, Globulin 3.7 H, Albumin/Globulin Ratio 1.1 08/31/23 18:10: SARS-CoV-2 (PCR) Not detected, Influenza A Untype (PCR) Not detected, Influenza Type B (PCR) Not detected Orders (Tests/Meds): ED MEDICATIONS Discontinued Medications Generic Name Dose Route Start Last Admin Trade Name Freq PRN Reason Stop Dose Admin Albuterol/Ipratropium 3 ml 08/31/23 17:05 08/31/23 17:18 Ipratropium/Albuterol 3 Ml Neb IH 08/31/23 17:06 3 ml ONCE ONE Administration Dexamethasone Sodium Phosphate 10 mg 08/31/23 17:05 08/31/23 17:36 Dexamethasone 4mg/Ml 5ml Mdv IV 08/31/23 17:06 10 mg ONCE ONE Administration Lactated Ringer's 1,000 mls @ 999 mls/hr 08/31/23 17:05 08/31/23 17:36 Lactated Ringer's 1000 Ml Bag IV 08/31/23 18:05 999 mls/hr .Q1H1M ONE Administration Iopamidol 70 ml 08/31/23 18:29 08/31/23 18:30 Iopamidol-370 (76%);100ml Bottle IV 08/31/23 18:30 70 ml ONCE ONE Administration Sodium Chloride 10 ml 08/31/23 18:29 08/31/23 18:30 Sodium Chloride 0.9% 10ml Syr (Rad Only) IV 08/31/23 18:30 10 ml ONCE ONE Administration Sodium Chloride 50 ml 08/31/23 18:29 08/31/23 18:30 0.9 % Sodium Chloride 50 Ml Vial IV 08/31/23 18:30 50 ml ONCE ONE Administration ORDERS Category Date Time Status CT angio chest PE protocol Stat Cat Scan 08/31/23 17:51 Completed Chest XR -- portable [XR chest portable] Stat Exams 08/31/23 17:05 Completed POCUS Point of Care (ER Only) Stat Exams 08/31/23 17:44 Ordered CBC w/Auto Diff [Complete Blood Count Auto Diff] Stat Lab 08/31/23 17:25 Completed CMP [Comprehensive Metabolic Panel] Stat Lab 08/31/23 17:25 Completed Magnesium Stat Lab 08/31/23 17:25 Completed Rapid PCR Covid and Flu A/B Stat Lab 08/31/23 18:10 Completed Trop I [Troponin I] Stat Lab 08/31/23 17:25 Completed VBG [Venous Blood Gas] Stat RT 08/31/23 17:06 Completed ECG Data Tracing #1: I reviewed this ECG and interpreted as documented below: Ventricular rate of 96 normal sinus rhythm nonspecific interventricular conduction delay normal axis no significant conduction abnormalities though no acute ischemic changes Procedures <Anita Roman MD - Last Filed: 08/31/23 17:50> Miscellaneous Procedure Procedure Performed: Limited soft tissue ultrasound Indication: Soft tissue redness and swelling over the left distal upper arm Identified structures: Location: Left upper arm Findings: There is extensive soft tissue fluid collection consistent with cobblestoning and cellulitis with no localized drainable fluid collection in left upper extremity Impression: Cellulitis without drainable fluid collection or abscess in the left upper extremity Images were saved to permanent archive The study was technically adequate Soft Tissue CPT Codes: CPT Upper extremity: 97583-46 CPT Axilla: 16397-65 This study was performed by me, and I personally interpreted all images/videos. Based on my clinical judgement, these images were adequate and did not necessitate further imaging. Critical Care <KACIE Montalvo - Last Filed: 08/31/23 19:37> Critical Care Time Critical Care Time: No
--- NOTE | 2023-08-31 17:05 | XR_ITS ---
PROCEDURE INFORMATION: Exam: XR Chest Exam date and time: 08/31/2023 6:00 PM Age: 58 years old Clinical indication: Dyspnea; Additional info: Dyspnea shortness of breath TECHNIQUE: Imaging protocol: Radiologic exam of the chest. Views: 1 view. COMPARISON: CR XR CHEST PORTABLE PICC PLAC 08/27/2019 11:40 AM FINDINGS: Lungs: No consolidation. Pleural spaces: No pleural effusion. No pneumothorax. Heart/Mediastinum: No cardiomegaly. Bones/joints: Unremarkable. IMPRESSION: No acute pulmonary findings.
[2023-08-31] MEDS: IPRATROPIUM/ALBUTEROL 3 ML NEB IH (17:18)
[2023-08-31 17:30] VITALS: BP 166/87; PULSE 96; RESP 24; O2SAT 97
[2023-08-31 17:36] LABS: Lactate Venous 1.2 mmol/L (0.4-2.0); VBG HCO3 22.9 mmol/L (23-30); VBG Oxygen Saturation 98.3 % (50-70); VBG PCO2 38.5 mmol/L (35-51); VBG PH 7.39 mmol/L (7.31-7.41); VBG PO2 113.9 mmol/L (28-40); VBG Total CO2 24.1 mmol/L (23-27)
[2023-08-31 17:36] LABS: Basophils # 0.2 K/mm3 (0-0.2); Basophils % 1.8 % (0.1-2.0); Eosinophils # 0.1 K/mm3 (0.0-0.4); Eosinophils % 0.9 % (0.1-12.0); Hematocrit 47.6 % (42.0-52.0); Hemoglobin 15.7 g/dL (14.1-18.0); Lymphocytes # 1.4 K/mm3 (0.7-4.5); Mean Corpuscular HGB Conc 32.9 g/dL (31.8-35.4); Mean Corpuscular Hemoglobin 30.7 pg (27.0-31.2); Mean Corpuscular Volume 93.3 fl (80-94); Mean Platelet Volume 9.5 fl (7.4-10.4); Monocytes # 0.6 K/mm3 (0.1-1.0); Monocytes % 6.1 % (1.7-9.3); Neutrophils # 6.7 K/mm3 (1.8-7.8); Neutrophils % 75.2 % (37.0-80.0); Platelet Count 155 K/mm3 (142-424); Red Cell Distribution Width 13.8 % (11.5-17.5); White Blood Count 8.9 K/mm3 (4.8-10.8)
[2023-08-31] MEDS: DEXAMETHASONE 4MG/ML 5ML MDV 10 MG IV (17:36)
[2023-08-31] MEDS: LACTATED RINGERS 1000ML 1,000 ML 999 ML IV (17:36)
[2023-08-31 17:43] LABS: Chloride 105 mmol/L (98-107); Potassium 3.8 mmoL/L (3.5-5.1); Sodium 136 mmol/L (136-145)
[2023-08-31 17:46] LABS: Alanine Aminotransferase 35 U/L (12-78); Albumin Level 3.9 g/dl (3.5-5.0); Albumin/Globulin Ratio 1.1 (1.1-1.8); Alkaline Phosphatase 80 U/L (38-126); Anion Gap 9.8 mEq/L (5-15); Aspartate Amino Transferase 43 U/L (17-59); Bilirubin,Total 0.7 mg/dl (0.2-1.3); Blood Urea Nitrogen 8 mg/dl (9-20); Calcium 8.6 mg/dl (8.4-10.2); Carbon Dioxide 25 mmol/L (22.0-30.0); Creatinine Clearance Estimated 255 mL/min (50-200); Estimated Glomerular Filt Rate 170 ml/min (>60); GFR (African American) 206 ML/MIN (>60); Globulin 3.7 g/dL (1.3-3.2); Glucose 104 mg/dl (74-100); Magnesium 1.7 mg/dl (1.6-2.3); Total Protein,Serum 7.6 g/dl (6.3-8.2)
--- NOTE | 2023-08-31 17:51 | CT_ITS ---
PROCEDURE INFORMATION: Exam: CTA Chest With Contrast Exam date and time: 08/31/2023 6:17 PM Age: 58 years old Clinical indication: Shortness of breath; Additional info: Iv drug use, shortness of breath TECHNIQUE: Imaging protocol: Computed tomographic angiography of the chest with contrast. Exam focused on the arteries. 3D rendering (Not supervised by radiologist): MIP and/or 3D reconstructed images were created by the technologist. Radiation optimization: All CT scans at this facility use at least one of these dose optimization techniques: automated exposure control; mA and/or kV adjustment per patient size (includes targeted exams where dose is matched to clinical indication); or iterative reconstruction. Contrast material: ISOVUE 370; Contrast volume: 70 ml; Contrast route: INTRAVENOUS (IV); COMPARISON: CR XR CHEST PORTABLE 08/31/2023 6:00 PM FINDINGS: Pulmonary arteries: Suboptimal pulmonary artery opacification due to bolus timing. Within the limitations of the study, no identifiable pulmonary artery emboli. Aorta: Mild atherosclerosis. No aortic aneurysm. No aortic dissection. Lungs: Diffuse subtle tree-in-bud opacities. No consolidation. No masses. 4 mm right lower lobe calcified granuloma. Pleural spaces: Unremarkable. No pneumothorax. No pleural effusion. Heart: Unremarkable. No cardiomegaly. No pericardial effusion. Coronary arteries: Coronary artery calcifications. Lymph nodes: Mildly prominent paratracheal and subcarinal lymph nodes measuring up to 1 cm in short axis. Small calcified paraesophageal and right hilar lymph nodes. Liver: Hepatomegaly. Suspected hepatic steatosis. Gallbladder and bile ducts: Cholecystectomy. Bones/joints: S shaped curvature of the spine. Degenerative changes. No acute fracture. Soft tissues: Unremarkable. IMPRESSION: 1. Suboptimal pulmonary artery opacification due to bolus timing. Within the limitations of the study, no identifiable pulmonary artery emboli. 2. Diffuse subtle tree-in-bud opacities suggestive of an infectious or inflammatory bronchiolitis.
[2023-08-31 18:00] VITALS: BP 168/92; PULSE 100; RESP 28; O2SAT 94
[2023-08-31 18:00] LABS: Troponin I < 0.01 ng/ml (0.00-0.034)
--- NOTE | 2023-08-31 18:06 | PC.NURSE ---
XR AT BEDSIDE
[2023-08-31 18:19] LABS: Coronavirus 19, PCR Not Detected (NotDetected); Influenza A, PCR Not Detected (NotDetected); Influenza B, PCR Not Detected (NotDetected)
[2023-08-31] MEDS: SODIUM CHLORIDE 0.9% 10ML SYR (RAD ONLY) 10 ML IV (18:30)
[2023-08-31] MEDS: 0.9 % SODIUM CHLORIDE 50 ML VIAL IV (18:30)
[2023-08-31] MEDS: IOPAMIDOL-370 (76%);100ML BOTTLE 70 ML IV (18:30)
--- NOTE | 2023-08-31 18:33 | PC.NURSE ---
PT RETURNED FROM CT
[2023-08-31 18:45] VITALS: BP 168/92; PULSE 98; O2SAT 91
[2023-08-31 20:03] VITALS: BP 159/70; PULSE 82; RESP 19; TEMP 36.8; O2SAT 98
== END 2023-08-31 20:05 | disposition home or self-care (01) ==
PROVIDERS: Physician Assistant; Emergency Provider Student in an Organized Health Care Education/Training Program; PCP Family Medicine
DX: L03.114 Cellulitis of left upper limb (principal); J22 Unspecified acute lower respiratory infection; R06.02 Shortness of breath; J44.9 Chronic obstructive pulmonary disease, unspecified; E11.9 Type 2 diabetes mellitus without complications; I10 Essential (primary) hypertension; F17.210 Nicotine dependence, cigarettes, uncomplicated; Z79.4 Long term (current) use of insulin; Z79.84 Long term (current) use of oral hypoglycemic drugs
CPT/HCPCS: 71045; 71275; 80053; 82803; 83735; 84484; 85025; 87636; 93005; 96361; 96374; 99285; Q9967

== ENCOUNTER 2023-10-20 23:46 | Observation (INO) | payer MEDICARE, SELFPAY ==
[2023-10-20 23:55] VITALS: BP 178/58; PULSE 103; RESP 21; TEMP 36.7; O2SAT 95; BMI 30.5
[2023-10-21 00:01] VITALS: BP 169/109; PULSE 102; O2SAT 97
--- NOTE | 2023-10-21 00:03 | CT_ITS ---
PROCEDURE INFORMATION: Exam: CT Right Upper Extremity With Contrast, Upper Arm Exam date and time: 10/21/2023 12:32 AM Age: 58 years old Clinical indication: Injury or trauma; Other: Puncture wound medial elbow; Swelling; Arm, lower and arm, upper and elbow and fingers and hand; Bilateral; Right; Additional info: Puncture wound medial elbow, cellulitis, nec fasc? TECHNIQUE: Imaging protocol: Computed tomography of the right upper extremity with contrast. Exam focused on the upper arm. Radiation optimization: All CT scans at this facility use at least one of these dose optimization techniques: automated exposure control; mA and/or kV adjustment per patient size (includes targeted exams where dose is matched to clinical indication); or iterative reconstruction. Contrast material: ISOVUE; Contrast volume: 75 ml; Contrast route: IV; COMPARISON: CT ELBOW RT W CON 10/21/2023 12:32 AM FINDINGS: Bones/joints: No fracture, lytic or blastic abnormality of the humerus. The glenohumeral joint and elbow are normally aligned. Soft tissues: There is subcutaneous edema distally. Musculature of the upper arm is normal. Vasculature: Patent vasculature. Lymph nodes: There is a mildly prominent subcutaneous lymph node medial distal upper arm level measuring 8 x 15 mm. IMPRESSION: 1. Subcutaneous edema distal upper arm level. No focal fluid collection or abscess. 2. Mildly prominent subcutaneous lymph node medial distal upper arm level.
--- NOTE | 2023-10-21 00:03 | CT_ITS ---
PROCEDURE INFORMATION: Exam: CT Right Upper Extremity With Contrast, Elbow Exam date and time: 10/21/2023 12:32 AM Age: 58 years old Clinical indication: Injury or trauma; Other: Puncture wound medial elbow; Weakness; Bilateral; Right; Additional info: Puncture wound medial elbow, cellulitis, nec fasc? TECHNIQUE: Imaging protocol: Computed tomography of the right upper extremity with contrast. Exam focused on the elbow. Radiation optimization: All CT scans at this facility use at least one of these dose optimization techniques: automated exposure control; mA and/or kV adjustment per patient size (includes targeted exams where dose is matched to clinical indication); or iterative reconstruction. Contrast material: ISOVUE; Contrast volume: 75 ml; Contrast route: IV; COMPARISON: CT HUMERUS RT W CON 10/21/2023 12:32 AM FINDINGS: Bones/joints: The elbow joint is normally aligned. No fracture, lytic or blastic process is noted. No appreciable joint effusion is evident. Soft tissues: There is diffuse subcutaneous edema surrounding the elbow. There is focal subcutaneous fluid collection ventrally at the proximal ulnar level measuring approximately 8 x 22 x 24 mm in size. This demonstrates a low central component with irregular peripheral enhancement and appears to have a sinus tract to the skin. This is consistent with a small subcutaneous abscess. The underlying musculature does not appear to be affected by the inflammatory changes. IMPRESSION: Small subcutaneous abscess ventrally at the proximal ulnar level with a sinus tract extending to the skin surface. Significant subcutaneous edema is noted surrounding the elbow. There is no muscular or osseous abnormality evident.
--- NOTE | 2023-10-21 00:03 | CT_ITS ---
PROCEDURE INFORMATION: Exam: CT Right Upper Extremity With Contrast, Forearm Exam date and time: 10/21/2023 12:32 AM Age: 58 years old Clinical indication: Injury or trauma; Other: Puncture wound medial elbow; Swelling; Right; Additional info: Puncture wound medial elbow, cellulitis, nec fasc? TECHNIQUE: Imaging protocol: Computed tomography of the right upper extremity with contrast. Exam focused on the forearm. Radiation optimization: All CT scans at this facility use at least one of these dose optimization techniques: automated exposure control; mA and/or kV adjustment per patient size (includes targeted exams where dose is matched to clinical indication); or iterative reconstruction. Contrast material: ISOVUE; Contrast volume: 75 ml; Contrast route: IV; COMPARISON: CT HUMERUS RT W CON 10/21/2023 12:32 AM FINDINGS: Bones/joints: No fracture, lytic or blastic lesion. The elbow is reported separately. Soft tissues: There is subcutaneous edema throughout the forearm most prominent proximally. No focal fluid collection. The musculature of the forearm is normal. IMPRESSION: Diffuse subcutaneous edema of the forearm most prominent proximally.
--- NOTE | 2023-10-21 00:15 | ED_ITS ---
Discharge Plan Disposition Patient Disposition: Admitted Condition: Fair Prescriptions Prescriptions: No Action atorvastatin [Lipitor] 10 mg tablet 10 mg PO DAILY Qty: 90 0RF lisinopril 20 mg tablet 20 mg PO DAILY Qty: 90 3RF (DME) Dexcom G7 Registered Dietitian Misc See Rx Instructions .Route Qty: 1 0RF Rx Instructions: As directed gabapentin 800 mg tablet 800 mg PO TID Qty: 90 3RF furosemide 40 mg tablet 40 mg PO DAILY PRN (Reason: fluid retention) Qty: 30 0RF (DME) insulin syringe-needle U-100 [Comfort EZ Insulin Syringe] 0.5 mL 31 gauge x 5/16 syringe See Rx Instructions .ROUTE .MEDSUPPLY Qty: 100 12RF Rx Instructions: As directed (DME) FreeStyle Lite Strips Strip See Rx Instructions .Route Qty: 100 3RF Rx Instructions: Test BS 3x daily (DME) pen needle, diabetic [Comfort EZ Pen [place]] 31 gauge x 3/16 needle See Rx Instructions .Route Qty: 1200 0RF Rx Instructions: TO USE WITH INSULIN metformin 500 mg tablet extended release 24 hr 500 mg PO BID 30 Days Qty: 60 2RF insulin glargine [Lantus Solostar U-100 Insulin] 100 unit/mL (3 mL) insulin pen 110 unit SQ HS Qty: 45 4RF tadalafil [Cialis] 5 mg tablet 5 mg PO DAILY Qty: 14 0RF (DME) Dexcom G7 Sensor Device See Rx Instructions .Route Qty: 3 3RF Rx Instructions: As directed Referrals Follow up/Referrals: Charles Sheffield MD [Primary Care Provider] - See instructions Clinical Impressions Clinical Impression: Cellulitis of arm, right, Puncture wound of elbow, right Instructions Patient Instructions: DI for Skin Abscess Discharge ED Provider: Jae Busby General Adult HPI General Chief complaint: Skin/Abscess/Foreign Body Stated complaint: R arm swelling, pain, red, lesions Time Seen by Provider: 10/21/23 00:02 Mode of Arrival: Family Vehicle Source of Information: Patient Limitations: No Limitations Description of Symptoms (Recalled from ER Triage Doc. by RN): 58 yo male presents with cc RUE swelling that was present upon awakening this morning. Patient states he noticed that he had a couple of puncture wounds yesterday from tearing down a barn and that this redness and swelling was new to him today. History of Present Illness HPI narrative: 58-year-old male with a history of diabetes on insulin presents to the ER for concerns of right upper extremity swelling. Patient states 2 days ago he had puncture wounds to his medial elbow while tearing down a barn, a board swung around with a nail in it and struck him in the right elbow. He did go to his primary care physician after this happened and they reportedly were not concerned about it. He is not on any antibiotics. Patient states he woke up this morning with significant swelling of the right upper extremity, he states the swelling and pain have worsened. He has continued working today despite the injury. Patient came to the ER due to the significant swelling and worsening pain. He has had chills but no fever Related Data Previous Rx's Medication Instructions Recorded insulin syringe-needle U-100 0.5 #100 ea 04/08/22 mL 31 gauge x 5/16 (Comfort EZ Insulin Syringe) blood sugar diagnostic (FreeStyle #100 ea 06/21/23 Lite Strips) pen needle, diabetic 31 gauge x #1,200 ea 07/24/23/16 (Comfort EZ Pen E[place]) atorvastatin 10 mg tablet (Lipitor) 10 mg PO DAILY #90 tabs 07/26/23 blood-glucose meter,continuous #1 ea 07/26/23 (Dexcom G7 Registered Dietitian) lisinopril 20 mg tablet 20 mg PO DAILY #90 tabs 07/26/23 gabapentin 800 mg tablet 800 mg PO TID #90 tabs 07/27/23 metformin 500 mg tablet,extended 500 mg PO BID 30 days #60 tabs 08/07/23 release 24 hr furosemide 40 mg tablet 40 mg PO DAILY PRN fluid retention 08/09/23 #30 tabs insulin glargine 100 unit/mL (3 110 unit (1.1 mL) SQ HS #45 mL 09/18/23 mL) subcutaneous pen (Lantus Solostar U-100 Insulin) tadalafil 5 mg tablet (Cialis) 5 mg PO DAILY #14 tabs 09/19/23 blood-glucose sensor (Dexcom G7 #3 ea 09/22/23 Sensor device) Allergies Allergy/AdvReac Type Severity Reaction Status Date / Time acetaminophen Allergy Intermediate Verified 10/19/23 11:13 [From Tylenol-Codeine #3] codeine Allergy Intermediate Verified 10/19/23 11:13 [From Tylenol-Codeine #3] morphine [MORPHINE] Allergy Unknown I-HIVES Verified 10/19/23 11:13 [facility] Disclaimer: The information contained in this section may have been updated after the patient was seen, as this information can be updated by other users. Medical History BPH (benign prostatic hyperplasia) Diabetes mellitus, type 2 COPD (chronic obstructive pulmonary disease) Patient is still smoking. I think pulmonary function test would be in order in this patient. Will discuss this when he returns. History of heart attack Hypertension Neuropathy Diabetes Tobacco use Hx of myocardial infarction Surgical History History of cholecystectomy Family History Other Unknown family medical history Social History Smoking Status: Current every day smoker tobacco type: cigarettes packs per day: 2 second hand exposure: Yes alcohol intake: never substance use type: methamphetamine current occupational status: unemployed Travel in the last 8 weeks: None household members: family housing: house number of children: 1 caffeine: Yes ROS Obtained: Yes All systems reviewed & no additional complaints except as documented Constitutional Constitutional: Reports chills, Denies fever(s), Denies headache(s) and Denies weakness Eyes Eyes: Denies change in vision ENT Ears, Nose, Mouth, and Throat: Denies dizziness, Denies headache(s), Denies nasal congestion and Denies sore throat Cardiovascular Cardiovascular: Denies chest pain, Denies dyspnea and Denies leg edema Respiratory Respiratory: Denies cough and Denies dyspnea Gastrointestinal Gastrointestingal: Denies constipation, diarrhea, nausea or vomiting Genitourinary Male Genitourinary: Denies difficulty urinating Musculoskeletal Musculoskeletal: Reports arthralgias (Right elbow pain and swelling), Reports myalgias, Denies numbness and Denies tingling Comments: Right arm swelling and redness, pain with movement of the hand radiating up the arm, 2+ right radial pulse Integumentary/Breasts Skin/Breast: Reports change in pigmentation and Reports wounds Neurologic Neurologic: Denies dizziness, Denies headache(s), Denies numbness, Denies tingling and Denies weakness Physical Exam General General appearance: alert and in no apparent distress Head Head exam: atraumatic and normocephalic Eye Eye exam: Present PERRL and EOMI ENT ENT exam: Present mucous membranes moist Neck Neck exam: Present normal inspection and full ROM Chest Chest inspection: Present symmetric chest wall rise Respiratory Respiratory exam: Absent respiratory distress or stridor Cardiovascular Cardiovascular exam: Present regular rate and normal rhythm Abdominal Exam Abdominal exam: Present soft; Absent distention or tenderness Extremities Exam Extremities exam: Present full ROM (Range of motion full but extremely painful at the right elbow, patient is able to fully range the hand and wrist.), tenderness (Of the right upper extremity from the distal humerus through the hand, tenderness of the right elbow, right forearm with circumferential swelling, palpable edema and induration, neurovascularly intact, 2 puncture wounds at the medial aspect of the right elbow, abrasion over ulnar aspect of forearm), edema, joint swelling and other (2+ radial pulse, no increased pain with passive movement, no pallor or paresthesias) Neurological Exam Neurological exam: Present alert and oriented X3; Absent motor sensory deficit Psychiatric Psychiatric exam: Present normal affect and normal mood Skin Skin exam: Present warm and dry Medical Decision Making Medical Records Medical records reviewed: Yes I reviewed the patient's medical records. MR Comment: History MRSA, diabetic neuropathy [place] In[place] Pt receiving controlled substance: No Vital Signs: 10/20/23 23:55 10/21/23 00:01 Temperature 98.1 F Temperature Source Oral Pulse Rate 102 H Pulse Rate [Right Brachial] 103 H Respiratory Rate 21 Blood Pressure 169/109 H Blood Pressure [Left Arm] 178/58 H Blood Pressure Mean [Left Arm] 98 Blood Pressure Source [Left Arm] Automatic Cuff Blood Pressure Position [Left Arm] Sitting 02 Sat by Pulse Oximetry 95 97 Oxygen Delivery Method Room Air Lab Data Lab Results 10/21/23 00:24: WBC 10.6, RBC 4.79, Hgb 14.8, Hct 44.6, MCV 93.1, MCH 30.8, MCHC 33.1, RDW 13.7, Plt Count 186, MPV 9.3, Neut % (Auto) 68.8, Lymph % (Auto) 23.4, [place] % (Auto) 5.6, Eos % (Auto) 1.4, Baso % (Auto) 0.8, Neut # (Auto) 7.3, Lymph # (Auto) 2.5, [place] # (Auto) 0.6, Eos # (Auto) 0.1, Baso # (Auto) 0.1, ESR 30 H, PT 9.8 L, INR 0.86 L, Sodium 137, Potassium 4.7, Chloride 103, Carbon Dioxide 29, Anion Gap 9.7, BUN 16, Creatinine 0.80, Estimated Creat Clear 144, Estimated GFR 99, Est GFR ( Amer) 120, Glucose 271 H, Lactate 1.1, Calcium 9.5, Total Bilirubin 0.6, AST 30, ALT 36, Alkaline Phosphatase 82, C-Reactive Protein 33.1 H, Total Protein 8.3 H, Albumin 4.4, Globulin 3.9 H, Albumin/Globulin Ratio 1.1 10/21/23 00:24 10/21/23 00:24 Orders (Tests/Meds): ED MEDICATIONS Generic Name Dose Route Start Last Admin Trade Name Freq PRN Reason Stop Dose Admin Miscellaneous 1 each 10/21/23 00:15 10/21/23 00:51 Vancomycin Consult Request NOTAPPLIC 11/20/23 00:14 Not Given CONSULT PHARMACY REPLACED BY [facility] Sodium Chloride 10 ml 10/21/23 00:43 10/21/23 00:44 Sodium Chloride 0.9% 10ml Syr (Rad Only) IV 11/20/23 00:42 10 ml NEEDED PRN Administration Maintain IV Site Tetanus/Reduced Diphtheria/Acell Pertussis 0.5 ml 10/21/23 02:27 Tet/Diphth/Pert-Adult 0.5ml Syringe IM 10/21/23 02:28 .ONCE ONE Discontinued Medications Generic Name Dose Route Start Last Admin Trade Name Freq PRN Reason Stop Dose Admin Hydromorphone HCl 0.5 mg 10/21/23 00:07 10/21/23 00:45 Hydromorphone 2mg/Ml Syringe IV 10/21/23 00:08 0.5 mg ONCE ONE Administration Piperacillin Sod/Tazobactam 100 mls @ 200 mls/hr 10/21/23 00:03 10/21/23 00:51 Sod 4.5 gm/ Sodium Chloride IV 10/21/23 00:32 Not Given ONCE ONE Lactated Ringer's 1,000 mls @ 999 mls/hr 10/21/23 00:03 10/21/23 00:45 Lactated Ringer's 1000 Ml Bag IV 10/21/23 01:03 999 mls/hr .Q1H1M ONE Administration Vancomycin HCl 2,500 mg/ 250 mls @ 125 mls/hr 10/21/23 00:15 10/21/23 01:09 Sodium Chloride IV 10/21/23 02:14 125 mls/hr ONCE ONE Administration Piperacillin Sod/Tazobactam 100 mls @ 200 mls/hr 10/21/23 00:28 10/21/23 00:45 Sod 4.5 gm/ Sodium Chloride IV 10/21/23 00:57 200 mls/hr ONCE ONE Administration Iopamidol 75 ml 10/21/23 00:43 10/21/23 00:44 Iopamidol-370 (76%);100ml Bottle IV 10/21/23 00:44 75 ml ONCE ONE Administration Ondansetron HCl 4 mg 10/21/23 00:03 10/21/23 00:45 Ondansetron 4mg/2ml Vial IV 10/21/23 00:04 4 mg ONCE ONE Administration ORDERS Category Date Time Status CT elbow RT w con Stat Cat Scan 10/21/23 00:[address] forearm RT w con Stat Cat Scan 10/21/23 00:[address] humerus RT w con Stat Cat Scan 10/21/23 00:03 Completed POCUS Point of Care (ER Only) Stat Exams 10/21/23 00:18 Completed C-Reactive Protein Stat Lab 10/21/23 00:24 Completed Complete Blood Count Auto Diff Stat Lab 10/21/23 00:24 Completed Comprehensive Metabolic Panel Stat Lab 10/21/23 00:24 Completed Erythrocyte Sedimentation Rate Stat Lab 10/21/23 00:24 Completed Lactic Acid Stat Lab 10/21/23 00:24 Completed PT INR [Prothrombin Time INR] Stat Lab 10/21/23 00:24 Completed Blood Culture Stat Micro 10/21/23 00:24 Received Medical Decision Narrative: In summary, this 58-year-old male presents to the emergency department today with right upper extremity swelling, redness, pain, puncture wound to the elbow. On initial evaluation patient is hemodynamically stable, afebrile, significant swelling, redness, pain in the right upper extremity starting on the distal humerus, crosses the elbow joint line, puncture wound over the medial elbow, circumferential swelling and pain of the right forearm, abrasion over the ulnar aspect of the right forearm. Differential diagnosis includes but is not limited to abscess, cellulitis, considered necrotizing infection, foreign body, joint infection, osteomyelitis. I did additionally consider the possibility of compartment syndrome given the circumferential swelling, however patient has good palpable pulses, no paresthesias, no significant exacerbation of pain with passive movement. No pallor. based on these concerns, I ordered serum labs, imaging including [id number] ultrasound which I performed as well as soft tissue ultrasound. Patient received IV fluids, Dilaudid, Zofran, broad-spectrum antibiotics including vancomycin and Zosyn for treatment. He received Tdap booster. Ultrasound IV was placed, see procedure note for details. Right upper extremity soft tissue ultrasound was personally performed and interpreted demonstrating significant cellulitis, I do not appreciate subcutaneous air, CT imaging pending. Labs personally reviewed demonstrate normal CBC, no leukocytosis or anemia, PT/INR nonactionable, CMP with no findings of kidney dysfunction, patient does have hyperglycemia which is nonactionable at this time, lactic normal at 1.1, no transaminitis, ESR and CRP elevated. CT imaging personally interpreted demonstrate cellulitic changes throughout the right upper extremity, there is a small abscess that communicates with one of the puncture wounds. This correlates on exam, does not require I/D at this time since it is already open superficially. See radiology read for final interpretation. Radiology does comment that there is no osseous injury or involvement. On reassessment patient continues to be stable. I believe he requires admission for continued IV antibiotics to ensure that the induration begins to improve, and also for blood culture monitoring given he is a diabetic and has increased risk for complicated infections as well as poor wound healing secondary to this comorbidity. Patient is in agreement with this plan. I discussed this patient with the hospitalist including his presentation, current symptoms, and lab/imaging findings. Patient was accepted for admission. Procedures Miscellaneous Procedure Procedure Performed: Indication: Soft tissue pain, redness, swelling, wound Identified structures: Right upper extremity, elbow to wrist epidermis, subcutaneous tissues, deep structures Location: Right upper extremity Findings: Significant cellulitis, I do not appreciate subcutaneous air, no obvious abscess Impression: Cellulitis Images were saved to the permanent archive. The study was technically adequate. Soft tissue CPT codes Upper extremity: 89559-66 This study was performed by me, and I personally interpreted all images/videos. Based on my clinical judgment, these images were adequate and did necessitate further imaging, CT ordered Procedure: Ultrasound-guided IV Indication: Need for IV access, limited area secondary to prior procedures Risk benefits discussed, patient consented Procedure details: Area cleaned with chlorhexidine, sterile jelly used, 20-gauge peripheral IV placed in vein of the left humerus on first attempt, draws and flushes. Secured with Tegaderm. Neurovascularly intact after procedure. Patient tolerated procedure well Critical Care Critical Care Time Critical Care Time: Yes Attestation: On 10/20/23, the high probability of a clinically significant, sudden or life threatening deterioration of the following system(s) (neurovascular, msk) required my full and direct attention, intervention and personal management. The time I documented below is in addition to time spent performing reported procedures but includes the following listed in this critical care notation. Total Time Total Critical Care Time: 35
--- NOTE | 2023-10-21 00:17 | PC.NURSE ---
Spoke to Anneliese Verduzco from [facility] pharmacy and she verified the Vancomycin dose.
[2023-10-21] MEDS: IOPAMIDOL-370 (76%);100ML BOTTLE 75 ML IV (00:44)
[2023-10-21] MEDS: SODIUM CHLORIDE 0.9% 10ML SYR (RAD ONLY) 10 ML IV (00:44)
[2023-10-21] MEDS: LACTATED RINGERS 1000ML 1,000 ML 999 ML IV (00:45)
[2023-10-21] MEDS: PIPERACILLIN/TAZO 4.5 GM in 0.9 % SODIUM CHLORIDE 100 ML IV ×2 (00:45→05:45)
[2023-10-21] MEDS: HYDROMORPHONE 2MG/ML SYRINGE 0.5 MG IV (00:45)
[2023-10-21] MEDS: ONDANSETRON 4MG/2ML VIAL 4 MG IV (00:45)
[2023-10-21 00:48] LABS: Basophils # 0.1 K/mm3 (0-0.2); Basophils % 0.8 % (0.1-2.0); Chloride 103 mmol/L (98-107); Eosinophils # 0.1 K/mm3 (0.0-0.4); Eosinophils % 1.4 % (0.1-12.0); Hematocrit 44.6 % (42.0-52.0); Hemoglobin 14.8 g/dL (14.1-18.0); Lymphocytes # 2.5 K/mm3 (0.7-4.5); Lymphocytes % 23.4 % (10-50); Mean Corpuscular HGB Conc 33.1 g/dL (31.8-35.4); Mean Corpuscular Hemoglobin 30.8 pg (27.0-31.2); Mean Corpuscular Volume 93.1 fl (80-94); Mean Platelet Volume 9.3 fl (7.4-10.4); Monocytes # 0.6 K/mm3 (0.1-1.0); Monocytes % 5.6 % (1.7-9.3); Neutrophils # 7.3 K/mm3 (1.8-7.8); Neutrophils % 68.8 % (37.0-80.0); Platelet Count 186 K/mm3 (142-424); Red Blood Count 4.79 M/mm3 (4.60-6.20); Red Cell Distribution Width 13.7 % (11.5-17.5); White Blood Count 10.6 K/mm3 (4.8-10.8)
[2023-10-21 00:49] LABS: Potassium 4.7 mmoL/L (3.5-5.1); Sodium 137 mmol/L (136-145)
[2023-10-21 00:51] LABS: Alanine Aminotransferase 36 U/L (12-78); Albumin Level 4.4 g/dl (3.5-5.0); Albumin/Globulin Ratio 1.1 (1.1-1.8); Alkaline Phosphatase 82 U/L (38-126); Aspartate Amino Transferase 30 U/L (17-59); Bilirubin,Total 0.6 mg/dl (0.2-1.3); Blood Urea Nitrogen 16 mg/dl (9-20); Creatinine Clearance Estimated 144 mL/min (50-200); Estimated Glomerular Filt Rate 99 ml/min (>60); GFR (African American) 120 ML/MIN (>60); Globulin 3.9 g/dL (1.3-3.2); INR 0.86 (0.9-1.1); Prothrombin Time 9.8 seconds (10.1-12.5); Total Protein,Serum 8.3 g/dl (6.3-8.2)
[2023-10-21 00:52] LABS: Anion Gap 9.7 mEq/L (5-15); Calcium 9.5 mg/dl (8.4-10.2); Carbon Dioxide 29 mmol/L (22.0-30.0); Glucose 271 mg/dl (74-100); Lactic Acid 1.1 mmol/L (0.7-2.1)
[2023-10-21 00:57] LABS: C-Reactive Protein 33.1 mg/L (0-4)
[2023-10-21] MEDS: VANCOMYCIN HCL 2,500 MG in 0.9 % SODIUM CHLORIDE 250 ML 125 MG IV (01:09)
[2023-10-21 01:19] LABS: Erythrocyte Sedimentation Rate 30 mm/hr (0-20)
--- NOTE | 2023-10-21 01:30 | PC.NURSE ---
Rounded on patient and administered Vancomycin 2500mg in 250 NS bag at a rate of 125mL as per the MAR.
--- NOTE | 2023-10-21 01:38 | PC.NURSE ---
rounded on patient, blanket offered, patient refused
[2023-10-21 02:15] VITALS: PULSE 87; RESP 18; O2SAT 98
--- NOTE | 2023-10-21 02:28 | PC.NURSE ---
[facility] worker notified of need for bed
--- NOTE | 2023-10-21 02:34 | P.HP_ITS ---
History of Present Illness *Admission Date: 10/21/23 *Reason for visit:: cellulitis right arm *History of present illness: This is a 58-year-old male with a PMHx of IDDM uncontrolled with neuropathy, COPD, CHF, presented to the ER for concerns of right upper extremity swelling. Patient states 2 days ago he had puncture wounds to his medial elbow while tearing down a barn, a board swung around with a nail in it and struck him in the right elbow. He did go to his primary care physician after this happened and they reportedly were not concerned about it. He is not on any antibiotics. Patient states he woke up this morning with significant swelling of the right upper extremity, he states the swelling and pain have worsened. He has continued working today despite the injury. Patient came to the ER due to the significant swelling and worsening pain. He has had chills but no fever. Admitted for further treatment and management. [facility] Disclaimer: The information contained in this section may have been updated after the patient was seen, as this information can be updated by other users. Medical History (Updated 10/21/23 @ 06:22 by Dong Franklin APRN) BPH (benign prostatic hyperplasia) Diabetes mellitus, type 2 COPD (chronic obstructive pulmonary disease) History of heart attack Hypertension Neuropathy Diabetes Tobacco use Hx of myocardial infarction Surgical History History of cholecystectomy Family History Other Unknown family medical history Social History Smoking Status: Current every day smoker tobacco type: cigarettes packs per day: 2 second hand exposure: Yes alcohol intake: never substance use type: methamphetamine current occupational status: unemployed Travel in the last 8 weeks: None household members: family housing: house number of children: 1 caffeine: Yes Review of Systems Review of Systems Review of systems:: pertinent systems reviewed and negative unless documented below Constitutional Constitutional: Denies headache(s) and Denies weakness ENT Ears, Nose, Mouth, and Throat: Denies dizziness and Denies headache(s) *Musculoskeletal Musculoskeletal: Denies numbness and Denies tingling *Neurologic Neurologic: Denies dizziness, Denies headache(s), Denies numbness, Denies tingling and Denies weakness Meds Home Medications and Allergies Home Medications Medication Instructions Recorded Confirmed Type insulin syringe-needle U-100 0.5 #100 ea 04/08/22 10/21/23 Rx mL 31 gauge x 5/16 (Comfort EZ Insulin Syringe) blood sugar diagnostic (FreeStyle #100 ea 06/21/23 10/21/23 Rx Lite Strips) pen needle, diabetic 31 gauge x #1,200 ea 07/24/23 10/21/23 Rx 3/16 (Comfort EZ Pen [place]) atorvastatin 10 mg tablet (Lipitor) 10 mg PO DAILY #90 tabs 07/26/23 10/21/23 Rx blood-glucose meter,continuous #1 ea 07/26/23 10/21/23 Rx (Dexcom G7 Courtroom Clerk) lisinopril 20 mg tablet 20 mg PO DAILY #90 tabs 07/26/23 10/21/23 Rx gabapentin 800 mg tablet 800 mg PO TID #90 tabs 07/27/23 10/21/23 Rx metformin 500 mg tablet,extended 500 mg PO BID 30 days #60 tabs 08/07/23 10/21/23 Rx release 24 hr furosemide 40 mg tablet 40 mg PO DAILY PRN fluid retention 08/09/23 10/21/23 Rx #30 tabs tadalafil 5 mg tablet (Cialis) 5 mg PO DAILY #14 tabs 09/19/23 10/21/23 Rx blood-glucose sensor (Dexcom G7 #3 ea 09/22/23 10/21/23 Rx Sensor device) insulin glargine 100 unit/mL (3 140 unit SQ HS 10/21/23 10/21/23 History mL) subcutaneous pen (Lantus Solostar U-100 Insulin) New Prescriptions to Start Prescriptions: Allergies Allergy/AdvReac Type Severity Reaction Status Date / Time acetaminophen Allergy Intermediate Verified 10/19/23 11:13 [From Tylenol-Codeine #3] codeine Allergy Intermediate Verified 10/19/23 11:13 [From Tylenol-Codeine #3] morphine [MORPHINE] Allergy Unknown I-HIVES Verified 10/19/23 11:13 Exam Data for Last 24 hours Vital signs and Labs for Last 24 Hours: Temp Pulse Resp BP Pulse Ox O2 Del Method 98.1 F 102 H 21 169/109 H 97 Room Air 10/20/23 23:55 07/13/24 00:01 10/20/23 23:55 10/21/23 00:01 10/21/23 00:01 10/20/23 23:55 Laboratory Results - last 24 hr 10/21/23 00:24: WBC 10.6, RBC 4.79, Hgb 14.8, Hct 44.6, MCV 93.1, MCH 30.8, MCHC 33.1, RDW 13.7, Plt Count 186, MPV 9.3, Neut % (Auto) 68.8, Lymph % (Auto) 23.4, [place] % (Auto) 5.6, Eos % (Auto) 1.4, Baso % (Auto) 0.8, Neut # (Auto) 7.3, Lymph # (Auto) 2.5, [place] # (Auto) 0.6, Eos # (Auto) 0.1, Baso # (Auto) 0.1, ESR 30 H, PT 9.8 L, INR 0.86 L, Sodium 137, Potassium 4.7, Chloride 103, Carbon Dioxide 29, Anion Gap 9.7, BUN 16, Creatinine 0.80, Estimated Creat Clear 144, Estimated GFR 99, Est GFR ( Amer) 120, Glucose 271 H, Lactate 1.1, Calcium 9.5, Total Bilirubin 0.6, AST 30, ALT 36, Alkaline Phosphatase 82, C- Reactive Protein 33.1 H, Total Protein 8.3 H, Albumin 4.4, Globulin 3.9 H, Albumin/Globulin Ratio 1.1 I & O for Last 24 hours: Intake & Output 10/18/23 10/19/23 10/20/23 10/21/23 23:59 23:59 23:59 23:59 Weight 102.058 kg Constitutional Constitutional: mild distress *Routine HEENT Exam Head: Present normocephalic Eye: Present EOMI and PERRL ENT: Present mucous membranes moist *Routine Neck Exam Neck: Present supple; Absent lymphadenopathy *Routine Respiratory Exam Respiratory: Present CTA bilaterally *Routine Cardiovascular Exam Cardiovascular: Present RRR *Routine Abdominal Exam Abdominal: Present soft and normoactive bowel sounds; Absent tenderness *Routine Rectal Exam Rectal:: deferred *Routine Genitalia Exam Genitalia:: deferred *Routine Extremities Exam Extremities: Present edema and joint swelling; Absent cyanosis or clubbing Comments: right elbow redness and swelling. puncture wound *Routine Skin Exam Skin: Present erythema, warm and wounds; Absent rash *Routine Neurological Exam Neurological: Present alert and oriented X3 Routine Psychiatric Exam Psychiatric: Absent normal affect H&P: Result Imaging and Cardiology EKG: Status: image reviewed by me, Preliminary report and final report Elbow CT: Status: image reviewed by me, Preliminary report and final report Assessment and Plan *Assessment and plan (1) Cellulitis of arm, right: Status: Acute Category: Medical Code(s): L03.113 - Cellulitis of right upper limb (2) Puncture wound of elbow, right: Status: Acute Qualifiers: Encounter type: initial encounter Qualified Code(s): S51.031A - Pu ncture wound without foreign body of right elbow, initial encounter Category: Medical Code(s): S51.031A - Puncture wound without foreign body of right elbow, initial encounter (3) Diabetes type 2, uncontrolled: Status: Acute Qualifiers: Glycemic state: with hyperglycemia Qualified Code(s): E11.65 - Type 2 diabetes mellitus with hyperglycemia Category: Medical (4) COPD (chronic obstructive pulmonary disease): Problem Comment: Patient is still smoking. I think pulmonary function test would be in order in this patient. Will discuss this when he returns. Status: Acute Qualifiers: COPD type: unspecified COPD Qualified Code(s): J44.9 - Chronic obstructive pulmonary disease, unspecified Category: Medical Code(s): J44.9 - Chronic obstructive pulmonary disease, unspecified (5) Hypertension: Status: Acute Qualifiers: Hypertension type: unspecified Qualified Code(s): I10 - Essential (primary) hypertension Category: Medical Code(s): I10 - Essential (primary) hypertension (6) Heart failure: Status: Acute Qualifiers: Heart failure type: unspecified Heart failure chronicity: chronic Qualified Code(s): I50.9 - Heart failure, unspecified Category: Medical Code(s): I50.9 - Heart failure, unspecified (7) Tobacco use: Problem Comment: Discussed with the patient his need to quit. He states he realizes he needs to quit but is not ready to do it at this time. Status: Acute Category: Social Hx Code(s): Z72.0 - Tobacco use Plan 58-year-old male with a PMHx of IDDM uncontrolled with neuropathy, COPD, CHF, presented to the ER for concerns of right upper extremity swelling. Patient states 2 days ago he had puncture wounds to his medial elbow while tearing down a barn, a board swung around with a nail in it and struck him in the right elbow. On arrival, patient presented hemodynamically stable, afebrile, slightly tachycardic nontoxic-appearing. Labs personally reviewed demonstrate normal C BC, no leukocytosis or anemia, PT/INR nonactionable, CMP with no findings of kidney dysfunction, patient does have hyperglycemia which is nonactionable at this time, lactic normal at 1.1, no transaminitis, ESR and CRP elevated. CT of the elbow was obtained. Concern for small abscess, with communication to the skin surface no I&D at this point is recommended. Findings discussed with the ED. due to the high risk of complication in the setting of uncontrolled diabetes ED requested admission for inpatient management. I agree for it. Plan as follows: -Cellulitis of the right arm secondary to puncture wound, Small abscess: Admit patient for inpatient management. Continue vancomycin and Zosyn. Pharmacy to dose Blood culture pending Monitor inflammatory markers, and WBC Monitor for sepsis and fever Pain management -History of uncontrolled diabetes with neuropathy: Monitoring blood sugar before meals. Sliding scale. Resume home insulin regimen Obtain A1c On metformin and gabapentin. COPD hypertension with heart failure, chronic: Resume home lisinopril furosemide Tobacco use: On nicotine patch. Lovenox for DVT prophylaxis. On Protonix for GI protection Full code
[2023-10-21 02:49] VITALS: BP 116/64; PULSE 87; RESP 18; TEMP 36.8; O2SAT 98
--- NOTE | 2023-10-21 02:49 | PC.NURSE ---
Nurse to nurse report given to Claudine DURÁN
[2023-10-21 02:54] LABS: Hemoglobin A1C 8.3 % (4.0-6.0)
--- NOTE | 2023-10-21 03:01 | PC.NURSE ---
PT ARRIVED TO FLOOR VIA WHEELCHAIR @0300
[2023-10-21] MEDS: 0.9 % SODIUM CHLORIDE 1000ML 1,000 ML 75 ML IV (03:14)
[2023-10-21 04:00] VITALS: BP 170/85; PULSE 85; RESP 18; TEMP 36.6; O2SAT 96; BMI 30.4
--- NOTE | 2023-10-21 05:05 | PC.NURSE ---
Since arriving to the floor the patient has done well. The patient has eaten and been up to the bathroom.
[2023-10-21 05:45] LABS: POC Glucose,Bedside 318 (70-110)
[2023-10-21] MEDS: humaLOG 100 UNITS/ML 10ML VIAL (SSI) SQ (05:45)
[2023-10-21 07:28] VITALS: BP 167/84; PULSE 87; RESP 18; TEMP 37; O2SAT 96
--- NOTE | 2023-10-21 08:06 | EXP.PHA.CONS ---
Pharmacy Consult Date: 10/21/23 Time: 08:06 Referring provider: DR VEE Reason for Consult:: VANCOMYCIN DOSING CONSULT Allergies Allergy/AdvReac Type Severity Reaction Status Date / Time acetaminophen Allergy Intermediate Verified 10/19/23 11:13 [From Tylenol-Codeine #3] codeine Allergy Intermediate Verified 10/19/23 11:13 [From Tylenol-Codeine #3] morphine [MORPHINE] Allergy Unknown I-HIVES Verified 10/19/23 11:13 Home Medications Medication Instructions Recorded Confirmed Type insulin syringe-needle U-100 0.5 #100 ea 04/08/22 10/21/23 Rx mL 31 gauge x 5/16 (Comfort EZ Insulin Syringe) blood sugar diagnostic (FreeStyle #100 ea 06/21/23 10/21/23 Rx Lite Strips) pen needle, diabetic 31 gauge x #1,200 ea 07/24/23 10/21/23 Rx 3/16 (Comfort EZ Pen [place]) atorvastatin 10 mg tablet (Lipitor) 10 mg PO DAILY #90 tabs 07/26/23 10/21/23 Rx blood-glucose meter,continuous #1 ea 07/26/23 10/21/23 Rx (Dexcom G7 Aerospace Stress Engineer) lisinopril 20 mg tablet 20 mg PO DAILY #90 tabs 07/26/23 10/21/23 Rx gabapentin 800 mg tablet 800 mg PO TID #90 tabs 07/27/23 10/21/23 Rx metformin 500 mg tablet,extended 500 mg PO BID 30 days #60 tabs 08/07/23 10/21/23 Rx release 24 hr furosemide 40 mg tablet 40 mg PO DAILY PRN fluid retention 08/09/23 10/21/23 Rx #30 tabs tadalafil 5 mg tablet (Cialis) 5 mg PO DAILY #14 tabs 09/19/23 10/21/23 Rx blood-glucose sensor (Dexcom G7 #3 ea 09/22/23 10/21/23 Rx Sensor device) insulin glargine 100 unit/mL (3 140 unit SQ HS 10/21/23 10/21/23 History mL) subcutaneous pen (Lantus Solostar U-100 Insulin) New Prescriptions to Start Prescriptions: Height: 1.83 m Weight: 102.149 kg Laboratory Results:: Laboratory Results - last 24 hr 10/21/23 00:24: WBC 10.6, RBC 4.79, Hgb 14.8, Hct 44.6, MCV 93.1, MCH 30.8, MCHC 33.1, RDW 13.7, Plt Count 186, MPV 9.3, Neut % (Auto) 68.8, Lymph % (Auto) 23.4, [place] % (Auto) 5.6, Eos % (Auto) 1.4, Baso % (Auto) 0.8, Neut # (Auto) 7.3, Lymph # (Auto) 2.5, [place] # (Auto) 0.6, Eos # (Auto) 0.1, Baso # (Auto) 0.1, ESR 30 H, PT 9.8 L, INR 0.86 L, Sodium 137, Potassium 4.7, Chloride 103, Carbon Dioxide 29, Anion Gap 9.7, BUN 16, Creatinine 0.80, Estimated Creat Clear 144, Estimated GFR 99, Est GFR ( Amer) 120, Glucose 271 H, Hemoglobin A1c 8.3 H, Lactate 1.1, Calcium 9.5, Total Bilirubin 0.6, AST 30, ALT 36, Alkaline Phosphatase 82, C-Reactive Protein 33.1 H, Total Protein 8.3 H, Albumin 4.4, Globulin 3.9 H, Albumin/Globulin Ratio 1.1 10/21/23 05:35: POC Glucose 318 H* Medical History: Medical History (Updated 10/21/23 @ 06:22 by Dong Franklin APRN) BPH (benign prostatic hyperplasia) Diabetes mellitus, type 2 COPD (chronic obstructive pulmonary disease) History of heart attack Hypertension Neuropathy Diabetes Tobacco use Hx of myocardial infarction Assessment and Plan Assessment and plan all Dx Assessment and Plan for all problems:: Pharmacokinetic dosing service Objective: Age: 58 yo Serum creatinine: 0.8 mg/dL Height: 72.0 Inches Weight (kg): 102.149 Diagnosis: CELLULITIS Assessment: IBW (kg): 77.60 Dosing wt(kg): 102.149 Estimated Creatinine clearance (ml/min): 109.1 CRCL method: Cockcroft and Gault using ibw(default). Drug selected: Vancomycin Loading dose (mg): 2500 MG Vd (liters): 76.6 (factor used: 0.75 L/kg) Sudheer (hr-1): 0.095 Half life (hrs): 7.30 CLvanco=?? 7.277 L/hr Recommended dose: 2000 mg Interval: 12 hrs Infusion time (hrs): 2.0 Predicted peak (mcg/mL): 35.0 Predicted trough (mcg/mL): 13.54 Total body weight is being used for vancomycin dosing. Recommendations: Give Vancomycin 2000 mg q 12 hrs with an expected Cpeak of 35.0 mcg/ml and an expected Ctrough of 13.54 mcg/ml TO START 10/21/23 13:00, PATIENT RECEIVED ONE-TIME LOADING DOSE OF VANCOMYCIN 2500 MG IV IN THE ED 10/21/23 AT 01:09. AUC 0-24 /JANETH Data: JANETH 0.5 mcg/mL:?? AUC/JANETH:? 1099.4 JANETH 1.0 mcg/mL:?? AUC/JANETH:? 549.7 --------- JANETH 1.5 mcg/mL:?? AUC/JANETH:? 366.5 JANETH 2.0 mcg/mL:?? AUC/JANETH:? 274.8 Thank you for the consult
[2023-10-21] MEDS: FUROSEMIDE 40 MG TABLET PO (09:05)
[2023-10-21] MEDS: ATORVASTATIN 10MG TABLET 10 MG PO (09:05)
[2023-10-21] MEDS: PANTOPRAZOLE 40MG TABLET 40 MG PO (09:05)
[2023-10-21] MEDS: GABAPENTIN 800MG TABLET 800 MG PO (09:06)
[2023-10-21] MEDS: METFORMIN 500MG TABLET 1000 MG PO (09:06)
[2023-10-21] MEDS: LISINOPRIL 20MG TABLET 20 MG PO (09:06)
--- NOTE | 2023-10-21 09:56 | HMH.PHAINT1 ---
Pharmacy Intervention Comments: MEDICATION RECONCILIATION COMPLETE USING EXTERNAL PHARMACY FILL HISTORY AND MOST RECENT MD OFFICE VISIT NOTE. VERIFIED INSULIN DOSE WITH PATIENT VIA PATIENT'S NURSE.
--- NOTE | 2023-10-21 11:22 | EXP.DC.SUM ---
General Admission date:: 10/21/23 Discharge date: 10/21/23 HPI HPI HPI: This is a 58-year-old male with a PMHx of IDDM uncontrolled with neuropathy, COPD, CHF, presented to the ER for concerns of right upper extremity swelling. Patient states 2 days ago he had puncture wounds to his medial elbow while tearing down a barn, a board swung around with a nail in it and struck him in the right elbow. He did go to his primary care physician after this happened and they reportedly were not concerned about it. He is not on any antibiotics. Patient states he woke up this morning with significant swelling of the right upper extremity, he states the swelling and pain have worsened. He has continued working today despite the injury. Patient came to the ER due to the significant swelling and worsening pain. He has had chills but no fever. Admitted for further treatment and management. Hospital Course Hospital Course Hospital Course: The patient was admitted with IV antibiotic therapy. I was accompanied by Stacy DURÁN to evaluate the patient. He requested to be discharged home. He reports tolerating his IV antibiotic with identified improvement for the few hours that he has been in the hospital. He reports no joint pain with improved edema and erythema. We have reviewed and discussed his imaging, labs and inflammatory markers. We discussed his hemoglobin A1c 8.3%. His CBC is normal. His electrolytes and creatinine are normal. His imaging identifies small subcutaneous abscess with no musculature inflammatory changes. We discussed follow-up with outpatient hand orthopedics over the next few days. I have recommended follow-up with his PCP in 1 week. His blood cultures are pending at the time of discharge. He will be discharged on Augmentin 875 twice daily with Zyvox 600 mg twice daily. He received Tdap in the ED. He understands to limit exertion and use of his right upper extremity. I spent 35 minutes in [id number] time with the patient and nursing staff (Stacy) concerning the discharge process. We discussed the admitting diagnoses and hospital course. We discussed identified improvement and the patient's desire to be discharged. We reviewed inpatient studies and imaging. The patient voiced understanding on the importance of follow-up with his primary care provider and agricultural specialist(s). The patient plans to be compliant with the medication regimen prescribed and follow-up appointments. He understands that he can return to the emergency department with any sudden changes or concerns. Exam Data for Last 24 hours Vital signs and Labs for Last 24 Hours: Temp Pulse Resp BP Pulse Ox O2 Del Method 98.6 F 87 18 167/84 H 96 Room Air 10/21/23 07:10/21/23 07:28 10/21/23 07:28 10/21/23 07:28 10/21/23 07:28 10/21/23 09:00 Laboratory Results - last 24 hr 10/21/23 00:24: WBC 10.6, RBC 4.79, Hgb 14.8, Hct 44.6, MCV 93.1, MCH 30.8, MCHC 33.1, RDW 13.7, Plt Count 186, MPV 9.3, Neut % (Auto) 68.8, Lymph % (Auto) 23.4, [place] % (Auto) 5.6, Eos % (Auto) 1.4, Baso % (Auto) 0.8, Neut # (Auto) 7.3, Lymph # (Auto) 2.5, [place] # (Auto) 0.6, Eos # (Auto) 0.1, Baso # (Auto) 0.1, ESR 30 H, PT 9.8 L, INR 0.86 L, Sodium 137, Potassium 4.7, Chloride 103, Carbon Dioxide 29, Anion Gap 9.7, BUN 16, Creatinine 0.80, Estimated Creat Clear 144, Estimated GFR 99, Est GFR ( Amer) 120, Glucose 271 H, Hemoglobin A1c 8.3 H, Lactate 1.1, Calcium 9.5, Total Bilirubin 0.6, AST 30, ALT 36, Alkaline Phosphatase 82, C-Reactive Protein 33.1 H, Total Protein 8.3 H, Albumin 4.4, Globulin 3.9 H, Albumin/Globulin Ratio 1.1 10/21/23 05:35: POC Glucose 318 H* I & O for Last 24 hours: Intake & Output 10/18/23 10/19/23 10/20/23 10/21/23 23:59 23:59 23:59 23:59 Intake Total 960 / 960 Output Total 0 / 0 Balance 960 / 960 Weight 102.058 kg 102.149 kg Constitutional Constitutional: no acute distress, obese, chronically ill appearing and cooperative *Routine HEENT Exam Head: Present normocephalic *Routine Neck Exam Neck: Absent lymphadenopathy *Routine Respiratory Exam Respiratory: Present rhonchi, normal respiratory effort and symmetric chest movement *Routine Cardiovascular Exam Cardiovascular: Present RRR *Routine Abdominal Exam Abdominal: Absent tenderness *Routine Extremities Exam Extremities: Present full ROM, pulses intact and normal capillary refill; Absent joint swelling Comments: RUE with edema and patient reported improved erythema with decreased tenderness *Routine Skin Exam Skin: Present warm and wounds; Absent rash *Routine Neurological Exam Neurological: Present alert, oriented X3, moving all extremities, vision grossly intact, hearing grossly intact and normal speech; Absent CN II-XII intact or sensory deficit Routine Psychiatric Exam Psychiatric: Present normal affect, normal thought process, cooperative, good insight and good judgment Results Data Completed and Pending Labs on day of discharge: Labs from last 24 hours 10/21/23 10/21/23 05:35 00:24 WBC 10.6 RBC 4.79 Hgb 14.8 Hct 44.6 MCV 93.1 MCH 30.8 MCHC 33.1 RDW 13.7 Plt Count 186 MPV 9.3 Neut % (Auto) 68.8 Lymph % (Auto) 23.4 [place] % (Auto) 5.6 Eos % (Auto) 1.4 Baso % (Auto) 0.8 Neut # (Auto) 7.3 Lymph # (Auto) 2.5 [place] # (Auto) 0.6 Eos # (Auto) 0.1 Baso # (Auto) 0.1 ESR 30 H PT 9.8 L INR 0.86 L Sodium 137 Potassium 4.7 Chloride 103 Carbon Dioxide 29 Anion Gap 9.7 BUN 16 Creatinine 0.80 Estimated Creat Clear 144 Estimated GFR 99 Est GFR ( Amer) 120 Glucose 271 H POC Glucose 318 H* Hemoglobin A1c 8.3 H Lactate 1.1 Calcium 9.5 Total Bilirubin 0.6 AST 30 ALT 36 Alkaline Phosphatase 82 C-Reactive Protein 33.1 H Total Protein 8.3 H Albumin 4.4 Globulin 3.9 H Albumin/Globulin Ratio 1.1 DS: Diagnosis Discharge Diagnosis (1) Cellulitis of arm, right: Status: Acute Code(s): L03.113 - Cellulitis of right upper limb (2) Puncture wound of elbow, right: Status: Acute Code(s): S51.031A - Puncture wound without foreign body of right elbow, initial encounter Qualifiers: Encounter type: initial encounter Qualified Code(s): S51.031A - Puncture wound without foreign body of right elbow, initial encounter (3) Diabetes type 2, uncontrolled: Status: Acute Qualifiers: Glycemic state: with hyperglycemia Qualified Code(s): E11.65 - Type 2 diabetes mellitus with hyperglycemia (4) COPD (chronic obstructive pulmonary disease): Status: Acute Code(s): J44.9 - Chronic obstructive pulmonary disease, unspecified Qualifiers: COPD type: unspecified COPD Qualified Code(s): J44.9 - Chronic obstructive pulmonary disease, unspecified Problem details: Patient is still smoking. I think pulmonary function test would be in order in this patient. Will discuss this when he returns. (5) Hypertension: Status: Acute Code(s): I10 - Essential (primary) hypertension Qualifiers: Hypertension type: unspecified Qualified Code(s): I10 - Essential (primary) hypertension (6) Heart failure: Status: Acute Code(s): I50.9 - Heart failure, unspecified Qualifiers: Heart failure type: unspecified Heart failure chronicity: chronic Qualified Code(s): I50.9 - Heart failure, unspecified (7) Tobacco use: Status: Acute Code(s): Z72.0 - Tobacco use Problem details: Discussed with the patient his need to quit. He states he realizes he needs to quit but is not ready to do it at this time. Meds Home Medications and Allergies Home Medications Medication Instructions Recorded Confirmed Type atorvastatin 10 mg tablet (Lipitor) 10 mg PO DAILY #90 tabs 07/26/23 10/21/23 Rx lisinopril 20 mg tablet 20 mg PO DAILY #90 tabs 07/26/23 10/21/23 Rx gabapentin 800 mg tablet 800 mg PO TID #90 tabs 07/27/23 10/21/23 Rx tadalafil 5 mg tablet (Cialis) 5 mg PO DAILY #14 tabs 09/19/23 10/21/23 Rx amoxicillin 875 mg-potassium 1 tab PO BID #20 tabs 10/21/23 Rx clavulanate 125 mg tablet furosemide 40 mg tablet 40 mg PO DAILYP PRN Fluid 10/21/23 10/21/23 History insulin glargine 100 unit/mL (3 120 unit SQ HS 10/21/23 10/21/23 History mL) subcutaneous pen (Lantus Solostar U-100 Insulin) linezolid 600 mg tablet (Zyvox) 600 mg PO Q12H 10 days #20 tabs 10/21/23 Rx metformin 500 mg tablet,extended 1,000 mg PO BIDWMEAL 10/21/23 10/21/23 History release 24 hr New Prescriptions to Start Prescriptions: amoxicillin-pot clavulanate Alexandro Buck linezolid [Zyvox] Alexandro Buck Allergies Allergy/AdvReac Type Severity Reaction Status Date / Time acetaminophen Allergy Intermediate Verified 10/19/23 11:13 [From Tylenol-Codeine #3] codeine Allergy Intermediate Verified 10/19/23 11:13 [From Tylenol-Codeine #3] morphine [MORPHINE] Allergy Unknown I-HIVES Verified 10/19/23 11:13 Discharge Plan Disposition Patient Disposition: Home, Self-Care Condition: Fair Follow up Plan Follow up with: Charles Sheffield MD [Primary Care Provider] - 1 week (Please call for follow up appt. ) Prescriptions/Medication Reconciliation: New amoxicillin-pot clavulanate 875-125 mg tablet 1 tab PO BID Qty: 20 0RF linezolid [Zyvox] 600 mg tablet 600 mg PO Q12H 10 Days Qty: 20 0RF Continued atorvastatin [Lipitor] 10 mg tablet 10 mg PO DAILY Qty: 90 0RF lisinopril 20 mg tablet 20 mg PO DAILY Qty: 90 3RF gabapentin 800 mg tablet 800 mg PO TID Qty: 90 3RF tadalafil [Cialis] 5 mg tablet 5 mg PO DAILY Qty: 14 0RF insulin glargine [Lantus Solostar U-100 Insulin] 100 unit/mL (3 mL) insulin pen 120 unit SQ HS furosemide 40 mg tablet 40 mg PO DAILYP PRN (Reason: Fluid) metformin 500 mg tablet extended release 24 hr 1,000 mg PO BIDWMEAL Problem Reconciliation Problems Reviewed?: Yes Patient Discharge Instructions ACTIVITY: Continue current activity and Ambulate as tolerated DIET: diabetic diet and cardiac Patient Instructions: DI for Cellulitis -- Adult Providers Primary Care Provider: Charles Sheffield Admit Provider: Alexandro Buck Attending Provider: Alexandro Buck
--- NOTE | 2023-10-23 14:17 | CARE MANAGER ---
Contacted the patient related to hospital discharge. He states his arm is the same if not worse. It started draining fluid. He denies fever and is taking his antibiotic, but endorses swelling up to shoulder. Advised he see his MD before Monday, but states that is when MD is back in office. Suggested he see TR[facility]ER in that office, but he is not comfortable with that. Suggested UTC and if necessary ER. He states he will monitor and decide later if needed.LUIS ARMANDO Spann
== END 2023-10-21 12:35 | disposition home or self-care (01) ==
LOC: ER 10-21 02:28 → 2ND 10-21 03:04
PROVIDERS: Nurse Practitioner Family; Admitting Provider Family Medicine; Emergency Provider Emergency Medicine; PCP Family Medicine; Visit Provider Family Medicine
DX: L03.113 Cellulitis of right upper limb (principal); S51.031A Puncture wound without foreign body of right elbow, initial encounter; E11.65 Type 2 diabetes mellitus with hyperglycemia; J44.9 Chronic obstructive pulmonary disease, unspecified; I50.9 Heart failure, unspecified; Z72.0 Tobacco use; E11.9 Type 2 diabetes mellitus without complications; I11.0 Hypertensive heart disease with heart failure; I25.2 Old myocardial infarction; Z79.4 Long term (current) use of insulin; L02.413 Cutaneous abscess of right upper limb
CPT/HCPCS: 73201; 80053; 82962; 83036; 83605; 85025; 85610; 85651; 86140; 87040; 99291; G0378; J1170; J2405; J2543; J3370; J7120; Q9967

== ENCOUNTER 2024-06-19 13:06 | Outpatient (CLI) | payer MEDICARE, SELFPAY ==
--- NOTE | 2024-06-19 13:09 | CT_ITS ---
FINAL REPORT TECHNIQUE: The patient was injected with IV contrast. Axial images were obtained of the chest by computed tomography. Precontrast images were also obtained. This study was performed with techniques to keep radiation doses as low as reasonably achievable (ALARA). Individualized dose reduction techniques using automated exposure control or adjustment of mA and/or kV according to the patient's size were employed. CLINICAL HISTORY: swelling to hand, fatigue, shortness of breath COMPARISON: 08/31/2023 FINDINGS: CT OF THE CHEST WITH AND WITHOUT CONTRAST: There is no axillary adenopathy. Mild mediastinal adenopathy is less evident than on the prior exam. Heart size is normal. There is no pericardial or pleural effusion identified. The mediastinal vasculature is adequately opacified. The lungs are clear. There is no acute infiltrate. Limited images of the upper abdomen demonstrate moderate fatty infiltration of the liver. The gallbladder is surgically absent. There is incidental note made of subcutaneous soft tissue stranding in the midline upper anterior abdominal wall well-seen on images 73-78 of series 4 IMPRESSION: No acute cardiopulmonary process. Incidental subcutaneous soft tissue stranding upper anterior abdominal wall. Reviewed, Interpreted and Dictated by Garth Temple MD Transcribed by Oralia Child Authenticated and [facility]
[2024-06-19 13:41] LABS: Basophils # 0.1 K/mm3 (0-0.2); Basophils % 0.8 % (0.1-2.0); Eosinophils # 0.1 K/mm3 (0.0-0.4); Eosinophils % 1.4 % (0.1-12.0); Hematocrit 45.4 % (42.0-52.0); Hemoglobin 15.1 g/dL (14.1-18.0); Lymphocytes # 2.5 K/mm3 (0.7-4.5); Lymphocytes % 39.7 % (10-50); Mean Corpuscular HGB Conc 33.3 g/dL (31.8-35.4); Mean Corpuscular Volume 87.1 fl (80-94); Mean Platelet Volume 11.5 fl (7.4-10.4); Monocytes # 0.5 K/mm3 (0.1-1.0); Monocytes % 7.7 % (1.7-9.3); Neutrophils # 3.2 K/mm3 (1.8-7.8); Neutrophils % 50.1 % (37.0-80.0); Platelet Count 189 K/mm3 (142-424); Red Blood Count 5.21 M/mm3 (4.60-6.20); Red Cell Distribution Width 12.8 % (11.5-17.5); White Blood Count 6.3 K/mm3 (4.8-10.8)
[2024-06-19 13:46] LABS: Chloride 100 mmol/L (98-107); Sodium 133 mmol/L (136-145)
[2024-06-19 13:47] LABS: Potassium 4.3 mmoL/L (3.5-5.1)
[2024-06-19 13:49] LABS: Blood Urea Nitrogen 13 mg/dl (9-20); Estimated Glomerular Filt Rate 138 ml/min (>60); GFR (African American) 167 ML/MIN (>60)
[2024-06-19 13:50] LABS: Anion Gap 10.3 mEq/L (5-15); Calcium 10.1 mg/dl (8.4-10.2); Carbon Dioxide 27 mmol/L (22.0-30.0); Glucose 275 mg/dl (74-100)
[2024-06-19] MEDS: IOPAMIDOL-370 (76%);100ML BOTTLE 75 ML IV (14:36)
[2024-06-19] MEDS: SODIUM CHLORIDE 0.9% 10ML SYR (RAD ONLY) 10 ML IV (14:36)
[2024-06-19 15:05] LABS: Hemoglobin A1C 11.5 % (4.0-6.0)
[2024-06-20 08:48] LABS: Testosterone,Total 194 ng/dL (264-916)
== END 2024-06-19 23:59 | disposition home or self-care (01) ==
LOC: RAD 13:08
PROVIDERS: PCP Family Medicine; Visit Provider Family Medicine
DX: Z01.818 Encounter for other preprocedural examination (principal); M79.89 Other specified soft tissue disorders; I25.10 Atherosclerotic heart disease of native coronary artery without angina pectoris; R53.83 Other fatigue
CPT/HCPCS: 36415; 71270; 80048; 83036; 84403; 85025; Q9967

== ENCOUNTER 2024-10-06 16:26 | Emergency (ER) | payer MEDICARE, SELFPAY ==
--- OUTSIDE RECORDS SUMMARY | 2024-10-06 16:37 | XMS_ITS | Clinical Summary ---
Author Organization Healthcare Address [address] [place] [address] Care Team Providers Care Manager Of Corporate Communications Name Role Phone Prateek Leary MD Primary Care Provider [phone] Family History Medical History Relation Name Comments Cancer Other 1 Heart disease Other 2 Relation Name Status Comments Other 1 Other 2 Social History Tobacco Use Types Packs/Day Years Used Date Smoking Tobacco: Every Day Alcohol Use Standard Drinks/Week Comments No 0 (1 standard drink = 0.6 oz pure alcohol) Alcoholic Drinks/day: Never Drank Alcohol Sex and Gender Information Value Date Recorded Sex Assigned at Not on file Legal Sex Male 8:50 PM EDT Gender Identity Not on file Sexual Orientation Not on file Last Filed Vital Signs Vital Sign Reading Time Taken Comments Blood Pressure - - Pulse - - Temperature - - Respiratory Rate - - Oxygen Saturation - - Inhaled Oxygen Concentration - - Weight 120 kg (265 lb 6.6 oz) 11/04/2015 11:26 A M EDT Height 185.4 cm (6' 1 ) 11/04/2015 11:26 AM EDT Body Mass Index 35.02 11/04/2015 11:26 AM EDT Plan of Treatment Health Maintenance Due Date Last Done Comments [facility]-Depression Screening 1964 [facility]-Infant/Child/Adol SDOH Screenings 1964 [facility]- SDOH Screenings 1982 [facility]-Adult SDOH Screenings 1982 [facility]-DTaP,Tdap,and Td Vaccine s (1 - Tdap) 07/19/1983 CT Colonography 2009 Colonoscopy 2009 FIT-DNA 2009 FIT 2009 FOBT 2009 Sigmoidoscopy 2009 [facility]-Colorectal Cancer Screening 2009 [facility]-Pneumococcal Vaccine: 50 + Years (1 of 1 - PCV) 2014 [facility]-Zoster Vaccines (1 of 2) 2014 ZSB-SRRPL-14 Vaccine (1 - 20 24-25 season) 2023 [facility]-Influenza Vaccine ([place] Ended) 2024 [facility]-RSV Vaccine: 60+ Years o r (1 - 1-dose 75+ series) 07/19/2039 HPV Vaccines Aged Out No longer eligi ble based on patient's age to complete this topic [facility]-HIB Vaccines Aged Out No longer e ligible based on patient's age to complete this topic [facility]-Hepatitis A Vaccines Aged Out No longer eligible based on patient's age to complete this topic [facility]-IPV Vaccines Aged Out No longer e ligible based on patient's age to complete this topic [facility]-Rotavirus Vaccines Aged Out No lo nger eligible based on patient's age to complete this topic Care Teams Manager Of Corporate Communications Relationship Specialty Start Date End Date Prateek Leary MD [address] [place] [id number] PCP - General 08/21/20
[2024-10-06 16:39] VITALS: BP 145/94; PULSE 95; RESP 20; TEMP 36.6; O2SAT 99; BMI 31.1
[2024-10-06 16:46] LABS: Microscopic, Urine URINE MICROSCOPIC (MICROSCOPIC)
[2024-10-06 16:48] LABS: Appearance,Urine CLEAR (Clear); Blood, Urine Negative (Negative); Color,Urine YELLOW (Yellow); Glucose,Urine (UA) 3+ (Negative); Ketones,Urine TRACE (Negative); Leukocyte Esterase,Urine Negative (Negative); Nitrate,Urine Negative (Negative); Protein,Urine 2+ (Negative); Specific Gravity, Urine >= 1.030 (1.005-1.030); Urobilinogen,Urine 0.2 EU/dl (0.2)
[2024-10-06 16:50] LABS: Bilirubin,Urine Negative (Negative)
--- NOTE | 2024-10-06 16:58 | HMH.EDGENADL ---
Discharge Plan Disposition Patient Disposition: Home, Self-Care Prescriptions Prescriptions: New ondansetron 4 mg tablet,disintegrating 4 mg PO Q6H PRN (Reason: nausea and vomiting) Qty: 10 0RF No Action trazodone 50 mg tablet 25 mg PO BID Qty: 30 2RF furosemide 40 mg tablet 40 mg PO DAILYP PRN (Reason: Fluid) Qty: 90 2RF (DME) blood-glucose meter [OneTouch Ultra2 Meter] Misc See Rx Instructions .Route Qty: 1 0RF Rx Instructions: As directed (DME) blood-glucose meter [OneTouch Ultra2 Meter[place] [facility] [place] .Route Qty: 1 0RF Rx Instructions: As directed atorvastatin [Lipitor] 10 mg tablet 10 mg PO DAILY Qty: 90 0RF metformin 500 mg tablet extended release 24 hr 1,000 mg PO BIDWMEAL 90 Days Qty: 360 0RF (DME) pen needle, diabetic [BD Ultra-Fine Mini Pen Needle] 31 gauge x 3/16 needle See Rx Instructions .ROUTE .MEDSUPPLY Qty: 100 2RF Rx Instructions: As directed (DME) FreeStyle Lite Strips Strip See Rx Instructions .Route Qty: 100 2RF Rx Instructions: As directed lisinopril 20 mg tablet 20 mg PO DAILY 90 Days Qty: 90 0RF amoxicillin-pot clavulanate [Augmentin] 500-125 mg tablet 1 tab PO TID Qty: 30 0RF insulin glargine U-300 conc [Toujeo Max U-300 SoloStar] 300 unit/mL (3 mL) insulin pen 180 unit SQ DAILY 30 Days Qty: 18 3RF tadalafil [Cialis] 5 mg tablet 5 mg PO DAILY Qty: 20 2RF Referrals Follow up/Referrals: Lisa Sheffield APRN [Referring, Medical] - See instructions Activity Restrictions/Add. Instructions Additional Instructions/Restrictions: Follow-up with your family doctor regarding this visit to the emergency department. Your glucose was over 500, your A1c was undetectably high at >14%, you need referral to an wire weaving loom setter to formally manage her diabetes before it becomes life-threatening. Be sure to stay plenty hydrated. Zofran was sent to the pharmacy at [facility] so you will be able to treat your nausea. Also talk to your family doctor about sending stool sample to determine the etiology of your diarrhea. Call your family doctor to establish care for this visit to the emergency department and schedule follow-up within 48 hours to ensure improvement. If you have any worsening of your condition or any other concerning signs or symptoms, return to the emergency department or your primary care doctor for further evaluation. Clinical Impressions Clinical Impression: Acute hyperglycemia, Vomiting and diarrhea, Acute dehydration Instructions Patient Instructions: DI for Acute Abdominal Pain Print Language Print Language: Telugu Discharge ED Provider: Erick Caraballo General Adult HPI General Chief complaint: Abdominal Pain Stated complaint: no food or drink for one week diarrhea Time Seen by Provider: 10/06/24 16:34 Mode of Arrival: Ambulatory Source of Information: Patient Description of Symptoms (Recalled from ER Triage Doc. by RN): Pt reports N/V/D for 1 week. Pt also states having sharp abdominal pain 11/17 that comes and goes. PT FSB POC @ 1642 History of Present Illness HPI narrative: Please note that above description of symptoms, in this electronic medical record under categorization of recalled from ER triage doctor by RN are reflective of an initial nursing assessment, however, is not reflective of my full history and physical exam that was personally taken and clarified. Consequentially, this preceding description of symptoms, which may include the patient's categorized chief complaint in the EMR, do not reflect my personal clinical impression, and the ultimate description of history of present illness and patient stated complaints should be deferred to this section of the note. Unless stated otherwise or congruent with this section of the note, additional signs, symptoms, or incongruence should be interpreted as inaccurate with my clinical impression. Related Data Previous Rx's ?Medication ?Instructions ?Recorded furosemide 40 mg tablet 40 mg PO DAILYP PRN Fluid #90 tabs 11/02/23 trazodone 50 mg tablet 25 mg (1/2 x 50 mg) PO BID anxiety 11/27/23 #30 tabs blood-glucose meter (OneTouch #1 ea 01/01/24 Ultra2 Meter) blood-glucose meter (OneTouch #1 ea 01/01/24 Ultra2 Meter) atorvastatin 10 mg tablet (Lipitor) 10 mg PO DAILY #90 tabs 04/04/24 metformin 500 mg tablet,extended 1,000 mg (2 x 500 mg) PO BIDWMEAL 04/04/24 release 24 hr 90 days #360 tabs pen needle, diabetic 31 gauge x #100 ea 04/04/24 3/16 (BD Ultra-Fine Mini Pen Needle) blood sugar diagnostic (FreeStyle #100 ea 05/15/24 Lite Strips) lisinopril 20 mg tablet 20 mg PO DAILY 90 days #90 tabs 07/09/24 amoxicillin 500 mg-potassium 1 tab PO TID #30 tabs 07/17/24 clavulanate 125 mg tablet (Augmentin) insulin glargine U-300 conc 300 180 unit (0.6 mL) SQ DAILY 30 days 08/09/24 unit/mL (3 mL) subcutaneous pen #18 mL (Toujeo Max U-300 SoloStar) tadalafil 5 mg tablet (Cialis) 5 mg PO DAILY #20 tabs 09/17/24 ondansetron 4 mg disintegrating 4 mg PO Q6H PRN nausea and 10/06/24 tablet vomiting #10 tabs Allergies Allergy/AdvReac Type Severity Reaction Status Date / Time acetaminophen (From Allergy Intermediate Verified 05/27/24 15:06 Tylenol-Codeine #3) codeine (From Allergy Intermediate Verified 05/27/24 15:06 Tylenol-Codeine #3) morphine (MORPHINE) Allergy Unknown I-HIVES Verified 05/27/24 15:06 PFSH PFS Disclaimer: The information contained in this section may have been updated after the patient was seen, as this information can be updated by other users. Medical History BPH (benign prostatic hyperplasia) Diabetes mellitus, type 2 COPD (chronic obstructive pulmonary disease) Patient is still smoking. I think pulmonary function test would be in order in this patient. Will discuss this when he returns. History of heart attack Hypertension Neuropathy Diabetes Tobacco use Hx of myocardial infarction Surgical History History of cholecystectomy Family History Other Unknown family medical history Social History Smoking Status: Current every day smoker tobacco type: cigarettes packs per day: 2 second hand exposure: Yes alcohol intake: never substance use type: methamphetamine current occupational status: unemployed Travel in the last 8 weeks?: None household members: family housing: house number of children: 1 caffeine: Yes Have you lived/traveled outside US in past 30 days?: No Contact w/someone who lives/traveled outside US past 30 days?: No Exposure to someone with infectious disease in past 14 days?: No Do you have a fever (greater than 100.4 F or 38 C)?: No Have you tested positive for COVID-19?: No Exposed to someone with COVID-19 in past 14 days?: No Do you have a sore throat?: No Do you have a cough?: No Do you have any weakness?: No Do you have any diarrhea?: No Are you experiencing any unusual bleeding?: No Do you have any muscle aches/pain?: No Do you have any abdominal pain?: No Are you experiencing loss of taste or smell?: No Other Medical History Have you received the Flu Vaccine for this season: No Have you received the Pneumonia Vaccine: No ROS Obtained: Yes All systems reviewed & no additional complaints except as documented Physical Exam General General appearance: alert and in no apparent distress Comment: Appears fatigued, worn out, but not clinically ill Head Head exam: atraumatic and normocephalic Eye Eye exam: Present normal appearance, PERRL and EOMI Neck Neck exam: Present normal inspection, full ROM and trachea midline Respiratory Respiratory exam: Absent respiratory distress, wheezes, stridor, accessory muscle use or prolonged expiratory phase Cardiovascular Cardiovascular exam: Present regular rate, normal rhythm and other (Pulses equal symmetric in upper and lower extremities) Abdominal Exam Abdominal exam: Present soft and tenderness; Absent distention, guarding, rebound, rigidity or pulsatile mass Abdominal tenderness: Present suprapubic and mild Extremities Exam Extremities exam: Absent edema Neurological Exam Neurological exam: Present alert, oriented X3 and CN II-XII intact; Absent motor sensory deficit Skin Skin exam: Present warm and dry; Absent diaphoresis or erythema Medical Decision Making Medical Records Medical records reviewed: Yes I reviewed the patient's medical records. Screening: Per USPSTF and CDC recommendations, given the prevalence of disease in our region, it is our hospital?s policy to screen for HIV and viral Hepatitis for all patients aged 18 and over and those with ongoing risk factors. Los Inquiry Pt receiving controlled substance: No Los was queried for this patient: No Vital Signs: 10/06/24 16:39 10/06/24 17:00 10/06/24 17:30 Temperature 97.9 F Temperature Source Oral Pulse Rate 96 H 88 Pulse Rate [Left] 95 H Respiratory Rate 20 Blood Pressure 117/74 121/74 Blood Pressure [Right Arm] 145/94 H Blood Pressure Mean [Right Arm] 111 Blood Pressure Source [Right Arm] Automatic Cuff Blood Pressure Position [Right Arm] Supine 02 Sat by Pulse Oximetry 99 98 95 Oxygen Delivery Method Room Air Room Air Room Air 10/06/24 18:00 10/06/24 18:20 Temperature Temperature Source Pulse Rate 86 99 H Pulse Rate [Left] Respiratory Rate Blood Pressure 168/107 H 131/103 H Blood Pressure [Right Arm] Blood Pressure Mean [Right Arm] Blood Pressure Source [Right Arm] Blood Pressure Position [Right Arm] 02 Sat by Pulse Oximetry 98 99 Oxygen Delivery Method Room Air Room Air Lab Data Lab Results 10/06/24 16:35: Urine Color Yellow, Urine Appearance Clear, Urine pH 6.0, Ur Specific [place] >= 1.030, Urine Protein 2+ A, Urine Glucose (UA) 3+, Urine Ketones Trace, Urine Blood Negative, Urine Nitrate Negative, Urine Bilirubin Negative, Urine Urobilinogen 0.2, Ur Leukocyte Esterase Negative, Urine RBC 5-10, Urine WBC 3-5, Ur Squamous Epith Cells 10-20, Urine Bacteria Trace, Urine Mucus 1+ 10/06/24 16:38: VBG pH 7.34, VBG pCO2 44.9, VBG pO2 36.4, VBG HCO3 23.8, VBG Total CO2 25.2, VBG O2 Saturation 70.7 H, VBG Base Excess -2.0, VBG Lactic Acid 3.2 H 10/06/24 : WBC 11.9 H, RBC 5.84, Hgb 16.8, Hct 50.3, MCV 86.1, MCH 28.8, MCHC 33.4, RDW 13.0, Plt Count 230, MPV 12.3 H, Neut % (Auto) 67.7, Lymph % (Auto) 24.7, [place] % (Auto) 6.1, Eos % (Auto) 0.7, Baso % (Auto) 0.5, Neut # (Auto) 8.1 H, Lymph # (Auto) 3.0, [place] # (Auto) 0.7, Eos # (Auto) 0.1, Baso # (Auto) 0.1, Sodium 130 L, Potassium 4.5, Chloride 92 L, Carbon Dioxide 26, Anion Gap 16.5 H, BUN 17, Creatinine 1.00, Estimated Creat Clear 116, Estimated GFR 76, Est GFR ( Amer) 92, Glucose 530 H*, Hemoglobin A1c > 14.0 H D, Calcium 9.5, Magnesium 1.8, Total Bilirubin 0.9, AST 30, ALT 33, Alkaline Phosphatase 93, Troponin I 0.03, Total Protein 8.1, Albumin 3.9, Globulin 4.2 H, Albumin/Globulin Ratio 0.9 L 10/06/24 Unknown 10/06/24 Unknown Orders (Tests/Meds): ED MEDICATIONS Discontinued Medications Generic Name Dose Route Start Last Admin Trade Name Freq PRN Reason Stop Dose Admin Lactated Ringer's 1,000 mls @ 999 mls/hr 10/06/24 16:38 10/06/24 17:00 Lactated Ringer's 1000 Ml Bag IV 10/06/24 17:38 999 mls/hr .Q1H1M ONE Administration Lactated Ringer's 1,000 mls @ 999 mls/hr 10/06/24 17:25 10/06/24 17:51 Lactated Ringer's 1000 Ml Bag IV 10/06/24 18:25 999 mls/hr .Q1H1M ONE Administration Insulin Human Regular 10 unit 10/06/24 17:25 10/06/24 17:53 Insulin Human Regular 100 Units/Ml 10ml Vial 0.1 unit/kg (10 unit) 10/06/24 17:26 10 unit IV Administration ONCE ONE Ketorolac Tromethamine 15 mg 10/06/24 16:43 10/06/24 17:00 Ketorolac 30mg/Ml Vial IV 10/06/24 16:44 15 mg ONCE ONE Administration Ondansetron HCl 4 mg 10/06/24 16:39 10/06/24 17:00 Ondansetron 4mg/2ml Vial IV 10/06/24 16:40 4 mg ONCE ONE Administration ORDERS Category Date Time Status CBC w/Auto Diff [Complete Blood Count Auto Diff] Stat Lab 10/06/24 Completed CMP [Comprehensive Metabolic Panel] Stat Lab 10/06/24 Completed Diarrhea 23 Panel, PCR Stat Lab 10/06/24 16:43 Ordered Hemoglobin A1C Stat Lab 10/06/24 Completed MAG [Magnesium] Stat Lab 10/06/24 Completed Trop I [Troponin I] Stat Lab 10/06/24 Completed Troponin I Q3H Lab 10/06/24 19:45 Ordered Troponin I Q3H Lab 10/06/24 22:45 Ordered UA [Urinalysis and Microscopic] Stat Lab 10/06/24 16:35 Completed VBG [Venous Blood Gas] Stat RT 10/06/24 16:38 Completed Medical Decision Narrative: 59-year-old male history of diabetes, hypertension, COPD, AR status post stenting presenting with general malaise. He states that he started having diarrhea a week ago. Nonbloody, non-mucousy. Had a couple days of vomiting as well as nonbloody nonbilious. Vomiting is stopped, but diarrhea is continued. States that it is multiple episodes a day, thin, watery, explosive. Smells horrible. No fevers or chills, but has diffuse, crampy abdominal pain. No surgical abdominal history. Nobody in the house with similar symptoms and no sick contacts. Patient provided history. On arrival, very clinically well, but appears worn out. No respiratory distress, nontachycardic, patient has dry mucous membranes. Cardiac exam without murmurs gallops rubs. Lungs are clear. Patient's abdomen is soft, nondistended, but tender with mild tenderness to deep palpation in the suprapubic area. Hyperactive bowel sounds. Differential includes gastritis, gastroenteritis, PUD, diverticulitis, hepatitis, intoxication, withdrawal, metabolic disturbance, endocrinologic disturbance, DKA, HHNK, among others. Patient was placed on electronic device monitor and continuous pulse oximetry with initial BP 145/94, heart rate 95, O2 sat 99% on room air. Patient was given fluids and Zofran. Labs were drawn. On independent interpretation, mild leukocytosis 11.9, but nonactionable overall. VBG with lactate of 3.2 likely secondary to vomiting, diarrhea, dehydration and GI losses. Blood cultures were drawn out of abundance of caution. Fluids were given. Patient also received 10 units of IV insulin given glucose of 530 and hemoglobin A1c greater than 14. Troponin negative. Urinalysis unremarkable. On reevaluation, patient states he is feeling much better, unable to provide stool sample. Patient was given p.o. challenge with coffee as well as solid foods. Still unable to produce stool sample after observation period of about an hour. Because of this, tolerating p.o. intake, very clinically well, tachycardia resolved, and has appropriate outpatient follow-up, able to do outpatient stool sample. Belinda sent to pharmacy. Because patient at baseline without signs or symptoms of clinical decompensation, deemed appropriate for discharge. Results were relayed to patient who voiced understanding and were agreeable to outpatient management and follow up. I discussed my clinical impression with patient and answered all questions. At this time, the evidence for any other entities in the differential is insufficient to warrant any further testing or ED observation. This was explained as well. Advisory was given that persistent or worsening symptoms require further evaluation. I confirmed the understanding of this discussion. Assisted Living Director disclaimer Much of this encounter note is an electronic nurse discharge spoken language to printed text. Electronic nurse discharge of the spoken language may permit errors. Although I have reviewed the note, some errors may still exist. Critical Care Critical Care Time Critical Care Time: No
[2024-10-06 17:00] VITALS: BP 117/74; PULSE 96; O2SAT 98
[2024-10-06] MEDS: KETOROLAC 30MG/ML VIAL 15 MG IV (17:00)
[2024-10-06] MEDS: ONDANSETRON 4MG/2ML VIAL 4 MG IV (17:00)
[2024-10-06] MEDS: LACTATED RINGERS 1000ML 1,000 ML 999 ML IV ×2 (17:00→17:51)
[2024-10-06 17:03] LABS: Basophils # 0.1 K/mm3 (0-0.2); Basophils % 0.5 % (0.1-2.0); Eosinophils # 0.1 Kmm3 (0.0-0.4); Eosinophils % 0.7 % (0.1-12.0); Hematocrit 50.3 % (42.0-52.0); Hemoglobin 16.8 g/dL (14.1-18.0); Immature Granulocytes # 0.03 10^3uL; Immature Granulocytes % 0.3 %; Lymphocytes % 24.7 % (10-50); Mean Corpuscular HGB Conc 33.4 g/dL (31.8-35.4); Mean Corpuscular Hemoglobin 28.8 pg (27.0-31.2); Mean Corpuscular Volume 86.1 fl (80-94); Mean Platelet Volume 12.3 fl (7.4-10.4); Monocytes # 0.7 K/mm3 (0.1-1.0); Monocytes % 6.1 % (1.7-9.3); Neutrophils # 8.1 K/mm3 (1.8-7.8); Neutrophils % 67.7 % (37.0-80.0); Nucleated Red Blood Cells # 0 10^3/uL; Nucleated Red Blood Cells % 0 %; Platelet Count 230 K/mm3 (142-424); Red Blood Count 5.84 M/mm3 (4.60-6.20); White Blood Count 11.9 K/mm3 (4.8-10.8)
[2024-10-06 17:03] LABS: VBG HCO3 23.8 mmol/L (23-30); VBG Oxygen Saturation 70.7 % (50-70); VBG PCO2 44.9 mmol/L (35-51); VBG PH 7.34 mmol/L (7.31-7.41); VBG PO2 36.4 mmol/L (28-40); VBG Total CO2 25.2 mmol/L (23-27)
[2024-10-06 17:05] LABS: Lactate Venous 3.2 mmol/L (0.4-2.0)
[2024-10-06 17:10] LABS: Bacteria,Urine Trace /lpf; Mucus,Urine 1+ /lpf
[2024-10-06 17:15] LABS: Alanine Aminotransferase 33 U/L (12-78); Albumin Level 3.9 g/dl (3.5-5.0); Albumin/Globulin Ratio 0.9 (1.1-1.8); Alkaline Phosphatase 93 U/L (38-126); Anion Gap 16.5 mEq/L (5-15); Aspartate Amino Transferase 30 U/L (17-59); Bilirubin,Total 0.9 mg/dl (0.2-1.3); Blood Urea Nitrogen 17 mg/dl (9-20); Calcium 9.5 mg/dl (8.4-10.2); Carbon Dioxide 26 mmol/L (22.0-30.0); Chloride 92 mmol/L (98-107); Creatinine Clearance Estimated 116 mL/min (50-200); Estimated Glomerular Filt Rate 76 ml/min (>60); GFR (African American) 92 ML/MIN (>60); Globulin 4.2 g/dL (1.3-3.2); Magnesium 1.8 mg/dl (1.6-2.3); Potassium 4.5 mmoL/L (3.5-5.1); Sodium 130 mmol/L (136-145); Total Protein,Serum 8.1 g/dl (6.3-8.2)
[2024-10-06 17:19] LABS: Glucose 530 mg/dl (74-100)
[2024-10-06 17:27] LABS: Troponin I 0.03 ng/ml (0.00-0.034)
[2024-10-06 17:30] VITALS: BP 121/74; PULSE 88; O2SAT 95
[2024-10-06 17:34] LABS: Hemoglobin A1C > 14.0 % (4.0-6.0)
[2024-10-06] MEDS: INSULIN HUMAN REGULAR 100 UNITS/ML 10ML VIAL 10 UNIT IV (17:53)
[2024-10-06 18:00] VITALS: BP 168/107; PULSE 86; O2SAT 98
[2024-10-06 18:20] VITALS: BP 131/103; PULSE 99; O2SAT 99
[2024-10-06 19:00] VITALS: BP 121/74; PULSE 85; RESP 16; TEMP 36.9; O2SAT 98
[2024-10-06 21:05] LABS: Reflex Lactic Add Lactic Reflex
== END 2024-10-06 19:03 | disposition home or self-care (01) ==
PROVIDERS: Emergency Provider Emergency Medicine; PCP Family Medicine
DX: R10.84 Generalized abdominal pain (principal); E86.0 Dehydration; E11.65 Type 2 diabetes mellitus with hyperglycemia; E87.1 Hypo-osmolality and hyponatremia; R00.0 Tachycardia, unspecified; R11.2 Nausea with vomiting, unspecified; R19.7 Diarrhea, unspecified; F17.210 Nicotine dependence, cigarettes, uncomplicated; J44.9 Chronic obstructive pulmonary disease, unspecified; I10 Essential (primary) hypertension
CPT/HCPCS: 80053; 81001; 82803; 83036; 83735; 84484; 85025; 96361; 96374; 96375; 99285; J1885; J2405; J7120

== ENCOUNTER 2025-01-13 05:39 | Inpatient (IN) | payer MEDICARE, SELFPAY ==
[2025-01-13] VITALS (25 sets, daily range): BP systolic 115–148; BP diastolic 60–91; PULSE 72–96; RESP 14–20; TEMP 36.7–36.8; O2SAT 91–99; BMI 336.0; BMI 32.5; BMI 33.2
--- NOTE | 2025-01-13 05:43 | XR_ITS ---
PROCEDURE INFORMATION: Exam: XR Chest Exam date and time: 01/13/2025 6:03 AM Age: 59 years old Clinical indication: Shortness of breath; Additional info: SOA TECHNIQUE: Imaging protocol: Radiologic exam of the chest. Views: 1 view. COMPARISON: CT CHEST WO/W CON 06/19/2024 2:27 PM FINDINGS: Lungs: Unremarkable. No consolidation. Pleural spaces: Unremarkable. No pleural effusion. No pneumothorax. Heart/Mediastinum: Unremarkable. No cardiomegaly. Bones/joints: Unremarkable. IMPRESSION: No acute findings.
--- OUTSIDE RECORDS SUMMARY | 2025-01-13 05:44 | XMS_ITS | Clinical Summary ---
Author Organization Healthcare Address [address] [place] [address] Care Team Providers Care Private Duty Aide Name Role Phone Prateek Leary MD Primary Care Provider Family History Medical History Relation Name Comments [...] Date Last Done Comments [facility]-Depression Screening 1964 [facility]-/Child/Adol SDOH Screenings 1964 [facility]- SDOH Screenings 1982 [facility]-Adult SDOH Screenings 1982 [facility]-DTaP,Tdap,and Td Vaccine s (1 - Tdap) 07/19/1983 CT Colonography 2009 Colonoscopy 2009 FIT-DNA 2009 FIT 2009 FOBT 2009 Sigmoidoscopy 2009 [facility]-Colorectal Cancer Screening 2009 [facility]-Pneumococcal Vaccine: 50 + Years (1 of 1 - PCV) 2014 [facility]-Zoster Vaccines (1 of 2) 2014 [id number]-[id number]-16 Vaccine (1 - 20 24-25 season) 2024 [facility]-Influenza Vaccine (#1) 2024 [facility]-RSV Vaccine: 60+ Years o r [...] age to complete this topic Care Teams Private Duty Aide Relationship Specialty Start Date End Date Prateek Leary MD [address] [place] [phone] PCP - General 08/21/20
--- NOTE | 2025-01-13 05:46 | ECG_ITS ---
APPROVED REPORT Exam: Resting ECG HR:86 bpm ECG Measurements Heart Rate 86 AXES VA 177 P 48 QRSd 104 QRS -5 QT 359 T 97 QTc 403 Conclusion SINUS RHYTHM POSSIBLE ANTERIOR MYOCARDIAL INFARCTION , OF INDETERMINATE AGE [30 ms Q WAVE IN V3/V4, OR R < 0.2 mV IN V4] ABNORMAL ECG UNCONFIRMED REPORT Electronically signed by : SOPHIA HERR, 01/14/2025 04:42:41
[2025-01-13] MEDS: IPRATROPIUM/ALBUTEROL 3 ML NEB 6 ML IH (06:06)
[2025-01-13 06:10] LABS: Hematocrit 44.3 % (42.0-52.0); Hemoglobin 14.1 g/dL (14.1-18.0); Immature Granulocytes % 0.3 %; Mean Corpuscular HGB Conc 31.8 g/dL (31.8-35.4); Mean Corpuscular Hemoglobin 28.0 pg (27.0-31.2); Mean Corpuscular Volume 88.1 fl (80-94); Nucleated Red Blood Cells % 0 %; Platelet Count 222 K/mm3 (142-424); Red Blood Count 5.03 M/mm3 (4.60-6.20); Red Cell Distribution Width-SD 42.5 fL; White Blood Count 8.7 K/mm3 (4.8-10.8)
[2025-01-13] MEDS: MAGNESIUM SULFATE IN WATER 2 GM/50 ML PIGGYBACK IV (06:10)
--- NOTE | 2025-01-13 06:10 | ED_ITS ---
Discharge Plan Disposition Patient Disposition: Admitted Condition: Good Clinical Impressions Clinical Impression: Acute non-ST elevation myocardial infarction (NSTEMI) Pneumonia Qualifiers: Pneumonia type: due to unspecified organism Laterality: unspecified laterality Lung location: unspecified part of lung Qualified Code(s): J18.9 - Pneumonia, unspecified organism Cellulitis Qualifiers: Site of cellulitis: trunk Site of cellulitis of trunk: abdominal wall Qualified Code(s): L03.311 - Cellulitis of abdominal wall Discharge ED Provider: Agustín Lamb General Adult HPI General Chief complaint: Shortness of Breath/Dyspnea Stated complaint: SHORTNESS OF BREATH Time Seen by Provider: 01/13/25 05:40 Mode of Arrival: EMS Source of Information: Patient and EMS Description of Symptoms (Recalled from ER Triage Doc. by RN): Pt to ED with c/o SOA since 299 this morning. EMS reports pt was 97% on RA. They gave albuterol and pt reports relief after. Upon assessment pt found to have open wound to RLQ of [facility]. History of Present Illness HPI narrative: 59-year-old male with a insulin-dependent diabetes, coronary artery, heart failure, hypertension, presents for worsening shortness of breath. He reports been feeling short of breath for a few days. EMS reports hypertension and normal oxygenation and route. They gave him 1 albuterol and patient reports some relief. On exam patient does have a small wound on his abdomen that he thinks is from rubbing from his belt buckle. That has been going on for a few days. Patient also reports nonproductive cough. Patient denies chest pain. of note, patient denies IV drug use, but EMS reports history of IV drug use. Related Data Home Medications ?Medication ?Instructions ?Recorded ?Confirmed sildenafil 25 mg tablet (Viagra) 25 - 100 mg PO DAILYP PRN Edema 01/13/25 01/13/25 Previous Rx's ?Medication ?Instructions ?Recorded blood-glucose meter (OneTouch #1 ea 01/01/24 Ultra2 Meter) blood-glucose meter (OneTouch #1 ea 01/01/24 Ultra2 Meter) insulin glargine U-300 conc 300 180 unit (0.6 mL) SQ D AILY 30 days 10/14/24 unit/mL (3 mL) subcutaneous pen #18 mL (Toujeo Max U-300 SoloStar) pen needle, diabetic 31 gauge x #100 ea 10/31/24 3/16 atorvastatin 10 mg tablet (Lipitor) 10 mg PO DAILY #90 tabs 01/07/25 blood sugar diagnostic (FreeStyle #100 ea 01/07/25 Lite Strips) Allergies Allergy/AdvReac Type Severity Reaction Status Date / Time acetaminophen (From Allergy Intermediate Verified 12/11/24 09:24 Tylenol-Codeine #3) codeine (From Allergy Intermediate Verified 12/11/24 09:24 Tylenol-Codeine #3) morphine (MORPHINE) Allergy Unknown I-HIVES Verified 12/11/24 09:24 metformin AdvReac Diarrhea Verified 12/11/24 09:30 [facility] Disclaimer: The information contained in this section may have been updated after the patient was seen, as this information can be updated by other users. Medical History BPH (benign prostatic hyperplasia) Diabetes mellitus, type 2 COPD (chronic obstructive pulmonary disease) Patient is still smoking. I think pulmonary function test would be in order in this patient. Will discuss this when he returns. History of heart attack Hypertension Neuropathy Diabetes Tobacco use Hx of myocardial infarction Surgical History History of cholecystectomy Family History Other Unknown family medical history Social History Smoking Status: Current every day smoker tobacco type: cigarettes packs per day: 2 second hand exposure: Yes alcohol intake: never substance use type: methamphetamine current occupational status: unemployed Travel in the last 8 weeks?: None household members: family housing: house number of children: 1 caffeine: Yes Have you lived/traveled outside [place] in past 30 days?: No Contact w/someone who lives/traveled outside US past 30 days?: No Exposure to someone with infectious disease in past 14 days?: No Do you have a fever (greater than 100.4 F or 38 C)?: No Have you tested positive for COVID-19?: No Exposed to someone with COVID-19 in past 14 days?: No Do you have a sore throat?: No Do you have a cough?: No Do you have any weakness?: No Do you have any diarrhea?: No Are you experiencing any unusual bleeding?: No Do you have any muscle aches/pain?: No Do you have any abdominal pain?: No Are you experiencing loss of taste or smell?: No Other Medical History Have you received the Flu Vaccine for this season: No Have you received the Pneumonia Vaccine: No ROS Obtained: Yes All systems reviewed & no additional complaints except as documented Physical Exam General General appearance: alert and anxious Head Head exam: atraumatic and normocephalic Eye Eye exam: Present normal appearance, PERRL and EOMI ENT ENT exam: Present normal oropharynx and normal external ear exam Neck Neck exam: Present normal inspection and full ROM Chest Chest inspection: Present normal inspection and symmetric chest wall rise; Absent tenderness Respiratory Respiratory exam: Present wheezes, prolonged expiratory phase and other (Mild tachypnea) Cardiovascular Cardiovascular exam: Present regular rate and normal rhythm Abdominal Exam Abdominal exam: Present soft; Absent distention, tenderness or guarding Comment: Cellulitis in the right mid abdomen Extremities Exam Extremities exam: Present normal inspection; Absent edema or joint swelling Back Exam Back exam: Present normal inspection; Absent tenderness Neurological Exam Neurological exam: Present alert and oriented X3; Absent motor sensory deficit Psychiatric Psychiatric exam: Present normal affect and normal mood Skin Skin exam: Present warm, dry and normal color Lymphatic Lymphatic Findings: no adenopathy Medical Decision Making Medical Records Medical records reviewed: Yes I reviewed the patient's medical records. Screening: Per USPSTF and CDC recommendations, given the prevalence of disease in our region, it is our hospital?s policy to screen for HIV and viral Hepatitis for all patients aged 18 and over and those with ongoing risk factors. [place] Inquiry Pt receiving controlled substance: No Los was queried for this patient: No Vital Signs: 01/13/25 05:47 01/13/25 05:55 01/13/25 06:08 Temperature 98.1 F Temperature Source Oral Pulse Rate 88 Pulse Rate [Apical] 91 H Respiratory Rate 16 Blood Pressure Blood Pressure [Right Arm] 147/88 H Blood Pressure Mean Blood Pressure Mean [Right Arm] 107 Blood Pressure Source Blood Pressure Source [Right Arm] Automatic Cuff Blood Pressure Position Blood Pressure Position [Right Arm] Sitting 02 Sat by Pulse Oximetry 98 94 L Oxygen Delivery Method Room Air Room Air 01/13/25 06:08 01/13/25 06:30 01/13/25 08:12 Temperature Temperature Source Pulse Rate 84 85 Pulse Rate [Apical] Respiratory Rate 16 Blood Pressure 138/91 H Blood Pressure [Right Arm] Blood Pressure Mean 100 Blood Pressure Mean [Right Arm] Blood Pressure Source Blood Pressure Source [Right Arm] Blood Pressure Position Blood Pressure Position [Right Arm] 02 Sat by Pulse Oximetry 95 Oxygen Delivery Method Room Air 01/13/25 08:35 Temperature 98.0 F Temperature Source Oral Pulse Rate 90 Pulse Rate [Apical] Respiratory Rate 16 Blood Pressure 140/77 Blood Pressure [Right Arm] Blood Pressure Mean Blood Pressure Mean [Right Arm] Blood Pressure Source Automatic Cuff Blood Pressure Source [Right Arm] Blood Pressure Position Sitting Blood Pressure Position [Right Arm] 02 Sat by Pulse Oximetry Oxygen Delivery Method Room Air Lab Data Lab results reviewed: Yes I reviewed the patient's lab results. Lab Results 01/13/25 05:50: WBC 8.7, RBC 5.03, Hgb 14.1, Hct 44.3, MCV 88.1, MCH 28.0, MCHC 31.8, RDW 13.2, Plt Count 222, MPV 12.2 H, Neut % (Auto) 61.7, Lymph % (Auto) 28.5, [place] % (Auto) 7.0, Eos % (Auto) 1.8, Baso % (Auto) 0.7, Neut # (Auto) 5.4, Lymph # (Auto) 2.5, [place] # (Auto) 0.6, Eos # (Auto) 0.2, Baso # (Auto) 0.1, Sodium 136, Potassium 4.5, Chloride 99, Carbon Dioxide 30, Anion Gap 11.5, BUN 12, Creatinine 0.80, Estimated Creat Clear 105, Estimated GFR 99, Est GFR ( Amer) 119, Glucose 254 H, Calcium 9.1, Total Bilirubin 0.7, AST 26, ALT 26, Alkaline Phosphatase 97, Troponin I 0.42 H, NT-Pro-B Natriuret Pep 4630 H, Total Protein 7.3, Albumin 3.9, Globulin 3.4 H, Albumin/Globulin Ratio 1.1, Acetone Level None detected, HCV Ab REAGAN w/Rflx PCR Qn Reactive, HIV Ag/Ab Combo Qual Negative 01/13/25 05:58: VBG pH 7.32, VBG pCO2 57.9 H, VBG pO2 30.4, VBG HCO3 29.1, VBG Total CO2 30.9 H, VBG O2 Saturation 55.8, VBG Base Excess 3.0 H, VBG Lactic Acid 1.7 01/13/25 05:50 01/13/25 05:50 Orders (Tests/Meds): ED MEDICATIONS Generic Name Dose Route Start Last Admin Trade Name Freq PRN Reason Stop Dose Admin Acetaminophen 650 mg 01/13/25 08:20 01/13/25 21:17 Acetaminophen 325mg Tab PO 02/12/25 08:19 650 mg Q4HP PRN Administration Fever or Mild Pain (1-3) Hydrocodone Bitart/Acetaminophen 1 tab 01/13/25 08:20 Hydrocodone/Apap 5/325 Mg Tablet PO 02/12/25 08:19 Q4HP PRN Mild to Moderate Pain (1-6) Albuterol/Ipratropium 3 ml 01/13/25 10:25 Ipratropium/Albuterol 3 Ml Neb IH 02/12/25 10:24 Q6HP PRN Shortness Of Breath Aspirin 81 mg 01/14/25 09:00 Aspirin Ec 81mg Tablet PO 02/13/25 08:59 DAILY MAY Atorvastatin Calcium 40 mg 01/13/25 21:00 01/13/25 20:12 Atorvastatin 40mg Tablet PO 02/12/25 20:59 40 mg HS MAY Administration Empagliflozin 10 mg 01/14/25 09:00 Empagliflozin 10mg Tablet PO 02/13/25 08:59 DAILY MAY Furosemide 40 mg 01/14/25 09:00 Furosemide 40 Mg Tablet PO 02/13/25 08:59 DAILY MAY Sodium Chloride 1,000 mls @ 25 mls/hr 01/13/25 12:30 01/13/25 16:34 Sod Chloride 0.9% 500ml Bag IV 01/14/25 12:26 Infused .Q25H MAY Infusion Ceftriaxone Sodium 2 gm/ 100 mls @ 200 mls/hr 01/13/25 15:00 01/13/25 16:33 Sodium Chloride IV 01/23/25 14:59 Infused Q24H MAY Infusion Insulin Human Lispro 0 unit 01/13/25 11:00 01/13/25 21:08 Humalog 100 Units/Ml 10ml Vial (Ssi) SUBCUT 02/12/25 10:59 12 unit ACHS MAY Administration Protocol Irbesartan 75 mg 01/13/25 14:30 01/13/25 15:02 Irbesartan 75mg Tablet PO 02/12/25 14:29 75 mg DAILY MAY Administration Metoprolol Succinate 25 mg 01/13/25 17:00 01/13/25 17:31 Metoprolol Succinate Xl 25mg Tablet PO 02/12/25 16:59 25 mg DAILY MAY Administration Miscellaneous 1 each 01/13/25 14:00 Consider Pt For Dual Antiplatelet Therapy At Discharge-Stent NOTAPPLIC 02/12/25 13:59 NEEDED PRN Reminder for s/p stent Nicotine 21 mg 01/13/25 08:20 01/13/25 21:07 Nicotine 21mg/24hr Patch TD 02/12/25 08:19 21 mg DAILYP PRN Administration Nicotine Cravings Non-Formulary Medication 120 unit 01/14/25 09:00 Insulin Glargine U-300 Conc [Toujeo Max U-300 Solostar] SUBCUT 02/13/25 08:59 DAILY [facility] Ondansetron HCl 4 mg 01/13/25 08:20 Ondansetron 4mg/2ml Vial IV 02/12/25 08:19 Q8HP PRN Nausea Prasugrel 10 mg 01/14/25 09:00 Prasugrel 10mg Tab PO 02/13/25 08:59 DAILY [facility] Sodium Chloride 10 ml 01/13/25 12:26 Sodium Chloride 0.9% 10ml Flush Syringe IV 02/12/25 12:25 NEEDED PRN Maintain IV Site Spironolactone 25 mg 01/14/25 09:00 Spironolactone 25mg Tablet PO 02/13/25 08:59 DAILY [facility] Discontinued Medications Generic Name Dose Route Start Last Admin Trade Name Freq PRN Reason Stop Dose Admin Albuterol/Ipratropium 6 ml 01/13/25 05:43 01/13/25 06:06 Ipratropium/Albuterol 3 Ml Neb IH 01/13/25 05:44 6 ml ONCE ONE Administration Aspirin 324 mg 01/13/25 06:43 01/13/25 06:53 Aspirin 81mg Chewable Tablet PO 01/13/25 06:44 324 mg ONCE ONE Administration Atorvastatin Calcium 10 mg 01/14/25 09:00 Atorvastatin 10mg Tablet PO 02/13/25 08:59 DAILY MAY Fentanyl Citrate 50 mcg 01/13/25 09:37 01/13/25 12:25 Fentanyl 100mcg/2ml Vial IV 01/13/25 21:38 125 mcg Q3MINP PRN Administration Sedation Fentanyl Citrate 25 mcg 01/13/25 09:37 Fentanyl 100mcg/2ml Vial IV 01/13/25 21:38 Q3MINP PRN Sedation Fentanyl Citrate 50 mcg 01/13/25 12:26 Fentanyl 100mcg/2ml Vial IV 01/14/25 00:26 Q3MINP PRN Sedation Fentanyl Citrate 25 mcg 01/13/25 12:26 Fentanyl 100mcg/2ml Vial IV 01/14/25 00:26 Q3MINP PRN Sedation Flumazenil 0.2 mg 01/13/25 09:37 Flumazenil 0.1mg/Ml 5ml Vial IV 01/13/25 21:38 NEEDED PRN Sedation Flumazenil 0.2 mg 01/13/25 12:26 Flumazenil 0.1mg/Ml 5ml Vial IV 01/14/25 00:26 NEEDED PRN Sedation Furosemide 40 mg 01/13/25 10:24 01/13/25 14:22 Furosemide 40mg/4ml Vial IV 01/13/25 10:25 40 mg ONCE ONE Administration Furosemide 40 mg 01/13/25 19:33 01/13/25 20:11 Furosemide 40mg/4ml Vial IV 01/13/25 19:34 40 mg ONCE STA Administration Heparin Sodium (Porcine) 5,000 unit 01/13/25 12:26 01/13/25 12:32 Heparin 1,000 Units/Ml 10ml Vial (Information Security Architect) IV 01/13/25 16:26 10,800 unit NEEDED PRN Administration Emergency Box Employment Case Manager Heparin Sodium/Sodium Chloride 3,000 unit 01/13/25 12:26 01/13/25 12:27 Heparin 1,000 Units/500ml Ns (Information Security Architect) IV 01/13/25 12:27 3,000 unit ONCE ONE Administration Hydralazine HCl 20 mg 01/13/25 12:26 Hydralazine 20mg/Ml Vial IV 01/13/25 16:26 ONCE PRN sbp>160 Magnesium Sulfate 2 gm in 50 mls @ 150 mls/hr 01/13/25 05:43 01/13/25 06:30 Magnesium Sulfate 2gm/50ml Premix IV 01/13/25 06:02 Infused ONCE ONE Infusion Piperacillin Sod/Tazobactam 100 mls @ 200 mls/hr 01/13/25 06:09 01/13/25 07:33 Sod 4.5 gm/ Sodium Chloride IV 01/13/25 06:38 Infused ONCE ONE Infusion Vancomycin HCl 2,000 mg/ 500 mls @ 250 mls/hr 01/13/25 07:00 01/13/25 07:56 Sodium Chloride IV 01/13/25 08:59 Not Given ONCE ONE Vancomycin HCl 2,000 mg/ 250 mls @ 125 mls/hr 01/13/25 07:40 01/13/25 09:47 Sodium Chloride IV 01/13/25 08:59 Infused ONCE ONE Infusion Adenosine 180 mg/ Sodium 90 mls @ 583.875 mls/hr 01/13/25 12:26 Chloride IV 01/13/25 16:26 ONCE PRN fractional flow reserve 180 MCG/KG/MIN Adenosine 90 mg/ Sodium 90 mls @ 1,167.75 mls/hr 01/13/25 12:26 Chloride IV 01/13/25 16:26 ONCE PRN fractional flow reserve 180 MCG/KG/MIN Iopamidol 85 ml 01/13/25 07:13 01/13/25 07:17 Iopamidol-370 (76%);100ml Bottle IV 01/13/25 07:14 85 ml ONCE ONE Administration Labetalol HCl 20 mg 01/13/25 12:26 Labetalol 20mg/4ml Syringe IV 01/13/25 16:26 ONCE PRN sbp>160 Lidocaine HCl 10 ml 01/13/25 12:26 01/13/25 14:23 Lidocaine 1% 10ml Mdv IJ 01/13/25 12:27 Not Given ONCE ONE Lidocaine HCl 10 ml 01/13/25 12:26 01/13/25 14:23 Lidocaine 1% 5ml Pf Vial IJ 01/13/25 12:27 Not Given ONCE ONE Midazolam HCl 1 mg 01/13/25 09:37 Midazolam 2mg/2ml Vial IV 01/13/25 21:38 Q3MINP PRN Sedation Midazolam HCl 1 mg 01/13/25 09:37 01/13/25 12:25 Midazolam Hcl 1mg/Ml 5ml Vial IV 01/13/25 21:38 7 mg Q3MINP PRN Administration Sedation Midazolam HCl 1 mg 01/13/25 12:26 Midazolam 2mg/2ml Vial IV 01/14/25 00:26 Q3MINP PRN Sedation Midazolam HCl 1 mg 01/13/25 12:26 Midazolam Hcl 1mg/Ml 5ml Vial IV 01/14/25 00:26 Q3MINP PRN Sedation Miscellaneous 1 each 01/13/25 06:15 01/13/25 06:56 Vancomycin Consult Request NOTAPPLIC 02/12/25 06:14 1 each CONSULT PHARMACY MAY Administration Naloxone HCl 0.4 mg 01/13/25 09:37 Naloxone 0.4mg/Ml Vial IV 01/13/25 21:38 Q5MINP PRN Decreased Respirations Naloxone HCl 0.4 mg 01/13/25 12:26 Naloxone 0.4mg/Ml Vial IV 01/14/25 00:26 Q5MINP PRN Decreased Respirations Nitroglycerin 800 mcg 01/13/25 12:26 01/13/25 12:27 Nitroglycerin 800mcg/8ml Syr (Information Security Architect) IA 01/13/25 16:26 800 mcg NEEDED PRN Administration Emergency Box Employment Case Manager Non-Formulary Medication 180 unit 01/14/25 09:00 Insulin Glargine U-300 Conc [Toujeo Max U-300 Solostar] SUBCUT 02/13/25 08:59 DAILY MAY Ondansetron HCl 4 mg 01/13/25 09:37 Ondansetron 4mg/2ml Vial IV 01/13/25 21:38 NEEDED PRN Nausea Ondansetron HCl 4 mg 01/13/25 12:26 Ondansetron 4mg/2ml Vial IV 01/14/25 00:26 NEEDED PRN Nausea Pantoprazole Sodium 40 mg 01/13/25 10:24 01/13/25 11:05 Pantoprazole 40mg Tablet PO 01/13/25 10:25 40 mg ONCE ONE Administration Perflutren Lipid Microsphere 2 mg 01/13/25 08:33 01/13/25 08:34 Definity Us Echo Contrast 2ml Inj IV 01/13/25 08:34 2 mg ONCE ONE Administration Prasugrel 60 mg 01/13/25 14:02 01/13/25 14:03 Prasugrel 10mg Tab PO 01/13/25 14:03 60 mg ONCE ONE Administration Promethazine HCl 25 mg 01/13/25 09:37 Promethazine Hcl 25mg/Ml 1ml Vial IV 01/13/25 21:38 NEEDED PRN Nausea And Vomiting Promethazine HCl 25 mg 01/13/25 12:26 Promethazine Hcl 25mg/Ml 1ml Vial IV 01/14/25 00:26 NEEDED PRN Nausea And Vomiting Protamine Sulfate 50 mg 01/13/25 12:26 Protamine Sulfate 50mg/5ml Vial (Information Security Architect) IV 01/13/25 16:26 ONCE PRN act>200 Sodium Chloride 50 ml 01/13/25 07:13 01/13/25 07:17 0.9 % Sodium Chloride 50 Ml Vial IV 01/13/25 07:14 50 ml ONCE ONE Administration Sodium Chloride 10 ml 01/13/25 07:13 01/13/25 07:17 Sodium Chloride 0.9% 10ml Syr (Rad Only) IV 01/13/25 07:14 10 ml ONCE ONE Administration Verapamil HCl 2.5 mg 01/13/25 12:26 01/13/25 12:32 Verapamil 2.5mg/Ml 2ml Vial IV 01/13/25 12:27 2.5 mg ONCE ONE Administration ORDERS Category Date Time Status CT angio chest PE protocol Stat Cat Scan 01/13/25 06:48 Completed Cardiology Consult [Consult to Cardiology] [CONS] Cons 01/13/25 07:48 Active Routine CA echo definity Routine Exams 01/13/25 07:49 Completed CXR --portable [XR chest portable] Stat Exams 01/13/25 05:43 Completed Acetone, Serum (Rapid) Stat Lab 01/13/25 05:50 Completed BNP [NT Pro Brain Natriuretic Pep.] Stat Lab 01/13/25 05:50 Completed CBC w/Auto Diff [Complete Blood Count Auto Diff] Stat Lab 01/13/25 05:50 Completed CMP [Comprehensive Metabolic Panel] Stat Lab 01/13/25 05:50 Completed HCV RNA PCR, Quant Stat Lab 01/13/25 05:50 Received HIV Combo Stat Lab 01/13/25 05:50 Completed Hepatitis C Ab Qual. W/ RFX Stat Lab 01/13/25 05:50 Completed Troponin I Q3H Lab 01/13/25 05:50 Completed Troponin I Q3H Lab 01/13/25 09:00 Completed Blood Culture Stat Micro 01/13/25 07:02 Ordered VBG [Venous Blood Gas] Stat RT 01/13/25 05:58 Completed ECG Data Tracing #1: I reviewed this ECG and interpreted as documented below: Sinus rhythm, ventricular rate of 86, T wave inversions in V5 and V6. ECG initial impression date: 01/13/25 ECG initial impression time: 05:46 Tissue Perfus/Sepsis Re-Eval Sepsis Re-Evaluation Performed: Yes Date Performed: 01/13/25 Time Performed: 06:33 HEART Score History (anamnesis): Slightly suspicious ECG: Non-specific disturbance Age: 45-65 years Risk factors: Atherosclerosis history Troponin: > 3x normal limit HEART Score: 6 Medical Decision Narrative: 59-year-old male with history of poorly controlled diabetes, coronary artery disease, heart failure, hypertension presents for shortness of breath for few days, has cellulitis on his abdomen. History was obtained via interactive discussion with patient, EMS, chart review. On arrival, patient is [afebrile, hemodynamically stable, satting appropriately, alert, oriented x4, GCS 15], moving all extremities spontaneously. Full physical exam performed and significant for poor air movement bilaterally with faint wheezing in the right lung. Minimal bilateral lower extremity edema. Erythema and induration in the right abdomen consistent with cellulitis. Differential includes but is not limited to viral/bacterial pneumonia, heart failure, COPD, abscess, cellulitis, DKA. Patient was given DuoNeb x 2, IV mag for his respiratory distress. He was initiated on vancomycin and Zosyn for broad-spectrum antibiotic coverage given concern for cellulitis and possible pneumonia. Workup initiated including CBC CMP troponin BNP blood cultures chest x-ray EKG. I considered administering IV fluids given concern for infection, but I am also concerned for heart failure at this time. On re-evaluation, patient [remains afebrile, HD stable.] Laboratory workup independently interpreted by me and significant for markedly elevated troponin, elevated BNP, no significant leukocytosis, stable renal function. Imaging independently interpreted by me and significant for findings concerning for right-sided pneumonia on chest x-ray. No evidence of obvious PE on CT, patient does have a right-sided effusion.. See radiology read for full review of final results. Given patient history, exam and workup, patient's presentation most likely represents NSTEMI, pneumonia, cellulitis. Interactive discussion was had with the hospitalist on-call for admission. Procedures Risk/Benefits of Procedure(s) Were Explained: Yes Critical Care Critical Care Time Critical Care Time: Yes Attestation: On 01/13/25, the high probability of a clinically significant, sudden or life threatening deterioration of the following system(s) required my full and direct attention, intervention and personal management. The time I documented below is in addition to time spent performing reported procedures but includes the following listed in this critical care notation. Total Time Total Critical Care Time: 40
[2025-01-13 06:19] LABS: Alanine Aminotransferase 26 U/L (12-78); Albumin Level 3.9 g/dl (3.5-5.0); Albumin/Globulin Ratio 1.1 (1.1-1.8); Alkaline Phosphatase 97 U/L (38-126); Anion Gap 11.5 mEq/L (5-15); Aspartate Amino Transferase 26 U/L (17-59); Bilirubin,Total 0.7 mg/dl (0.2-1.3); Blood Urea Nitrogen 12 mg/dl (9-20); Calcium 9.1 mg/dl (8.4-10.2); Carbon Dioxide 30 mmol/L (22.0-30.0); Chloride 99 mmol/L (98-107); Creatinine Clearance Estimated 105 mL/min (50-200); Creatinine,Serum 0.80 mg/dl (0.66-1.25); Estimated Glomerular Filt Rate 99 ml/min (>60); GFR (African American) 119 ML/MIN (>60); Globulin 3.4 g/dL (1.3-3.2); Glucose 254 mg/dl (74-100); Potassium 4.5 mmoL/L (3.5-5.1); Sodium 136 mmol/L (136-145); Total Protein,Serum 7.3 g/dl (6.3-8.2)
[2025-01-13 06:22] LABS: Lactate Venous 1.7 mmol/L (0.4-2.0); VBG HCO3 29.1 mmol/L (23-30); VBG PCO2 57.9 mmol/L (35-51); VBG PH 7.32 mmol/L (7.31-7.41); VBG PO2 30.4 mmol/L (28-40)
[2025-01-13 06:27] LABS: Acetone, Serum (Rapid) None Detected (None Detect)
[2025-01-13 06:31] LABS: NT Pro Brain Natriuretic Pep. 4630 pg/mL (0-125)
[2025-01-13] MEDS: PIPERACILLIN/TAZO 4.5 GM in 0.9 % SODIUM CHLORIDE 100 ML IV (06:34)
[2025-01-13 06:38] LABS: Troponin I 0.42 ng/ml (0.00-0.034)
--- NOTE | 2025-01-13 06:38 | PC.NURSE ---
CRITICAL CALLED FROM MD ZACH NOTIFIED
--- NOTE | 2025-01-13 06:48 | CT_ITS ---
FINAL REPORT TECHNIQUE: Postcontrast axial images of the chest were performed in a CTA protocol. This study was performed with techniques to keep radiation doses as low as reasonably achievable, (ALARA). Individualized dose reduction technique using automated exposure control or adjustment of mA and/or kV according to the patient's size were employed. CLINICAL HISTORY: cp, soa, elevated trop COMPARISON: 06/19/2024 FINDINGS: The heart is mildly enlarged. There is no axillary lymphadenopathy. There are multiple small mediastinal lymph nodes which are abnormal in number rather than size which are similar to prior exam. There is new, right hilar lymphadenopathy. There are new, small bilateral pleural effusions, right greater than left. There is no pericardial effusion. The thoracic aorta is normal in caliber with no focal aneurysm or dissection identified. There is no filling defect to suggest pulmonary embolism. There is new, bilateral interlobular septal thickening, worst at the lung bases. There are subtle, bilateral lower lobe predominant ground glass opacities favored to represent pulmonary edema. The images of the upper abdomen are unremarkable. IMPRESSION: No evidence for PE on this exam. New bilateral pleural effusions, cardiomegaly and findings suggestive of pulmonary edema. Reviewed, Interpreted and Dictated by Maryjane Todd MD Transcribed by Laure Johnson Authenticated and [facility]
[2025-01-13] MEDS: ASPIRIN 81MG CHEWABLE TABLET 324 MG PO (06:53)
[2025-01-13] MEDS: VANCOMYCIN CONSULT REQUEST 1 EACH NOTAPPLIC (06:56)
[2025-01-13] MEDS: IOPAMIDOL-370 (76%);100ML BOTTLE 85 ML IV (07:17)
[2025-01-13] MEDS: SODIUM CHLORIDE 0.9% 10ML SYR (RAD ONLY) 10 ML IV (07:17)
[2025-01-13] MEDS: 0.9 % SODIUM CHLORIDE 50 ML VIAL IV (07:17)
[2025-01-13 07:20] LABS: Hepatitis C Ab Qual. W/ RFX REACTIVE (Negative)
--- NOTE | 2025-01-13 07:25 | ECG_ITS ---
APPROVED REPORT Exam: Resting ECG HR:91 bpm ECG Measurements Heart Rate 91 AXES NM 196 P 69 QRSd 109 QRS -7 QT 373 T 81 QTc 422 Conclusion Sinus rhythm Borderline left axis Normal intervals No STEMI Likely old anteroseptal infarction Electronically signed by : Erik Salinas, 01/13/2025 15:50:23
[2025-01-13] MEDS: VANCOMYCIN HCL 2,000 MG in 0.9 % SODIUM CHLORIDE 250 ML 125 MG IV (07:45)
--- NOTE | 2025-01-13 07:48 | PC.NURSE ---
pet house sitter notified of admission
--- NOTE | 2025-01-13 07:49 | CA_ITS ---
APPROVED REPORT EXAM: Comprehensive 2D, Doppler, and color-flow Echocardiogram Manager Child: Mary Palencia RVT Ht: 5 ft 11 in Wt: 240lbs BSA: 2.28 BP: 153/90 mmHg Indications: SHORTNESS OF BREATH,NSTEMI Echo Enhancing Agent Indication: Endocardial border delineation Agent(s) / Amount(s) Used: Definity 2 cc 2D Dimensions IVSd 1.72 cm M: 0.6-1.2 LVEF (Visual) 27.10 % PWd 1.00 cm M: 0.6 - 1.2 LA Volume 66.20 mL LVDd 5.93 cm M: 4.2 - 5.9 LA Volume Index 29.04 mL/m2 (M/F) 16-34 LVDs 5.17 cm M: 2.5 - 4.0 M-Mode Dimensions LA Diam 4.47 cm (1.9-4.0) TAPSE 2.42 (<1.7) LV Diastology E Decel Time 170 (160-240 msec) E/A Ratio 1.0 Aortic Valve ENEDELIA Index 1.97 cm2/m2 AoV Peak Shravan. 98.0 (50-130 cm/s) AO Peak GR. 3.80 mmHg AO Mean GR. 2.10 (<5 mmHg) AO VTI 17.1 (18-25 cm) ENEDELIA (VTI) 4.58 (2.5-4.5 cm2) Mitral Valve MV E Max Shravan. 81.0 (40-130 cm/s) MV A Velocity 84.0 (40-130 cm/s) E/A Ratio 0.96 MV PHT 50.0 ms Pulmonary Valve PV Peak Velocity 95.0 (50-150 cm/s) Left Ventricle The left ventricle is normal size. Left ventricular systolic function is mildly to moderately reduced. There is increased left ventricular wall thickness. There is severe hypokinesis of the mid to distal inferior and inferoseptal LV smith. Grade 1 diastolic dysfunction is present. No left ventricle thrombus noted on this study. LVEF is 40%. Right Ventricle The right ventricle is normal size. The right ventricular systolic function is normal. Atria The left atrium size is normal. The right atrium size is normal. There is no color Doppler evidence of interatrial shunt. Aortic Valve The aortic valve is mildly thickened. There is no hemodynamically significant aortic valvular stenosis. No aortic regurgitation is present. Mitral Valve The mitral valve is normal in structure. No evidence of mitral valve stenosis. Mild mitral regurgitation is present. Tricuspid Valve The tricuspid valve leaflets are thin and pliable. Trace tricuspid regurgitation. There is insufficient TR jet to estimate RVSP. Pulmonic Valve The pulmonary valve is grossly normal in structure. Trace pulmonic valve regurgitation is present. Great Vessels The aortic root is normal in size. The ascending aorta is mildly dilated, measuring 3.8 cm in diameter. IVC is normal in size and collapses >50% with inspiration. Pericardium There is no pericardial effusion. Other Information Study Quality: Fair Conclusion Mild to moderate reduction in LV systolic function (LVEF 40%). Severe hypokinesis of the mid to distal inferior and inferoseptal LV smith. Mild MR. The ascending aorta is mildly dilated, measuring 3.8 cm in diameter. Electronically signed by : Adriana Wallis MD 01/13/2025 12:34:21
[2025-01-13] MEDS: DEFINITY US ECHO CONTRAST 2ML INJ 2 MG IV (08:34)
--- NOTE | 2025-01-13 08:58 | EXP.HP ---
History of Present Illness *Admission Date: 01/13/25 *Reason for visit:: shortness of breath/ chest pressure *History of present illness: Mr. Ohara is a 59-year-old male who presented to the emergency department this morning with shortness of breath and chest pressure for 3 days. He has a primary medical history of insulin-dependent diabetes, hyperlipidemia, CAD, COPD, DDD, tobacco use disorder, former IV drug use, and CHF. He states that he has been feeling more short of breath in the last week or so, worsening in the last few days. He states that he has been using his mother's O2 for supplemental oxygen. He denies fever, chills, abdominal pain, cough, congestion, nausea, vomiting, diarrhea. Workup in the emergency department was significant for NSTEMI, elevated troponin 0.42. Chest x-ray showed no acute findings, chest CTA showed bilateral pleural effusion and pulmonary edema. Echocardiogram shows LVEF of 40% and severe hypokinesis of the mid to distal inferior and inferior septal LV smith. Patient states he has had a previous heart attack in approximately 2017, states he did not receive any intervention at that time. [facility] Disclaimer: The information contained in this section may have been updated after the patient was seen, as this information can be updated by other users. Medical History BPH (benign prostatic hyperplasia) Diabetes mellitus, type 2 COPD (chronic obstructive pulmonary disease) Patient is still smoking. I think pulmonary function test would be in order in this patient. Will discuss this when he returns. History of heart attack Hypertension Neuropathy Diabetes Tobacco use Hx of myocardial infarction Surgical History History of cholecystectomy Family History Other Unknown family medical history Social History Smoking Status: Current every day smoker tobacco type: cigarettes packs per day: 2 second hand exposure: Yes alcohol intake: never substance use type: methamphetamine current occupational status: unemployed Travel in the last 8 weeks?: None household members: family housing: house number of children: 1 caffeine: Yes Have you lived/traveled outside [place] in past 30 days?: No Contact w/someone who lives/traveled outside US past 30 days?: No Exposure to someone with infectious disease in past 14 days?: No Do you have a fever (greater than 100.4 F or 38 C)?: No Have you tested positive for COVID-19?: No Exposed to someone with COVID-19 in past 14 days?: No Do you have a sore throat?: No Do you have a cough?: No Do you have any weakness?: No Do you have any diarrhea?: No Are you experiencing any unusual bleeding?: No Do you have any muscle aches/pain?: No Do you have any abdominal pain?: No Are you experiencing loss of taste or smell?: No Other Medical History Have you received the Flu Vaccine for this season: No Have you received the Pneumonia Vaccine: No Review of Systems Constitutional Constitutional: Denies chills and Denies fever(s) ENT Ears, Nose, Mouth, and Throat: Denies dizziness *Cardiovascular Cardiovascular: Reports chest pain, Reports dyspnea and Denies leg edema *Respiratory Respiratory: Denies cough and Reports dyspnea *Gastrointestinal Gastrointestinal: Denies abdominal pain, Reports dyspepsia, Denies loose stools and Denies vomiting *Genitourinary Genitourinary: Denies difficulty urinating and Denies dysuria *Musculoskeletal Musculoskeletal: Denies myalgias *Neurologic Neurologic: Denies confusion and Denies dizziness Psychiatric Psychiatric: Denies confusion Meds Home Medications and Allergies Home Medications ?Medication ?Instructions ?Recorded ?Confirmed ?Type blood-glucose meter (OneTouch #1 ea 01/01/24 01/13/25 Rx Ultra2 Meter) blood-glucose meter (OneTouch #1 ea 01/01/24 01/13/25 Rx Ultra2 Meter) insulin glargine U-300 conc 300 180 unit (0.6 mL) SQ DAILY 30 days 10/14/24 01/13/25 Rx unit/mL (3 mL) subcutaneous pen #18 mL (Toujeo Max U-300 SoloStar) pen needle, diabetic 31 gauge x #100 ea 10/31/24 01/13/25 Rx 3/16 atorvastatin 10 mg tablet (Lipitor) 10 mg PO DAILY #90 tabs 01/07/25 01/13/25 Rx blood sugar diagnostic (FreeStyle #100 ea 01/07/25 01/13/25 Rx Lite Strips) sildenafil 25 mg tablet (Viagra) 25 - 100 mg PO DAILYP PRN Edema 01/13/25 01/13/25 History New Prescriptions to Start Prescriptions: Allergies Allergy/AdvReac Type Severity Reaction Status Date / Time acetaminophen (From Allergy Intermediate Verified 12/11/24 09:24 Tylenol-Codeine #3) codeine (From Allergy Intermediate Verified 12/11/24 09:24 Tylenol-Codeine #3) morphine (MORPHINE) Allergy Unknown I-HIVES Verified 12/11/24 09:24 metformin AdvReac Diarrhea Verified 12/11/24 09:30 Exam Data for Last 24 hours Vital signs and Labs for Last 24 Hours: Temp Pulse Resp BP Pulse Ox O2 Del Method 98.0 F 90 16 140/77 95 Room Air 01/13/25 08:35 01/13/25 08:35 01/13/25 08:35 01/13/25 08:35 01/13/25 06:30 01/13/25 08:35 Laboratory Results - last 24 hr 01/13/25 05:50: WBC 8.7, RBC 5.03, Hgb 14.1, Hct 44.3, MCV 88.1, MCH 28.0, MCHC 31.8, RDW 13.2, Plt Count 222, MPV 12.2 H, Neut % (Auto) 61.7, Lymph % (Auto) 28.5, [place] % (Auto) 7.0, Eos % (Auto) 1.8, Baso % (Auto) 0.7, Neut # (Auto) 5.4, Lymph # (Auto) 2.5, [place] # (Auto) 0.6, Eos # (Auto) 0.2, Baso # (Auto) 0.1, Sodium 136, Potassium 4.5, Chloride 99, Carbon Dioxide 30, Anion Gap 11.5, BUN 12, Creatinine 0.80, Estimated Creat Clear 105, Estimated GFR 99, Est GFR ( Amer) 119, Glucose 254 H, Calcium 9.1, Total Bilirubin 0.7, AST 26, ALT 26, Alkaline Phosphatase 97, Troponin I 0.42 H, NT-Pro-B Natriuret Pep 4630 H, Total Protein 7.3, Albumin 3.9, Globulin 3.4 H, Albumin/Globulin Ratio 1.1, Acetone Level None detected, HCV Ab REAGAN w/Rflx PCR Qn Reactive, HIV Ag/Ab Combo Qual Negative 01/13/25 05:58: VBG pH 7.32, VBG pCO2 57.9 H, VBG pO2 30.4, VBG HCO3 29.1, VBG Total CO2 30.9 H, VBG O2 Saturation 55.8, VBG Base Excess 3.0 H, VBG Lactic Acid 1.7 I & O for Last 24 hours: Intake & Output 01/10/25 01/11/25 01/12/25 01/13/25 23:59 23:59 23:59 23:59 Intake Total 150 / 150 Balance 150 / 150 Weight 108.862 kg Constitutional Constitutional: mild distress, obese, chronically ill appearing and cooperative *Routine HEENT Exam Head: Present normocephalic Eye: Present EOMI and PERRL ENT: Present mucous membranes moist *Routine Neck Exam Neck: Present supple; Absent lymphadenopathy *Routine Respiratory Exam Respiratory: Present CTA bilaterally, normal respiratory effort and able to speak in complete sentences; Absent wheezes or crackles *Routine Cardiovascular Exam Cardiovascular: Present RRR, Normal S1 and Normal S2; Absent murmur *Routine Abdominal Exam Abdominal: Present soft and normoactive bowel sounds; Absent tenderness *Routine Rectal Exam Rectal:: deferred *Routine Genitalia Exam Genitalia:: deferred *Routine Extremities Exam Extremities: Present pulses intact and normal capillary refill; Absent cyanosis, clubbing or edema *Routine Skin Exam Skin: Present erythema, dry and warm *Routine Neurological Exam Neurological: Present alert and oriented X3 Routine Psychiatric Exam Psychiatric: Absent normal affect Assessment and Plan *Assessment and plan (1) Acute non-ST elevation myocardial infarction (NSTEMI): Status: Acute Category: Medical Code(s): I21.4 - Non-ST elevation (NSTEMI) myocardial infarction (2) Heart failure with reduced ejection fraction (HFrEF, <= 40%): Status: Acute Category: Medical Code(s): I50.20 - Unspecified systolic (congestive) heart failure (3) COPD (chronic obstructive pulmonary disease): Problem Comment: Patient is still smoking. I think pulmonary function test would be in order in this patient. Will discuss this when he returns. Status: Acute Qualifiers: COPD type: unspecified COPD Qualified Code(s): J44.9 - Chronic obstructive pulmonary disease, unspecified Category: Medical Code(s): J44.9 - Chronic obstructive pulmonary disease, unspecified (4) Tobacco use: Problem Comment: Discussed with the patient his need to quit. He states he realizes he needs to quit but is not ready to do it at this time. Status: Acute Category: Social Hx Code(s): Z72.0 - Tobacco use (5) IDDM (insulin dependent diabetes mellitus): Status: Acute Category: Medical Code(s): E11.9 - Type 2 diabetes mellitus without complications; Z79.4 - senior living (current) use of insulin (6) CAD (coronary artery disease): Status: Acute Qualifiers: Associated angina: with unstable angina Coronary Disease-Associated Artery/Lesion type: [place] artery [place] vs. transplanted heart: [place] heart Qualified Code(s): I25.110 - Atherosclerotic heart disease of [place] coronary artery with unstable angina pectoris Category: Medical Code(s): I25.10 - Atherosclerotic heart disease of [place] coronary artery without angina pectoris (7) Cellulitis: Status: Acute Qualifiers: Site of cellulitis: trunk Site of cellulitis of trunk: abdominal wall Qualified Code(s): L03.311 - Cellulitis of abdominal wall Category: Medical Code(s): L03.90 - Cellulitis, unspecified Plan Mr. Ohara is a 59-year-old male who presented to the emergency department this morning with shortness of breath and chest pressure for 3 days. He has a primary medical history of insulin-dependent diabetes, hyperlipidemia, CAD, COPD, DDD, tobacco use disorder, former IV drug use, and CHF. He states that he has been feeling more short of breath in the last week or so, worsening in the last few days. He states that he has been using his mother's O2 for supplemental oxygen. He denies fever, chills, abdominal pain, cough, congestion, nausea, vomiting, diarrhea. Workup in the emergency department was significant for NSTEMI, elevated troponin 0.42. Chest x-ray showed no acute findings, chest CTA showed bilateral pleural effusion and pulmonary edema. Echocardiogram shows LVEF of 40% and severe hypokinesis of the mid to distal inferior and inferior septal LV smith. Patient states he has had a previous heart attack in approximately 2017, states he did not receive any intervention at that time. Patient does endorse a history of drug use and IV drug use, states he has not used in a long time. He is currently a smoker, cigarettes occasionally but vapes daily. Denies alcohol use. Cardiology consulted for further cardiac recommendations. I agreed to admit the patient, plan of care as follows: #NSTEMI #Reduced EF #Elevated BNP ?Patient troponin elevated on admission 0.42, trending downward to 0.39. Patient agreeable to [facility] today. Patient currently takes atorvastatin 10 mg daily. Does not take any other cardiac medication. He was given 324 mg aspirin in the ED. ?Patient echo shows LVEF of 40%, severe hypokinesis of the mid to distal inferior and inferior septal LV smith. Patient BNP 4630. Chest CTA shows bilateral pleural effusions, patient given 1 dose Lasix 40 mg IV. Patient does not appear hypervolemic, no extremity edema, lungs CTA. ?CBC, CMP, magnesium, lipid panel ordered for the a.m. ?Cardiology following, pending recommendations following [facility] today. Left heart cath results, patient received 5 EMERSON to RCA, PDA, and LAD. GDMT therapy recommended. Ibersartan, metoprolol, and Lasix/spironolactone. Jardiance recommended for CAD/DM benefit. Patient also be started on Effient and aspirin daily. Continue statin therapy. #COPD #Tobacco use disorder ? Discussed smoking cessation with patient, nicotine patches ordered as needed. DuoNeb ordered every 6 hours as needed. Lungs CTA. Shortness of breath likely cardiac origin/NSTEMI. Continuous pulse ox ordered. Patient on room air, O2 saturation 97%. ?Patient was given IV antibiotics in the ED, vancomycin and Zosyn for possible pneumonia. Will not continue antibiotics at this time, no leukocytosis, lungs CTA, no pneumonia on imaging. #Cellulitis ? Patient has area of erythema likely soft tissue cellulitis of his right lower quadrant abdomen. Nondraining. Patient received vancomycin in the ED, will start ceftriaxone 2 g daily. #History of IV drug use: Patient does have a known history of IV drug use, specifically methamphetamines. Patient denies recent drug use. #CAD: Continue atorvastatin 10 mg daily. #Insulin-dependent diabetes: Patient currently takes insulin glargine U?300 subcu 180 units daily. Will resume at 120 units daily tomorrow. SSI, ACHS fingersticks. A1c 12/2024 was 10.9% Full code n.p.o., cardiac diet after procedure Ambulate as tolerated VTE?IPC's
--- NOTE | 2025-01-13 09:32 | PC.WOUNDNOTE ---
scabbing noted to RLQ, redness around each scab, open area at bottom
--- NOTE | 2025-01-13 09:54 | IR_ITS ---
APPROVED REPORT Patient Location: Inpatient PROCEDURES Left heart catheterization Left ventriculogram Selective coronary angiogram Drug-eluting stent deployment to the distal dominant right coronary Drug-eluting stent deployment to the proximal and mid posterior descending artery Drug-eluting stent deployment to the mid and distal LAD INDICATION Acute non-ST elevation myocardial infarction, Coronary artery disease Informed consent was obtained prior to the procedure. COMPLICATIONS NONE Estimated Blood Loss: LESS THAN 10 ML TECHNIQUE One percent lidocaine used to anesthetize the right anterior aspect of the wrist. The right radial artery was accessed via the Seldinger technique. A 6 [place] sheath was placed in the right radial artery. 2.5 mg of Verapamil, 800 mcg of nitroglycerin, 1mg Lidocaine and 5000 U Heparin were given through the arterial sheath. The JL3 catheter was also used to perform left heart catheterization, left ventriculogram and selective coronary angiogram. At the end the diagnostic angiogram an AL 0.75 guide catheter was placed in the right coronary artery followed by choice floppy wire into the posterior descending artery. A 2.5 x 15 mm Jason frontier stent was deployed at 24 tio reducing the stenosis to 0%. An additional 2.25 x 15 mm Jason frontier stent was placed distal to the for stent yet still overlapping and deployed at 18 tio. The balloon was brought back and deployed at 24 tio to match the 2 stents. A 3.5 x 18 mm Jason frontier stent was then placed into the distal dominant right coronary artery and deployed at 18 tio reducing the stenosis to 0%. The catheter was placed into the LAD where the same wire was placed distally into the LAD. A 2.5 x 38 mm Stigler frontier stent was deployed at 24 tio reducing the stenosis. An additional 2.5 x 15 mm Stigler frontier stent was placed distal to the for stent yet still overlapping and deployed at 20 tio. The balloon was pulled back and deployed at 28 tio to match the 2 stents. SHREYA-3 flow was present before and after the procedure and all 3 vessels. At the end of the procedure the apparatus was removed the sheath was removed and hemostasis was achieved using TR banding patient was transferred to the postop porting in stable condition ANGIOGRAPHIC RESULTS The left main artery Normal The left anterior descending artery Has proximal 20% stenoses with a mid vessel focal greater than 90% stenosis which involves a small diagonal artery The circumflex artery Nondominant and gives rise to a small first obtuse marginal artery. The vessel is normal The right coronary artery Large and dominant with proximal 30 to 40% stenosis in the mid vessel 10 to 20% stenosis and a distal 60% stenosis. The posterior descending artery has proximal 90 and mid vessel 80% stenosis The CARRION ventriculogram reveals Dilated ventricle anterior apical hypokinesis inferior apical hypokinesis estimate ejection fraction 25% The left ventricular end-diastolic pressure 40 mmHg IMPRESSION Critical two-vessel coronary disease as described above Successful stenting of the dominant distal right coronary severe disease reduced to 0% with 1 drug-eluting stent Successful stenting of a critically diseased posterior descending artery critical disease reduced to 0% with 2 contiguous drug-eluting stents Successful stenting of the mid to distal LAD critical disease reduced to 0% with 2 contiguous drug-eluting stents Left ventricular dysfunction with severely elevated LVEDP PLAN 1. Effient and aspirin 2. GDMT for systolic heart failure 3. Patient would benefit from additional diuresis 4. LDL less than 55 to be achieved with high intensity statin 5. Avoidance of tobacco products 6. Cardiac rehabilitation 7. If patient is a candidate I would recommend a LifeVest Electronically signed by : Rad Evans MD 01/13/2025 13:58:23
[2025-01-13 11:02] LABS: Troponin I 0.39 ng/ml (0.00-0.034)
[2025-01-13] MEDS: PANTOPRAZOLE 40MG TABLET 40 MG PO (11:05)
--- NOTE | 2025-01-13 11:10 | PC.NURSE ---
pt to have mom bring home insulin pen today to have verified by pharmacy
[2025-01-13] MEDS: humaLOG 100 UNITS/ML 10ML VIAL (SSI) SUBCUT ×3 (11:13→21:08)
[2025-01-13 11:32] LABS: POC Glucose,Bedside 243 gm/dL (70-110)
[2025-01-13] MEDS: MIDAZOLAM HCL 1MG/ML 5ML VIAL 1 MG IV (12:25)
[2025-01-13] MEDS: FENTANYL 100MCG/2ML VIAL 50 MCG IV (12:25)
[2025-01-13] MEDS: HEPARIN 1,000 UNITS/500ML NS (CATH LAB) 3000 UNIT IV (12:27)
[2025-01-13] MEDS: NITROGLYCERIN 800MCG/8ML SYR (CATH LAB) 800 MCG IA (12:27)
[2025-01-13] MEDS: 0.9 % SODIUM CHLORIDE 500 ML 25 ML IV (12:27)
[2025-01-13] MEDS: HEPARIN 1,000 UNITS/ML 10ML VIAL (CATH LAB) 5000 UNIT IV (12:32)
[2025-01-13] MEDS: VERAPAMIL 2.5MG/ML 2ML VIAL 2.5 MG IV (12:32)
--- NOTE | 2025-01-13 12:33 | EXP.CARD.CON ---
History of Present Illness History of Present Illness Consult date: 01/13/25 Requesting physician: Roland Phoenix Consult reason: chest pain Chief complaint: NSTEMI Additional Medical History:: 1. Diabetes mellitus type 2 2. CAD by cardiac cath, 2017, mild 3. Hypertension 4. Tobacco abuse 5. Hyperlipidemia 6. Remote history of IV drug use History of present illness: 59-year-old white male with multiple medical issues as noted above presented to the emergency department for 1 week history of increasing frequency of chest discomfort and shortness of breath. Patient came to the emergency department for evaluation today and was found to have elevated troponins consistent with non-STEMI. Chest CTA was negative for pulmonary embolus but did show evidence of mild CHF. BNP noted to be 4630. He was given aspirin and started on antibiotics for possible pneumonia and Lasix for CHF. At the time of my exam the patient denies any chest pain, pressure or tightness. We discussed the need for cardiac catheterization and he agrees to proceed. [facility] Disclaimer: The information contained in this section may have been updated after the patient was seen, as this information can be updated by other users. Medical History BPH (benign prostatic hyperplasia) Diabetes mellitus, type 2 COPD (chronic obstructive pulmonary disease) Patient is still smoking. I think pulmonary function test would be in order in this patient. Will discuss this when he returns. History of heart attack Hypertension Neuropathy Diabetes Tobacco use Hx of myocardial infarction Surgical History History of cholecystectomy Family History Other Unknown family medical history Social History Smoking Status: Current every day smoker tobacco type: cigarettes packs per day: 2 second hand exposure: Yes alcohol intake: never substance use type: methamphetamine current occupational status: unemployed Travel in the last 8 weeks?: None household members: family housing: house number of children: 1 caffeine: Yes Have you lived/traveled outside [place] in past 30 days?: No Contact w/someone who lives/traveled outside [place] past 30 days?: No Exposure to someone with infectious disease in past 14 days?: No Do you have a fever (greater than 100.4 F or 38 C)?: No Have you tested positive for COVID-19?: No Exposed to someone with COVID-19 in past 14 days?: No Do you have a sore throat?: No Do you have a cough?: No Do you have any weakness?: No Do you have any diarrhea?: No Are you experiencing any unusual bleeding?: No Do you have any muscle aches/pain?: No Do you have any abdominal pain?: No Are you experiencing loss of taste or smell?: No Review of Systems Review of Systems Review of systems:: pertinent systems reviewed and negative unless documented below *Cardiovascular Cardiovascular: Reports chest pain and Reports dyspnea on exertion *Respiratory Respiratory: Reports dyspnea on exertion Exam Data for Last 24 hours Vital signs and Labs for Last 24 Hours: Temp Pulse Resp BP Pulse Ox O2 Del Method 98.2 F 90 20 132/80 97 Room Air 01/13/25 08:57 01/13/25 10:27 01/13/25 08:57 01/13/25 08:57 01/13/25 08:57 01/13/25 11:00 Laboratory Results - last 24 hr 01/13/25 05:50: WBC 8.7, RBC 5.03, Hgb 14.1, Hct 44.3, MCV 88.1, MCH 28.0, MCHC 31.8, RDW 13.2, Plt Count 222, MPV 12.2 H, Neut % (Auto) 61.7, Lymph % (Auto) 28.5, [place] % (Auto) 7.0, Eos % (Auto) 1.8, Baso % (Auto) 0.7, Neut # (Auto) 5.4, Lymph # (Auto) 2.5, [place] # (Auto) 0.6, Eos # (Auto) 0.2, Baso # (Auto) 0.1, Sodium 136, Potassium 4.5, Chloride 99, Carbon Dioxide 30, Anion Gap 11.5, BUN 12, Creatinine 0.80, Estimated Creat Clear 105, Estimated GFR 99, Est GFR ( Amer) 119, Glucose 254 H, Calcium 9.1, Total Bilirubin 0.7, AST 26, ALT 26, Alkaline Phosphatase 97, Troponin I 0.42 H, NT-Pro-B Natriuret Pep 4630 H, Total Protein 7.3, Albumin 3.9, Globulin 3.4 H, Albumin/Globulin Ratio 1.1, Acetone Level None detected, HCV Ab REAGAN w/Rflx PCR Qn Reactive, HIV Ag/Ab Combo Qual Negative 01/13/25 05:58: VBG pH 7.32, VBG pCO2 57.9 H, VBG pO2 30.4, VBG HCO3 29.1, VBG Total CO2 30.9 H, VBG O2 Saturation 55.8, VBG Base Excess 3.0 H, VBG Lactic Acid 1.7 01/13/25 09:00: Troponin I 0.39 H 01/13/25 11:09: POC Glucose 243 H I & O for Last 24 hours: Intake & Output 01/11/25 01/12/25 01/13/25 01/14/25 11:59 11:59 11:59 11:59 Intake Total 400 / 400 Balance 400 / 400 Weight 238 lb 6 oz Constitutional Constitutional: no acute distress *Routine Respiratory Exam Respiratory: Present decreased breath sounds, rales and wheezes *Routine Cardiovascular Exam Cardiovascular: Present RRR and murmur; Absent gallop or rubs *Routine Extremities Exam Extremities: Present edema *Routine Neurological Exam Neurological: Present alert, oriented X3 and CN II-XII intact Meds Home Medications and Allergies Home Medications ?Medication ?Instructions ?Recorded ?Confirmed ?Type blood-glucose meter (OneTouch #1 ea 01/01/24 01/13/25 Rx Ultra2 Meter) blood-glucose meter (OneTouch #1 ea 01/01/24 01/13/25 Rx Ultra2 Meter) insulin glargine U-300 conc 300 180 unit (0.6 mL) SQ DAILY 30 days 10/14/24 01/13/25 Rx unit/mL (3 mL) subcutaneous pen #18 mL (Toujeo Max U-300 SoloStar) pen needle, diabetic 31 gauge x #100 ea 10/31/24 01/13/25 Rx 3/16 atorvastatin 10 mg tablet (Lipitor) 10 mg PO DAILY #90 tabs 01/07/25 01/13/25 Rx blood sugar diagnostic (FreeStyle #100 ea 01/07/25 01/13/25 Rx Lite Strips) sildenafil 25 mg tablet (Viagra) 25 - 100 mg PO DAILYP PRN Edema 01/13/25 01/13/25 History New Prescriptions to Start Prescriptions: Allergies Allergy/AdvReac Type Severity Reaction Status Date / Time acetaminophen (From Allergy Intermediate Verified 12/11/24 09:24 Tylenol-Codeine #3) codeine (From Allergy Intermediate Verified 12/11/24 09:24 Tylenol-Codeine #3) morphine (MORPHINE) Allergy Unknown I-HIVES Verified 12/11/24 09:24 metformin AdvReac Diarrhea Verified 12/11/24 09:30 Assessment and Plan *Assessment and plan (1) Acute non-ST elevation myocardial infarction (NSTEMI): Status: Acute Category: Medical Code(s): I21.4 - Non-ST elevation (NSTEMI) myocardial infarction (2) Pneumonia: Status: Acute Qualifiers: Laterality: unspecified laterality Lung location: unspecified part of lung Pneumonia type: due to unspecified organism Qualified Code(s): J18.9 - Pneumonia, unspecified organism Category: Medical Code(s): J18.9 - Pneumonia, unspecified organism (3) Cellulitis: Status: Acute Qualifiers: Site of cellulitis: trunk Site of cellulitis of trunk: abdominal wall Qualified Code(s): L03.311 - Cellulitis of abdominal wall Category: Medical Code(s): L03.90 - Cellulitis, unspecified (4) Diabetes type 2, uncontrolled: Status: Acute Qualifiers: Glycemic state: with hyperglycemia Qualified Code(s): E11.65 - Type 2 diabetes mellitus with hyperglycemia Category: Medical (5) COPD (chronic obstructive pulmonary disease): Problem Comment: Patient is still smoking. I think pulmonary function test would be in order in this patient. Will discuss this when he returns. Status: Acute Qualifiers: COPD type: unspecified COPD Qualified Code(s): J44.9 - Chronic obstructive pulmonary disease, unspecified Category: Medical Code(s): J44.9 - Chronic obstructive pulmonary disease, unspecified (6) Tobacco use: Problem Comment: Discussed with the patient his need to quit. He states he realizes he needs to quit but is not ready to do it at this time. Status: Acute Category: Social Hx Code(s): Z72.0 - Tobacco use (7) CAD (coronary artery disease): Status: Acute Qualifiers: Associated angina: with unstable angina Coronary Disease-Associated Artery/Lesion type: [place] artery [place] vs. transplanted heart: [place] heart Qualified Code(s): I25.110 - Atherosclerotic heart disease of [place] coronary artery with unstable angina pectoris Category: Medical Code(s): I25.10 - Atherosclerotic heart disease of [place] coronary artery without angina pectoris (8) Hypertensive heart disease: Problem Comment: It is not clear to me who this patient is following with for his coronary artery disease. Patient has a [place] risk of 18.7%. Will get a coronary calcium score in this patient. Additionally I think he is going to need to see cardiology. He is obviously at high risk. Status: Acute Qualifiers: Heart failure presence: unspecified whether heart failure present Qualified Code(s): I11.9 - Hypertensive heart disease without heart failure Category: Medical Code(s): I11.9 - Hypertensive heart disease without heart failure Plan 1. Non-STEMI with known CAD on prior cath in 2017 -Plan for left heart catheterization today -Patient did receive aspirin overnight -Continue statin therapy -Obtain echo 2. Diabetes mellitus type 2, poorly controlled but improving -Recent hemoglobin A1c 10.9 3. Mild pleural effusions -Dose of Lasix today 4. Tobacco use with COPD -Cessation recommended 5. Cellulitis of abdominal wall -Defer to hospitalist 6. Possible pneumonia -Patient has been started on antibiotics Echo EF 40% Cardiac cath with 5 EMERSON to RCA, PDA and LAD. Starting GDMT with irbesartan, metoprolol and lasix/spironolactone. Add jardiance for additional CAD/DM benefit.
[2025-01-13] MEDS: PRASUGREL 10MG TAB 60 MG PO (14:03)
[2025-01-13] MEDS: FUROSEMIDE 40MG/4ML VIAL 40 MG IV ×2 (14:22→20:11)
[2025-01-13 14:34] LABS: CATHL Activated Clotting Time 260 SEC (74-125)
[2025-01-13] MEDS: IRBESARTAN 75MG TABLET 75 MG PO (15:02)
--- NOTE | 2025-01-13 17:05 | PC.NURSE ---
pt resting in bed at this time. abx given per jun. received a left heart cath and 5 stents were placed. no complaints of pain. vital signs stable. no needs at this time. call light within reach.
[2025-01-13] MEDS: METOPROLOL SUCCINATE XL 25MG TABLET 25 MG PO (17:31)
[2025-01-13 17:39] LABS: POC Glucose,Bedside 362 gm/dL (70-110)
--- NOTE | 2025-01-13 19:33 | XR_ITS ---
PROCEDURE INFORMATION: Exam: XR Chest Exam date and time: 01/13/2025 7:41 PM Age: 59 years old Clinical indication: Shortness of breath; Additional info: SOB TECHNIQUE: Imaging protocol: Radiologic exam of the chest. Views: 1 view. COMPARISON: CT ANGIO CHEST PE PROTOCOL 01/13/2025 7:14 AM FINDINGS: Lungs: Mild bibasilar ground-glass and streaky linear opacities, likely areas of atelectasis and pneumonitis. No focal consolidation or pulmonary edema. Pleural spaces: No pneumothorax. Minimal blunting of the costophrenic angles, likely small bilateral pleural effusions. Heart/Mediastinum: Normal. Vasculature: Atherosclerotic vascular disease. Bones/joints: Multilevel thoracic spine degenerative disc space narrowing and osteophyte formation. IMPRESSION: 1. Mild bibasilar ground-glass and streaky linear opacities, likely areas of atelectasis and pneumonitis. 2. Minimal blunting of the costophrenic angles, likely small bilateral pleural effusions.
[2025-01-13] MEDS: ATORVASTATIN 40MG TABLET 40 MG PO (20:12)
[2025-01-13 20:45] LABS: POC Glucose,Bedside 381 gm/dL (70-110)
[2025-01-13] MEDS: NICOTINE 21MG/24HR PATCH 21 MG TD (21:07)
[2025-01-13] MEDS: ACETAMINOPHEN 325MG TAB 650 MG PO (21:17)
[2025-01-14] VITALS: BP 149/86; PULSE 84; PULSE 85; RESP 12; TEMP 36.9; O2SAT 94
[2025-01-14 04:00] VITALS: BP 140/78; PULSE 78; PULSE 79; RESP 14; TEMP 36.6; O2SAT 97; BMI 33.3
[2025-01-14] MEDS: humaLOG 100 UNITS/ML 10ML VIAL (SSI) SUBCUT (06:25)
[2025-01-14 06:28] LABS: POC Glucose,Bedside 179 gm/dL (70-110)
[2025-01-14 07:28] VITALS: BP 135/71; PULSE 83; RESP 18; TEMP 36.6; O2SAT 96
[2025-01-14 08:00] VITALS: PULSE 100
--- NOTE | 2025-01-14 08:35 | EXP.CARD.PN ---
Subjective Subjective Date: 01/14/25 Time: 08:35 Principal diagnosis: NSTEMI Interval history: 59-year-old white male in bed in no acute distress. States he feels better after coronary stenting yesterday. He is anxious to go home today. Exam Data for Last 24 hours Vital signs and Labs for Last 24 Hours: Temp Pulse Resp BP Pulse Ox O2 Del Method O2 Flow Rate 97.8 F 83 18 135/71 96 Room Air 2 01/14/25 07:28 01/14/25 07:28 01/14/25 07:28 01/14/25 07:28 01/14/25 07:28 01/14/25 07:28 01/14/25 05:00 Laboratory Results - last 24 hr 01/13/25 09:00: Troponin I 0.39 H 01/13/25 11:09: POC Glucose 243 H 01/13/25 13:27: Activated Clotting Time 260 H* 01/13/25 17:30: POC Glucose 362 H* 01/13/25 20:13: POC Glucose 381 H* 01/14/25 06:19: POC Glucose 179 H I & O for Last 24 hours: Intake & Output 01/11/25 01/12/25 01/13/25 01/14/25 11:59 11:59 11:59 11:59 Intake Total 400 / 400 3080 / 3080 Output Total 750 / 750 Balance 400 / 400 2330 / 2330 Weight 238 lb 6 oz 238 lb 5.997 oz Microbiology Reports for the Last 24 Hours: Microbiology 01/13/25 05:50 Blood Blood Culture - Preliminary NO GROWTH AFTER 24 HOURS 01/13/25 06:01 Blood Blood Culture - Preliminary NO GROWTH AFTER 24 HOURS Constitutional Constitutional: no acute distress *Routine Respiratory Exam Respiratory: Present CTA bilaterally; Absent rhonchi or wheezes *Routine Cardiovascular Exam Cardiovascular: Present RRR; Absent murmur, gallop or rubs *Routine Extremities Exam Extremities: Absent edema Progress Note: A&P Assessment and plan (1) Acute non-ST elevation myocardial infarction (NSTEMI): Status: Acute (2) Heart failure with reduced ejection fraction (HFrEF, <= 40%): Status: Acute (3) COPD (chronic obstructive pulmonary disease): Problem details: Patient is still smoking. I think pulmonary function test would be in order in this patient. Will discuss this when he returns. Status: Acute (4) Tobacco use: Problem details: Discussed with the patient his need to quit. He states he realizes he needs to quit but is not ready to do it at this time. Status: Acute (5) IDDM (insulin dependent diabetes mellitus): Status: Acute (6) CAD (coronary artery disease): Status: Acute (7) Cellulitis: Status: Acute Assessment and Plan Assessment and Plan for All Diagnoses:: 1. Non-STEMI with Ischemic Cardiomyopathy/EF 40%/HFrEF -5 EMERSON to RCA/PDA and LAD -Echo EF is 40%. GDMT started with irbesartan, metoprolol, Lasix and spironolactone in addition to Jardiance and statin therapy -Lipids pending 2. Diabetes mellitus type 2, poorly controlled but improving -Recent hemoglobin A1c 10.9 -Jardiance added 3. Mild pleural effusions - Lasix and spironolactone started 4. Tobacco use with COPD -Cessation recommended 5. Cellulitis of abdominal wall -Defer to hospitalist 6. Possible pneumonia -Patient has been started on antibiotics Stable from a cardiac standpoint for discharge home. Follow-up in our office in 1 week. Medications: Aspirin 81 mg daily Effient 10 mg daily Lipitor 40 mg daily Irbesartan 75 mg every morning Metoprolol succinate 25 mg every night Lasix 40 mg every morning Jardiance 10 mg daily Spironolactone 25 mg every morning
[2025-01-14] MEDS: FUROSEMIDE 40 MG TABLET PO (08:41)
[2025-01-14] MEDS: SPIRONOLACTONE 25MG TABLET 25 MG PO (08:41)
[2025-01-14] MEDS: METOPROLOL SUCCINATE XL 25MG TABLET 25 MG PO (08:41)
[2025-01-14] MEDS: PRASUGREL 10MG TAB 10 MG PO (08:41)
[2025-01-14] MEDS: IRBESARTAN 75MG TABLET 75 MG PO (08:41)
[2025-01-14] MEDS: EMPAGLIFLOZIN 10MG TABLET 10 MG PO (08:41)
[2025-01-14] MEDS: ASPIRIN EC 81MG TABLET 81 MG PO (08:44)
[2025-01-14 08:48] LABS: Hematocrit 43.0 % (42.0-52.0); Hemoglobin 14.2 g/dL (14.1-18.0); Immature Granulocytes % 0.3 %; Mean Corpuscular HGB Conc 33.0 g/dL (31.8-35.4); Mean Corpuscular Hemoglobin 28.6 pg (27.0-31.2); Mean Corpuscular Volume 86.5 fl (80-94); Nucleated Red Blood Cells % 0 %; Platelet Count 224 K/mm3 (142-424); Red Blood Count 4.97 M/mm3 (4.60-6.20); Red Cell Distribution Width-SD 41.6 fL; White Blood Count 9.1 K/mm3 (4.8-10.8)
[2025-01-14 08:56] LABS: Albumin Level 3.4 g/dl (3.5-5.0); Chloride 97 mmol/L (98-107); Sodium 133 mmol/L (136-145)
[2025-01-14 08:57] LABS: Potassium 4.1 mmoL/L (3.5-5.1)
[2025-01-14 08:59] LABS: Alanine Aminotransferase 24 U/L (12-78); Albumin/Globulin Ratio 1.0 (1.1-1.8); Alkaline Phosphatase 78 U/L (38-126); Anion Gap 11.1 mEq/L (5-15); Aspartate Amino Transferase 42 U/L (17-59); Bilirubin,Total 0.5 mg/dl (0.2-1.3); Calcium 8.6 mg/dl (8.4-10.2); Carbon Dioxide 29 mmol/L (22.0-30.0); Cholesterol 170 mg/dl (140-200); Globulin 3.4 g/dL (1.3-3.2); Glucose 295 mg/dl (74-100); Total Protein,Serum 6.8 g/dl (6.3-8.2); Triglycerides 157 mg/dl (30-150)
[2025-01-14 09:00] LABS: HDL Cholesterol 30 mg/dl (40-60); Magnesium 2.0 mg/dl (1.6-2.3)
--- NOTE | 2025-01-14 09:19 | P.DS_ITS ---
<Statement entered by Leroy Redd MD - 01/17/25 12:05> Agree with plan of care as outlined by the FINANCIAL SALES ADVISOR. General Admission date:: 01/13/25 Discharge date: 01/14/25 HPI HPI HPI: Mr. Ohara is a 59-year-old male who presented to the emergency department this morning with shortness of breath and chest pressure for 3 days. He has a primary medical history of insulin-dependent diabetes, hyperlipidemia, CAD, COPD, DDD, tobacco use disorder, former IV drug use, and CHF. He states that he has been feeling more short of breath in the last week or so, worsening in the last few days. He states that he has been using his mother's O2 for supplemental oxygen. He denies fever, chills, abdominal pain, cough, congestion, nausea, vomiting, diarrhea. Workup in the emergency department was significant for NSTEMI, elevated troponin 0.42. Chest x-ray showed no acute findings, chest CTA showed bilateral pleural effusion and pulmonary edema. Echocardiogram shows LVEF of 40% and severe hypokinesis of the mid to distal inferior and inferior septal LV smith. Patient states he has had a previous heart attack in approximately 2017, states he did not receive any intervention at that time. Hospital Course Hospital Course Hospital Course: Mr. Ohara is a 59-year-old male who presented to the emergency department this morning with shortness of breath and chest pressure for 3 days. He has a primary medical history of insulin-dependent diabetes, hyperlipidemia, CAD, COPD, DDD, tobacco use disorder, former IV drug use, and CHF. He states that he has been feeling more short of breath in the last week or so, worsening in the last few days. He states that he has been using his mother's O2 for supplemental oxygen. He denies fever, chills, abdominal pain, cough, congestion, nausea, vomiting, diarrhea. Workup in the emergency department was significant for NSTEMI, elevated troponin 0.42. Chest x-ray showed no acute findings, chest CTA showed bilateral pleural effusion and pulmonary edema. Echocardiogram shows LVEF of 40% and severe hypokinesis of the mid to distal inferior and inferior septal LV smith. Patient states he has had a previous heart attack in approximately 2017, states he did not receive any intervention at that time. Patient does endorse a history of drug use and IV drug use, states he has not used in a long time. He is currently a smoker, cigarettes occasionally but vapes daily. Denies alcohol use. Cardiology consulted for further cardiac recommendations. Plan of care as follows: #NSTEMI, type I #Reduced EF - 40% #Elevated BNP ?Patient troponin elevated on admission 0.42, trending downward to 0.39. Patient underwent LHC yesterday afternoon, received 5 EMERSON to RCA, PDA, and LAD. Patient doing well today, hemodynamically stable. Patient will be placed on GDMT therapy?new medications include: Aspirin 81 mg daily, Effient 10 mg daily, Lipitor 40 mg daily, Irbersartan 75 mg daily, metoprolol succinate 25 mg at bedtime, Lasix 40 mg daily, Jardiance 10 mg daily, spironolactone 25 mg daily. Patient will discontinue atorvastatin 10 mg daily. Patient received instruction in medication prior to discharge. ?Patient echo shows LVEF of 40%, severe hypokinesis of the mid to distal inferior and inferior septal LV smith. Patient BNP 4630. Chest CTA shows bilateral pleural effusions, patient given 1 dose Lasix 40 mg IV. Patient does not appear hypervolemic, no extremity edema, lungs CTA. Patient will be discharged home on Lasix 40 mg daily and spironolactone 25 mg daily. ?Patient lab work has remained unremarkable during admission, WBC 9.1, no anemia noted, normal kidney function. #COPD #Tobacco use disorder ? Discussed smoking cessation with patient, nicotine patches prescribed at discharge. ?Patient was given IV antibiotics in the ED, vancomycin and Zosyn for possible pneumonia. Will not continue antibiotics for pneumonia at this time, no leukocytosis, lungs CTA, no pneumonia on imaging. #Cellulitis ? Patient has area of erythema likely soft tissue cellulitis of his right lower quadrant abdomen. Nondraining. Patient received vancomycin in the ED, will start ceftriaxone 2 g daily. Patient will be discharged home on Keflex 500 mg twice daily x 7 days. Discussed with patient he needs to follow-up with PCP next week for further evaluation of cellulitis and treatment. #GERD: Patient complains of indigestion and reflux, states he has been taking his mother's pantoprazole daily. Discharged with pantoprazole 40 mg at bedtime. #History of IV drug use: Patient does have a known history of IV drug use, specifically methamphetamines. Patient denies recent drug use. #CAD: Continue atorvastatin 10 mg daily. #Insulin-dependent diabetes: Patient currently takes insulin glargine U?300 subcu 180 units daily. A1c 12/2024 was 10.9%. Patient will need better control of diabetes, continue insulin glargine 180 units daily, initiated Jardiance 10 mg daily as well. Total time spent on discharge 40 minutes in counseling, documentation, chart review, and direct care with patient. Exam Data for Last 24 hours Vital signs and Labs for Last 24 Hours: Temp Pulse Resp BP Pulse Ox O2 Del Method O2 Flow Rate 97.8 F 83 18 135/71 96 Room Air 2 01/14/25 07:28 01/14/25 07:28 01/14/25 07:28 01/14/25 07:28 01/14/25 07:28 01/14/25 07:28 01/14/25 05:00 Laboratory Results - last 24 hr 01/13/25 09:00: Troponin I 0.39 H 01/13/25 11:09: POC Glucose 243 H 01/13/25 13:27: Activated Clotting Time 260 H* 01/13/25 17:30: POC Glucose 362 H* 01/13/25 20:13: POC Glucose 381 H* 01/14/25 06:19: POC Glucose 179 H 01/14/25 08:34: WBC 9.1, RBC 4.97, Hgb 14.2, Hct 43.0, MCV 86.5, MCH 28.6, MCHC 33.0, RDW 13.2, Plt Count 224, MPV 12.0 H, Neut % (Auto) 68.7, Lymph % (Auto) 21.5, [place] % (Auto) 7.9, Eos % (Auto) 1.1, Baso % (Auto) 0.5, Neut # (Auto) 6.3, Lymph # (Auto) 2.0, [place] # (Auto) 0.7, Eos # (Auto) 0.1, Baso # (Auto) 0.1, Sodium 133 L, Potassium 4.1, Chloride 97 L, Carbon Dioxide 29, Anion Gap 11.1, Glucose 295 H, Calcium 8.6, Magnesium 2.0, Total Bilirubin 0.5, AST 42 D, ALT 24, Alkaline Phosphatase 78, Total Protein 6.8, Albumin 3.4 L D, Globulin 3.4 H, Albumin/Globulin Ratio 1.0 L, Triglycerides 157 H, Cholesterol 170, LDL Cholesterol Direct 103.88, VLDL Cholesterol 31, HDL Cholesterol 30 L, Cholesterol/HDL Ratio 5.7 H I & O for Last 24 hours: Intake & Output 01/11/25 01/12/25 01/13/25 01/14/25 23:59 23:59 23:59 23:59 Intake Total 1920 / 2920 1560 / 1560 Output Total 750 / 750 0 / 0 Balance 1170 / 2170 1560 / 1560 Weight 108.125 kg 108.125 kg Microbiology Reports for the Last 24 Hours: Microbiology 01/13/25 05:50 Blood Blood Culture - Preliminary NO GROWTH AFTER 24 HOURS 01/13/25 06:01 Blood Blood Culture - Preliminary NO GROWTH AFTER 24 HOURS Constitutional Constitutional: no acute distress, obese, chronically ill appearing and cooperative *Routine HEENT Exam Head: Present normocephalic Eye: Present EOMI ENT: Present mucous membranes moist *Routine Neck Exam Neck: Present supple *Routine Respiratory Exam Respiratory: Present CTA bilaterally, prolonged expiratory phase and normal respiratory effort; Absent wheezes or crackles *Routine Cardiovascular Exam Cardiovascular: Present RRR, Normal S1 and Normal S2; Absent murmur *Routine Abdominal Exam Abdominal: Present soft and normoactive bowel sounds; Absent tenderness *Routine Extremities Exam Extremities: Present full ROM and pulses intact; Absent edema *Routine Skin Exam Skin: Present intact, erythema (Right lower quadrant cellulitis) and dry *Routine Neurological Exam Neurological: Present alert, oriented X3, vision grossly intact, hearing grossly intact and normal speech Routine Psychiatric Exam Psychiatric: Present normal affect Results Data Completed and Pending Labs on day of discharge: Labs from last 24 hours 01/14/25 01/14/25 01/13/25 08:34 06:19 20:13 WBC 9.1 RBC 4.97 Hgb 14.2 Hct 43.0 MCV 86.5 MCH 28.6 MCHC 33.0 RDW 13.2 Plt Count 224 MPV 12.0 H Neut % (Auto) 68.7 Lymph % (Auto) 21.5 [place] % (Auto) 7.9 Eos % (Auto) 1.1 Baso % (Auto) 0.5 Neut # (Auto) 6.3 Lymph # (Auto) 2.0 [place] # (Auto) 0.7 Eos # (Auto) 0.1 Baso # (Auto) 0.1 Activated Clotting Time Sodium 133 L Potassium 4.1 Chloride 97 L Carbon Dioxide 29 Anion Gap 11.1 Glucose 295 H POC Glucose 179 H 381 H* Calcium 8.6 Magnesium 2.0 Total Bilirubin 0.5 AST 42 D ALT 24 Alkaline Phosphatase 78 Troponin I Total Protein 6.8 Albumin 3.4 L D Globulin 3.4 H Albumin/Globulin Ratio 1.0 L Triglycerides 157 H Cholesterol 170 LDL Cholesterol Direct 103.88 VLDL Cholesterol 31 HDL Cholesterol 30 L Cholesterol/HDL Ratio 5.7 H 01/13/25 01/13/25 01/13/25 17:30 13:27 11:09 WBC RBC Hgb Hct MCV MCH MCHC RDW Plt Count MPV Neut % (Auto) Lymph % (Auto) [place] % (Auto) Eos % (Auto) Baso % (Auto) Neut # (Auto) Lymph # (Auto) [place] # (Auto) Eos # (Auto) Baso # (Auto) Activated Clotting Time 260 H* Sodium Potassium Chloride Carbon Dioxide Anion Gap Glucose POC Glucose 362 H* 243 H Calcium Magnesium Total Bilirubin AST ALT Alkaline Phosphatase Troponin I Total Protein Albumin Globulin Albumin/Globulin Ratio Triglycerides Cholesterol LDL Cholesterol Direct VLDL Cholesterol HDL Cholesterol Cholesterol/HDL Ratio 01/13/25 09:00 WBC RBC Hgb Hct MCV MCH MCHC RDW Plt Count MPV Neut % (Auto) Lymph % (Auto) [place] % (Auto) Eos % (Auto) Baso % (Auto) Neut # (Auto) Lymph # (Auto) [place] # (Auto) Eos # (Auto) Baso # (Auto) Activated Clotting Time Sodium Potassium Chloride Carbon Dioxide Anion Gap Glucose POC Glucose Calcium Magnesium Total Bilirubin AST ALT Alkaline Phosphatase Troponin I 0.39 H Total Protein Albumin Globulin Albumin/Globulin Ratio Triglycerides Cholesterol LDL Cholesterol Direct VLDL Cholesterol HDL Cholesterol Cholesterol/HDL Ratio Preliminary micro results at discharge 01/13/25 05:50 Blood Culture - Preliminary Blood NO GROWTH AFTER 24 HOURS 01/13/25 06:01 Blood Culture - Preliminary Blood NO GROWTH AFTER 24 HOURS DS: Diagnosis Discharge Diagnosis (1) Acute non-ST elevation myocardial infarction (NSTEMI): Status: Acute Code(s): I21.4 - Non-ST elevation (NSTEMI) myocardial infarction Problem details: Type I (2) Heart failure with reduced ejection fraction (HFrEF, <= 40%): Status: Acute Code(s): I50.20 - Unspecified systolic (congestive) heart failure (3) COPD (chronic obstructive pulmonary disease): Status: Acute Code(s): J44.9 - Chronic obstructive pulmonary disease, unspecified Qualifiers: COPD type: unspecified COPD Qualified Code(s): J44.9 - Chronic obstructive pulmonary disease, unspecified Problem details: Patient is still smoking. I think pulmonary function test would be in order in this patient. Will discuss this when he returns. (4) Tobacco use: Status: Acute Code(s): Z72.0 - Tobacco use Problem details: Discussed with the patient his need to quit. He states he realizes he needs to quit but is not ready to do it at this time. (5) IDDM (insulin dependent diabetes mellitus): Status: Acute Code(s): E11.9 - Type 2 diabetes mellitus without complications; Z79.4 - senior living (current) use of insulin (6) CAD (coronary artery disease): Status: Acute Code(s): I25.10 - Atherosclerotic heart disease of [place] coronary artery without angina pectoris Qualifiers: Associated angina: with unstable angina Coronary Disease-Associated Artery/Lesion type: [place] artery [place] vs. transplanted heart: [place] heart Qualified Code(s): I25.110 - Atherosclerotic heart disease of [place] coronary artery with unstable angina pectoris (7) Cellulitis: Status: Acute Code(s): L03.90 - Cellulitis, unspecified Qualifiers: Site of cellulitis: trunk Site of cellulitis of trunk: abdominal wall Qualified Code(s): L03.311 - Cellulitis of abdominal wall (8) GERD (gastroesophageal reflux disease): Status: Acute Code(s): K21.9 - Gastro-esophageal reflux disease without esophagitis (9) Obesity (BMI 30.0-34.9): Status: Acute Code(s): E66.811 - Obesity, class 1 Meds Home Medications and Allergies Home Medications ?Medication ?Instructions ?Recorded ?Confirmed ?Type blood-glucose meter (OneTouch #1 ea 01/01/24 01/13/25 Rx Ultra2 Meter) blood-glucose meter (OneTouch #1 ea 01/01/24 01/13/25 Rx Ultra2 Meter) insulin glargine U-300 conc 300 180 unit (0.6 mL) SQ D AILY 30 days 10/14/24 01/13/25 Rx unit/mL (3 mL) subcutaneous pen #18 mL (TouPixiflyo Max U-300 SoloStar) pen needle, diabetic 31 gauge x #100 ea 10/31/2401/13 Rx 3/16 blood sugar diagnostic (FreeStyle #100 ea 01/07/2510/02 Rx Lite Strips) aspirin 81 mg tablet,delayed 81 mg PO DAILY #0 tabs Rx release atorvastatin 40 mg tablet 40 mg PO HS 30 days #30 tabs 01/14/25 Rx cephalexin 500 mg capsule 500 mg PO Q12H 6 days #11 ca ps 01/14/25 Rx empagliflozin 10 mg tablet 10 mg PO DAILY 30 days #30 tabs 01/14/25 Rx (Jardiance) furosemide 40 mg tablet 40 mg PO DAILY 30 days #30 t abs 01/14/25 Rx irbesartan 75 mg tablet 75 mg PO DAILY 30 days #30 t abs 01/14/25 Rx metoprolol succinate 25 mg 25 mg PO HS 30 days #30 tab s 01/14/25 Rx tablet,extended release 24 hr nicotine 21 mg/24 hr daily 1 patch transdermal Q24H #2 8 ea 01/14/25 Rx transdermal patch pantoprazole 40 mg tablet,delayed 40 mg PO HS #30 tabs 01/14/25 Rx release prasugrel HCl 10 mg tablet 10 mg PO DAILY 30 days #30 tabs 01/14/25 Rx sildenafil 25 mg tablet (Viagra) 25 - 100 mg (1 - 4 x 25 mg) PO 01/14/25 01/13/25 Rx DAILYP PRN sexual activity 30 days #0 tabs spironolactone 25 mg tablet 25 mg PO DAILY 30 days #30 tabs 01/14/25 Rx New Prescriptions to Start Prescriptions: atorvastatin Seb,Briana cephalexin Seb,Briana empagliflozin [Jardiance] Seb,Briana furosemide Seb,Briana irbesartan Seb,Briana metoprolol succinate Seb,Briana nicotine Seb,Briana pantoprazole Seb,Briana prasugrel HCl Seb,Briana spironolactone Briana Grigsby Allergies Allergy/AdvReac Type Severity Reaction Status Date / Time acetaminophen (From Allergy Intermediate Verified 12/11/24 09:24 Tylenol-Codeine #3) codeine (From Allergy Intermediate Verified 12/11/24 09:24 Tylenol-Codeine #3) morphine (MORPHINE) Allergy Unknown I-HIVES Verified 12/11/24 09:24 metformin AdvReac Diarrhea Verified 12/11/24 09:30 Discharge Plan Disposition Patient Disposition: Home, Self-Care Condition: Good Follow up Plan Follow up with: Charles Sheffield MD [Staff Physician, Internal Medicine] - 01/22/25 2:00 pm Brandon Wallis MD [Staff Physician, Cardiology] - 01/21/25 1:30 pm Prescriptions/Medication Reconciliation: New furosemide 40 mg Tablet 40 mg PO DAILY 30 Days Qty: 30 0RF atorvastatin 40 mg Tablet 40 mg PO HS 30 Days Qty: 30 0RF aspirin 81 mg Tablet,Delayed Release (Dr/Ec) 81 mg PO DAILY Qty: 0 0RF irbesartan 75 mg Tablet 75 mg PO DAILY 30 Days Qty: 30 0RF metoprolol succinate 25 mg Tablet Extended Release 24 Hr 25 mg PO HS 30 Days Qty: 30 0RF prasugrel HCl 10 mg Tablet 10 mg PO DAILY 30 Days Qty: 30 0RF Jardiance 10 mg Tablet 10 mg PO DAILY 30 Days Qty: 30 0RF spironolactone 25 mg Tablet 25 mg PO DAILY 30 Days Qty: 30 0RF cephalexin 500 mg Capsule 500 mg PO Q12H 6 Days Qty: 11 0RF pantoprazole 40 mg tablet,delayed release (DR/EC) 40 mg PO HS Qty: 30 0RF nicotine 21 mg/24 hr patch 24 hour 1 patch transdermal Q24H Qty: 28 0RF Continued (DME) blood-glucose [place]2 M[place] [facility] [place] .Route Qty: 1 0RF Rx Instructions: As directed (DME) blood-glucose meter [OneTouch Ultra2 Meter[place] [facility] [place] .Route Qty: 1 0RF Rx Instructions: As directed insulin glargine U-300 conc [Toujeo Max U-300 SoloStar] 300 unit/mL (3 mL) insulin pen 180 unit SQ DAILY 30 Days Qty: 18 3RF (DME) pen needle, diabetic 31 gauge x 3/16 needle See Rx Instructions .ROUTE .MEDSUPPLY Qty: 100 2RF Rx Instructions: As directed (DME) FreeStyle Lite Strips Strip See Rx Instructions .Route Qty: 100 2RF Rx Instructions: As directed Changed sildenafil [Viagra] 25 mg tablet 25 - 100 mg PO DAILYP PRN (Reason: sexual activity) 30 Days Qty: 0 0RF Discontinued atorvastatin [Lipitor] 10 mg tablet 10 mg PO DAILY Qty: 90 0RF Other Ambulatory Orders: Basic Metabolic Panel (Routine) Timeframe: 20250121 Facility: [facility] - Location: Laboratory Ordered By: Brandon Wallis Complete Blood Count Auto Diff (Routine) Timeframe: 20250121 Facility: [facility] - Location: Laboratory Ordered By: Brandon Wallis Problem Reconciliation Problems Reviewed?: Yes Patient Discharge Instructions ACTIVITY: Continue current activity and No heavy lifting DIET: continue same diet and cardiac Patient Instructions: DI for Cellulitis in Adults, DI for Heart Attack, DI for Pneumonia in Adults, DI for Cardiac Catheterization, DI for Surgical Site Infection, Stop Light Infection Print Language: [place] Providers Primary Care Provider: Provider,Referral Admit Provider: Leroy Redd Attending Provider: Leroy Redd
[2025-01-14 09:31] LABS: Blood Urea Nitrogen 14 mg/dl (9-20); Creatinine Clearance Estimated 150 mL/min (50-200); Creatinine,Serum 0.80 mg/dl (0.66-1.25); Estimated Glomerular Filt Rate 99 ml/min (>60); GFR (African American) 119 ML/MIN (>60)
[2025-01-14 10:14] LABS: Thyroid Stimulating Hormone 3.37 uIU/mL (0.465-4.68)
--- OUTSIDE RECORDS SUMMARY | 2025-01-14 14:36 | XMS_ITS | Clinical Summary ---
Author Organization Healthcare Address [address] [place] [address] Care Team Providers Care Account Development Representative Name Role Phone Prateek Leary MD Primary Care Provider [phone] Family History Medical History Relation Name Comments [...] 2014 UKY-Zoster Vaccines (1 of 2) 2014 [id number] Vaccine (1 - 20 24-25 season) 2024 [...] age to complete this topic Care Teams Account Development Representative Relationship Specialty Start Date End Date Prateek Leary MD [address] [place] [id number] PCP - General 08/21/20
--- NOTE | 2025-01-15 10:54 | SW/DCPLANNER ---
Spoke with patient on the phone. Patient stated that he is doing good. Patient stated that he is aware of his upcoming appointments. Patient stated that he was able to get his new medicine picked up from clinic pharmacy. Patient stated that he has no concerns or questions at this time. Jayjay Kidd
== END 2025-01-14 11:47 | disposition home or self-care (01) | DRG 321 ==
LOC: ER 07:48 → 2ND 08:32
PROVIDERS: Internal Medicine; Admitting Provider Student in an Organized Health Care Education/Training Program; Emergency Provider Emergency Medicine; Visit Provider Student in an Organized Health Care Education/Training Program
PROC: 4A023N7 Measurement of Cardiac Sampling and Pressure, Left Heart, Percutaneous Approach (ICD-10-PCS; CPT 93452; principal; 2025-01-13 12:00)
DX: I21.4 Non-ST elevation (NSTEMI) myocardial infarction (principal); I50.21 Acute systolic (congestive) heart failure; L03.311 Cellulitis of abdominal wall; I11.0 Hypertensive heart disease with heart failure; E11.65 Type 2 diabetes mellitus with hyperglycemia; J44.9 Chronic obstructive pulmonary disease, unspecified; E66.811 Obesity, class 1; I25.10 Atherosclerotic heart disease of native coronary artery without angina pectoris; I25.5 Ischemic cardiomyopathy; E78.5 Hyperlipidemia, unspecified; F17.210 Nicotine dependence, cigarettes, uncomplicated; F15.91 Other stimulant use, unspecified, in remission; K21.9 Gastro-esophageal reflux disease without esophagitis; I25.2 Old myocardial infarction; Z71.6 Tobacco abuse counseling; Z88.5 Allergy status to narcotic agent; Z88.6 Allergy status to analgesic agent; Z88.8 Allergy status to other drugs, medicaments and biological substances; Z79.4 Long term (current) use of insulin; Z79.899 Other long term (current) drug therapy; F17.290 Nicotine dependence, other tobacco product, uncomplicated
CPT/HCPCS: 71045; 71275; 80053; 80061; 82009; 82803; 82962; 83735; 83880; 84443; 84484; 85025; 85347; 86803; 87040; 87389; 87522; 93005; 93306; 99152; 99153; 99285; C1725; C1769; C1874; G0378; J0696; J1644; J1938; J2003; J2250; J2543; J3010; J3373; J3475; J7040; J7050; Q9957; Q9967

== ENCOUNTER 2025-01-21 12:19 | Outpatient (CLI) | payer MEDICARE, SELFPAY ==
--- OUTSIDE RECORDS SUMMARY | 2025-01-21 12:22 | XMS_ITS | Clinical Summary ---
Author Organization Healthcare Address [address] [place] [address] Care Team Providers Care Clamshell Operator Name Role Phone Prateek Leary MD Primary Care Provider [phone] Family History Medical History Relation Name Comments [...] 2014 UKY-Zoster Vaccines (1 of 2) 2014 [id number] Vaccine (1 - 20 24-25 season) 2024 [...] age to complete this topic Care Teams Clamshell Operator Relationship Specialty Start Date End Date Prateek Leary MD [address] [place] [id number] PCP - General 08/21/20
[2025-01-21 14:23] LABS: Hematocrit 47.8 % (42.0-52.0); Hemoglobin 15.6 g/dL (14.1-18.0); Immature Granulocytes % 0.9 %; Mean Corpuscular HGB Conc 32.6 g/dL (31.8-35.4); Mean Corpuscular Hemoglobin 28.5 pg (27.0-31.2); Mean Corpuscular Volume 87.4 fl (80-94); Nucleated Red Blood Cells % 0 %; Platelet Count 255 K/mm3 (142-424); Red Blood Count 5.47 M/mm3 (4.60-6.20); Red Cell Distribution Width-SD 41.3 fL; White Blood Count 10.4 K/mm3 (4.8-10.8)
[2025-01-21 15:24] LABS: Chloride 94 mmol/L (98-107)
[2025-01-21 15:25] LABS: Albumin Level 4.1 g/dl (3.5-5.0); Potassium 4.8 mmoL/L (3.5-5.1); Sodium 133 mmol/L (136-145)
[2025-01-21 15:27] LABS: Alanine Aminotransferase 38 U/L (12-78); Anion Gap 15.8 mEq/L (5-15); Aspartate Amino Transferase 30 U/L (17-59); Blood Urea Nitrogen 19 mg/dl (9-20); Carbon Dioxide 28 mmol/L (22.0-30.0); Creatinine,Serum 1.00 mg/dl (0.66-1.25); Estimated Glomerular Filt Rate 76 ml/min (>60); GFR (African American) 92 ML/MIN (>60)
[2025-01-21 15:28] LABS: Albumin/Globulin Ratio 1.0 (1.1-1.8); Alkaline Phosphatase 96 U/L (38-126); Bilirubin,Total 0.3 mg/dl (0.2-1.3); Calcium 9.3 mg/dl (8.4-10.2); Cholesterol 170 mg/dl (140-200); Globulin 4.1 g/dL (1.3-3.2); Glucose 396 mg/dl (74-100); Total Protein,Serum 8.2 g/dl (6.3-8.2); Triglycerides 206 mg/dl (30-150)
[2025-01-21 15:47] LABS: Triiodothryronine (T3) Uptake 32 % (23.5-40.5)
[2025-01-21 15:48] LABS: Free Thyroxine Index 2.6 ug/dL (5.93-13.13); T4 (Thyroxine) 8.1 ug/dl (5.53-11.0)
[2025-01-21 16:02] LABS: Thyroid Stimulating Hormone 3.63 uIU/mL (0.465-4.68)
[2025-01-21 16:18] LABS: Vitamin B12 416 pg/mL (239-931)
[2025-01-21 16:20] LABS: Hepatitis C Ab Qual. W/ RFX REACTIVE (Negative)
[2025-01-21 17:44] LABS: HDL Cholesterol 47 mg/dl (40-60)
[2025-01-22 08:27] LABS: Hepatitis B Surface Antigen Negative (Negative)
[2025-01-22 11:50] LABS: Hemoglobin A1C 10.5 % (4.0-6.0)
== END 2025-01-21 23:59 | disposition home or self-care (01) ==
LOC: LAB 12:20
PROVIDERS: PCP Family Medicine; Visit Provider Internal Medicine
DX: E11.65 Type 2 diabetes mellitus with hyperglycemia (principal); I10 Essential (primary) hypertension; G62.9 Polyneuropathy, unspecified; Z11.4 Encounter for screening for human immunodeficiency virus [HIV]; Z11.59 Encounter for screening for other viral diseases; N52.9 Male erectile dysfunction, unspecified
CPT/HCPCS: 36415; 80053; 80061; 82607; 83036; 84403; 84436; 84443; 84479; 85025; 86803; 87389; 87522

== ENCOUNTER 2025-01-23 00:52 | Emergency (ER) | payer MEDICARE, SELFPAY ==
--- OUTSIDE RECORDS SUMMARY | 2025-01-23 01:01 | XMS_ITS | Clinical Summary ---
Author Organization Healthcare Address [address] [place] [address] Care Team Providers Care Cash Posting Specialist Name Role Phone Prateek Leary MD Primary Care Provider [phone] Family History Medical History Relation Name Comments [...] 2014 UKY-Zoster Vaccines (1 of 2) 2014 [id number] Vaccine (1 - 20 24-25 season) 2024 [...] age to complete this topic Care Teams Cash Posting Specialist Relationship Specialty Start Date End Date Prateek Leary MD [address] [place] [id number] PCP - General 08/21/20
[2025-01-23 01:06] VITALS: BP 127/75; PULSE 59; RESP 16; TEMP 36.8; O2SAT 90; BMI 31.4
[2025-01-23 01:11] VITALS: BP 127/75; PULSE 59; RESP 16; O2SAT 90
--- NOTE | 2025-01-23 01:31 | XR_ITS ---
PROCEDURE INFORMATION: Exam: XR Right Toe(s) Exam date and time: 01/23/2025 1:41 AM Age: 59 years old Clinical indication: Pain; Toes; Right; Additional info: 2nd toe stubbed lost nail TECHNIQUE: Imaging protocol: Radiologic exam of the right toes. Views: Minimum 2 views. COMPARISON: CT LOWER LEG RT W CON 01/14/2020 8:44 PM FINDINGS: Bones/joints: Normal. Soft tissues: Normal. IMPRESSION: No acute findings.
[2025-01-23] MEDS: BACITRACIN ZINC OINT 30GM TUBE TP (02:04)
--- NOTE | 2025-01-23 02:11 | HMH.EDGENADL ---
Discharge Plan Disposition Patient Disposition: Home, Self-Care Condition: Good Prescriptions Prescriptions: New levofloxacin 750 mg tablet 750 mg PO DAILY 4 Days Qty: 4 0RF No Action furosemide 40 mg tablet 40 mg PO .MWF Qty: 30 3RF aspirin 81 mg tablet,delayed release (DR/EC) 81 mg PO DAILY Qty: 90 0RF Rybelsus 3 mg tablet 3 mg PO DAILY Qty: 30 0RF gabapentin 400 mg capsule 400 mg PO TID Qty: 90 0RF (DME) blood-glucose meter [OneTouch Ultra2 Meter] Misc See Rx Instructions .Route Qty: 1 0RF Rx Instructions: As directed (DME) blood-glucose meter [OneTouch Ultra2 Meter] Misc See Rx Instructions .Route Qty: 1 0RF Rx Instructions: As directed insulin glargine U-300 conc [Toujeo Max U-300 SoloStar] 300 unit/mL (3 mL) insulin pen 180 unit SQ DAILY 30 Days Qty: 18 3RF (DME) pen needle, diabetic 31 gauge x 3/16 needle See Rx Instructions .ROUTE .MEDSUPPLY Qty: 100 2RF Rx Instructions: As directed (DME) FreeStyle Lite Strips Strip See Rx Instructions .Route Qty: 100 2RF Rx Instructions: As directed atorvastatin 40 mg Tablet 40 mg PO HS 30 Days Qty: 30 0RF irbesartan 75 mg Tablet 75 mg PO DAILY 30 Days Qty: 30 0RF metoprolol succinate 25 mg Tablet Extended Release 24 Hr 25 mg PO HS 30 Days Qty: 30 0RF prasugrel HCl 10 mg Tablet 10 mg PO DAILY 30 Days Qty: 30 0RF Jardiance 10 mg Tablet 10 mg PO DAILY 30 Days Qty: 30 0RF spironolactone 25 mg Tablet 25 mg PO DAILY 30 Days Qty: 30 0RF sildenafil [Viagra] 25 mg tablet 25 - 100 mg PO DAILYP PRN (Reason: sexual activity) 30 Days Qty: 0 0RF pantoprazole 40 mg tablet,delayed release (DR/EC) 40 mg PO HS Qty: 30 0RF Referrals Follow up/Referrals: Charles Sheffield MD [Primary Care Provider, Internal Medicine] - See instructions Saniya Green DPM [Staff Physician, Podiatry] - See instructions Referral Note: Follow-up for broken toe and nail avulsion and diabetic patient with severe neuropathy Activity Restrictions/Add. Instructions Additional Instructions/Restrictions: You were evaluated in the ER and are believed to be appropriate for discharge at this time. Keep the toe alina-taped as you were shown. Wash the wound in warm soapy water and apply the provided bacitracin ointment to the nailbed twice daily and then apply a clean dressing. Wear the hard soled shoe until you have been evaluated by podiatry. Start taking the antibiotics tomorrow, Monday the . Take all doses, do not stop taking them early. Call Dr. Green's office first thing this morning to make an appointment for reevaluation. Return to the ER with any new, worsening, or otherwise concerning symptoms. Clinical Impressions Clinical Impression: Closed fracture of phalanx of right second toe, Avulsion of nail Instructions Patient Instructions: DI for Laceration Repair Print Language Print Language: German Discharge ED Provider: Jae Busby General Adult HPI General Chief complaint: Wound/Laceration Stated complaint: R foot toe injury Time Seen by Provider: 01/23/25 01:30 Mode of Arrival: Ambulatory Source of Information: Patient Description of Symptoms (Recalled from ER Triage Doc. by RN): PT presents to the ED for evaluation of R second toe. PT stated 45 minutes prior to arrival he was in the shower and stubbed his toe, he wasnt aware it was bleeding and then noticed it was bleeding and his toenail ripped off. PT takes blood thinners and has a dx of DM. History of Present Illness HPI narrative: 59-year-old male with diabetes and neuropathy presents to the ER for evaluation of right second toe. Patient states approximately 45 minutes prior to arrival he stubbed the toe but did not know it. He states he noticed bleeding after getting out of the shower and his toenail was hanging off so he pulled it the rest of the way off. Patient takes blood thinners. He has no pain and states his foot is numb at baseline. He has no headache or dizziness, no chest pain or difficulty breathing. He has no other complaints or concerns at this time. He was simply worried about the bleeding. Related Data Previous Rx's ?Medication ?Instructions ?Recorded blood-glucose meter (OneTouch #1 ea 01/01/24 Ultra2 Meter) blood-glucose meter (OneTouch #1 ea 01/01/24 Ultra2 Meter) insulin glargine U-300 conc 300 180 unit (0.6 mL) SQ DAILY 30 days 10/14/24 unit/mL (3 mL) subcutaneous pen #18 mL (Toujeo Max U-300 SoloStar) pen needle, diabetic 31 gauge x #100 ea 10/31/2406/23 blood sugar diagnostic (FreeStyle #100 ea 01/07/25 Lite Strips) atorvastatin 40 mg tablet 40 mg PO HS 30 days #30 tabs 01/14/25 empagliflozin 10 mg tablet 10 mg PO DAILY 30 days #30 tabs 01/14/25 (Jardiance) irbesartan 75 mg tablet 75 mg PO DAILY 30 days #30 tabs 01/14/25 metoprolol succinate 25 mg 25 mg PO HS 30 days #30 tabs 01/14/25 tablet,extended release 24 hr pantoprazole 40 mg tablet,delayed 40 mg PO HS #30 tabs 01/14/25 release prasugrel HCl 10 mg tablet 10 mg PO DAILY 30 days #30 tabs 01/14/25 sildenafil 25 mg tablet (Viagra) 25 - 100 mg (1 - 4 x 25 mg) PO 01/14/25 DAILYP PRN sexual activity 30 days #0 tabs spironolactone 25 mg tablet 25 mg PO DAILY 30 days #30 tabs 01/14/25 furosemide 40 mg tablet 40 mg PO .MWF #30 tabs 01/21/25 aspirin 81 mg tablet,delayed 81 mg PO DAILY #90 tabs 01/22/25 release gabapentin 400 mg capsule 400 mg PO TID neuropathy #90 caps 01/22/25 semaglutide 3 mg tablet (Rybelsus) 3 mg PO DAILY #30 tabs 01/22/25 levofloxacin 750 mg tablet 750 mg PO DAILY 4 days #4 tabs 01/23/25 Allergies Allergy/AdvReac Type Severity Reaction Status Date / Time acetaminophen (From Allergy Intermediate Unknown Verified 01/22/25 13:59 Tylenol-Codeine #3) allergy reaction codeine (From Allergy Intermediate Unknown Verified 01/22/25 13:59 Tylenol-Codeine #3) allergy reaction morphine (MORPHINE) Allergy Unknown I-HIVES Verified 01/22/25 13:59 metformin AdvReac Diarrhea Verified 01/22/25 13:59 [facility] Disclaimer: The information contained in this section may have been updated after the patient was seen, as this information can be updated by other users. Medical History Acute non-ST elevation myocardial infarction (NSTEMI) Type I Puncture wound of elbow, right Cellulitis of arm, right BPH (benign prostatic hyperplasia) Diabetes mellitus, type 2 COPD (chronic obstructive pulmonary disease) Patient is still smoking. I think pulmonary function test would be in order in this patient. Will discuss this when he returns. History of heart attack Hypertension Neuropathy Diabetes Tobacco use Hx of myocardial infarction Surgical History History of cholecystectomy Family History Other Unknown family medical history Social History Smoking Status: Current every day smoker tobacco type: cigarettes packs per day: 2 second hand exposure: Yes alcohol intake: never substance use type: methamphetamine current occupational status: unemployed Travel in the last 8 weeks?: None household members: family housing: house number of children: 1 caffeine: Yes Have you lived/traveled outside [place] in past 30 days?: No Contact w/someone who lives/traveled outside US past 30 days?: No Exposure to someone with infectious disease in past 14 days?: No Do you have a fever (greater than 100.4 F or 38 C)?: No Have you tested positive for COVID-19?: No Exposed to someone with COVID-19 in past 14 days?: No Do you have a sore throat?: No Do you have a cough?: No Do you have any weakness?: No Do you have any diarrhea?: No Are you experiencing any unusual bleeding?: No Do you have any muscle aches/pain?: No Do you have any abdominal pain?: No Are you experiencing loss of taste or smell?: No Other Medical History Have you received the Flu Vaccine for this season: No Have you received the Pneumonia Vaccine: No ROS Obtained: Yes Systems reviewed as appropriate & no additional complaints except as documented per HPI Physical Exam General General appearance: alert and in no apparent distress Head Head exam: atraumatic and normocephalic Eye Eye exam: Present PERRL and EOMI ENT ENT exam: Present mucous membranes moist Neck Neck exam: Present normal inspection and full ROM Chest Chest inspection: Present symmetric chest wall rise Respiratory Respiratory exam: Absent respiratory distress or stridor Cardiovascular Cardiovascular exam: Present regular rate and normal rhythm Extremities Exam Extremities exam: Present full ROM Expanded Lower Extremity Exam Right: Foot/toe exam: Present other (Complete avulsion of the right second toe nail with no nailbed laceration appreciated. Diffuse swelling of the right second toe present, no sensation in the toe at baseline, brisk capillary refill) Neurological Exam Neurological exam: Present alert and oriented X3; Absent motor sensory deficit Psychiatric Psychiatric exam: Present normal affect and normal mood Skin Skin exam: Present warm and dry Medical Decision Making Medical Records Medical records reviewed: Yes I reviewed the patient's medical records. Screening: Per USPSTF and CDC recommendations, given the prevalence of disease in our region, it is our hospital?s policy to screen for HIV and viral Hepatitis for all patients aged 18 and over and those with ongoing risk factors. [place] Inquiry Pt receiving controlled substance: No Vital Signs: 01/23/25 01:06 01/23/25 01:11 Temperature 98.3 F Temperature Source Oral Pulse Rate 59 L Pulse Rate [Right] 59 L Respiratory Rate 16 16 Blood Pressure 127/75 Blood Pressure [Right Arm] 127/75 Blood Pressure Mean [Right Arm] 92 02 Sat by Pulse Oximetry 90 L 90 L Oxygen Delivery Method Room Air Room Air Orders (Tests/Meds): ED MEDICATIONS Discontinued Medications Generic Name Dose Route Start Last Admin Trade Name Freq PRN Reason Stop Dose Admin Bacitracin 1 gm 01/23/25 01:41 01/23/25 02:04 Bacitracin Zinc Oint 30gm Tube TP 01/23/25 01:42 1 gm ONCE ONE Administration Levofloxacin 750 mg 01/23/25 01:45 01/23/25 02:04 Levofloxacin 750 Mg Tablet PO 01/23/25 01:46 750 mg ONCE ONE Administration ORDERS Category Date Time Status Toe XR right minimum 2 views [XR toe RT min 2V] Stat Exams 01/23/25 01:31 Completed Medical Decision Narrative: In summary, this 59-year-old male with comorbidities described in the HPI presents to the emergency department today with concerns of injury to the right great toe when getting out of the shower that led to him pulling his nail off. On initial evaluation patient is hemodynamically stable, afebrile, patient has numbness throughout both feet which he states is at baseline due to his diabetic neuropathy. Exam notable for complete avulsion and absence of the right second toe nail. There is no nailbed laceration appreciated on thorough exam. There is diffuse swelling of the second right toe but patient reports no pain in the toe stating it is completely numb which it always is. Differential diagnosis includes but is not limited to fracture, dislocation, nail avulsion, I did consider the possibility of nailbed laceration but appreciate none of this on exam. Wound is hemostatic at this time. It was cleaned thoroughly with saline and Hibiclens. Patient reports Tdap booster a few weeks ago so no new booster is required at this time. X-ray of the right toes was performed and personally interpreted. On my personal interpretation I appreciate nondisplaced fracture of the middle phalanx of the right second toe. Radiology read states there is no acute abnormality however I cannot appreciate obvious fracture and am going to treat it as such. This is only visible in 1 view but there is obvious cortical disruption at the lateral aspect of the middle phalanx. This is consistent with the amount of swelling present in the toe as well. Wound was cleaned, bacitracin applied, dressing applied and toe was alina taped to the third toe. See procedure note for details. Patient was also placed in a hard soled shoe mainly for further protection of the toe since he has such severe diabetic neuropathy he cannot feel his feet and I want to limit the risk of additional injury. Patient was given an oral dose of Levaquin for antibiotic prophylaxis since he has history of poorly controlled diabetes. I provided the patient with referral to Dr. Green's office for podiatry follow-up. Patient was given instructions on wound care, management, antibiotic use, alina taping, follow-up, and return precautions for the ER. He indicated understanding and the patient was discharged in stable condition. Procedures Orthopedic Splinting/Casting Injury #1: Side: right Lower Extremity Injury Location: toe (Second toe) Lower Extremity Immobilizer: alina tape (And hard soled shoe) Post Cast/Splinting Neuro Status: no change Post Cast/Splinting Vasc Status: intact and no change Critical Care Critical Care Time Critical Care Time: No
--- NOTE | 2025-01-23 02:14 | PC.NURSE ---
pt right 2nd toe taped to right 3rd toe, bacitracin applied, wrapped with non adherant gauze and curlex
[2025-01-23 02:15] VITALS: BP 124/77; PULSE 91; RESP 16; TEMP 37; O2SAT 97
== END 2025-01-23 02:17 | disposition home or self-care (01) ==
PROVIDERS: Emergency Provider Emergency Medicine; PCP Family Medicine
DX: S92.501A Displaced unspecified fracture of right lesser toe(s), initial encounter for closed fracture (principal); S91.204A Unspecified open wound of right lesser toe(s) with damage to nail, initial encounter; W22.8XXA Striking against or struck by other objects, initial encounter
CPT/HCPCS: 73660; 99282; 99283

== ENCOUNTER → 2025-01-28 13:07 | Outpatient (RCR) | payer MEDICARE, SELFPAY | LOC: CR 13:07 | PROVIDERS: Visit Provider Internal Medicine | DX: I10 Essential (primary) hypertension (principal) | CPT/HCPCS: 93798 ==

== ENCOUNTER 2025-02-11 09:41 | Outpatient (CLI) | payer MEDICARE, SELFPAY ==
--- OUTSIDE RECORDS SUMMARY | 2025-02-11 09:49 | XMS_ITS | Clinical Summary ---
Author Organization Healthcare Address [address] [place] [address] Care Team Providers Care Lining Folder Name Role Phone Prateek Leary MD Primary Care Provider [phone] Family History Medical History Relation Name Comments [...] 2014 UKY-Zoster Vaccines (1 of 2) 2014 [id number] Vaccine (1 - 20 24-25 season) 2024 [...] age to complete this topic Care Teams Lining Folder Relationship Specialty Start Date End Date Prateek Leary MD [address] [place] [id number] PCP - General 08/21/20
[2025-02-12 13:17] LABS: Testosterone,Total 139 ng/dL (264-916)
== END 2025-02-11 23:59 | disposition home or self-care (01) ==
PROVIDERS: PCP Family Medicine; Visit Provider Family Medicine
DX: N52.9 Male erectile dysfunction, unspecified (principal); R79.89 Other specified abnormal findings of blood chemistry
CPT/HCPCS: 36415; 84402; 84403

== ENCOUNTER 2025-02-24 14:02 | Outpatient (CLI) | payer MEDICARE, SELFPAY | END 2025-02-24 23:59 | disposition home or self-care (01) | PROVIDERS: PCP Family Medicine; Visit Provider Urology | DX: N40.1 Benign prostatic hyperplasia with lower urinary tract symptoms (principal); N52.9 Male erectile dysfunction, unspecified; E29.1 Testicular hypofunction; R79.89 Other specified abnormal findings of blood chemistry ==